=== PATIENT | male | born 1955 | race Caucasian/White ===

== ENCOUNTER → 2020-08-01 10:44 | Outpatient (BNVA) | payer MEDICARE, MEDICAID, SELFPAY | PROVIDERS: PCP Internal Medicine; Referring Provider Internal Medicine; Visit Provider Physician Assistant | DX: M65.351 Trigger finger, right little finger (principal) | CPT/HCPCS: 20550; 99212; J1020 ==

== ENCOUNTER 2020-08-11 11:23 | Outpatient (REF) | payer MEDICARE, MEDICAID, SELFPAY ==
--- NOTE | 2020-08-11 11:24 | XR_ITS ---
EXAMINATION: KNEE X-RAY CLINICAL INFORMATION: Left knee pain COMPARISON: None TECHNIQUE: AP standing view of both knees and lateral and sunrise view of the left knee FINDINGS: Left: Bone alignment is normal. No fracture or dislocation is seen. The joint spaces are normal. There is no joint effusion. There is evidence of atherosclerotic disease. Standing AP view of the right knee is unremarkable. XR/XR knee standing BI IMPRESSION: Left knee: Atherosclerotic disease otherwise unremarkable exam. Unremarkable standing AP view of the right knee.
--- NOTE | 2020-08-11 11:24 | XR_ITS ---
EXAMINATION: KNEE X-RAY CLINICAL INFORMATION: Left knee pain COMPARISON: None TECHNIQUE: AP standing view of both knees and lateral and sunrise view of the left knee FINDINGS: Left: Bone alignment is normal. No fracture or dislocation is seen. The joint spaces are normal. There is no joint effusion. There is evidence of atherosclerotic disease. Standing AP view of the right knee is unremarkable. XR/XR knee LT 2V IMPRESSION: Left knee: Atherosclerotic disease otherwise unremarkable exam. Unremarkable standing AP view of the right knee.
== END 2020-08-11 11:24 | disposition home or self-care (01) ==
LOC: HO.HOSX 11:23
PROVIDERS: Visit Provider Physician Assistant
DX: M25.562 Pain in left knee (principal); M22.2X2 Patellofemoral disorders, left knee
CPT/HCPCS: 73560; 73565; 99212

== ENCOUNTER → 2020-10-29 10:15 | Outpatient (BNVA) | payer MEDICARE, MEDICAID, SELFPAY | PROVIDERS: PCP Internal Medicine; Visit Provider Physician Assistant | DX: M65.321 Trigger finger, right index finger (principal) | CPT/HCPCS: 20550; 99212; J1020 ==

== ENCOUNTER 2020-12-11 12:40 | Outpatient (REF) | payer MEDICARE, MEDICAID, SELFPAY ==
--- NOTE | ~2020-12-11 | XR_ITS ---
EXAMINATION: XR KNEE, RIGHT XR LOWER LEG, RIGHT CLINICAL INFORMATION: Pain right knee and lower leg. COMPARISON: None TECHNIQUE: Right knee is imaged in 4 views. The right lower leg is imaged in 2 views. There are a total of 6 views. FINDINGS: KNEE: There is no fracture, dislocation, or destructive process. No suprapatellar effusion. Hoffa's fat pad appears normal. There is mild narrowing lateral patellofemoral joint likely with borderline lateral patellar tilting. No lateralization patella. No visible erosive changes. The medial and lateral knee joint compartments are unremarkable. There is no erosive change or chondrocalcinosis. Scattered atherosclerotic calcifications present vasculature. LOWER LEG: There is no fracture, dislocation or destructive process. No periostitis. Visualized ankle joint unremarkable. XR/XR tibia fibula RT 2V IMPRESSION: 1. Mild narrowing lateral patellofemoral joint with borderline lateral patellar tilt. 2. No fracture, dislocation, or suprapatellar effusion. 3. Lower leg unremarkable. 4. Atherosclerotic calcifications vasculature.
--- NOTE | ~2020-12-11 | XR_ITS ---
EXAMINATION: XR KNEE, RIGHT XR LOWER LEG, RIGHT CLINICAL INFORMATION: Pain right knee and lower leg. COMPARISON: None TECHNIQUE: Right knee is imaged in 4 views. The right lower leg is imaged in 2 views. There are a total of 6 views. FINDINGS: KNEE: There is no fracture, dislocation, or destructive process. No suprapatellar effusion. Hoffa's fat pad appears normal. There is mild narrowing lateral patellofemoral joint likely with borderline lateral patellar tilting. No lateralization patella. No visible erosive changes. The medial and lateral knee joint compartments are unremarkable. There is no erosive change or chondrocalcinosis. Scattered atherosclerotic calcifications present vasculature. LOWER LEG: There is no fracture, dislocation or destructive process. No periostitis. Visualized ankle joint unremarkable. XR/XR knee RT 3V IMPRESSION: 1. Mild narrowing lateral patellofemoral joint with borderline lateral patellar tilt. 2. No fracture, dislocation, or suprapatellar effusion. 3. Lower leg unremarkable. 4. Atherosclerotic calcifications vasculature.
== END 2020-12-11 12:41 | disposition home or self-care (01) ==
LOC: HO.XRAY 12:40
PROVIDERS: PCP Internal Medicine; Visit Provider Internal Medicine
DX: M25.561 Pain in right knee (principal); M79.604 Pain in right leg
CPT/HCPCS: 73562; 73590

== ENCOUNTER → 2020-12-25 10:56 | Outpatient (BNVA) | payer MEDICARE, MEDICAID, SELFPAY | PROVIDERS: PCP Internal Medicine; Visit Provider Urology | DX: N39.0 Urinary tract infection, site not specified (principal); C67.9 Malignant neoplasm of bladder, unspecified | CPT/HCPCS: 52332; 99212 ==

== ENCOUNTER → 2020-12-26 10:16 | Outpatient (BNVA) | payer MEDICARE, MEDICAID, SELFPAY | PROVIDERS: PCP Internal Medicine; Visit Provider Physician Assistant | DX: G56.02 Carpal tunnel syndrome, left upper limb (principal); M17.11 Unilateral primary osteoarthritis, right knee | CPT/HCPCS: 99212 ==

== ENCOUNTER 2021-01-23 10:57 | Outpatient (REF) | payer MEDICARE, MEDICAID, SELFPAY ==
[2021-01-23 16:50] LABS: Urine Cytology See Pathology rpt
== END 2021-01-23 10:58 | disposition home or self-care (01) ==
LOC: HO.LNP 10:57
PROVIDERS: PCP Internal Medicine; Visit Provider Urology
DX: C67.9 Malignant neoplasm of bladder, unspecified (principal); N40.1 Benign prostatic hyperplasia with lower urinary tract symptoms; R35.0 Frequency of micturition
CPT/HCPCS: 52000; 81002; 88112; 99212

== ENCOUNTER 2021-02-11 09:48 | Outpatient (REF) | payer MEDICARE, MEDICAID, SELFPAY ==
--- NOTE | 2021-02-11 09:51 | EMG_ITS ---
This is a 65-year-old man, who has trigger fingers in both hands, for which he gets cortisone injections. For the last 3 months, he has been having numbness in the left hand. He has a history of diabetes for the last 5 years. Poorly controlled. He is on Ozempic, basaglar, metformin, and NovoLog. Neurological examination reveals decreased sensation in the median nerve distribution and slight flattening of the thenar eminence. IMPRESSION: Carpal tunnel syndrome. Nerve conduction EMG study: Moderately severe carpal tunnel syndrome on the left, mild carpal tunnel syndrome on the right. EMG of the left C6-T1 innervated muscles is consistent with chronic mild innervated changes in the abductor pollicis brevis muscle consistent with chronic carpal tunnel syndrome. MD MARCIN Girard/AURE / [phone]
== END 2021-02-11 09:49 | disposition home or self-care (01) ==
LOC: HO.NEURO 09:48
PROVIDERS: Visit Provider Physician Assistant
DX: R20.0 Anesthesia of skin (principal); R20.2 Paresthesia of skin; G56.02 Carpal tunnel syndrome, left upper limb
CPT/HCPCS: 95885; 95911

== ENCOUNTER 2021-02-19 10:05 | Outpatient (REF) | payer MEDICARE, MEDICAID, SELFPAY ==
[2021-02-19 10:44] LABS: MANUAL DIFF FLAG NO
[2021-02-19 10:55] LABS: Basophils Percent Auto 0.5 % (0-2); Eosinophils Absolute Auto 0.2 X10*3/uL (0.0-0.4); Eosinophils Percent Auto 2.6 % (0-4); Hematocrit 47.1 % (42-52); Hemoglobin 15.5 g/dl (14.0-18.0); Imm Gran Abs Auto 0.03 X10*3/uL (0.00-0.03); Imm Gran Pct Auto 0.4 % (0.0-0.4); Lymphocytes Absolute Auto 2.6 X10*3/uL (1.2-4.9); Lymphocytes Percent Auto 30.3 % (20-40); Mean Corpuscular HGB Conc 32.9 g/dl (31.0-36.0); Mean Corpuscular Hemoglobin 27.5 pg (27.0-33.0); Mean Corpuscular Volume 83.5 fL (80-98); Mean Platelet Volume 8.9 fL (9.4-12.4); Monocytes Absolute Auto 0.6 X10*3/uL (0.1-1.2); Monocytes Percent Auto 7.1 % (2-11); Neutrophils Absolute Auto 5.1 X10*3/uL (2.0-8.3); Neutrophils Percent Auto 59.1 % (45-73); Platelet Count 249 X10*3/uL (160-400); Red Blood Count 5.64 X10*6/uL (4.60-5.80); Red Cell Distribution Width 14.9 % (11.0-16.0); White Blood Count 8.6 X10*3/uL (4.8-10.8)
[2021-02-19 11:06] LABS: Estimated Average Glucose 180 mg/dL; Hemoglobin A1c % 7.9 %
[2021-02-19 11:16] LABS: Alanine Aminotransferase 29 U/L (0-40); Albumin Level 4.2 g/dL (3.5-5.0); Alkaline Phosphatase 70 U/L (39-117); Anion Gap 11 (12-20); Aspartate Amino Transferase 16 U/L (5-37); Bilirubin Total 0.6 mg/dL (0.0-1.0); Blood Urea Nitrogen 14 mg/dL (9-16); Calcium 9.7 mg/dL (8.4-10.2); Carbon Dioxide 28 mmol/L (22-29); Chloride 107 mmol/L (96-108); Cholesterol 133 mg/dL; Estimated Glomerular Filt Rate > 60; Glucose Fasting 156 mg/dL (60-99); HDL Cholesterol 32 mg/dL; LDL Cholesterol Calculated 58 mg/dl; Potassium 4.2 mmol/L (3.3-5.1); Sodium 142 mmol/L (135-145); Total Protein 6.4 g/dL (6.5-8.0); Triglycerides 217 mg/dL
[2021-02-19 11:24] LABS: Glucose Urine UA NEG (NEG); Leukocyte Esterase Urine NEG (NEG); Nitrite Urine NEG (NEG); Specific Gravity - Urine 1.025 (1.005-1.025); Urine Blood TRACE (NEG); Urine Ketones NEG (NEG); Urine Protein 2+ MG/DL (NEG-TRACE)
[2021-02-19 11:30] LABS: Appearance Urine CLEAR; Color Urine YELLOW
[2021-02-19 11:39] LABS: TSH reflex Free T4 0.96 uIU/mL (0.32-4.0)
[2021-02-19 12:33] LABS: Erythrocyte Sedimentation Rate 2 MM/HR (0-15)
[2021-02-19 12:36] LABS: Squamous Epithelial Cell Urine 2+ /LPF; UACC CULT YES
[2021-02-19 12:37] LABS: Granular Casts Urine 0-2 /LPF; Hyaline Casts Urine 0-2 /LPF
[2021-02-19 12:41] LABS: Sperm Urine NOTED
[2021-02-19 12:57] LABS: Microalbum/Creatinine Ratio Ur 834.8 ug/mg cr
== END 2021-02-19 10:06 | disposition home or self-care (01) ==
LOC: HO.LAB 10:05
PROVIDERS: PCP Internal Medicine; Visit Provider Internal Medicine
DX: I10 Essential (primary) hypertension (principal); J44.9 Chronic obstructive pulmonary disease, unspecified; E78.00 Pure hypercholesterolemia, unspecified; E11.29 Type 2 diabetes mellitus with other diabetic kidney complication; R79.89 Other specified abnormal findings of blood chemistry; M16.0 Bilateral primary osteoarthritis of hip; E78.5 Hyperlipidemia, unspecified; E66.9 Obesity, unspecified; F17.200 Nicotine dependence, unspecified, uncomplicated
CPT/HCPCS: 36415; 80053; 80061; 81001; 82043; 83036; 84443; 85025; 85652; 87086

== ENCOUNTER → 2021-04-15 14:53 | Outpatient (BNVA) | payer MEDICARE, MEDICAID, SELFPAY | PROVIDERS: Visit Provider Orthopaedic Surgery | DX: G56.03 Carpal tunnel syndrome, bilateral upper limbs (principal) | CPT/HCPCS: 99202 ==

== ENCOUNTER → 2021-04-23 10:14 | Outpatient (BNVA) | payer MEDICARE, MEDICAID, SELFPAY | PROVIDERS: Visit Provider Physician Assistant | DX: M17.11 Unilateral primary osteoarthritis, right knee (principal) | CPT/HCPCS: 99212 ==

== ENCOUNTER → 2021-04-29 12:25 | Outpatient (BNVA) | payer MEDICARE, MEDICAID, SELFPAY | PROVIDERS: Visit Provider Physician Assistant | DX: M17.11 Unilateral primary osteoarthritis, right knee (principal); E11.29 Type 2 diabetes mellitus with other diabetic kidney complication | CPT/HCPCS: 20610; 99212; J1020 ==

== ENCOUNTER → 2021-06-09 11:03 | Outpatient (BNVA) | payer MEDICARE, MEDICAID, SELFPAY | PROVIDERS: PCP Internal Medicine; Visit Provider Nurse Practitioner Family | DX: M17.11 Unilateral primary osteoarthritis, right knee (principal) | CPT/HCPCS: 99202 ==

== ENCOUNTER 2021-06-26 10:44 | Outpatient (REF) | payer MEDICARE, MEDICAID, SELFPAY ==
[2021-06-26 11:13] LABS: MANUAL DIFF FLAG NO
[2021-06-26 12:03] LABS: Basophils Absolute Auto 0.1 X10*3/uL (0.0-0.2); Basophils Percent Auto 0.6 % (0-2); Eosinophils Absolute Auto 0.2 X10*3/uL (0.0-0.4); Hematocrit 47.7 % (42-52); Hemoglobin 15.8 g/dl (14.0-18.0); Imm Gran Abs Auto 0.03 X10*3/uL (0.00-0.03); Imm Gran Pct Auto 0.4 % (0.0-0.4); Lymphocytes Percent Auto 24.1 % (20-40); Mean Corpuscular HGB Conc 33.1 g/dl (31.0-36.0); Mean Corpuscular Hemoglobin 28.1 pg (27.0-33.0); Mean Corpuscular Volume 84.7 fL (80-98); Mean Platelet Volume 8.7 fL (9.4-12.4); Monocytes Absolute Auto 0.6 X10*3/uL (0.1-1.2); Monocytes Percent Auto 7.4 % (2-11); Neutrophils Absolute Auto 5.5 X10*3/uL (2.0-8.3); Neutrophils Percent Auto 65.5 % (45-73); Platelet Count 284 X10*3/uL (160-400); Red Blood Count 5.63 X10*6/uL (4.60-5.80); Red Cell Distribution Width 15.3 % (11.0-16.0); White Blood Count 8.4 X10*3/uL (4.8-10.8)
[2021-06-26 12:12] LABS: Appearance Urine HAZY; Color Urine YELLOW; Glucose Urine UA NEG (NEG); Leukocyte Esterase Urine NEG (NEG); Nitrite Urine NEG (NEG); Specific Gravity - Urine >= 1.030 (1.005-1.025); UACC Culture Trigger NO; Urine Blood 1+ (NEG); Urine Ketones NEG (NEG); Urine Protein 2+ MG/DL (NEG-TRACE)
[2021-06-26 12:20] LABS: Estimated Average Glucose 157 mg/dL; Hemoglobin A1c % 7.1 %
[2021-06-26 12:25] LABS: Mucus Urine 2+ /LPF; Squamous Epithelial Cell Urine 1+ /LPF; WBC Urine 0 /HPF (0-4)
[2021-06-26 13:34] LABS: Creatinine Urine 234.59 mg/dL
[2021-06-26 14:07] LABS: Microalbum/Creatinine Ratio Ur 948.4 ug/mg cr
== END 2021-06-26 10:45 | disposition home or self-care (01) ==
LOC: HO.LAB 10:44
PROVIDERS: PCP Internal Medicine; Visit Provider Internal Medicine
DX: I10 Essential (primary) hypertension (principal); E78.00 Pure hypercholesterolemia, unspecified; E78.5 Hyperlipidemia, unspecified; E11.29 Type 2 diabetes mellitus with other diabetic kidney complication; R80.9 Proteinuria, unspecified; N40.1 Benign prostatic hyperplasia with lower urinary tract symptoms; R35.0 Frequency of micturition
CPT/HCPCS: 36415; 81001; 82043; 83036; 85025

== ENCOUNTER 2021-06-29 11:16 | Outpatient (REF) | payer MEDICARE, MEDICAID, SELFPAY ==
[2021-06-29 12:32] LABS: Cholesterol 112 mg/dL; HDL Cholesterol 32 mg/dL; LDL Cholesterol Calculated 52 mg/dl; Triglycerides 141 mg/dL
== END 2021-06-29 11:17 | disposition home or self-care (01) ==
LOC: HO.LAB 11:16
PROVIDERS: PCP Internal Medicine; Visit Provider Internal Medicine
DX: E78.00 Pure hypercholesterolemia, unspecified (principal)
CPT/HCPCS: 36415; 80061

== ENCOUNTER → 2021-07-08 09:26 | Outpatient (BNVA) | payer MEDICARE, MEDICAID, SELFPAY | PROVIDERS: PCP Internal Medicine; Visit Provider Physician Assistant | DX: M65.30 Trigger finger, unspecified finger (principal); M17.11 Unilateral primary osteoarthritis, right knee | CPT/HCPCS: 20550; J1100; Q3014 ==

== ENCOUNTER 2021-07-21 05:53 | Outpatient (REF) | payer MEDICARE, MEDICAID, SELFPAY ==
--- NOTE | ~2021-07-21 | FL_ITS ---
EXAMINATION: XR FLUOROSCOPY WITH IMAGES CLINICAL INFORMATION: M17.11 - Unilateral primary osteoarthritis, right knee COMPARISON: Radiographs right knee 12/11/2020 TECHNIQUE: Fluoroscopy performed by pain management physician. Fluoroscopy time: 0.1 minutes DAP: 1.16 Gycm2 Images: 2 FINDINGS: There are spinal needles adjacent to the distal femoral shaft, medial and lateral sides, mid depth. There is a spinal needle adjacent to the proximal tibia on medial side mid depth. FL/FL guidance in treatment room IMPRESSION: Fluoroscopy for pain management procedures.
== END 2021-07-21 05:54 | disposition home or self-care (01) ==
LOC: HO.RADIR 05:53
PROVIDERS: Visit Provider Anesthesiology
DX: M17.11 Unilateral primary osteoarthritis, right knee (principal)
CPT/HCPCS: 64454; Q9967

== ENCOUNTER → 2021-07-28 09:50 | Outpatient (BNVA) | payer MEDICARE, MEDICAID, SELFPAY | PROVIDERS: PCP Internal Medicine; Visit Provider Nurse Practitioner Family | DX: M17.11 Unilateral primary osteoarthritis, right knee (principal) | CPT/HCPCS: 99212 ==

== ENCOUNTER 2021-07-31 09:27 | Outpatient (REF) | payer MEDICARE, MEDICAID, SELFPAY ==
--- NOTE | ~2021-07-31 | MR_ITS ---
EXAMINATION: MR KNEE WITHOUT CONTRAST, RIGHT CLINICAL INFORMATION: Right knee pain. Fracture 30 years ago. COMPARISON: Right knee radiographs dated 12/11/2020. TECHNIQUE: MRI of the knee without contrast was performed using routine sequences on a high-field scanner. FINDINGS: MENISCI: Medial Meniscus: Oblique tibial articular surface tear through the periphery of the meniscal body which extends to the tibial articular surface and peripheral margin of the posterior horn and root. Lateral Meniscus: Intact LIGAMENTS: Cruciate: Intact. Collateral: Intact. EXTENSOR MECHANISM: Intact. ARTICULAR CARTILAGE/BONE: Patellofemoral Compartment: Medial patellar facet and patellar median ridge full-thickness articular cartilage fissuring with signal heterogeneity and surface irregularity. Tiny marginal osteophytes. Medial Compartment: Within the posterior weightbearing medial femoral condyle, there is subchondral linear low T1/T2 signal with prominent marrow edema measuring 1.7 x 0.9 cm (AP x ML), consistent with a subchondral insufficiency fracture. Prominent marrow edema within the medial tibial plateau, likely representing an osseous contusion. Lateral Compartment: Lateral tibial plateau articular cartilage signal heterogeneity and surface irregularity. Tiny marginal osteophytes. Prominent marrow edema within the lateral femoral condyle, consistent with osseous contusions. JOINT FLUID AND BURSAE: Small joint effusion and small Leyva's cyst. MR/MR knee RT wo con IMPRESSION: 1. Oblique tibial articular surface tear of the medial meniscal body extending to the posterior horn and root. 2. Subchondral fracture within the posterior weightbearing medial femoral condyle with prominent associated marrow edema. Probable osseous contusions within the medial tibial plateau and lateral femoral condyle. 3. Mild patellofemoral and lateral compartment osteoarthritis. Small joint effusion and small Leyva's cyst.
== END 2021-07-31 09:28 | disposition home or self-care (01) ==
LOC: HO.MRI 09:27
PROVIDERS: Visit Provider Physician Assistant
DX: M17.11 Unilateral primary osteoarthritis, right knee (principal)
CPT/HCPCS: 73721

== ENCOUNTER → 2021-08-06 13:08 | Outpatient (BNVA) | payer MEDICARE, MEDICAID, SELFPAY | PROVIDERS: Visit Provider Physician Assistant | DX: M17.11 Unilateral primary osteoarthritis, right knee (principal); M16.0 Bilateral primary osteoarthritis of hip; I73.9 Peripheral vascular disease, unspecified; E11.29 Type 2 diabetes mellitus with other diabetic kidney complication; I10 Essential (primary) hypertension; E78.00 Pure hypercholesterolemia, unspecified; E66.9 Obesity, unspecified; F17.210 Nicotine dependence, cigarettes, uncomplicated; Z68.33 Body mass index [BMI] 33.0-33.9, adult; J30.1 Allergic rhinitis due to pollen; Z88.8 Allergy status to other drugs, medicaments and biological substances | CPT/HCPCS: 20610; 99212; J1020 ==

== ENCOUNTER → 2021-09-14 15:00 | Outpatient (BNVA) | payer MEDICARE, MEDICAID, SELFPAY | PROVIDERS: PCP Internal Medicine; Visit Provider Physician Assistant | DX: S83.241A Other tear of medial meniscus, current injury, right knee, initial encounter (principal); M17.11 Unilateral primary osteoarthritis, right knee | CPT/HCPCS: 20610; J7318 ==

== ENCOUNTER 2021-10-24 10:45 | Outpatient (REF) | payer MEDICARE, MEDICAID, SELFPAY ==
[2021-10-24 11:08] LABS: MANUAL DIFF FLAG NO
[2021-10-24 11:54] LABS: Appearance Urine CLEAR; Color Urine YELLOW; Glucose Urine UA NEG (NEG); Leukocyte Esterase Urine NEG (NEG); Nitrite Urine NEG (NEG); Specific Gravity - Urine >= 1.030 (1.005-1.025); UACC Culture Trigger NO; Urine Blood 1+ (NEG); Urine Ketones NEG (NEG); Urine Protein 2+ MG/DL (NEG-TRACE)
[2021-10-24 11:56] LABS: Basophils Absolute Auto 0.1 X10*3/uL (0.0-0.2); Basophils Percent Auto 0.9 % (0-2); Eosinophils Absolute Auto 0.2 X10*3/uL (0.0-0.4); Eosinophils Percent Auto 2.4 % (0-4); Hemoglobin 15.9 g/dl (14.0-18.0); Imm Gran Abs Auto 0.03 X10*3/uL (0.00-0.03); Imm Gran Pct Auto 0.4 % (0.0-0.4); Lymphocytes Absolute Auto 2.4 X10*3/uL (1.2-4.9); Lymphocytes Percent Auto 31.7 % (20-40); Mean Corpuscular HGB Conc 32.4 g/dl (31.0-36.0); Mean Corpuscular Hemoglobin 27.3 pg (27.0-33.0); Mean Corpuscular Volume 84.2 fL (80.0-98.0); Mean Platelet Volume 8.9 fL (9.4-12.4); Monocytes Absolute Auto 0.5 X10*3/uL (0.1-1.2); Monocytes Percent Auto 6.6 % (2-11); Neutrophils Absolute Auto 4.3 x10*3/uL (2.0-8.3); Platelet Count 265 X10*3/uL (160-400); Red Blood Count 5.82 X10*6/uL (4.60-5.80); Red Cell Distribution Width 16.1 % (11.0-16.0); White Blood Count 7.5 X10*3/uL (4.8-10.8)
[2021-10-24 11:59] LABS: Estimated Average Glucose 140 mg/dL; Hemoglobin A1c % 6.5 %
[2021-10-24 12:01] LABS: Estimated Average Glucose 140 mg/dL; Hemoglobin A1c % 6.5 %
[2021-10-24 12:17] LABS: Alanine Aminotransferase 12 U/L (0-40); Albumin Level 4.1 g/dL (3.5-5.0); Alkaline Phosphatase 57 U/L (39-117); Anion Gap 11 (12-20); Aspartate Amino Transferase 12 U/L (5-37); Bilirubin Total 0.8 mg/dL (0.0-1.0); Blood Urea Nitrogen 13 mg/dL (9-16); Calcium 9.4 mg/dL (8.4-10.2); Carbon Dioxide 25 mmol/L (22-29); Chloride 111 mmol/L (96-108); Cholesterol 126 mg/dL; Estimated Glomerular Filt Rate > 60; Glucose Fasting 120 mg/dL (60-99); HDL Cholesterol 34 mg/dL; LDL Cholesterol Calculated 73 mg/dl; Potassium 4.5 mmol/L (3.3-5.1); Sodium 142 mmol/L (135-145); Total Protein 6.4 g/dL (6.5-8.0); Triglycerides 97 mg/dL
[2021-10-24 12:18] LABS: Alanine Aminotransferase 13 U/L (0-40); Aspartate Amino Transferase 14 U/L (5-37)
[2021-10-24 12:32] LABS: Squamous Epithelial Cell Urine TRACE /LPF; WBC Urine 0-2 /HPF (0-4)
[2021-10-24 12:42] LABS: TSH reflex Free T4 1.26 uIU/mL (0.32-4.0); Vitamin D 25-OH Total 17.8 ng/mL (>30)
[2021-10-24 12:48] LABS: Creatinine Urine 203.99 mg/dL; Microalbum/Creatinine Ratio Ur 912.7 ug/mg cr
== END 2021-10-24 10:46 | disposition home or self-care (01) ==
LOC: HO.LAB 10:45
PROVIDERS: Absent Provider Internal Medicine; PCP Internal Medicine; Visit Provider Physician Assistant
DX: E11.21 Type 2 diabetes mellitus with diabetic nephropathy (principal); I10 Essential (primary) hypertension; E78.00 Pure hypercholesterolemia, unspecified; E55.9 Vitamin D deficiency, unspecified
CPT/HCPCS: 36415; 80053; 80061; 81001; 82043; 82306; 83036; 84443; 84450; 84460; 85025

== ENCOUNTER 2021-11-03 14:32 | Outpatient (REF) | payer MEDICARE, MEDICAID, SELFPAY ==
--- NOTE | ~2021-11-03 | CT_ITS ---
EXAMINATION: CT CHEST SCREENING CLINICAL INFORMATION: Personal history of nicotine dependence. COMPARISON: CT chest 05/05/2020. TECHNIQUE: Multidetector volumetric CT imaging of the chest was performed without contrast using low-dose technique. Additional 2D coronal and sagittal reformatted images and axial 3D maximum intensity projection (MIP) images are generated on the CT workstation. This CT examination was performed using dose optimization techniques as appropriate, variously including the following: *Automated exposure control *Adjustment of mA and/or kV according to patient size (this includes techniques or standardized protocols for targeted exams where dose is matched to indication/reason for exam; i.e. extremities or head) *Use of iterative reconstruction technique DLP: 75 mGy-cm FINDINGS: LUNGS: Again visualized is a 4 mm nodule along the right major fissure (axial image 301/6), a 3 mm new nodule in the right middle lobe (axial image 318/6), a 3 mm nodule along the right upper major fissure (axial image 242/6), a 4 mm subpleural nodule in the right lower lobe (image 272/6), a left lower lobe 3 mm nodule adjacent to the left major fissure (axial image 278/6), a left lower lobe 4 mm nodule anterobasal segment (image 373/6). MEDIASTINUM: The thyroid lobes are symmetric and normal. The central trachea and the bronchi are widely patent. A prominent right pretracheal lymph node measures 1.4 x 1.8 cm with central lucency, likely benign. No additional lymph nodes are seen. Heart size and the great vessels are normal caliber. There are mild coronary artery calcifications present. No pericardial effusion. PLEURA: There is no pleural effusion. No pleural mass or thickening. AXILLAE: No lymphadenopathy. UPPER ABDOMEN: Visualized liver, spleen, pancreas and bilateral adrenal glands are unremarkable. OSSEOUS STRUCTURES: No aggressive lytic or sclerotic process seen. CT/CT lung screening IMPRESSION: Stable multiple bilateral pulmonary nodules except for a new 3 mm nodule in the right middle lobe. Stable right pretracheal lymph node which appears stable and has benign characteristics. ASSESSMENT: Lung-RADS category 2: Benign. RECOMMENDATION: None
== END 2021-11-03 14:33 | disposition home or self-care (01) ==
LOC: HO.CT 14:32
PROVIDERS: Visit Provider Physician Assistant Medical
DX: Z87.891 Personal history of nicotine dependence (principal)
CPT/HCPCS: 71271

== ENCOUNTER 2022-02-26 10:59 | Outpatient (REF) | payer MEDICARE, MEDICAID, SELFPAY ==
[2022-02-26 11:09] LABS: MANUAL DIFF FLAG NO
[2022-02-26 11:34] LABS: Basophils Absolute Auto 0.1 X10*3/uL (0.0-0.2); Basophils Percent Auto 0.7 % (0-2); Eosinophils Absolute Auto 0.2 X10*3/uL (0.0-0.4); Eosinophils Percent Auto 2.5 % (0-4); Hematocrit 48.8 % (42.0-52.0); Hemoglobin 16.1 g/dl (14.0-18.0); Imm Gran Abs Auto 0.04 X10*3/uL (0.00-0.03); Imm Gran Pct Auto 0.5 % (0.0-0.4); Lymphocytes Absolute Auto 2.5 X10*3/uL (1.2-4.9); Lymphocytes Percent Auto 28.4 % (20-40); Mean Corpuscular Hemoglobin 27.4 pg (27.0-33.0); Mean Corpuscular Volume 83.1 fL (80.0-98.0); Mean Platelet Volume 8.9 fL (9.4-12.4); Monocytes Absolute Auto 0.7 X10*3/uL (0.1-1.2); Neutrophils Absolute Auto 5.2 x10*3/uL (2.0-8.3); Neutrophils Percent Auto 59.9 % (45-73); Platelet Count 257 X10*3/uL (160-400); Red Blood Count 5.87 X10*6/uL (4.60-5.80); Red Cell Distribution Width 15.4 % (11.0-16.0); White Blood Count 8.7 X10*3/uL (4.8-10.8)
[2022-02-26 11:42] LABS: Estimated Average Glucose 137 mg/dL; Hemoglobin A1c % 6.4 %
[2022-02-26 11:45] LABS: Appearance Urine CLEAR; Color Urine YELLOW; Glucose Urine UA NEG (NEG); Leukocyte Esterase Urine NEG (NEG); Nitrite Urine NEG (NEG); UACC Culture Trigger NO; Urine Blood TRACE (NEG); Urine Ketones NEG (NEG); Urine Protein 2+ MG/DL (NEG-TRACE)
[2022-02-26 12:00] LABS: Creatinine Urine 120.13 mg/dL
[2022-02-26 12:02] LABS: Squamous Epithelial Cell Urine 1+ /LPF
[2022-02-26 12:03] LABS: Bacteria Urine TRACE /LPF; WBC Urine 0-2 /HPF (0-4)
[2022-02-26 12:22] LABS: Microalbum/Creatinine Ratio Ur 416.2 ug/mg cr; Microalbumin Urine > 500.0 mg/L
[2022-02-26 12:46] LABS: Vitamin D 25-OH Total 38.5 ng/mL (>30)
[2022-02-26 12:50] LABS: Alanine Aminotransferase 12 U/L (0-40); Albumin Level 4.3 g/dL (3.5-5.0); Alkaline Phosphatase 62 U/L (39-117); Anion Gap 14 (12-20); Aspartate Amino Transferase 13 U/L (5-37); Bilirubin Total 0.8 mg/dL (0.0-1.0); Blood Urea Nitrogen 13 mg/dL (9-16); Calcium 9.5 mg/dL (8.4-10.2); Carbon Dioxide 25 mmol/L (22-29); Chloride 107 mmol/L (96-108); Cholesterol 117 mg/dL; Estimated Glomerular Filt Rate > 60; Glucose Fasting 97 mg/dL (60-99); HDL Cholesterol 33 mg/dL; LDL Cholesterol Calculated 58 mg/dl; Potassium 4.7 mmol/L (3.3-5.1); Sodium 141 mmol/L (135-145); Total Protein 6.7 g/dL (6.5-8.0); Triglycerides 130 mg/dL
== END 2022-02-26 11:00 | disposition home or self-care (01) ==
LOC: HO.LAB 10:59
PROVIDERS: PCP Internal Medicine; Visit Provider Internal Medicine
DX: I10 Essential (primary) hypertension (principal); E11.9 Type 2 diabetes mellitus without complications; E78.00 Pure hypercholesterolemia, unspecified; E55.9 Vitamin D deficiency, unspecified
CPT/HCPCS: 36415; 80053; 80061; 81001; 82043; 82306; 83036; 84443; 85025

== ENCOUNTER 2022-03-02 11:56 | Outpatient (REF) | payer MEDICARE, MEDICAID, SELFPAY ==
--- NOTE | ~2022-03-02 | XR_ITS ---
EXAMINATION: LUMBAR SPINE AND A LEFT HIP. CLINICAL INFORMATION: Low back pain COMPARISON: None TECHNIQUE: Lumbar spine 3 views. Left hip 2 views. FINDINGS: Lumbar spine: There is normal lumbar lordosis. The vertebral heights, alignment and disc heights are normal. There is no visible acute fracture, dislocation or subluxation seen. There is no lytic process. There is a right common iliac vascular stent. There are phleboliths in the left pelvis. Bowel gas pattern is suggestive of mild constipation. Left hip: There is no visible acute fracture, dislocation or subluxation seen. No bony erosive changes. The soft tissues are normal. There is a vascular stent seen in the left mid thigh. XR/XR lumbar spine 2-3V IMPRESSION: Unremarkable lumbar spine exam.
--- NOTE | ~2022-03-02 | XR_ITS ---
EXAMINATION: LUMBAR SPINE AND A LEFT HIP. CLINICAL INFORMATION: Low back pain COMPARISON: None TECHNIQUE: Lumbar spine 3 views. Left hip 2 views. FINDINGS: Lumbar spine: There is normal lumbar lordosis. The vertebral heights, alignment and disc heights are normal. There is no visible acute fracture, dislocation or subluxation seen. There is no lytic process. There is a right common iliac vascular stent. There are phleboliths in the left pelvis. Bowel gas pattern is suggestive of mild constipation. Left hip: There is no visible acute fracture, dislocation or subluxation seen. No bony erosive changes. The soft tissues are normal. There is a vascular stent seen in the left mid thigh. XR/XR hip LT min 2V IMPRESSION: Unremarkable lumbar spine exam.
== END 2022-03-02 11:57 | disposition home or self-care (01) ==
LOC: HO.XRAY 11:56
PROVIDERS: PCP Internal Medicine; Visit Provider Internal Medicine
DX: M25.552 Pain in left hip (principal); M54.10 Radiculopathy, site unspecified; M79.605 Pain in left leg; M54.50 Low back pain, unspecified
CPT/HCPCS: 72100; 73502

== ENCOUNTER 2022-03-16 11:25 | Outpatient (REF) | payer MEDICARE, MEDICAID, SELFPAY ==
[2022-03-16 16:36] LABS: Urine Cytology See Pathology rpt
== END 2022-03-16 11:26 | disposition home or self-care (01) ==
LOC: HO.LAB 11:25
PROVIDERS: Visit Provider Urology
DX: C67.9 Malignant neoplasm of bladder, unspecified (principal); N32.81 Overactive bladder; R80.9 Proteinuria, unspecified
CPT/HCPCS: 52000; 88112; 99212

== ENCOUNTER 2022-05-13 08:48 | Outpatient (REF) | payer MEDICARE, MEDICAID, SELFPAY ==
--- NOTE | 2022-05-13 08:51 | EMG_ITS ---
Left tibial and peroneal motor studies were performed. Left superficial peroneal, sural sensory, and tibial H reflexes were obtained. Paraspinal muscles were tested with a needle. 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 MD PROSPER Roland/ALEXANDREL / [phone]
== END 2022-05-13 08:49 | disposition home or self-care (01) ==
LOC: HO.NEURO 08:48
PROVIDERS: Visit Provider Internal Medicine
DX: M79.606 Pain in leg, unspecified (principal); G62.9 Polyneuropathy, unspecified
CPT/HCPCS: 95886; 95909

== ENCOUNTER 2022-05-22 13:10 | Emergency (ER) | payer OTHER, SELFPAY ==
--- NOTE | ~2022-05-22 | US_ITS ---
EXAMINATION: US VENOUS ULTRASOUND WITH DOPPLER LOWER EXTREMITY, LEFT CLINICAL INFORMATION: Pain COMPARISON: None TECHNIQUE: Ultrasound of the deep veins is performed from the hip to the calf with compression sonography and color and pulse Doppler assessment. Spectral analysis with color-flow imaging is performed. FINDINGS: There is normal venous compression and respiratory variation and augmented flow. The visualized common femoral vein, superficial femoral vein, profunda femoral vein, popliteal vein, and the trifurcation region shows no evidence of deep venous thrombosis. There is no significant popliteal fossa cyst. Contralateral right common femoral vein is patent. US/US venous duplex LE LT IMPRESSION: No DVT demonstrated in the left lower extremity.
[2022-05-22 13:36] VITALS: BP 158/81; PULSE 65; RESP 18; TEMP 37; O2SAT 97; BMI 31.5
--- NOTE | 2022-05-22 15:39 | PC.NURSE ---
PT BEING SEEN BY PCP [facility] FOR NERVE TESTING, RESULTS STILL PENDING. PT AMBULATING STEADILY, INDEPENDENTLY WITH NO ISSUE. STATES SEVERE PAIN IN RADIATING DOWN LLE, EXCRUCIATING WHEN WALKING.
--- NOTE | 2022-05-22 16:53 | PC.NURSE ---
US AT BEDSIDE
[2022-05-22 18:29] VITALS: BP 195/88; PULSE 58; RESP 16; O2SAT 98
[2022-05-22] MEDS: oxyCODONE HCl Immed Release 5 MG TABLET PO (18:31)
[2022-05-22] MEDS: Acetaminophen 325 MG TABLET 975 MG PO (18:31)
--- NOTE | 2022-05-22 21:35 | ED.GENADULT ---
HPI - General Adult General Chief complaint: Extremity Problem Stated complaint: pain on left leg Time Seen by Provider: 05/22/22 15:50 History of Present Illness HPI narrative: patient complains of worsening pain in the left leg from the thigh down to the calf, his doctor has told him it is likely neuropathy He also was told he has some peripheral vascular disease He denies any redness or rash or new injury he denies any weakness or numbness He denies any back pain or any pain radiating down the leg from the back Related Data Home Medications Medication Instructions Recorded Confirmed aspirin 81 mg tablet,delayed 81 mg PO DAILY 06/30/20 03/02/22 release cilostazol 50 mg tablet 50 mg PO BID 06/30/20 03/02/22 clonazepam 0.5 mg tablet 0.5 mg PO DAILY PRN 06/30/20 03/02/22 ipratropium 20 mcg-albuterol 100 1 puff inhalation Q6H 06/30/20 03/02/22 mcg/actuation mist for inhalation omeprazole 20 mg capsule,delayed 20 mg PO BID 06/30/20 03/02/22 release paroxetine HCl 40 mg tablet 40 mg PO DAILY 06/30/20 03/02/22 ipratropium 20 mcg-albuterol 100 1 puff inhalation Q6H 08/11/20 03/02/22 mcg/actuation mist for inhalation (Combivent Respimat) pen needle, diabetic 31 gauge x #50 ea 11/04/20 03/02/2212/02 insulin aspart U-100 100 unit/mL 20 unit subcut TID 06/09/21 03/02/22 (3 mL) subcutaneous pen (Novolog Flexpen U-100 Insulin aspart) insulin glargine 100 unit/mL (3 64 unit subcut .hs 06/09/21 03/02/22 mL) subcutaneous pen (Basaglar KwikPen U-100 Insulin) ipratropium bromide 21 mcg (0.03 intranasal BEDTIME 07/03/21 03/02/22 %) nasal spray semaglutide 1 mg/dose (2 mg/1.5 1 mg subcut QWEEK 07/28/21 03/02/22 mL) subcutaneous pen injector (Ozempic) semaglutide 1 mg/dose (4 mg/3 mL) mg subcut 03/16/22 subcutaneous pen injector (Ozempic) Previous Rx's Medication Instructions Recorded metformin 500 mg tablet,extended 1,000 mg PO BID #360 tabs 06/09/21 release 24 hr oxybutynin chloride 15 mg 15 mg PO BID 90 days #180 tabs 09/14/21 tablet,extended release 24 hr cholecalciferol (vitamin D3) 50 50 mcg PO DAILY 90 days #90 caps 11/09/21 mcg (2,000 unit) capsule albuterol sulfate 2.5 mg/3 mL 2.5 mg (3 mL) continuous 11/16/21 (0.083 %) solution for nebulization nebulization Q4-6H PRN shortness of breath or wheezing 30 days #180 mL losartan 50 mg tablet 50 mg PO DAILY #90 tabs 12/29/21 rosuvastatin 40 mg tablet 40 mg PO DAILY #90 tabs 12/29/21 gabapentin 100 mg capsule 100 mg PO BEDTIME #30 caps 04/23/22 acetaminophen 500 mg tablet 1,000 mg PO QID PRN pain #30 tabs 05/22/22 oxycodone 5 mg tablet 5 mg PO Q6H PRN pain #14 tabs 05/22/22 Allergies Allergy/AdvReac Type Severity Reaction Status Date / Time varenicline [From Chantix] AdvReac Unknown nightmares Verified 03/16/22 07:42 ENVIRONMENTAL Allergy Unknown ? Uncoded 03/16/22 07:42 RXN- ALLERGY SHOTS FOR YRS TREES AND GRASS Allergy Unknown Unknown Uncoded 03/16/22 07:42 Review of Systems Review of Systems: Positive for left leg pain Negatives no fever no chills no dizziness weakness no fainting no feeling faint no headache no neck pain no chest pain no back pain no radiating pain no loss of sensation no redness or swelling no weakness to the limb Yes all other systems are reviewed and are negative PMFSH Past Medical History Source: nursing notes reviewed Medical History Holland's palsy Surgical History History of bladder surgery History of cystoscopy History of nasal septoplasty History of tooth extraction PVD (peripheral vascular disease) Family History Family History Father ETOH abuse Mother Obese Cancer Diabetes Brother Diabetes Other Mental health problem Substance abuse Social History Social History Housing: Apartment Alcohol intake: current Alcohol intake frequency: holidays/special occasions only Patient Tobacco Use Status: Current everyday Tobacco user Tobacco use type: Cigarette Cigarettes Per Day: 13 Second Hand Smoke Exposure: Yes Advance Directives: No Advance Directives Information Provided: No service: No Current occupational status: disabled Cognitive needs: No Hearing needs: No Vision needs: Yes Physical Exam ED Vital Signs: Vital Signs - 24 hr 05/22/22 13:36 05/22/22 18:29 Temperature 98.6 F Pulse Rate 65 58 Respiratory Rate 18 16 Blood Pressure 158/81 H 195/88 H Pulse Oximetry 97 98 Oxygen Delivery Method Room Air Room Air BMI result Body Mass Index 31.5 Head normocephalic atraumatic Neck is supple nontender Chest clear to auscultation bilateral no chest wall tenderness no pleuritic pain Heart no murmur Abdomen soft nontender Extremities full range of motion x4 The left leg did have both anterior and posterior tenderness, no obvious swelling, there is full range of motion in the joints, neurovascular intact distal and skin was normal color Other extremities normal Skin no rash Neuro no focal motor sensory deficits Course Course Course Narrative: Ultrasound was negative for any DVT, exam did not show any acute ischemic or infectious cause, skin was normal and patient will follow with his doctor for further evaluation for possible neuropathy Discharge Plan Discharge Clinical Impression: Left leg pain Patient Disposition: Home, Self-Care Additional Instructions: ultrasound was negative, no sign of any blood clot No sign of any infection or dangerous or serious condition It is possible this is a result of decreasing circulation to the leg over time, or diabetic neuropathy Follow with your doctor for further evaluation Return any time if worse Prescriptions: New oxycodone 5 mg tablet 5 mg PO Q6H PRN (Reason: pain) Qty: 14 0RF Rx Instructions: Partial Fill upon patient request. acetaminophen 500 mg tablet 1,000 mg PO QID PRN (Reason: pain) Qty: 30 0RF No Action metformin 500 mg tablet extended release 24 hr 1,000 mg PO BID Qty: 360 3RF oxybutynin chloride 15 mg tablet extended release 24 hr 15 mg PO BID 90 Days Qty: 180 1RF albuterol sulfate 2.5 mg /3 mL (0.083 %) solution for nebulization 2.5 mg continuous nebulization Q4-6H PRN (Reason: shortness of breath or wheezing) 30 Days Qty: 180 5RF rosuvastatin 40 mg tablet 40 mg PO DAILY Qty: 90 1RF losartan 50 mg tablet 50 mg PO DAILY Qty: 90 1RF gabapentin 100 mg capsule 100 mg PO BEDTIME Qty: 30 0RF (DME) pen needle, diabetic 31 gauge x 3/16 needle See Rx Instructions .ROUTE QID Qty: 50 Rx Instructions: As directed ipratropium bromide 21 mcg (0.03 %) spray,non-aerosol intranasal BEDTIME paroxetine HCl 40 mg tablet 40 mg PO DAILY clonazepam 0.5 mg tablet 0.5 mg PO DAILY PRN cilostazol 50 mg tablet 50 mg PO BID omeprazole 20 mg capsule,delayed release(DR/EC) 20 mg PO BID aspirin 81 mg tablet,delayed release (DR/EC) 81 mg PO DAILY ipratropium-albuterol 20-100 mcg/actuation mist 1 puff inhalation Q6H cholecalciferol (vitamin D3) 50 mcg (2,000 unit) capsule 50 mcg PO DAILY 90 Days Qty: 90 3RF Combivent Respimat 20-100 mcg/actuation mist 1 puff inhalation Q6H insulin aspart U-100 [Novolog Flexpen U-100 Insulin] 100 unit/mL (3 mL) insulin pen 20 unit subcut TID Basaglar KwikPen U-100 Insulin 100 unit/mL (3 mL) insulin pen 64 unit subcut .hs Ozempic 1 mg/dose (2 mg/1.5 mL) pen injector 1 mg subcut QWEEK Ozempic 1 mg/dose (4 mg/3 mL) pen injector subcut Interventions: ED Discharge Assessment Last Done: 05/22/22 18:31 Discharge Date/Time: 05/22/22 18:32
== END 2022-05-22 18:32 | disposition home or self-care (01) ==
PROVIDERS: Emergency Provider Student in an Organized Health Care Education/Training Program; PCP Internal Medicine
DX: M79.605 Pain in left leg (principal); I10 Essential (primary) hypertension; E11.9 Type 2 diabetes mellitus without complications; E78.00 Pure hypercholesterolemia, unspecified; Z79.84 Long term (current) use of oral hypoglycemic drugs; Z79.02 Long term (current) use of antithrombotics/antiplatelets; Z79.82 Long term (current) use of aspirin; Z79.4 Long term (current) use of insulin
CPT/HCPCS: 93971; 99284

== ENCOUNTER 2022-06-14 10:06 | Outpatient (REF) | payer OTHER, SELFPAY ==
--- NOTE | ~2022-06-14 | XR_ITS ---
EXAMINATION: XR KNEE, LEFT CLINICAL INFORMATION: Left knee pain. COMPARISON: 08/11/2020. TECHNIQUE: Three views of the left knee. FINDINGS: Tiny patellar osteophytes. No fracture or joint effusion. Alignment is anatomic. Joint spaces are well maintained. Atherosclerotic calcifications are evident within the popliteal artery. A vascular stent is seen in the region of the adductor canal. XR/XR knee LT 3V IMPRESSION: Minimal patellofemoral compartment arthrosis. Left knee joint is otherwise normal.
== END 2022-06-14 10:07 | disposition home or self-care (01) ==
LOC: HO.XRAY 10:06
PROVIDERS: PCP Internal Medicine; Visit Provider Internal Medicine
DX: M25.562 Pain in left knee (principal)
CPT/HCPCS: 73562

== ENCOUNTER 2022-07-05 11:03 | Outpatient (REF) | payer MEDICARE, MEDICAID, SELFPAY ==
[2022-07-05 11:12] LABS: MANUAL DIFF FLAG NO
[2022-07-05 12:05] LABS: Basophils Percent Auto 0.5 % (0-2); Eosinophils Absolute Auto 0.2 X10*3/uL (0.0-0.4); Eosinophils Percent Auto 1.9 % (0-4); Hematocrit 49.6 % (42.0-52.0); Hemoglobin 16.5 g/dl (14.0-18.0); Imm Gran Abs Auto 0.03 X10*3/uL (0.00-0.03); Imm Gran Pct Auto 0.4 % (0.0-0.4); Lymphocytes Absolute Auto 2.3 X10*3/uL (1.2-4.9); Mean Corpuscular HGB Conc 33.3 g/dl (31.0-36.0); Mean Corpuscular Hemoglobin 27.9 pg (27.0-33.0); Mean Corpuscular Volume 83.9 fL (80.0-98.0); Monocytes Absolute Auto 0.5 X10*3/uL (0.1-1.2); Monocytes Percent Auto 6.8 % (2-11); Neutrophils Absolute Auto 4.8 x10*3/uL (2.0-8.3); Neutrophils Percent Auto 61.4 % (45-73); Platelet Count 274 X10*3/uL (160-400); Red Blood Count 5.91 X10*6/uL (4.60-5.80); Red Cell Distribution Width 15.8 % (11.0-16.0); White Blood Count 7.8 X10*3/uL (4.8-10.8)
[2022-07-05 12:11] LABS: Appearance Urine Clear; Color Urine Yellow; Glucose Urine UA Negative (Negative); Leukocyte Esterase Urine Negative (Negative); Nitrite Urine Negative (Negative); UMIC TRIGGER UACC YES; Urine Blood Trace (Negative); Urine Ketones Negative (Negative); Urine Protein 300 (3+) mg/dL (Neg-Trace)
[2022-07-05 12:14] LABS: Bacteria Urine None Seen (None Seen); Hyaline Casts Urine 0-2 /LPF (0-2); Squamous Epithelial Cell Urine 0-2 /HPF (0-2); WBC Urine 0-5 /HPF (0-5)
[2022-07-05 12:19] LABS: Estimated Average Glucose 151 mg/dL; Hemoglobin A1c % 6.9 %
[2022-07-05 12:34] LABS: Alanine Aminotransferase 21 U/L (0-40); Albumin Level 4.4 g/dL (3.5-5.0); Alkaline Phosphatase 60 U/L (39-117); Anion Gap 16 (12-20); Aspartate Amino Transferase 15 U/L (5-37); Bilirubin Total 0.7 mg/dL (0.0-1.0); Blood Urea Nitrogen 16 mg/dL (9-16); Calcium 9.7 mg/dL (8.4-10.2); Carbon Dioxide 25 mmol/L (22-29); Chloride 106 mmol/L (96-108); Cholesterol 144 mg/dL; Estimated Glomerular Filt Rate > 60; Glucose Fasting 129 mg/dL (60-99); HDL Cholesterol 35 mg/dL; LDL Cholesterol Calculated 79 mg/dl; Sodium 142 mmol/L (135-145); Total Protein 6.6 g/dL (6.5-8.0); Triglycerides 154 mg/dL
[2022-07-05 12:57] LABS: TSH reflex Free T4 1.37 uIU/mL (0.32-4.0); Vitamin D 25-OH Total 31.6 ng/mL (>30)
[2022-07-05 13:07] LABS: Microalbum/Creatinine Ratio Ur 794.4 ug/mg cr
== END 2022-07-05 11:04 | disposition home or self-care (01) ==
LOC: HO.LAB 11:03
PROVIDERS: PCP Internal Medicine; Visit Provider Internal Medicine
DX: E55.9 Vitamin D deficiency, unspecified (principal); E11.9 Type 2 diabetes mellitus without complications; E78.00 Pure hypercholesterolemia, unspecified; I10 Essential (primary) hypertension
CPT/HCPCS: 36415; 80053; 80061; 81001; 82043; 82306; 83036; 84443; 85025

== ENCOUNTER 2022-11-08 10:58 | Outpatient (REF) | payer MEDICARE, MEDICAID, SELFPAY ==
[2022-11-08 11:17] LABS: MANUAL DIFF FLAG NO
[2022-11-08 12:00] LABS: Basophils Absolute Auto 0.1 X10*3/uL (0.0-0.2); Basophils Percent Auto 0.8 % (0-2); Eosinophils Absolute Auto 0.2 X10*3/uL (0.0-0.4); Eosinophils Percent Auto 2.4 % (0-4); Hematocrit 49.2 % (42.0-52.0); Hemoglobin 16.3 g/dl (14.0-18.0); Imm Gran Abs Auto 0.03 X10*3/uL (0.00-0.03); Imm Gran Pct Auto 0.4 % (0.0-0.4); Lymphocytes Absolute Auto 1.8 X10*3/uL (1.2-4.9); Lymphocytes Percent Auto 24.9 % (20-40); Mean Corpuscular HGB Conc 33.1 g/dl (31.0-36.0); Mean Corpuscular Volume 84.4 fL (80.0-98.0); Mean Platelet Volume 9.2 fL (9.4-12.4); Monocytes Absolute Auto 0.5 X10*3/uL (0.1-1.2); Monocytes Percent Auto 6.6 % (2-11); Neutrophils Absolute Auto 4.6 x10*3/uL (2.0-8.3); Neutrophils Percent Auto 64.9 % (45-73); Platelet Count 270 X10*3/uL (160-400); Red Blood Count 5.83 X10*6/uL (4.60-5.80); White Blood Count 7.1 X10*3/uL (4.8-10.8)
[2022-11-08 12:09] LABS: Estimated Average Glucose 151 mg/dL; Hemoglobin A1c % 6.9 %
[2022-11-08 12:11] LABS: Appearance Urine Clear; Color Urine Yellow; Glucose Urine UA Negative (Negative); Leukocyte Esterase Urine Negative (Negative); Nitrite Urine Negative (Negative); PH 5.5 (5.0-9.0); Specific Gravity - Urine 1.025 (1.005-1.025); UMIC TRIGGER UACC YES; Urine Blood Negative (Negative); Urine Ketones Negative (Negative); Urine Protein 100 (2+) mg/dL (Neg-Trace)
[2022-11-08 12:16] LABS: Bacteria Urine None Seen (None Seen); Hyaline Casts Urine 0-2 /LPF (0-2); Squamous Epithelial Cell Urine 0-2 /HPF (0-2); WBC Urine 0-5 /HPF (0-5)
[2022-11-08 12:18] LABS: Alanine Aminotransferase 16 U/L (0-40); Albumin Level 4.3 g/dL (3.5-5.0); Alkaline Phosphatase 57 U/L (39-117); Anion Gap 16 (12-20); Aspartate Amino Transferase 14 U/L (5-37); Bilirubin Total 0.9 mg/dL (0.0-1.0); Blood Urea Nitrogen 19 mg/dL (9-16); Calcium 9.3 mg/dL (8.4-10.2); Carbon Dioxide 21 mmol/L (22-29); Chloride 109 mmol/L (96-108); Cholesterol 115 mg/dL; Estimated Glomerular Filt Rate > 60; Glucose Fasting 86 mg/dL (60-99); HDL Cholesterol 34 mg/dL; LDL Cholesterol Calculated 66 mg/dl; Potassium 4.3 mmol/L (3.3-5.1); Sodium 142 mmol/L (135-145); Total Protein 6.5 g/dL (6.5-8.0); Triglycerides 78 mg/dL
[2022-11-08 12:23] LABS: Creatinine Urine 161.54 mg/dL
[2022-11-08 12:35] LABS: TSH reflex Free T4 1.57 uIU/mL (0.32-4.0); Vitamin D 25-OH Total 35.5 ng/mL (>30)
== END 2022-11-08 10:59 | disposition home or self-care (01) ==
LOC: HO.LAB 10:58
PROVIDERS: PCP Internal Medicine; Visit Provider Internal Medicine
DX: I10 Essential (primary) hypertension (principal); E11.9 Type 2 diabetes mellitus without complications; E55.9 Vitamin D deficiency, unspecified; E78.00 Pure hypercholesterolemia, unspecified
CPT/HCPCS: 36415; 80053; 80061; 81001; 81003; 82043; 82306; 83036; 84443; 85025

== ENCOUNTER → 2022-12-01 12:40 | Outpatient (BNVA) | payer MEDICARE, MEDICAID, SELFPAY | PROVIDERS: PCP Internal Medicine; Visit Provider Orthopaedic Surgery | DX: G56.03 Carpal tunnel syndrome, bilateral upper limbs (principal); M17.11 Unilateral primary osteoarthritis, right knee | CPT/HCPCS: 99212 ==

== ENCOUNTER 2022-12-06 08:55 | Day surgery (SDC) | payer MEDICARE, MEDICAID, SELFPAY ==
--- NOTE | 2022-12-06 10:19 | W.PM.OPN ---
Operative Note Operative Note Date of Service: 12/06/22 Narrative: Preop diagnosis: 1. Left Carpal tunnel syndrome Postop diagnosis: same Procedure: 1. Left Carpal tunnel release Surgeon: Ines Amos MD Anesthesia: local block using 1% lidocaine with epinephrine Findings: Thickened transverse carpal ligament. EBL: Less than 5 mL Specimens: None Complications: None Disposition: Brought to recovery room in stable condition Plan: Follow-up for 10-14 days for wound check and suture removal Indications: The patient is 67 years old, with left carpal tunnel syndrome that has been unresponsive to nonoperative management. The risks and benefits of operative treatment including but not limited to risk of damage to blood vessels, nerves, tendons, infection, persistent pain, persistent symptoms, or possible need for additional surgery were discussed with the patient and the patient wishes to proceed with surgery. Procedure: Once consent was obtained a local block was performed using a combination of 1% lidocaine with epinephrine. The patient was then brought back to the operating suite and placed on the operative table in supine position. The left upper extremity was prepped and draped in a standard surgical fashion. Once assured that we had a good block, a 2.0 cm longitudinal incision was made centered over the carpal tunnel. The incision was made through the skin to the subcutaneous tissues using a #15 blade. Dissection was made down to the level of the transverse carpal ligament with care being taken to protect the palmar cutaneous nerve. Once the transverse carpal ligament was clearly visualized, a longitudinal incision was made in the transverse carpal ligament 1st using a #15 blade, then using tenotomy scissors under direct visualization. Care was taken to look for and protect the motor branch of the median nerve when seen in this area. Once satisfied with our carpal tunnel release the wound was copiously irrigated with normal saline and hemostasis was obtained with a brief period of local pressure. The skin edges were reapproximated with some 5.0 nylon suture material and a sterile dressing was applied. The patient appears to have tolerated the procedure well and with no complications. All digits were well vascularized at the conclusion of the case.
--- NOTE | 2022-12-06 10:21 | MHC.SHP ---
Pre-Procedural Eval Section A Date of Service: 12/06/22 The patient is an INPATIENT: No Changes since office visit: No Cold of Flu in the past 2 weeks, No New Medical Problems, No Changes in Medication and No Patient answered all questions The History & Physical has been completed within 30 days and I have reviewed it.: Yes Section B Chief Complaint: Carpal tunnel syndrome, left upper limb Allergies: Allergies Allergy/AdvReac Type Severity Reaction Status Date / Time varenicline [From Chantix] AdvReac Unknown nightmares Verified 12/01/22 12:56 ENVIRONMENTAL Allergy Unknown ? Uncoded 12/01/22 12:56 RXN- ALLERGY SHOTS FOR YRS TREES AND GRASS Allergy Unknown Unknown Uncoded 12/01/22 12:56 Plan I have reviewed the history and physical and performed a pertinent physical examination on my patient. No changes have occurred unless specified. Time Spent With Patient Time: Total time managing care of this patient today ____ minutes.
[2022-12-06 10:27] VITALS: BP 117/69; PULSE 55; RESP 16; TEMP 36.3; O2SAT 94; BMI 33.0
[2022-12-06 12:27] VITALS: BP 129/62; PULSE 84; RESP 16; O2SAT 97
== END 2022-12-06 12:33 | disposition home or self-care (01) ==
PROVIDERS: PCP Internal Medicine; Visit Provider Orthopaedic Surgery
PROC: (CPT 64721; principal; 2022-12-06 10:50)
DX: G56.02 Carpal tunnel syndrome, left upper limb (principal); R20.0 Anesthesia of skin; M17.11 Unilateral primary osteoarthritis, right knee; G51.0 Bell's palsy; J44.9 Chronic obstructive pulmonary disease, unspecified; I10 Essential (primary) hypertension; F33.9 Major depressive disorder, recurrent, unspecified; E11.29 Type 2 diabetes mellitus with other diabetic kidney complication; N28.9 Disorder of kidney and ureter, unspecified; F17.210 Nicotine dependence, cigarettes, uncomplicated
CPT/HCPCS: 64721; J0171

== ENCOUNTER → 2022-12-21 10:19 | Outpatient (BNVA) | payer MEDICARE, MEDICAID, SELFPAY | PROVIDERS: PCP Internal Medicine; Visit Provider Orthopaedic Surgery | DX: G56.03 Carpal tunnel syndrome, bilateral upper limbs (principal) | CPT/HCPCS: 99212 ==

== ENCOUNTER → 2022-12-23 14:16 | Outpatient (BNVA) | payer MEDICARE, MEDICAID, SELFPAY | PROVIDERS: PCP Internal Medicine; Visit Provider Physician Assistant | DX: M17.11 Unilateral primary osteoarthritis, right knee (principal) | CPT/HCPCS: 99212 ==

== ENCOUNTER 2023-01-10 10:15 | Day surgery (SDC) | payer MEDICARE, MEDICAID, SELFPAY ==
--- NOTE | 2023-01-07 13:49 | HO.ANESPROP2 ---
HPI - Anesthesia Eval Consult details Narrative: 67yo M for Right Carpal Tunnel Release PMFSH Active Problems Active Problems: All Active Problems (Updated 06/14/22 @ 10:01 by Brayden Sandra MD) Left knee pain (Acute) Neuropathy (Acute) Leg pain (Acute) Overactive bladder (Acute) Left leg pain (Acute) Left hip pain (Acute) Vitamin D deficiency (Acute) Prostate cancer screening (Acute) Medicare annual wellness visit, initial (Acute ~09/09/21) Tear of medial meniscus of right knee, current (Acute) Trigger finger, right (Acute) Primary osteoarthritis of right knee (Acute) Carpal tunnel syndrome of right wrist (Acute) Carpal tunnel syndrome of left wrist (Acute) Low back pain (Acute) Carpal tunnel syndrome, bilateral (Acute) Bladder cancer (Acute) Osteoarthritis of right knee (Acute) Carpal tunnel syndrome on left (Acute) Recurrent UTI (Acute) Right leg pain (Acute) Right knee pain (Acute) Trigger finger, right index finger (Acute) Patellofemoral syndrome of left knee (Acute) Trigger finger, right (Acute) Smoker (Acute) Chronic sore throat (Acute) Obesity (BMI 30-39.9) (Acute) Major depressive disorder, recurrent, unspecified (Acute) Anxiety (Acute) Benign prostatic hyperplasia with lower urinary tract symptoms (Acute) Primary osteoarthritis of both hips (Acute) Elevated LFTs (Acute) COPD (chronic obstructive pulmonary disease) (Acute) Pure hypercholesterolemia (Acute) Essential hypertension (Acute) Proteinuria (Acute) Type 2 diabetes mellitus with other diabetic kidney complication (Acute) Past Medical History Medical History Anxiety Holland's palsy Benign prostatic hyperplasia with lower urinary tract symptoms Carpal tunnel syndrome, bilateral Chronic sore throat COPD (chronic obstructive pulmonary disease) Elevated LFTs Essential hypertension Major depressive disorder, recurrent, unspecified Obesity (BMI 30-39.9) Primary osteoarthritis of both hips Proteinuria Pure hypercholesterolemia Right knee pain Right leg pain Smoker Type 2 diabetes mellitus with other diabetic kidney complication Vitamin D deficiency Family History Family History Father ETOH abuse Mother Obese Cancer Diabetes Brother Diabetes Other Mental health problem Substance abuse Surgical History Surgical History History of bladder surgery History of cystoscopy History of nasal septoplasty History of tooth extraction PVD (peripheral vascular disease) Social History Social History Housing: Apartment Alcohol intake: current Alcohol intake frequency: holidays/special occasions only Patient Tobacco Use Status: Current everyday Tobacco user Tobacco use type: Cigarette Cigarettes Per Day: 13 e-Cigarette/Vaping Use: Never Used Second Hand Smoke Exposure: Yes service: No Current occupational status: disabled Cognitive needs: No Hearing needs: No Vision needs: Yes Meds Allergies Allergy/AdvReac Type Severity Reaction Status Date / Time varenicline [From Chantix] AdvReac Unknown nightmares Verified 12/23/22 14:27 ENVIRONMENTAL Allergy Unknown ? Uncoded 12/23/22 14:27 RXN- ALLERGY SHOTS FOR YRS TREES AND GRASS Allergy Unknown Unknown Uncoded 12/23/22 14:27 Home Medications Medication Instructions Recorded Confirmed Last Taken Type aspirin 81 mg tablet,delayed 81 mg PO DAILY 06/30/20 11/19/22 Unknown History release cilostazol 50 mg tablet 50 mg PO BID 06/30/20 11/19/22 Unknown History clonazepam 0.5 mg tablet 0.5 mg PO DAILY PRN 06/30/20 11/19/22 Unknown History ipratropium 20 mcg-albuterol 100 1 puff inhalation Q6H 06/30/20 11/19/22 Unknown History mcg/actuation mist for inhalation omeprazole 20 mg capsule,delayed 20 mg PO BID 06/30/20 11/19/22 Unknown History release paroxetine HCl 40 mg tablet 40 mg PO DAILY 06/30/20 11/19/22 Unknown History ipratropium 20 mcg-albuterol 100 1 puff inhalation Q6H 08/11/20 11/19/22 Unknown History mcg/actuation mist for inhalation (Combivent Respimat) pen needle, diabetic 31 gauge x #50 ea 11/04/20 11/19/22 Unknown History 12/02 insulin aspart U-100 100 unit/mL 20 unit subcut TID 06/09/21 11/19/22 Unknown History (3 mL) subcutaneous pen (Novolog FlexPen U-100 Insulin aspart) insulin glargine 100 unit/mL (3 64 unit subcut .hs 06/09/21 11/19/22 Unknown History mL) subcutaneous pen (Basaglar KwikPen U-100 Insulin) ipratropium bromide 21 mcg (0.03 intranasal BEDTIME 07/03/21 11/19/22 Unknown History %) nasal spray semaglutide 1 mg/dose (2 mg/1.5 1 mg subcut QWEEK 07/28/21 11/19/22 Unknown History mL) subcutaneous pen injector (Ozempic) semaglutide 1 mg/dose (4 mg/3 mL) mg subcut 03/16/22 11/19/22 Unknown History subcutaneous pen injector (Ozempic) gabapentin 300 mg capsule 300 mg PO DAILY 06/14/22 11/19/22 Unknown History Exam Exam Date and Time: January 07, 2023 1349 Pertinent Lab Results Pertinent Lab Results: Laboratory Tests 11/08/22 11/08/22 11:16 11:16 WBC 7.1 Hgb 16.3 Hct 49.2 Plt Count 270 Sodium 142 Potassium 4.3 Chloride 109 H Carbon Dioxide 21 L BUN 19 H Creatinine 0.98 Assessment and Plan Assessment Anesthesia Assessment: Chart Reviewed
[2023-01-10 10:33] VITALS: BP 114/57; PULSE 63; RESP 18; TEMP 36.4; O2SAT 95; BMI 32.5
[2023-01-10 10:54] LABS: Glucose, Whole Blood 175 mg/dL (60-115)
--- NOTE | 2023-01-10 11:02 | MHC.SHP ---
Pre-Procedural Eval Section A Date of Service: 01/10/23 The patient is an INPATIENT: No Changes since office visit: No Cold of Flu in the past 2 weeks, No New Medical Problems, No Changes in Medication and No Patient answered all questions The History & Physical has been completed within 30 days and I have reviewed it.: Yes Section B Chief Complaint: Carpal tunnel syndrome, right upper limb Allergies: Allergies Allergy/AdvReac Type Severity Reaction Status Date / Time varenicline [From Chantix] AdvReac Unknown nightmares Verified 12/23/22 14:27 ENVIRONMENTAL Allergy Unknown ? Uncoded 12/23/22 14:27 RXN- ALLERGY SHOTS FOR YRS TREES AND GRASS Allergy Unknown Unknown Uncoded 12/23/22 14:27 Plan I have reviewed the history and physical and performed a pertinent physical examination on my patient. No changes have occurred unless specified. Time Spent With Patient Time: Total time managing care of this patient today ____ minutes.
--- NOTE | 2023-01-10 11:02 | W.PM.OPN ---
Operative Note Operative Note Date of Service: 01/10/23 Narrative: Preop diagnosis: 1. Right Carpal tunnel syndrome Postop diagnosis: same Procedure: 1. Right Carpal tunnel release Surgeon: Ines Amos MD Anesthesia: local block using 1% lidocaine with epinephrine Findings: Thickened transverse carpal ligament. EBL: Less than 5 mL Specimens: None Complications: None Disposition: Brought to recovery room in stable condition Plan: Follow-up for 10-14 days for wound check and suture removal Indications: The patient is 67 years old, with right carpal tunnel syndrome that has been unresponsive to nonoperative management. The risks and benefits of operative treatment including but not limited to risk of damage to blood vessels, nerves, tendons, infection, persistent pain, persistent symptoms, or possible need for additional surgery were discussed with the patient and the patient wishes to proceed with surgery. Procedure: Once consent was obtained a local block was performed using a combination of 1% lidocaine with epinephrine. The patient was then brought back to the operating suite and placed on the operative table in supine position. The right upper extremity was prepped and draped in a standard surgical fashion. Once assured that we had a good block, a 2.0 cm longitudinal incision was made centered over the carpal tunnel. The incision was made through the skin to the subcutaneous tissues using a #15 blade. Dissection was made down to the level of the transverse carpal ligament with care being taken to protect the palmar cutaneous nerve. Once the transverse carpal ligament was clearly visualized, a longitudinal incision was made in the transverse carpal ligament 1st using a #15 blade, then using tenotomy scissors under direct visualization. Care was taken to look for and protect the motor branch of the median nerve when seen in this area. Once satisfied with our carpal tunnel release the wound was copiously irrigated with normal saline and hemostasis was obtained with a brief period of local pressure. The skin edges were reapproximated with some 5.0 nylon suture material and a sterile dressing was applied. The patient appears to have tolerated the procedure well and with no complications. All digits were well vascularized at the conclusion of the case.
[2023-01-10 12:44] VITALS: BP 113/62; PULSE 60; RESP 15; O2SAT 95
== END 2023-01-10 12:58 | disposition home or self-care (01) ==
PROVIDERS: PCP Internal Medicine; Visit Provider Orthopaedic Surgery
PROC: (CPT 64721; principal; 2023-01-10 11:20)
DX: G56.01 Carpal tunnel syndrome, right upper limb (principal); F41.1 Generalized anxiety disorder; G51.0 Bell's palsy; J44.9 Chronic obstructive pulmonary disease, unspecified; I10 Essential (primary) hypertension; E78.00 Pure hypercholesterolemia, unspecified; F33.2 Major depressive disorder, recurrent severe without psychotic features; E11.29 Type 2 diabetes mellitus with other diabetic kidney complication; N28.9 Disorder of kidney and ureter, unspecified; R79.89 Other specified abnormal findings of blood chemistry; E55.9 Vitamin D deficiency, unspecified; Z79.84 Long term (current) use of oral hypoglycemic drugs; Z79.899 Other long term (current) drug therapy; Z88.8 Allergy status to other drugs, medicaments and biological substances; F17.210 Nicotine dependence, cigarettes, uncomplicated
CPT/HCPCS: 64721; 82947; J0171

== ENCOUNTER → 2023-01-24 09:55 | Outpatient (BNVA) | payer MEDICARE, MEDICAID, SELFPAY | PROVIDERS: PCP Internal Medicine; Visit Provider Physician Assistant | DX: M17.11 Unilateral primary osteoarthritis, right knee (principal) | CPT/HCPCS: 20610; J7318 ==

== ENCOUNTER → 2023-01-25 09:31 | Outpatient (BNVA) | payer MEDICARE, MEDICAID, SELFPAY | PROVIDERS: PCP Internal Medicine; Visit Provider Orthopaedic Surgery | DX: Z47.89 Encounter for other orthopedic aftercare (principal); Z86.69 Personal history of other diseases of the nervous system and sense organs | CPT/HCPCS: 99212 ==

== ENCOUNTER 2023-03-15 09:59 | Outpatient (REF) | payer MEDICARE, MEDICAID, SELFPAY | END 2023-03-15 10:00 | disposition home or self-care (01) | LOC: HO.LAB 09:59 | PROVIDERS: Visit Provider Urology | DX: C67.9 Malignant neoplasm of bladder, unspecified (principal); N32.81 Overactive bladder | CPT/HCPCS: 52000; 88121; 99212 ==

== ENCOUNTER 2023-04-04 09:47 | Outpatient (REF) | payer OTHER, SELFPAY ==
[2023-04-04 10:04] LABS: MANUAL DIFF FLAG NO
[2023-04-04 10:36] LABS: Basophils Absolute Auto 0.1 X10*3/uL (0.0-0.2); Basophils Percent Auto 0.9 % (0-2); Eosinophils Absolute Auto 0.2 X10*3/uL (0.0-0.4); Eosinophils Percent Auto 2.6 % (0-4); Hematocrit 49.4 % (42.0-52.0); Imm Gran Abs Auto 0.03 X10*3/uL (0.00-0.03); Imm Gran Pct Auto 0.4 % (0.0-0.4); Lymphocytes Absolute Auto 2.2 X10*3/uL (1.2-4.9); Lymphocytes Percent Auto 28.7 % (20-40); Mean Corpuscular HGB Conc 32.4 g/dl (31.0-36.0); Mean Corpuscular Hemoglobin 27.2 pg (27.0-33.0); Mean Platelet Volume 8.7 fL (9.4-12.4); Monocytes Absolute Auto 0.6 X10*3/uL (0.1-1.2); Monocytes Percent Auto 7.5 % (2-11); Neutrophils Absolute Auto 4.6 x10*3/uL (2.0-8.3); Neutrophils Percent Auto 59.9 % (45-73); Platelet Count 280 X10*3/uL (160-400); Red Blood Count 5.88 X10*6/uL (4.60-5.80); Red Cell Distribution Width 16.6 % (11.0-16.0); White Blood Count 7.6 X10*3/uL (4.8-10.8)
[2023-04-04 11:19] LABS: Estimated Average Glucose 137 mg/dL; Hemoglobin A1c % 6.4 %
[2023-04-04 11:54] LABS: Appearance Urine Clear; Color Urine Yellow; Glucose Urine UA Negative (Negative); Leukocyte Esterase Urine Negative (Negative); Nitrite Urine Negative (Negative); PH 5.5 (5.0-9.0); Specific Gravity - Urine 1.025 (1.005-1.025); UMIC TRIGGER UACC YES; Urine Blood Trace (Negative); Urine Ketones Negative (Negative); Urine Protein 300 (3+) mg/dL (Neg-Trace)
[2023-04-04 11:56] LABS: Bacteria Urine None Seen (None Seen); Hyaline Casts Urine 0-2 /LPF (0-2); WBC Urine 0-5 /HPF (0-5)
[2023-04-04 12:54] LABS: Creatinine Urine 137.71 mg/dL; Microalbum/Creatinine Ratio Ur 859.7 ug/mg cr
[2023-04-04 13:06] LABS: Alanine Aminotransferase 15 U/L (0-40); Albumin Level 4.1 g/dL (3.5-5.0); Alkaline Phosphatase 53 U/L (39-117); Anion Gap 14 (12-20); Aspartate Amino Transferase 16 U/L (5-37); Bilirubin Total 0.6 mg/dL (0.0-1.0); Blood Urea Nitrogen 13 mg/dL (9-16); Calcium 9.7 mg/dL (8.4-10.2); Carbon Dioxide 24 mmol/L (22-29); Chloride 112 mmol/L (96-108); Cholesterol 130 mg/dL; Estimated Glomerular Filt Rate > 60; Glucose Fasting 102 mg/dL (60-99); HDL Cholesterol 34 mg/dL; LDL Cholesterol Calculated 63 mg/dl; Potassium 4.2 mmol/L (3.3-5.1); Sodium 146 mmol/L (135-145); Total Protein 6.5 g/dL (6.5-8.0); Triglycerides 169 mg/dL
[2023-04-04 13:09] LABS: Vitamin D 25-OH Total 36.8 ng/mL (>30)
== END 2023-04-04 09:48 | disposition home or self-care (01) ==
LOC: HO.LAB 09:47
PROVIDERS: PCP Internal Medicine; Visit Provider Internal Medicine
DX: E11.9 Type 2 diabetes mellitus without complications (principal); E55.9 Vitamin D deficiency, unspecified; I10 Essential (primary) hypertension; E78.00 Pure hypercholesterolemia, unspecified
CPT/HCPCS: 36415; 80053; 80061; 81001; 82043; 82306; 83036; 84443; 85025

== ENCOUNTER 2023-04-13 09:43 | Outpatient (AMB) | payer OTHER, SELFPAY ==
[2023-04-13 09:44] VITALS: BP 138/78; PULSE 80; O2SAT 96; BMI 32.4
--- NOTE | 2023-04-13 09:44 | MHC.PC.OV ---
Vital Signs 04/13/23 09:44 Height 5 ft 10 in Weight 226 lb BMI 32.4 BP 138/78 Blood Pressure Location Lt brachial Position Sitting Pulse 80 Pulse Source Pulse Oximeter Pulse Oximetry (%) 96 Oxygen Delivery Method Room Air Intake Visit Reasons: 4m F/U DM, hyperlipidemia, HTN Allergies varenicline [From Chantix] Adverse Reaction (Unknown, Verified 04/13/23 10:10) nightmares ENVIRONMENTAL Allergy (Unknown, Uncoded 04/13/23 10:10) ? RXN- ALLERGY SHOTS FOR YRS TREES AND GRASS Allergy (Unknown, Uncoded 04/13/23 10:10) Unknown Medication List - Last Reconciled 04/13/23 by Brayden Sandra MD albuterol sulfate 2.5 mg (3 mL) continuous nebulization Q4-6H PRN 30 days aspirin 81 mg PO DAILY cholecalciferol (vitamin D3) 50 mcg PO DAILY 90 days cilostazol 50 mg PO BID clonazepam 0.5 mg PO DAILY PRN gabapentin 300 mg PO DAILY insulin aspart U-100 (Novolog FlexPen U-100 Insulin aspart) 20 units subcut TID insulin glargine (Basaglar KwikPen U-100 Insulin) 46 units subcut .hs ipratropium bromide intranasal BEDTIME ipratropium-albuterol 20-100 mcg/actuation 1 puff inhalation Q6H ipratropium-albuterol 20-100 mcg/actuation (Combivent Respimat) 1 puff inhalation Q6H losartan 50 mg PO DAILY metformin ER 1,000 mg (2 x 500 mg) PO BID omeprazole 20 mg PO BID oxybutynin chloride ER 15 mg PO DAILY 90 days paroxetine HCl 40 mg PO DAILY pen needle, diabetic As directed rosuvastatin 40 mg PO DAILY semaglutide (Ozempic) mg subcut Tobacco use date assessed: 04/13/23 Fall risk assessment: No Falls in past year Last assessed Fall Risk: 04/13/23 Dental Screening Dental Screen Date: 04/13/23 Did you have a dental visit in the last 12 months?: Yes Did you have a dental problem in the last 6 months where you did not have access to dental care?: No Was dental information given to patient?: Patient has dentist HPI 4m F/U DM, hyperlipidemia, HTN HPI Details Patient comes in today for his follow up visit States that he feels okay He denies any headaches or dizziness Denies any chest pains, no SOB No nausea/vomiting, no abdominal pain No change in bowel habits noted States that Dr. Howard cut back his Basaglar down to 46 units daily as his blood sugar has improved a lot recently Had his follow up labs done last week - to discuss his results [facility] Medical History Anxiety Holland's palsy Benign prostatic hyperplasia with lower urinary tract symptoms Carpal tunnel syndrome, bilateral Chronic sore throat COPD (chronic obstructive pulmonary disease) Elevated LFTs Essential hypertension Major depressive disorder, recurrent, unspecified Obesity (BMI 30-39.9) Primary osteoarthritis of both hips Proteinuria Pure hypercholesterolemia Right knee pain Right leg pain Smoker Type 2 diabetes mellitus with other diabetic kidney complication Vitamin D deficiency Surgical History (Updated 04/13/23 @ 10:19 by Brayden Sandra MD) History of bladder surgery History of cystoscopy History of nasal septoplasty History of tooth extraction PVD (peripheral vascular disease) Family History Father ETOH abuse Mother Obese Cancer Diabetes Brother Diabetes Other Mental health problem Substance abuse Social History Housing: Apartment Alcohol intake: current Alcohol intake frequency: holidays/special occasions only Patient Tobacco Use Status: Current everyday Tobacco user Tobacco use type: Cigarette Cigarettes Per Day: 13 e-Cigarette/Vaping Use: Never Used Second Hand Smoke Exposure: Yes service: No Current occupational status: disabled Cognitive needs: No Hearing needs: No Vision needs: Yes Questionnaire PHQ-9 Over the last 2 weeks, how often have you been bothered by any of the following problems? 1. Little interest or pleasure in doing things: not at all 2. Feeling down, depressed, or hopeless: not at all 3. Trouble falling or staying asleep, or sleeping too much: not at all 4. Feeling tired or having little energy: not at all 5. Poor appetite or overeating: not at all 6. Feeling bad about yourself - or that you are a failure or have let yourself or your family down: not at all 7. Trouble concentrating on things, such as reading the newspaper or watching television: not at all 8. Moving or speaking so slowly that other people could have noticed. Or the opposite - being so fidgety or restless that you have been moving around a lot more than usual: not at all 9. Thoughts that you would be better off or of hurting yourself in some way: not at all Total score: 0 Depression Screening Interpretation: Negative 11661 - PHQ-9 Billing: Yes Source: Developed by Drs. Low Box, Clarisa Vu, Oswald Cheney and colleagues, with an educational stephanie from [employer]. Thrive Questionnaire Date Thrive assessed: 11/19/22 AUDIT C Alcohol Use Questionnaire (AUDIT-C) 1. How often do you have a drink containing alcohol?: Never 3. How often do you have six or more drinks on one occasion?: Never Total Score: 0 Score Reviewed/Action Taken: Yes RACHNA-7 AMB Questionnaire RACHNA-7 Date RACHNA - 7 assessed: 11/19/22 Source: Developed by Drs. Low Box, Clarisa Vu, Oswald Cheney and colleagues, with an educational stephanie from [employer]. Review of Systems Const Denies chills, Denies fatigue, Denies fever(s) and Denies headache(s) ENT Denies dysphagia, Denies dizziness, Denies otalgia, Denies headache(s) and Denies sore throat Card Denies chest pain, Denies palpitations and Denies dyspnea Resp Denies cough and Denies dyspnea GI Denies abdominal pain, Denies constipation, Denies dysphagia, Denies heartburn, Denies diarrhea, Denies nausea and Denies vomiting Denies dysuria, Denies nocturia and Denies urinary frequency Musc Denies back pain, Reports arthralgias (both hands), Reports numbness (in both hands, on and off) and Reports tingling (on and off in both hands) Skin/Breast Denies rash Neuro Denies dizziness, Denies headache(s), Reports numbness (in both hands, on and off), Reports radicular pain (left lower back / sciatica) and Reports tingling (on and off in both hands) Endo Denies fatigue and Denies palpitations Physical exam (Primary Care) Vital Signs: Last Vital Signs Pulse 80 04/13/23 09:44 BP 138/78 04/13/23 09:44 Pulse Ox 96 04/13/23 09:44 Oxygen Delivery Method Room Air 04/13/23 09:44 BMI result Body Mass Index 32.4 Tobacco/Smoking Status: Tobacco use Status Tobacco use date assessed 04/13/23 04/13/23 09:46 Patient Tobacco Use Status Current everyday Tobacco 04/13/23 09:46 Tobacco use type Cigarette 04/13/23 09:46 e-Cigarette/Vaping Use Never Used 04/13/23 09:46 PHQ-9: PHQ-9 Score PHQ-9: Total score 0 04/13/23 10:20 Depression Screening Interpretation: Negative Thrive Assessment: Date of Thrive Assessment Date Thrive assessed 11/19/22 04/13/23 09:46 Const General: no acute distress and alert HENMT Ears: TM's normal bilaterally and EAC's normal Throat: Yes posterior oropharynx normal and Yes tonsils normal Neck Neck: Yes no lymphadenopathy and Yes supple Resp Auscultation: clear to auscultation bilaterally, no rales and no wheezes Cardio Rate: regular rate Rhythm: regular rhythm Heart sounds: no murmurs GI Palpation (GI): Soft to palpation and nontender Auscultation: normal bowel sounds Back/Spine/Pelvis Thoracic/Lumbar Spine: thoracic and lumbar spine normal to inspection Skin Rashes: no rashes Extrem General: Yes no clubbing, cyanosis or edema Results Reviewed Results Reviewed: Laboratory Tests 04/04/23 04/04/23 04/04/23 10:03 10:03 10:03 WBC 7.6 Hgb 16.0 Hct 49.4 Plt Count 280 Sodium 146 H Potassium 4.2 Creatinine 0.94 Estimated GFR > 60 Fasting Glucose 102 H Hemoglobin A1c % 6.4 Calcium 9.7 AST 16 ALT 15 Triglycerides 169 Cholesterol 130 LDL Cholesterol, Calc 63 HDL Cholesterol 34 25-OH Vitamin D Total 36.8 TSH 1.60 Urine pH Ur Specific [place] Urine Protein Urine Glucose (UA) Urine Blood Microalb/Creat Ratio 04/04/23 04/04/23 10:05 10:05 WBC Hgb Hct Plt Count Sodium Potassium Creatinine Estimated GFR Fasting Glucose Hemoglobin A1c % Calcium AST ALT Triglycerides Cholesterol LDL Cholesterol, Calc HDL Cholesterol 25-OH Vitamin D Total TSH Urine pH 5.5 Ur Specific [place] 1.025 Urine Protein 300 (3+) H Urine Glucose (UA) Negative Urine Blood Trace H Microalb/Creat Ratio 859.7 Assessment and Plan Assessment & Plan (1) Pure hypercholesterolemia: Code(s): E78.00 - Pure hypercholesterolemia, unspecified Plan: Results of his labs done last week reviewed and discussed with patient Reinforced low cholesterol diet Continue Rosuvastatin 40 mg daily Will recheck labs in 4 months for follow-up (2) PVD (peripheral vascular disease): Comment: 05/2012 (HL)PVD - bilateral inguinal stents - [facility] [place] - Dr. Wayne Code(s): I73.9 - Peripheral vascular disease, unspecified Plan: Continue Cilostazol 50 mg BID Follow up with cardiology/vascular surgery as scheduled (3) Type 2 diabetes mellitus with other diabetic kidney complication: Code(s): E11.29 - Type 2 diabetes mellitus with other diabetic kidney complication Plan: HgbA1c has improved to 6.4% on his labs done last week (was at 6.9% a few months ago) - goal is <7.0% Reinforced diabetic diet Continue NovoLog 30 units 3 times a day, Basaglar 46 units daily at bedtime, Metformin 500 mg 2 tablets BID, Glipizide ER 10 mg QD and Ozempic 2 mg/1.5 ml 0.5 mg once a week Follow up with endocrinology (Dr. Jany Howard) as scheduled (4) Proteinuria: Code(s): R80.9 - Proteinuria, unspecified Qualifiers: Proteinuria type: unspecified Qualified Code(s): R80.9 - Proteinuria, unspecified Plan: Stable - will continue to monitor GFR and renal function regularly (5) Essential hypertension: Code(s): I10 - Essential (primary) hypertension Plan: Reinforced low-sodium diet - goal is systolic BP of at least 120 to 130 mm or less Continue Losartan 50 mg QD (6) COPD (chronic obstructive pulmonary disease): Code(s): J44.9 - Chronic obstructive pulmonary disease, unspecified Qualifiers: COPD type: unspecified COPD Qualified Code(s): J44.9 - Chronic obstructive pulmonary disease, unspecified Plan: Stable Continue Combivent Respimat 1 puff 4 times a day, Ventolin HFA 2 puffs every 6 hours as needed and Albuterol sulfate nebulizer PRN (7) Vitamin D deficiency: Code(s): E55.9 - Vitamin D deficiency, unspecified Plan: Corrected - continue Vitamin D3 2000 units QD (8) Elevated LFTs: Code(s): R79.89 - Other specified abnormal findings of blood chemistry Plan: Improved - LFTs have remained normal on his recent labs Was most likely due to hepatosteatosis related to his weight Will continue to monitor LFTs regularly (9) Primary osteoarthritis of right knee: Code(s): M17.11 - Unilateral primary osteoarthritis, right knee Plan: Cortisone injection received a few months ago did not help much S/P right knee geniculate nerve block with pain management back on 07/21/21 Follow up with orthopedics and with pain management as scheduled (10) Primary osteoarthritis of both hips: Code(s): M16.0 - Bilateral primary osteoarthritis of hip Plan: X-rays of both hips done in March 2019 showed (+) bilateral OA changes X-rays of the left hip and lumbar spine done a few months ago came out normal States that his previous left hip/lower extremity pain seems to have subsided on their own recently and is now no longer bothering him (11) Carpal tunnel syndrome, bilateral: Comment: [place] [facility] [place] (+) bilateral CTS Code(s): G56.03 - Carpal tunnel syndrome, bilateral upper limbs Plan: EMG and NCV done in January 2021 revealed (+) moderately severe carpal tunnel syndrome on the left and mild carpal tunnel syndrome on the right. Patient encouraged on regular use of his wrist splints to help manage his symptoms States that he was able to schedule an appointment to see orthopedics for this - is scheduled to be seen on 12/01/2022 and is hoping that they will proceed with carpal tunnel surgery soon (12) Benign prostatic hyperplasia with lower urinary tract symptoms: Code(s): N40.1 - Benign prostatic hyperplasia with lower urinary tract symptoms Qualifiers: Lower urinary tract symptom detail: urinary frequency Qualified Code(s): N40.1 - Benign prostatic hyperplasia with lower urinary tract symptoms; R35.0 - Frequency of micturition Plan: Follow up with urology as scheduled Had a FISH Bladder Ca test done last month that came out negative Continue Oxybutynin ER 15 mg QD to help control his urinary frequency (13) Anxiety: Code(s): F41.9 - Anxiety disorder, unspecified Plan: Continue Clonazepam 0.5 mg twice a day as needed (14) Major depressive disorder, recurrent, unspecified: Code(s): F33.9 - Major depressive disorder, recurrent, unspecified Qualifiers: Active/Remission status: currently active Major depression episode severity: moderate Qualified Code(s): F33.1 - Major depressive disorder, recurrent, moderate Plan: Continue Paroxetine 40 mg QD Follow-up with Psychiatry as scheduled (15) Smoker: Code(s): F17.200 - Nicotine dependence, unspecified, uncomplicated Plan: Counseled again on smoking cessation (16) Obesity (BMI 30-39.9): Code(s): E66.9 - Obesity, unspecified Plan: Reinforced diet/exercise as tolerated/lose weight Plan To return in 4 months for his annual physical examination Orders: Orders Comprehensive Spring. Panel Fast 4 Months E78.00 - Pure hypercholesterolemia, unspecified Hemoglobin A1c 4 Months E11.9 - Type 2 diabetes mellitus without complications Lipid Panel 4 Months E78.00 - Pure hypercholesterolemia, unspecified TSH reflex Free T4 4 Months E78.00 - Pure hypercholesterolemia, unspecified Vitamin D 25-OH Total 4 Months E55.9 - Vitamin D deficiency, unspecified Microalbumin, Random (w Creat) 4 Months E11.9 - Type 2 diabetes mellitus without complications Complete Blood Count Auto Diff 4 Months I10 - Essential (primary) hypertension UA CC w/rflx Micro + Cult 4 Months R30.0 - Dysuria Coding Level of Care Code Est Pt Level 4 (11853) Diagnoses Pure hypercholesterolemia E78.00 PVD (peripheral vascular disease) I73.9 Type 2 diabetes mellitus with other diabetic kidney complication E11.29 Proteinuria R80.9 Proteinuria type: unspecified Essential hypertension I10 COPD (chronic obstructive pulmonary disease) J44.9 COPD type: unspecified COPD Vitamin D deficiency E55.9 Elevated LFTs R79.89 Primary osteoarthritis of right knee M17.11 Primary osteoarthritis of both hips M16.0 Carpal tunnel syndrome, bilateral G56.03 Benign prostatic hyperplasia with lower urinary tract symptoms N40.1; R35.0 Lower urinary tract symptom detail: urinary frequency Anxiety F41.9 Major depressive disorder, recurrent, unspecified F33.1 Active/Remission status: currently active Major depression episode severity: moderate Smoker F17.200 Obesity (BMI 30-39.9) E66.9
== END 2023-04-13 10:26 | disposition home or self-care (01) ==
PROVIDERS: Visit Provider Internal Medicine
DX: E78.00 Pure hypercholesterolemia, unspecified (principal); I73.9 Peripheral vascular disease, unspecified; E11.29 Type 2 diabetes mellitus with other diabetic kidney complication; R80.9 Proteinuria, unspecified; I10 Essential (primary) hypertension; J44.9 Chronic obstructive pulmonary disease, unspecified; E55.9 Vitamin D deficiency, unspecified; R79.89 Other specified abnormal findings of blood chemistry; M17.11 Unilateral primary osteoarthritis, right knee; M16.0 Bilateral primary osteoarthritis of hip; G56.03 Carpal tunnel syndrome, bilateral upper limbs; N40.1 Benign prostatic hyperplasia with lower urinary tract symptoms
CPT/HCPCS: 99214

== ENCOUNTER 2023-08-15 09:16 | Outpatient (REF) | payer OTHER, SELFPAY ==
--- NOTE | ~2023-08-15 | CT_ITS ---
EXAMINATION: CT CHEST SCREENING CLINICAL INFORMATION: Current smoker; 53 pack-year smoking history. COMPARISON: Prior CT examinations of the chest, most recently 11/03/2021. TECHNIQUE: Multidetector volumetric CT imaging of the chest is performed without contrast using low dose technique. Additional 2D coronal and sagittal reformatted images and axial 3D maximum intensity projection (MIP) images are generated on the CT workstation. This CT examination was performed using dose optimization techniques as appropriate, variously including the following: *Automated exposure control *Adjustment of mA and/or kV according to patient size (this includes techniques or standardized protocols for targeted exams where dose is matched to indication/reason for exam; i.e. extremities or head) *Use of iterative reconstruction technique DLP: 70 mGy-cm FINDINGS: LUNGS: Abutting the right major fissure (5:242) a 5 mm benign pleural-based lymph node is seen. At the posterolateral right base (5:271), a 6 mm noncalcified subpleural lymph node is seen. Within the right middle lobe anteriorly (5:268), a 3 mm noncalcified subpleural nodule is seen. Within the left upper lobe anteriorly (5:250), a 3 mm noncalcified nodule is seen. Within the lingula (5:394), a 4 mm noncalcified subpleural nodule is seen. These nodules are stable to diminished from 05/05/2020, and they are considered benign. No new nodule, mass, infiltrate or groundglass opacity is seen. There is no generalized increase in peripheral interlobular septal markings. There is mild dependent hypoaeration. The central airways appear patent. MEDIASTINUM: The thyroid is unremarkable. There is no thoracic aortic aneurysm. There are mild atherosclerotic calcifications of the great vessel origins and thoracic aorta. No mediastinal or hilar lymphadenopathy is seen. CORONARY ARTERY CALCIFICATION: Moderately severe. PLEURA: There is no pleural effusion. No pleural mass or thickening. AXILLA: No lymphadenopathy. UPPER ABDOMEN: Unremarkable OSSEOUS STRUCTURES: There is multi-level mild thoracic spondylosis. No acute or aggressive osseous finding is noted. CT/CT lung screening IMPRESSION: There are benign, stable lung nodules, as detailed. No new nodule, mass, infiltrate or groundglass opacity is seen. There is no thoracic lymphadenopathy or pleural effusion. No aggressive osseous lesion is seen. ASSESSMENT: Lung-RADS category 2: Benign RECOMMENDATION: Routine annual low-dose CT screening in 12 months.
== END 2023-08-15 09:17 | disposition home or self-care (01) ==
LOC: HO.CT 09:16
PROVIDERS: PCP Internal Medicine; Visit Provider Physician Assistant Medical
DX: Z12.2 Encounter for screening for malignant neoplasm of respiratory organs (principal); F17.210 Nicotine dependence, cigarettes, uncomplicated
CPT/HCPCS: 71271

== ENCOUNTER 2023-08-17 09:22 | Outpatient (AMB) | payer OTHER, SELFPAY ==
[2023-08-17 09:25] VITALS: BP 120/82; PULSE 67; O2SAT 96; BMI 31.5
--- NOTE | 2023-08-17 09:25 | A.OFFPC_ITS ---
Vital Signs 08/17/23 09:25 Height 5 ft 10 in Weight 219 lb 8 oz BMI 31.5 BP 120/82 Blood Pressure Location Lt brachial Position Sitting Pulse 67 Pulse Source Pulse Oximeter Pulse Oximetry (%) 96 Oxygen Delivery Method Room Air Intake Visit Reasons: Annual exam Business Coordinator Required: No Accompanied by: Self / Same As Patient Allergies varenicline [From Chantix] Adverse Reaction (Unknown, Verified 08/17/23 09:46) nightmares ENVIRONMENTAL Allergy (Unknown, Uncoded 08/17/23 09:46) ? RXN- ALLERGY SHOTS FOR YRS TREES AND GRASS Allergy (Unknown, Uncoded 08/17/23 09:46) Unknown Medication List - Last Reconciled 08/17/23 by Brayden Sandra MD albuterol sulfate 2.5 mg (3 mL) continuous nebulization Q4-6H PRN 30 days aspirin 81 mg PO DAILY cholecalciferol (vitamin D3) 50 mcg PO DAILY 90 days cilostazol 50 mg PO BID clonazepam 0.5 mg PO DAILY PRN gabapentin 300 mg PO DAILY insulin aspart U-100 (Novolog FlexPen U-100 Insulin aspart) 20 units subcut TID insulin glargine (Basaglar KwikPen U-100 Insulin) 46 units subcut .hs ipratropium bromide intranasal BEDTIME ipratropium-albuterol 20-100 mcg/actuation 1 puff inhalation Q6H ipratropium-albuterol 20-100 mcg/actuation (Combivent Respimat) 1 puff inhalation Q6H losartan 50 mg PO DAILY metformin ER 1,000 mg (2 x 500 mg) PO BID nirmatrelvir-ritonavir 300 mg (150 mg x 2)-100 mg (Paxlovid) take TWO 150 mg tablets of nirmatrelvir with ONE 100 mg tablet of ritonavir twice daily for 5 days PO ; SHOULD STOP TAKING ROSUVASTATIN while on Paxlovid omeprazole 20 mg PO BID oxybutynin chloride ER 15 mg PO DAILY 90 days paroxetine HCl 40 mg PO DAILY pen needle, diabetic As directed rosuvastatin 40 mg PO DAILY semaglutide (Ozempic) mg subcut Tobacco use date assessed: 08/17/23 Fall risk assessment: No Falls in past year Last assessed Fall Risk: 08/17/23 Dental Screening Dental Screen Date: 08/17/23 Did you have a dental visit in the last 12 months?: Yes Did you have a dental problem in the last 6 months where you did not have access to dental care?: No Was dental information given to patient?: Patient has dentist HPI Annual exam HPI Details Patient comes in today for his annual physical examination States that he currently feels okay Has been experiencing some on and off cramping pain in his legs again lately, mostly in the evening, and is planning to reach out to vascular surgery at [facility] again soon to schedule a follow up appointment with them as he has not been back to see them in a while He denies any headaches or dizziness Denies any chest pains, no SOB No nausea/vomiting, no abdominal pain No change in bowel habits noted Denies any acute urinary symptoms Had some labs done back in March 2023; has no other follow up labs done recently Had his screening colonoscopy last done with Dr. Lozano in November 2019 (normal) - is recommended to get repeat colonoscopy in 10 years [facility] Medical History (Updated 08/17/23 @ 10:00 by Brayden Sandra MD) Vitamin D deficiency Carpal tunnel syndrome, bilateral Right leg pain Right knee pain Smoker Chronic sore throat Obesity (BMI 30-39.9) Major depressive disorder, recurrent, unspecified Anxiety Holland's palsy Benign prostatic hyperplasia with lower urinary tract symptoms Primary osteoarthritis of both hips Elevated LFTs COPD (chronic obstructive pulmonary disease) Pure hypercholesterolemia Essential hypertension Proteinuria Type 2 diabetes mellitus with other diabetic kidney complication Surgical History (Updated 08/17/23 @ 10:07 by Brayden Sandra MD) Hx of colonoscopy (~12/03/19) History of nasal septoplasty History of cystoscopy History of tooth extraction PVD (peripheral vascular disease) History of bladder surgery Family History Father ETOH abuse Mother Obese Cancer Diabetes Brother Diabetes Other Mental health problem Substance abuse Social History Housing: Apartment Alcohol intake: current Alcohol intake frequency: holidays/special occasions only Patient Tobacco Use Status: Current everyday Tobacco user Tobacco use type: Cigarette Cigarettes Per Day: 13 e-Cigarette/Vaping Use: Never Used Second Hand Smoke Exposure: Yes service: No Current occupational status: disabled Cognitive needs: No Hearing needs: No Vision needs: Yes Questionnaire PHQ-9 Over the last 2 weeks, how often have you been bothered by any of the following problems? 1. Little interest or pleasure in doing things: not at all 2. Feeling down, depressed, or hopeless: not at all 3. Trouble falling or staying asleep, or sleeping too much: not at all 4. Feeling tired or having little energy: not at all 5. Poor appetite or overeating: not at all 6. Feeling bad about yourself - or that you are a failure or have let yourself or your family down: not at all 7. Trouble concentrating on things, such as reading the newspaper or watching television: not at all 8. Moving or speaking so slowly that other people could have noticed. Or the opposite - being so fidgety or restless that you have been moving around a lot more than usual: not at all 9. Thoughts that you would be better off or of hurting yourself in some way: not at all Total score: 0 Depression Screening Interpretation: Negative Depression Screening Done: Yes [id number] - PHQ-9 Billing: Yes Source: Developed by Drs. Low Box, Clarisa Vu, Oswald Cheney and colleagues, with an educational stephanie from [employer]. Thrive Questionnaire Date Thrive assessed: 08/17/23 I am a: Patient What is your living situation today?: I have a steady place to live Within the past 12 months, did the food you bought not last and you didn't have the money to get more?: Never true Within the past 12 months, did you worry whether your food would run out before you got money to buy more?: Never true Do you have trouble paying for medicines?: No Do you have trouble getting transportation to medical appointments?: No Do you have trouble paying your heating and electricity bill?: No Do you have trouble taking care of your child, family member or friend?: No Do you have trouble with day-to-day activities such as bathing, preparing meals, shopping, managing finances, etc.?: No Are you currently unemployed and looking for a job?: No Are you interested in more education?: No Please select the resources that you would like help with: None Currently or been in a relationship where the following occur: no concerns reported AUDIT C Alcohol Use Questionnaire (AUDIT-C) 1. How often do you have a drink containing alcohol?: Never 3. How often do you have six or more drinks on one occasion?: Never Total Score: 0 Score Reviewed/Action Taken: Yes RACHNA-7 AMB Questionnaire RACHNA-7 Date RACHNA - 7 assessed: 08/17/23 Feeling nervous, anxious, or on edge: 0 = Not at all Not being able to stop or control worryin = Not at all Worrying too much about different things: 0 = Not at all Trouble relaxin = Not at all Being so restless that it is hard to sit still: 0 = Not at all Becoming easily annoyed or irritable: 0 = Not at all Feeling afraid as if something awful might happen: 0 = Not at all Total RAHCNA-7 score (0-4 normal; 5-9 mild; 10-14 moderate; 15-21 severe): 0 Source: Developed by Drs. Low Box, Clarisa Vu, Oswald Cheney and colleagues, with an educational stephanie from [employer]. Review of Systems Const Denies chills, Reports difficulty sleeping (at times - due to his restlessleg symptoms), Denies fatigue, Denies fever(s), Denies headache(s), Denies malaise and Denies weakness Eyes Denies blurry vision, Denies change in vision, Denies irritation and Denies itchy eyes ENT Denies dysphagia, Denies dizziness, Denies otalgia, Denies headache(s), Denies nasal congestion, Denies neck pain, Denies odynophagia and Denies sore throat Card Denies chest pain, Denies rapid heart rate, Denies irregular heart rhythm, Denies palpitations and Denies dyspnea Resp Denies chest congestion, Denies cough, Denies dyspnea and Denies wheezing GI Denies abdominal pain, Denies bloating, Denies constipation, Denies dysphagia, Denies heartburn, Denies diarrhea, Denies nausea, Denies odynophagia and Denies vomiting Denies hematuria, Denies difficulty urinating, Denies dysuria, Denies urinary frequency and Denies urinary urgency Musc Denies back pain, Denies arthralgias, Denies joint swelling, Reports muscle cramps (on and off in both legs, especially at night), Denies muscle weakness and Denies neck pain Skin/Breast Denies change in pigmentation, Denies lesions, Denies rash and Denies unusual bruising Neuro Denies dizziness, Denies headache(s), Denies paresthesias and Denies weakness Endo Denies fatigue and Denies palpitations Aller/Immun Denies itchy eyes and Denies wheezing Physical exam (Primary Care) Vital Signs: Last Vital Signs Pulse 67 08/17/23 09:25 BP 120/82 08/17/23 09:25 Pulse Ox 96 08/17/23 09:25 Oxygen Delivery Method Room Air 08/17/23 09:25 BMI result Body Mass Index 31.5 Tobacco/Smoking Status: Tobacco use Status Tobacco use date assessed 08/17/23 08/17/23 09:32 Patient Tobacco Use Status Current everyday Tobacco 08/17/23 09:32 Tobacco use type Cigarette 08/17/23 09:32 e-Cigarette/Vaping Use Never Used 08/17/23 09:32 PHQ-9: PHQ-9 Score PHQ-9: Total score 0 08/17/23 09:46 Depression Screening Interpretation: Negative Thrive Assessment: Date of Thrive Assessment Date Thrive assessed 08/17/23 08/17/23 09:32 Currently or been in a relationship where the following occur: no concerns reported Const General: no acute distress, alert and awake Orientation/consciousness: patient oriented x3 HENMT Head: Yes normocephalic and Yes atraumatic Ears: external ears normal, TM's normal bilaterally and EAC's normal General nose exam: No nasal discharge present Face and sinus: Yes normal facial exam and Yes sinuses nontender Teeth and gingiva: dentition normal Throat: Yes posterior oropharynx normal and Yes tonsils normal (no TP congestion) Eyes Eyelids: Yes eyelids normal Conjunctivae: conjunctivae normal Pupils: Equal, round and reactive pupils present EOM: EOMs intact bilaterally Neck Neck: Yes no lymphadenopathy and Yes supple Thyroid: Thyroid normal Resp Auscultation: clear to auscultation bilaterally, no rales and no wheezes Cardio Rate: regular rate Rhythm: regular rhythm Heart sounds: no murmurs GI Palpation (GI): Soft to palpation, nontender and No hepatosplenomegaly present Auscultation: normal bowel sounds General: Yes no CVA tenderness Back/Spine/Pelvis Back: no CVA tenderness Thoracic/Lumbar Spine: thoracic and lumbar spine normal to inspection Skin Lesions: no lesions Rashes: no rashes Neuro General: patient oriented x3, moves all extremities, no focal motor deficits and CN's II-XI intact bilaterally Cranial nerves: Yes Equal, round and reactive pupils present Cognition (Neuro): normal cognition Gait exam (Neuro): Normal gait present Extrem General: Yes no clubbing, cyanosis or edema Results AMB Hemoglobin A1c AMB Hemoglobin A1c 7.1 % Last Edit by Kody Cohen on 08/17/23 10:08 Results Reviewed Results Reviewed: Laboratory Tests 04/04/23 04/04/23 04/04/23 10:03 10:03 10:05 WBC 7.6 Hgb 16.0 Hct 49.4 Plt Count 280 Sodium 146 H Potassium 4.2 Creatinine 0.94 Estimated GFR > 60 Fasting Glucose 102 H Hemoglobin A1c % 6.4 Calcium 9.7 AST 16 ALT 15 Triglycerides 169 Cholesterol 130 LDL Cholesterol, Calc 63 HDL Cholesterol 34 25-OH Vitamin D Total 36.8 TSH 1.60 Ur Specific [place] 1.025 Urine Protein Urine Glucose (UA) Urine Blood 04/04/23 10:05 WBC Hgb Hct Plt Count Sodium Potassium Creatinine Estimated GFR Fasting Glucose Hemoglobin A1c % Calcium AST ALT Triglycerides Cholesterol LDL Cholesterol, Calc HDL Cholesterol 25-OH Vitamin D Total TSH Ur Specific [place] Urine Protein 300 (3+) H Urine Glucose (UA) Negative Urine Blood Trace H Assessment and Plan Assessment & Plan (1) Annual physical exam: Code(s): Z00.00 - Encounter for general adult medical examination without abnormal findings Plan: Results of his labs done back in March 2023 reviewed and discussed with patient He is up-to-date with his colon cancer screening - last done in 2019 and due for repeat in 10 years (2029) (2) Pure hypercholesterolemia: Code(s): E78.00 - Pure hypercholesterolemia, unspecified Plan: Reinforced low cholesterol diet Continue Rosuvastatin 40 mg QD Will recheck his labs and fasting lipids in 4 months for follow-up (3) PVD (peripheral vascular disease): Comment: 05/2012 (R) and 10/2013 (L) - bilateral inguinal/iliac stenting ([facility]) - Dr. Wayne Code(s): I73.9 - Peripheral vascular disease, unspecified Plan: Continue Cilostazol 50 mg BID Follow up with cardiology/vascular surgery at [facility] as scheduled (4) Type 2 diabetes mellitus with other diabetic kidney complication: Code(s): E11.29 - Type 2 diabetes mellitus with other diabetic kidney complication Plan: In-office HgbA1c done today is at 7.1% (was at 6.4% a few months ago) - goal is <7.0% Reinforced diabetic diet Continue NovoLog 30 units 3 times a day, Basaglar 46 units daily at bedtime, Metformin 500 mg 2 tablets BID, Glipizide ER 10 mg QD and Ozempic 2 mg/1.5 ml 0.5 mg once a week Follow up with endocrinology at [facility] [place] (Dr. Jany Howard) as scheduled (5) Proteinuria: Code(s): R80.9 - Proteinuria, unspecified Qualifiers: Proteinuria type: unspecified Qualified Code(s): R80.9 - Proteinuria, unspecified Plan: Stable - will continue to monitor GFR and renal function regularly (6) Essential hypertension: Code(s): I10 - Essential (primary) hypertension Plan: Reinforced low-sodium diet - goal is systolic BP of at least 120 to 130 mm or less Continue Losartan 50 mg QD (7) COPD (chronic obstructive pulmonary disease): Code(s): J44.9 - Chronic obstructive pulmonary disease, unspecified Qualifiers: COPD type: unspecified COPD Qualified Code(s): J44.9 - Chronic obstructive pulmonary disease, unspecified Plan: Stable Continue Combivent Respimat 1 puff 4 times a day, Ventolin HFA 2 puffs every 6 hours as needed and Albuterol sulfate nebulizer PRN (8) Vitamin D deficiency: Code(s): E55.9 - Vitamin D deficiency, unspecified Plan: Continue Vitamin D3 2000 units QD (9) Elevated LFTs: Code(s): R79.89 - Other specified abnormal findings of blood chemistry Plan: Improved - LFTs have remained normal on his recent labs Was most likely due to hepatosteatosis related to his weight Will continue to monitor his LFTs regularly (10) Primary osteoarthritis of right knee: Code(s): M17.11 - Unilateral primary osteoarthritis, right knee Plan: States that the cortisone injection he received from orthopedics a few months ago did not help much S/P right knee geniculate nerve block with pain management back on 07/21/21 Follow up with orthopedics and with pain management as scheduled (11) Primary osteoarthritis of both hips: Code(s): M16.0 - Bilateral primary osteoarthritis of hip Plan: X-rays of both hips done in March 2019 showed (+) bilateral OA changes X-rays of the left hip and lumbar spine done a few months ago came out normal States that his previous left hip/lower extremity pain have subsided and is no longer bothering him at present (12) Carpal tunnel syndrome, bilateral: Comment: EMG & NCV done at [facility] [place] on 02/11/2021 showed (+) bilateral CTS Code(s): G56.03 - Carpal tunnel syndrome, bilateral upper limbs Plan: EMG and NCV done in January 2021 revealed (+) moderately severe carpal tunnel syndrome on the left and mild carpal tunnel syndrome on the right. Patient encouraged on regular use of his wrist splints to help manage his symptoms Follow up with orthopedics as scheduled (13) Benign prostatic hyperplasia with lower urinary tract symptoms: Code(s): N40.1 - Benign prostatic hyperplasia with lower urinary tract symptoms Qualifiers: Lower urinary tract symptom detail: urinary frequency Qualified Code(s): N40.1 - Benign prostatic hyperplasia with lower urinary tract symptoms; R35.0 - Frequency of micturition Plan: Follow up with urology as scheduled Had a FISH Bladder Ca test done a few months ago in February 2023 that came out negative Continue Oxybutynin ER 15 mg QD to help control his urinary frequency/symptoms (14) Anxiety: Code(s): F41.9 - Anxiety disorder, unspecified Plan: Continue Clonazepam 0.5 mg twice a day as needed (15) Major depressive disorder, recurrent, unspecified: Code(s): F33.9 - Major depressive disorder, recurrent, unspecified Qualifiers: Active/Remission status: currently active Major depression episode severity: moderate Qualified Code(s): F33.1 - Major depressive disorder, recurrent, moderate Plan: Continue Paroxetine 40 mg QD Follow-up with Psychiatry as scheduled (16) Smoker: Code(s): F17.200 - Nicotine dependence, unspecified, uncomplicated Plan: Counseled again on smoking cessation (17) Obesity (BMI 30-39.9): Code(s): E66.9 - Obesity, unspecified Plan: Reinforced diet/exercise as tolerated/lose weight Plan Follow up in 4 months Orders: Orders AMB Hemoglobin A1c Today Z13.9 - Encounter for screening, unspecified Lipid Panel 4 Months E78.00 - Pure hypercholesterolemia, unspecified TSH reflex Free T4 4 Months E78.00 - Pure hypercholesterolemia, unspecified Microalbumin, Random (w Creat) 4 Months E11.9 - Type 2 diabetes mellitus without complications Complete Blood Count Auto Diff 4 Months I10 - Essential (primary) hypertension Comprehensive [place]. Panel Fast 4 Months E78.00 - Pure hypercholesterolemia, unspecified UA CC w/rflx Micro + Cult 4 Months R30.0 - Dysuria Hemoglobin A1c 4 Months E11.9 - Type 2 diabetes mellitus without complications Vitamin D 25-OH Total 4 Months E55.9 - Vitamin D deficiency, unspecified Coding Level of Care Code Est Pt Prev Care >65y([id number]) Diagnoses Annual physical exam Z00.00 Pure hypercholesterolemia E78.00 PVD (peripheral vascular disease) I73.9 Type 2 diabetes mellitus with other diabetic kidney complication E11.29 Proteinuria, unspecified type R80.9 Proteinuria type: unspecified Essential hypertension I10 Chronic obstructive pulmonary disease, unspecified COPD type J44.9 COPD type: unspecified COPD Vitamin D deficiency E55.9 Elevated LFTs R79.89 Primary osteoarthritis of right knee M17.11 Primary osteoarthritis of both hips M16.0 Carpal tunnel syndrome, bilateral G56.03 Benign prostatic hyperplasia with urinary frequency N40.1; R35.0 Lower urinary tract symptom detail: urinary frequency Anxiety F41.9 Moderate episode of recurrent major depressive disorder F33.1 Active/Remission status: currently active Major depression episode severity: moderate Smoker F17.200 Obesity (BMI 30-39.9) E66.9
== END 2023-08-17 10:13 | disposition home or self-care (01) ==
PROVIDERS: PCP Internal Medicine; Visit Provider Internal Medicine
DX: E11.29 Type 2 diabetes mellitus with other diabetic kidney complication (principal)
CPT/HCPCS: 83036; 99397

== ENCOUNTER 2024-01-20 11:14 | Outpatient (REF) | payer MEDICARE, SELFPAY ==
[2024-01-20 11:27] LABS: MANUAL DIFF FLAG NO
[2024-01-20 11:50] LABS: Basophils Percent Auto 0.5 % (0-2); Eosinophils Absolute Auto 0.2 X10*3/uL (0.0-0.4); Eosinophils Percent Auto 2.2 % (0-4); Hematocrit 47.6 % (42.0-52.0); Hemoglobin 15.8 g/dl (14.0-18.0); Imm Gran Abs Auto 0.02 X10*3/uL (0.00-0.03); Imm Gran Pct Auto 0.3 % (0.0-0.4); Lymphocytes Absolute Auto 2.3 X10*3/uL (1.2-4.9); Lymphocytes Percent Auto 30.5 % (20-40); Mean Corpuscular HGB Conc 33.2 g/dl (31.0-36.0); Mean Corpuscular Hemoglobin 26.9 pg (27.0-33.0); Mean Platelet Volume 8.6 fL (9.4-12.4); Monocytes Absolute Auto 0.5 X10*3/uL (0.1-1.2); Neutrophils Absolute Auto 4.4 x10*3/uL (2.0-8.3); Neutrophils Percent Auto 59.5 % (45-73); Platelet Count 266 X10*3/uL (160-400); Red Blood Count 5.88 X10*6/uL (4.60-5.80); Red Cell Distribution Width 16.1 % (11.0-16.0); White Blood Count 7.4 X10*3/uL (4.8-10.8)
[2024-01-20 11:57] LABS: Estimated Average Glucose 137 mg/dL; Hemoglobin A1c % 6.4 % (<6.0)
[2024-01-20 13:07] LABS: Alanine Aminotransferase 17 U/L (0-40); Albumin Level 4.2 g/dL (3.5-5.0); Alkaline Phosphatase 53 U/L (39-117); Anion Gap 14 (12-20); Aspartate Amino Transferase 14 U/L (5-37); Bilirubin Total 0.7 mg/dL (0.0-1.0); Blood Urea Nitrogen 18 mg/dL (9-16); Calcium 9.3 mg/dL (8.4-10.2); Carbon Dioxide 22 mmol/L (22-29); Chloride 109 mmol/L (96-108); Cholesterol 128 mg/dL (<200); Estimated Glomerular Filt Rate > 60; Glucose Fasting 127 mg/dL (60-99); HDL Cholesterol 34 mg/dL (>40); LDL Cholesterol Calculated 71 mg/dL (<100); Sodium 141 mmol/L (135-145); TSH reflex Free T4 1.54 uIU/mL (0.32-4.0); Total Protein 6.9 g/dL (6.5-8.0); Triglycerides 115 mg/dL (<150); Vitamin D 25-OH Total 38.1 ng/mL (>30)
[2024-01-20 13:42] LABS: Appearance Urine Clear; Color Urine Yellow; Glucose Urine UA Negative (Negative); Leukocyte Esterase Urine Negative (Negative); Nitrite Urine Negative (Negative); Specific Gravity - Urine 1.025 (1.005-1.025); UMIC TRIGGER UACC YES; Urine Blood Trace (Negative); Urine Ketones Negative (Negative); Urine Protein 300 (3+) mg/dL (Neg-Trace)
[2024-01-20 14:30] LABS: Bacteria Urine None Seen (None Seen); Hyaline Casts Urine 0-2 /LPF (0-2); WBC Urine 0-5 /HPF (0-5)
[2024-01-20 14:31] LABS: Creatinine Urine 180.92 mg/dL
[2024-01-20 14:45] LABS: Microalbum/Creatinine Ratio Ur 762.2 ug/mg cr (<30)
== END 2024-01-20 11:15 | disposition home or self-care (01) ==
LOC: HO.LAB 11:14
PROVIDERS: PCP Internal Medicine; Visit Provider Internal Medicine
DX: E11.9 Type 2 diabetes mellitus without complications (principal); I10 Essential (primary) hypertension; E78.00 Pure hypercholesterolemia, unspecified; E55.9 Vitamin D deficiency, unspecified
CPT/HCPCS: 36415; 80053; 80061; 81001; 82043; 82306; 82570; 83036; 84443; 85025

== ENCOUNTER 2024-02-06 14:25 | Outpatient (AMB) | payer MEDICARE, SELFPAY ==
--- NOTE | 2024-02-06 14:32 | MHC.PC.OV ---
Vital Signs 02/06/24 14:34 Height 5 ft 10 in Weight 227 lb 2 oz BMI 32.6 BP 132/76 Blood Pressure Location Lt brachial Position Sitting Pulse 72 Pulse Source Pulse Oximeter Pulse Oximetry (%) 97 Oxygen Delivery Method Room Air Intake Visit Reasons: HTN follow up- see comments Intake Note: Patient is here to follow up on HTN, DM. 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 RXN- ALLERGY SHOTS FOR YRS TREES AND GRASS Allergy (Unknown, Uncoded 02/06/24 14:52) Unknown Medication List - Last Reconciled 02/06/24 by Brayden Sandra MD albuterol sulfate 2.5 mg (3 mL) continuous nebulization Q4-6H PRN 30 days aspirin 81 mg PO DAILY cholecalciferol (vitamin D3) 50 mcg PO DAILY 90 days cilostazol 50 mg PO BID clonazepam 0.5 mg PO DAILY PRN insulin aspart U-100 (Novolog FlexPen U-100 Insulin aspart) 20 units subcut TID insulin glargine (Basaglar KwikPen U-100 Insulin) 46 units subcut .hs ipratropium bromide intranasal BEDTIME ipratropium-albuterol 20-100 mcg/actuation (Combivent Respimat) 1 puff inhalation Q6H losartan 50 mg PO DAILY metformin ER 1,000 mg (2 x 500 mg) PO BID omeprazole 20 mg PO BID oxybutynin chloride ER 15 mg PO DAILY 90 days paroxetine HCl 40 mg PO DAILY pen needle, diabetic As directed rosuvastatin 40 mg PO DAILY semaglutide (Ozempic) 1 mg subcut QWEEK Tobacco use date assessed: 02/06/24 Fall risk assessment: No Falls in past year Last assessed Fall Risk: 02/06/24 Dental Screening Dental Screen Date: 02/06/24 Did you have a dental visit in the last 12 months?: No Did you have a dental problem in the last 6 months where you did not have access to dental care?: No Was dental information given to patient?: Patient has dentist HPI HTN follow up- see comments HPI Details Patient comes in today for his follow up visit States that he feels okay but has been experiencing recurrent left lower back pain for the past couple of weeks now Thinks that he may have pulled or strained his lower back recently but he denies doing anything lately that could have directly caused his injury Recalls that he had a lot of problems with sciatica in the past and it took him a while to recover from that and is hoping to avoid having to go through that again Would like to know what he can do for his left lower back pain and discomfort in the meantime He denies any headaches or dizziness Denies any chest pains, no SOB No nausea/vomiting, no abdominal pain No change in bowel habits noted Had his follow up labs done a couple of weeks ago - to discuss his results [facility] Medical History Vitamin D deficiency Carpal tunnel syndrome, bilateral Right leg pain Right knee pain Smoker Chronic sore throat Obesity (BMI 30-39.9) Major depressive disorder, recurrent, unspecified Anxiety Holland's palsy Benign prostatic hyperplasia with lower urinary tract symptoms Primary osteoarthritis of both hips Elevated LFTs COPD (chronic obstructive pulmonary disease) Pure hypercholesterolemia Essential hypertension Proteinuria Type 2 diabetes mellitus with other diabetic kidney complication Surgical History Hx of colonoscopy (~12/03/19) History of nasal septoplasty History of cystoscopy History of tooth extraction PVD (peripheral vascular disease) History of bladder surgery Family History Father ETOH abuse Mother Obese Cancer Diabetes Brother Diabetes Other Mental health problem Substance abuse Social History Housing: Apartment Alcohol intake: current Alcohol intake frequency: holidays/special occasions only Patient Tobacco Use Status: Current everyday Tobacco user Tobacco use type: Cigarette Cigarette Packs Per Day: 1 Cigarettes Per Day: 20 e-Cigarette/Vaping Use: Never Used Second Hand Smoke Exposure: Yes service: No Current occupational status: disabled Cognitive needs: No Hearing needs: No Vision needs: Yes (Glasses) Questionnaire PHQ-9 Over the last 2 weeks, how often have you been bothered by any of the following problems? 1. Little interest or pleasure in doing things: not at all 2. Feeling down, depressed, or hopeless: not at all 3. Trouble falling or staying asleep, or sleeping too much: not at all 4. Feeling tired or having little energy: not at all 5. Poor appetite or overeating: not at all 6. Feeling bad about yourself - or that you are a failure or have let yourself or your family down: not at all 7. Trouble concentrating on things, such as reading the newspaper or watching television: not at all 8. Moving or speaking so slowly that other people could have noticed. Or the opposite - being so fidgety or restless that you have been moving around a lot more than usual: not at all 9. Thoughts that you would be better off or of hurting yourself in some way: not at all Total score: 0 Depression Screening Interpretation: Negative Depression Screening Done: Yes [id number] - PHQ-9 Billing: Yes Source: Developed by Drs. Low Box, Clarisa Vu, Oswald Cheney and colleagues, with an educational stephanie from [employer]. Thrive Questionnaire Date Thrive assessed: 02/06/24 I am a: Patient What is your living situation today?: I have a steady place to live Within the past 12 months, did the food you bought not last and you didn't have the money to get more?: Never true Within the past 12 months, did you worry whether your food would run out before you got money to buy more?: Never true Do you have trouble paying for medicines?: No Do you have trouble getting transportation to medical appointments?: No Do you have trouble paying your heating and electricity bill?: No Do you have trouble taking care of your child, family member or friend?: No Do you have trouble with day-to-day activities such as bathing, preparing meals, shopping, managing finances, etc.?: No Are you currently unemployed and looking for a job?: No Are you interested in more education?: No Currently or been in a relationship where the following occur: no concerns reported THRIVE Score: 0 AUDIT C Alcohol Use Questionnaire (AUDIT-C) 1. How often do you have a drink containing alcohol?: Never 3. How often do you have six or more drinks on one occasion?: Never Total Score: 0 Score Reviewed/Action Taken: Yes RACHNA-7 AMB Questionnaire RACHNA-7 Date RACHNA - 7 assessed: 02/06/24 Feeling nervous, anxious, or on edge: 0 = Not at all Not being able to stop or control worryin = Not at all Worrying too much about different things: 0 = Not at all Trouble relaxin = Not at all Being so restless that it is hard to sit still: 0 = Not at all Becoming easily annoyed or irritable: 0 = Not at all Feeling afraid as if something awful might happen: 0 = Not at all Total RACHNA-7 score (0-4 normal; 5-9 mild; 10-14 moderate; 15-21 severe): 0 Source: Developed by Drs. Low Box, Clarisa Vu, Oswald Cheney and colleagues, with an educational stephanie from [employer]. Review of Systems Const Denies chills, Denies fatigue, Denies fever(s) and Denies headache(s) ENT Denies dysphagia, Denies dizziness, Denies otalgia, Denies headache(s), Denies odynophagia and Denies sore throat Card Denies chest pain, Denies palpitations and Denies dyspnea Resp Denies cough and Denies dyspnea GI Denies abdominal pain, Denies constipation, Denies dysphagia, Denies heartburn, Denies diarrhea, Denies nausea, Denies odynophagia and Denies vomiting Denies dysuria, Denies nocturia and Denies urinary frequency Musc Reports back pain (recurrent over the left lower back for the past couple of weeks), Reports arthralgias (in both hands, on and off), Reports numbness (in both hands, on and off) and Reports tingling (on and off in both hands) Skin/Breast Denies rash Neuro Denies dizziness, Denies headache(s), Reports numbness (in both hands, on and off), Reports radicular pain (left lower back / sciatica) and Reports tingling (on and off in both hands) Endo Denies fatigue and Denies palpitations Physical exam (Primary Care) Vital Signs: Last Vital Signs Pulse 72 02/06/24 14:34 BP 132/76 02/06/24 14:34 Pulse Ox 97 02/06/24 14:34 Oxygen Delivery Method Room Air 02/06/24 14:34 BMI result Body Mass Index 32.6 Tobacco/Smoking Status: Tobacco use Status Tobacco use date assessed 02/06/24 02/06/24 14:40 Patient Tobacco Use Status Current everyday Tobacco 02/06/24 14:39 Tobacco use type Cigarette 02/06/24 14:39 e-Cigarette/Vaping Use Never Used 02/06/24 14:39 PHQ-9: PHQ-9 Score PHQ-9: Total score 0 02/06/24 14:40 Depression Screening Interpretation: Negative Thrive Assessment: Date of Thrive Assessment Date Thrive assessed 02/06/24 02/06/24 14:40 Currently or been in a relationship where the following occur: no concerns reported Const General: no acute distress and alert HENMT Ears: TM's normal bilaterally and EAC's normal Throat: Yes posterior oropharynx normal and Yes tonsils normal Neck Neck: Yes no lymphadenopathy and Yes supple Thyroid: Thyroid normal Resp Auscultation: clear to auscultation bilaterally, no rales and no wheezes Cardio Rate: regular rate Rhythm: regular rhythm Heart sounds: no murmurs GI Palpation (GI): Soft to palpation and nontender Auscultation: normal bowel sounds Back/Spine/Pelvis Thoracic/Lumbar Spine: paraspinal muscle tenderness on the left in the mid lumbar and in the lower lumbar and No lumbar spinal tenderness Pelvis: buttock tenderness on the left Skin Rashes: no rashes Extrem General: Yes no clubbing, cyanosis or edema Results Reviewed Results Reviewed: Laboratory Tests 01/20/24 01/20/24 11:19 11:24 WBC 7.4 Hgb 15.8 Hct 47.6 Plt Count 266 Sodium 141 Potassium 4.0 Creatinine 0.96 Estimated GFR > 60 Fasting Glucose 127 H Hemoglobin A1c % 6.4 H Calcium 9.3 AST 14 ALT 17 Triglycerides 115 Cholesterol 128 LDL Cholesterol, Calc 71 HDL Cholesterol 34 L 25-OH Vitamin D Total 38.1 TSH 1.54 Ur Specific [place] 1.025 Urine Protein 300 (3+) H Urine Glucose (UA) Negative Urine Blood Trace H Urine Nitrite Negative Ur Leukocyte Esterase Negative Microalb/Creat Ratio 762.2 H Assessment and Plan Assessment & Plan (1) Pure hypercholesterolemia: Code(s): E78.00 - Pure hypercholesterolemia, unspecified Plan: Results of his labs done a couple of weeks ago reviewed and discussed with patient Reinforced low cholesterol diet Continue Rosuvastatin 40 mg QD Will recheck his labs and fasting lipids in 4 months for follow-up (2) PVD (peripheral vascular disease): Comment: 05/2012 (R) and 10/2013 (L) - bilateral inguinal/iliac stenting ([facility]) - Dr. Wayne Code(s): I73.9 - Peripheral vascular disease, unspecified Plan: Continue Cilostazol 50 mg BID Follow up with cardiology/vascular surgery at [facility] as scheduled (3) Type 2 diabetes mellitus with other diabetic kidney complication: Code(s): E11.29 - Type 2 diabetes mellitus with other diabetic kidney complication Plan: His HgbA1c was at 6.4% on his labs done a couple of weeks ago (in-office HgbA1c was previously at 7.1% a few months ago) - goal is <7.0% Reinforced diabetic diet Continue NovoLog 30 units 3 times a day, Basaglar 46 units daily at bedtime, Metformin 500 mg 2 tablets BID, Glipizide ER 10 mg QD and Ozempic 2 mg/1.5 ml 0.5 mg once a week He used to see endocrinology at [facility] (Dr. Jany Howard) but recently found out that Dr. Howard is no longer included in his insurance panel and he is requesting referral to [facility] Endocrinology instead - referral done (4) Proteinuria: Code(s): R80.9 - Proteinuria, unspecified Qualifiers: Proteinuria type: unspecified Qualified Code(s): R80.9 - Proteinuria, unspecified Plan: Stable - will continue to monitor GFR and renal function regularly (5) Essential hypertension: Code(s): I10 - Essential (primary) hypertension Plan: Reinforced low-sodium diet - goal is systolic BP of at least 120 to 130 mm or less Continue Losartan 50 mg QD (6) COPD (chronic obstructive pulmonary disease): Code(s): J44.9 - Chronic obstructive pulmonary disease, unspecified Qualifiers: COPD type: unspecified COPD Qualified Code(s): J44.9 - Chronic obstructive pulmonary disease, unspecified Plan: Stable Continue Combivent Respimat 1 puff 4 times a day, Ventolin HFA 2 puffs every 6 hours as needed and Albuterol sulfate nebulizer PRN (7) Vitamin D deficiency: Code(s): E55.9 - Vitamin D deficiency, unspecified Plan: Continue Vitamin D3 2000 units QD (8) Elevated LFTs: Code(s): R79.89 - Other specified abnormal findings of blood chemistry Plan: Improved - his LFTs have remained normal on his recent labs Was most likely due to hepatosteatosis related to his weight Will continue to monitor his LFTs regularly (9) Primary osteoarthritis of right knee: Code(s): M17.11 - Unilateral primary osteoarthritis, right knee Plan: States that the cortisone injection he received from orthopedics a few months ago did not help much S/P right knee geniculate nerve block with pain management back on 07/21/21 Follow up with orthopedics and with pain management as scheduled (10) Primary osteoarthritis of both hips: Code(s): M16.0 - Bilateral primary osteoarthritis of hip Plan: X-rays of both hips done in March 2019 showed (+) bilateral OA changes X-rays of the left hip and lumbar spine done in February 2022 came out normal He has been experiencing increased pain over his left lumbar region that radiates into his left buttocks area at times Will send him for repeat lumbar spine x-rays for further evaluation and advised that if his x-rays come out normal, can consider referring him to PT Is advised that he can try the OTC topical pain patches PRN for now; can also take Tylenol PRN but advised to avoid all NSAIDs due to his kidneys (11) Carpal tunnel syndrome, bilateral: Comment: EMG & NCV done at [facility] on 02/11/2021 showed (+) bilateral CTS Code(s): G56.03 - Carpal tunnel syndrome, bilateral upper limbs Plan: EMG and NCV done in January 2021 revealed (+) moderately severe carpal tunnel syndrome on the left and mild carpal tunnel syndrome on the right. Patient encouraged on regular use of his wrist splints to help manage his symptoms Follow up with orthopedics as scheduled (12) Benign prostatic hyperplasia with lower urinary tract symptoms: Code(s): N40.1 - Benign prostatic hyperplasia with lower urinary tract symptoms Qualifiers: Lower urinary tract symptom detail: urinary frequency Qualified Code(s): N40.1 - Benign prostatic hyperplasia with lower urinary tract symptoms; R35.0 - Frequency of micturition Plan: Follow up with urology as scheduled Had a FISH Bladder Ca test done in February 2023 that came out negative Continue Oxybutynin ER 15 mg QD to help control his urinary frequency/symptoms (13) Anxiety: Code(s): F41.9 - Anxiety disorder, unspecified Plan: Continue Clonazepam 0.5 mg twice a day as needed (14) Major depressive disorder, recurrent, unspecified: Code(s): F33.9 - Major depressive disorder, recurrent, unspecified Qualifiers: Active/Remission status: currently active Major depression episode severity: moderate Qualified Code(s): F33.1 - Major depressive disorder, recurrent, moderate Plan: Continue Paroxetine 40 mg QD Follow-up with Psychiatry as scheduled (15) Smoker: Code(s): F17.200 - Nicotine dependence, unspecified, uncomplicated Plan: Counseled again on smoking cessation (16) Obesity (BMI 30-39.9): Code(s): E66.9 - Obesity, unspecified Plan: Reinforced diet/exercise as tolerated/lose weight Plan To return in 6 months for his next annual physical examination Orders: Orders Hemoglobin A1c 6 Months E11.9 - Type 2 diabetes mellitus without complications Complete Blood Count Auto Diff 6 Months D64.9 - Anemia, unspecified TSH reflex Free T4 6 Months E78.00 - Pure hypercholesterolemia, unspecified Vitamin D 25-OH Total 6 Months E55.9 - Vitamin D deficiency, unspecified XR lumbar spine 2-3V Today M54.50 - Low back pain, unspecified Comprehensive Roann. Panel Fast 6 Months E78.00 - Pure hypercholesterolemia, unspecified Lipid Panel 6 Months E78.00 - Pure hypercholesterolemia, unspecified UA CC w/rflx Micro + Cult 6 Months R30.0 - Dysuria Microalbumin, Random (w Creat) 6 Months E11.9 - Type 2 diabetes mellitus without complications Referrals Endocrinology Referral E11.29 - Type 2 diabetes mellitus with other diabetic kidney complication Coding Level of Care Code Est Pt Level 4 (86595) Diagnoses Pure hypercholesterolemia E78.00 PVD (peripheral vascular disease) I73.9 Type 2 diabetes mellitus with other diabetic kidney complication E11.29 Proteinuria, unspecified type R80.9 Proteinuria type: unspecified Essential hypertension I10 Chronic obstructive pulmonary disease, unspecified COPD type J44.9 COPD type: unspecified COPD Vitamin D deficiency E55.9 Elevated LFTs R79.89 Primary osteoarthritis of right knee M17.11 Primary osteoarthritis of both hips M16.0 Carpal tunnel syndrome, bilateral G56.03 Benign prostatic hyperplasia with urinary frequency N40.1; R35.0 Lower urinary tract symptom detail: urinary frequency Anxiety F41.9 Moderate episode of recurrent major depressive disorder F33.1 Active/Remission status: currently active Major depression episode severity: moderate Smoker F17.200 Obesity (BMI 30-39.9) E66.9
[2024-02-06 14:34] VITALS: BP 132/76; PULSE 72; O2SAT 97; BMI 32.6
== END 2024-02-06 15:08 | disposition home or self-care (01) ==
PROVIDERS: PCP Internal Medicine; Visit Provider Internal Medicine
DX: E11.29 Type 2 diabetes mellitus with other diabetic kidney complication (principal); I73.9 Peripheral vascular disease, unspecified; J44.9 Chronic obstructive pulmonary disease, unspecified; F33.1 Major depressive disorder, recurrent, moderate; E78.00 Pure hypercholesterolemia, unspecified; R80.9 Proteinuria, unspecified; I10 Essential (primary) hypertension; E55.9 Vitamin D deficiency, unspecified; R79.89 Other specified abnormal findings of blood chemistry; M17.11 Unilateral primary osteoarthritis, right knee; M16.0 Bilateral primary osteoarthritis of hip; N40.1 Benign prostatic hyperplasia with lower urinary tract symptoms
CPT/HCPCS: 99214

== ENCOUNTER 2024-02-07 14:31 | Outpatient (REF) | payer MEDICARE, SELFPAY ==
--- NOTE | ~2024-02-07 | XR_ITS ---
EXAMINATION: XR LUMBOSACRAL SPINE CLINICAL INFORMATION: Low back pain unspecified, patient felt a twinge of pain. COMPARISON: 03/05/2022. TECHNIQUE: 4 views of the lumbosacral spine. FINDINGS: Mild dextroscoliosis of the lumbar spine. Redemonstration of a right common iliac vascular stent. Extensive atherosclerotic aortoiliac calcifications. Moderate multilevel lumbar spondylosis. Moderate loss of disc space height at L5-S1. Facet arthritis in the lower lumbar spine. XR/XR lumbar spine 2-3V IMPRESSION: Moderate multilevel lumbar spondylosis.
== END 2024-02-07 14:32 | disposition home or self-care (01) ==
LOC: HO.XRAY 14:31
PROVIDERS: PCP Internal Medicine; Visit Provider Internal Medicine
DX: M54.50 Low back pain, unspecified (principal)
CPT/HCPCS: 72100

== ENCOUNTER 2024-02-10 08:48 | Outpatient (AMB) | payer MEDICARE, SELFPAY ==
--- NOTE | 2024-02-10 08:49 | A.OFFVIS_ITS ---
Vital Signs 02/10/24 08:53 Height 5 ft 10 in Weight 225 lb 8.526 oz BMI 32.4 BP 106/64 Blood Pressure Location Rt brachial Position Sitting Pulse 67 Pulse Source Pulse Oximeter Intake Visit Reasons: [id number] Intake Note: New patient present today for T2DM. Patient receives DME supplies through: [employer] Last Diabetic Eye exam: within 6 months Last Podiatry Visit: Does not see a Ic Design Engineer Random Glucose: 149 mg/dl HgA1C: 6.4% 01/20/2024 Head Butler Required: No Accompanied by: Self / Same As Patient Allergies varenicline [From Chantix] Adverse Reaction (Unknown, Verified 02/10/24 08:57) nightmares ENVIRONMENTAL Allergy (Unknown, Uncoded 02/10/24 08:57) ? RXN- ALLERGY SHOTS FOR YRS TREES AND GRASS Allergy (Unknown, Uncoded 02/10/24 08:57) Unknown Medication List - Last Reconciled 02/10/24 by Caitlyn Berg PA-C albuterol sulfate 2.5 mg (3 mL) continuous nebulization Q4-6H PRN 30 days aspirin 81 mg PO DAILY cholecalciferol (vitamin D3) 50 mcg PO DAILY 90 days cilostazol 50 mg PO BID clonazepam 0.5 mg PO DAILY PRN insulin aspart U-100 (Novolog FlexPen U-100 Insulin aspart) inject 20 units with breakfast, 15 units with lunch, 20 units with dinner sq daily as directed insulin glargine (Lantus Solostar U-100 Insulin) 40 units subcut QPM ipratropium bromide intranasal BEDTIME ipratropium-albuterol 20-100 mcg/actuation (Combivent Respimat) 1 puff inhalation Q6H losartan 50 mg PO DAILY metformin ER 1,000 mg (2 x 500 mg) PO BID omeprazole 20 mg PO BID oxybutynin chloride ER 15 mg PO DAILY 90 days paroxetine HCl 40 mg PO DAILY pen needle, diabetic As directed rosuvastatin 40 mg PO DAILY semaglutide (Ozempic) 1 mg subcut QWEEK HPI HPI [id number]: Details: Patient is a 68-year-old male with a significant past medical history of type 2 diabetes, microalbuminuria, history of bladder cancer, obesity, elevated LFTs, hyperlipidemia, hypertension, PVD, smoker presenting today for a consultation regarding diabetes. He used to follow with Dr. Howard. Endo: He was diagnosed with type 2 diabetes. His last A1c in the office is 6.4% a couple weeks ago. He is currently on NovoLog 20 units 3 times a day, Lantus 46 units at bedtime, metformin 1000 mg twice a day, Ozempic 1 mg recently found out that Dr. Howard is no longer included in his insurance CGM- 5.7%, reading 70%, 2% hyperglycemia, 84% in target, 14% hypoglycemia, 11% hypoglycemia, 3% very low -Hypoglycemic events: He states that he feels these lows about once a week. He correct that with glucose tabs. Most of the lows seem to be occurring between 12 and 06:00. He does experience lows between lunch and supper time. He does not always eat much for lunch time, especially since being on the Ozempic. He states that he used to snack and now he no longer does this. He has not c hanged his dosage of the NovoLog and does not want count carbs -Hyperglycemic events: -does not feel -Eye exam: within the year -Foot exam: Today 02/09 - follows with vascular surgery at [facility] [place] (has stents in both legs- continues to smoke) -he does have microalbuminuria and is on an Arb. CV: bp [id number] and he is on losartan 50 mg. His cholesterol is controlled with Crestor 40 mg. Last LDL at goal. [facility] Medical History (Updated 02/10/24 @ 09:33 by Caitlyn Berg PA-C) Peripheral sensory neuropathy due to type 2 diabetes mellitus Vitamin D deficiency Carpal tunnel syndrome, bilateral Right leg pain Right knee pain Smoker Chronic sore throat Obesity (BMI 30-39.9) Major depressive disorder, recurrent, unspecified Anxiety Holland's palsy Benign prostatic hyperplasia with lower urinary tract symptoms Primary osteoarthritis of both hips Elevated LFTs COPD (chronic obstructive pulmonary disease) Pure hypercholesterolemia Essential hypertension Proteinuria Type 2 diabetes mellitus with other diabetic kidney complication Surgical History Hx of colonoscopy (~12/03/19) History of nasal septoplasty History of cystoscopy History of tooth extraction PVD (peripheral vascular disease) History of bladder surgery Family History Father ETOH abuse Mother Obese Cancer Diabetes Brother Diabetes Other Mental health problem Substance abuse Social History Housing: Apartment Alcohol intake: current Alcohol intake frequency: holidays/special occasions only Patient Tobacco Use Status: Current everyday Tobacco user Tobacco use type: Cigarette Cigarette Packs Per Day: 1 Cigarettes Per Day: 20 e-Cigarette/Vaping Use: Never Used Second Hand Smoke Exposure: Yes service: No Current occupational status: disabled Cognitive needs: No Hearing needs: No Vision needs: Yes (Glasses) Physical Exam Vital Signs: BMI result Body Mass Index 32.4 Const Orientation/consciousness: patient oriented x3 HEENT Ears: hearing grossly normal bilaterally Neck Thyroid: Thyroid normal Lymphatic: no lymphadenopathy noted Resp Auscultation: clear to auscultation bilaterally Cardio Rate: regular rate Rhythm: regular rhythm Heart sounds: S1 normal heart sound present and S2 normal heart sound present Skin General skin exam: no rashes or lesions noted Neuro General: patient oriented x3, gait normal and no focal motor deficits Extrem Other: DP pulses 1+ bilaterally, vibratory sense diminished bilaterally. Sensory sensation intact. Strength intact. Skin intact. Results Reviewed Results Reviewed: Laboratory Tests 01/20/24 01/20/24 11:19 11:24 Sodium 141 Potassium 4.0 Chloride 109 H Carbon Dioxide 22 Anion Gap 14 BUN 18 H Creatinine 0.96 Estimated GFR > 60 Fasting Glucose 127 H Estimat Average Glucose 137 Hemoglobin A1c % 6.4 H Calcium 9.3 Total Bilirubin 0.7 AST 14 ALT 17 Alkaline Phosphatase 53 Triglycerides 115 Cholesterol 128 LDL Cholesterol, Calc 71 HDL Cholesterol 34 L 25-OH Vitamin D Total 38.1 TSH 1.54 Urine Creatinine 180.92 Urine Microalbumin 1379.0 Microalb/Creat Ratio 762.2 H Assessment & Plan Assessment & Plan (1) Type 2 diabetes mellitus with other diabetic kidney complication: Code(s): E11.29 - Type 2 diabetes mellitus with other diabetic kidney complication Category: Medical Plan: stable. on arb. avoids nsaids. Will reduce Lantus to 40 units at night and his lunchtime NovoLog to 15 units. He will follow-up in the office to be reassessed in 3 months or sooner prn. labs prior. (2) Peripheral sensory neuropathy due to type 2 diabetes mellitus: Code(s): E11.42 - Type 2 diabetes mellitus with diabetic polyneuropathy Category: Medical Plan: stable. (3) Proteinuria: Code(s): R80.9 - Proteinuria, unspecified Category: Medical Qualifiers: Proteinuria type: unspecified Qualified Code(s): R80.9 - Proteinuria, unspecified Plan: as above (4) Essential hypertension: Code(s): I10 - Essential (primary) hypertension Category: Medical Plan: wnl. continue current plan (5) Pure hypercholesterolemia: Code(s): E78.00 - Pure hypercholesterolemia, unspecified Category: Medical Plan: at goal. continue current plan. Orders: Orders Hemoglobin A1c Today E11.29 - Type 2 diabetes mellitus with other diabetic kidney complication, E11.42 - Type 2 diabetes mellitus with diabetic polyneuropathy, E78.00 - Pure hypercholesterolemia, unspecified, I10 - Essential (primary) hypertension, R80.9 - Proteinuria, unspecified Comprehensive [place]. Panel Fast Today E11.29 - Type 2 diabetes mellitus with other diabetic kidney complication, E11.42 - Type 2 diabetes mellitus with diabetic polyneuropathy, E78.00 - Pure hypercholesterolemia, unspecified, I10 - Essential (primary) hypertension, R80.9 - Proteinuria, unspecified Coding Level of Care Code New Pt Level 4 (50822) Complex EM visit Add On G2211 Diagnoses Type 2 diabetes mellitus with other diabetic kidney complication E11.29 Peripheral sensory neuropathy due to type 2 diabetes mellitus E11.42 Proteinuria, unspecified type R80.9 Proteinuria type: unspecified Essential hypertension I10 Pure hypercholesterolemia E78.00
[2024-02-10 08:53] VITALS: BP 106/64; PULSE 67; BMI 32.4
[2024-02-10 09:06] LABS: Glucose, Whole Blood 149 mg/dL (60-115)
== END 2024-02-10 09:42 | disposition home or self-care (01) ==
PROVIDERS: PCP Internal Medicine; Visit Provider Physician Assistant
DX: E11.29 Type 2 diabetes mellitus with other diabetic kidney complication (principal); E11.42 Type 2 diabetes mellitus with diabetic polyneuropathy; R80.9 Proteinuria, unspecified; I10 Essential (primary) hypertension; E78.00 Pure hypercholesterolemia, unspecified
CPT/HCPCS: 99204; G2211

== ENCOUNTER → 2024-02-10 08:48 | Outpatient (BNVA) | payer MEDICARE, SELFPAY | PROVIDERS: PCP Internal Medicine; Visit Provider Physician Assistant | DX: E11.29 Type 2 diabetes mellitus with other diabetic kidney complication (principal); E11.42 Type 2 diabetes mellitus with diabetic polyneuropathy; E78.00 Pure hypercholesterolemia, unspecified; I10 Essential (primary) hypertension; R80.9 Proteinuria, unspecified | CPT/HCPCS: 82947; 99202 ==

== ENCOUNTER 2024-05-02 08:59 | Outpatient (REF) | payer MEDICARE, SELFPAY | END 2024-05-02 09:00 | disposition home or self-care (01) | LOC: HO.LAB 08:59 | PROVIDERS: PCP Internal Medicine; Visit Provider Urology | DX: C67.9 Malignant neoplasm of bladder, unspecified (principal); E11.29 Type 2 diabetes mellitus with other diabetic kidney complication; R80.9 Proteinuria, unspecified | CPT/HCPCS: 52000; 81003; 88121; 99212 ==

== ENCOUNTER 2024-05-02 08:59 | Outpatient (AMB) | payer MEDICARE, SELFPAY ==
--- NOTE | 2024-05-02 09:17 | A.OFFVIS_ITS ---
Intake Visit Reasons: Cystoscopy(Bladder Ca) Intake Note: Patient is Present for Cystoscopy Urology Med: None Antibiotic Allergy: None Blood Thinner: Aspirin Patient is on Ozempic URO- G Disposable Cystoscope lot:[id number] exp:11/03/2026 Professor Of History Required: No Accompanied by: Self / Same As Patient Allergies varenicline [From Chantix] Adverse Reaction (Unknown, Verified 06/28/24 15:03) nightmares ENVIRONMENTAL Allergy (Unknown, Uncoded 06/28/24 15:03) ? RXN- ALLERGY SHOTS FOR YRS TREES AND GRASS Allergy (Unknown, Uncoded 06/28/24 15:03) Unknown Medication List - Last Reconciled 05/02/24 by Nima Jerez MD albuterol sulfate 2.5 mg (3 mL) continuous nebulization Q4-6H PRN 30 days aspirin 81 mg PO DAILY cholecalciferol (vitamin D3) 50 mcg PO DAILY 90 days cilostazol 50 mg PO BID clonazepam 0.5 mg PO DAILY PRN insulin aspart U-100 (Novolog FlexPen U-100 Insulin aspart) inject 20 units with breakfast, 15 units with lunch, 20 units with dinner sq daily as directed insulin glargine (Lantus Solostar U-100 Insulin) 40 units subcut QPM ipratropium bromide intranasal BEDTIME ipratropium-albuterol 20-100 mcg/actuation (Combivent Respimat) 1 puff inhalation Q6H losartan 50 mg PO DAILY metformin ER 1,000 mg (2 x 500 mg) PO BID omeprazole 20 mg PO BID oxybutynin chloride ER 15 mg PO DAILY 90 days paroxetine HCl 40 mg PO DAILY pen needle, diabetic As directed rosuvastatin 40 mg PO DAILY semaglutide (Ozempic) 1 mg (0.75 mL) subcut QWEEK HPI Comments Details: Ra is a pleasant male. He is a patient of Dr. Sandra. He seems the following urologic conditions - bladder cancer - urgency frequency - lower urinary tract symptoms - prior TURP Here for yearly cystoscopy 3+ protein on UA - refer renal HbA1c 6.4 Continued good response to on demand oxybutynin Was using when working last year At this point will hold off unless required Cystoscopy clear this year Bladder cancer low-grade bladder cancer Prior diagnosis low-grade bladder cancer Cystoscopy planned every year Associated symptoms - urinary urgency in setting of diabetes. 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 COPD (chronic obstructive pulmonary disease) Nicotine dependence, cigarettes, uncomplicated Chronic sore throat Vitamin D deficiency Major depressive disorder, recurrent, unspecified Anxiety Obesity (BMI 30-39.9) Benign prostatic hyperplasia with lower urinary tract symptoms Primary 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, bilateral Holland's palsy Surgical History (Updated 06/05/24 @ 13:08 by Asia Obrien PA-C) History of bladder surgery History of angioplasty History of colonoscopy History of esophagogastroduodenoscopy (EGD) History of nasal septoplasty History of tooth extraction Family History Father ETOH abuse Mother Obese Cancer Diabetes Brother Diabetes Other Mental health problem Substance abuse Social History Housing: Apartment Alcohol intake: current Alcohol intake frequency: holidays/special occasions only Patient Tobacco Use Status: Current everyday Tobacco user Tobacco use type: Cigarette Cigarette Packs Per Day: 1 Cigarettes Per Day: 20 e-Cigarette/Vaping Use: Never Used Second Hand Smoke Exposure: Yes service: No Current occupational status: disabled Cognitive needs: No Hearing needs: No Vision needs: Yes (Glasses) Review of Systems Const Denies chills and Denies fever(s) Card Reports no additional complaints and Denies syncope Resp Denies cough GI Denies abdominal pain and Denies heartburn Reports as per HPI and Denies change in libido Neuro Denies syncope Psych Denies change in libido Endo Denies change in libido Physical Exam Const General: cooperative, healthy appearing, comfortable and no acute distress Orientation/consciousness: patient oriented x3 HEENT Face and sinus: Yes normal facial exam Mouth: moist mucous membranes Neck Neck: Yes normal visual inspection, Yes full ROM and Yes trachea midline Chest Chest palpation & inspection: normal inspection of the chest Resp Effort & Inspection: normal respiratory effort, able to speak in complete sentences and no respiratory distress GI Inspection: Yes normal to inspection Back/Spine/Pelvis Cervical Spine: normal cervical lordosis Thoracic/Lumbar Spine: thoracic and lumbar spine normal to inspection Skin General skin exam: no rashes or lesions noted Neuro General: patient oriented x3, gait normal, tone normal and moves all extremities Extrem General: Yes normal to inspection and Yes capillary refill normal Office Procedures Cystoscopy Consent Discussed risk and benefit or proposed procedure with the patient. Information consent for procedure given to the patient. Discussed technical aspects, risks, benefits and alternatives in full. Addressed all of the patient's questions and concerns regarding the procedure. The patient demonstrated knowledge and understanding. They wish to proceed with this procedure. Preparation The patient was prepped in the usual manner. A older worker specialist was present and in the room. Genitalia was prepped with betadine solution in a sterile manner. Lidoca ine Jelly 2% was placed into the urethra and 16Fr flexible Olympus cystoscope was inserted into the meatus after adequate lubrication. Procedure Cystoscopy performed using a disposable Urovue digital 16 [place]alan cystoscope. Meatus circumcised Urethra anterior and posterior urethra normal Prostatic Urethra unremarkable Bladder examination with retroflexion of cystoscope Bladder Orifices normal shape and position Bladder Capacity median Trabeculations - Cellule Formation - Diverticulum Formation - Mucosal Erythema - Bladder Tumor - [id number] DISPOSABLE SCOPE URO-G FLEXIBLE SCOPE Procedure code (CPT) selection complete Office Meds lidocaine HCl 2 % mucosal jelly in applicator Performing Provider: Nima Jerez MD Performing Location: [facility] [place] [facility] Administered by: Kieran Mckeon LPN on 05/02/24 09:35 Dose Route Admin Location Dispensed Lot Number Expiration Date [facility] [employer] 10 mL intra-urethral 10 mL nitrofurantoin monohydrate/macrocrystals 100 mg capsule Performing Provider: Nima Jerez MD Performing Location: [facility] [place] [facility] Administered by: Kieran Mckeon LPN on 05/02/24 09:35 Dose Route Admin Location Dispensed Lot Number Expiration Date [facility] [employer] Superintendent 100 mg PO 1 cap naproxen 500 mg tablet Performing Provider: Nima Jerez MD Performing Location: [facility] [place] [facility] Administered by: Kieran Mckeon LPN on 05/02/24 09:35 Dose Route Admin Location Dispensed Lot Number Expiration Date [facility] [employer] 500 mg PO 1 tab Results AMB Urinalysis, Automated UA Leukoctes 0 Jace/uL Last Edit by DEBORAH Yancey on 05/02/24 09:31 UA Nitrite Negative Last Edit by Zhanna Garner A on 05/02/24 09:31 UA Urobilinogen 0.2 mg/dL Last Edit by Zhanna Garner A on 05/02/24 09:3 1 UA Protein 300 mg/dL Last Edit by Zhanna Garner A on 05/02/24 09:31 UA pH 6.0 Last Edit by Zhanna Garner A on 05/02/24 09:31 UA Blood 10 Marcus/uL Last Edit by Zhanna Garner [facility] on 05/02/24 09:31 UA Specific [place] 1.020 Last Edit by Zhanna Garner A on 05/02/24 09: 31 UA Ketone Negative Last Edit by Zhanna Garner [facility] on 05/02/24 09:31 UA Bilirubin 0 mg/dL Last Edit by Zhanna Garner A on 05/02/24 09:31 UA Glucose 0 mg/dL Last Edit by Zhanna Garner [facility] on 05/02/24 09:31 Results Reviewed Results Reviewed: Laboratory Last Values Urine pH (Auto) 6.0 05/02/24 09:19 Specific [place] (Auto) 1.020 05/02/24 09:19 Urine Protein (Auto) 300 mg/dL 05/02/24 09:19 Glucose (UA)(Auto) 0 mg/dL 05/02/24 09:19 Urine Ketones (Auto) Negative 05/02/24 09:19 Urine Blood (Auto) 10 Marcus/uL 05/02/24 09:19 Urine Nitrite (Auto) Negative 05/02/24 09:19 Urine Bilirubin (Auto) 0 mg/dL 05/02/24 09:19 Urine Urobilinogen (Auto) 0.2 mg/dL 05/02/24 09:19 Leukocyte Esterase (Auto) 0 Jace/uL 05/02/24 09:19 Assessment & Plan Assessment & Plan (1) Proteinuria due to type 2 diabetes mellitus: Code(s): E11.29 - Type 2 diabetes mellitus with other diabetic kidney complication; R80.9 - Proteinuria, unspecified Category: Medical Plan Twelve month follow-up cystoscopy Referral Nephrology Orders: Orders FISH Bladder Cancer 05/02/24 C67.9 - Malignant neoplasm of bladder, unspecified AMB Urinalysis Automated 05/02/24 Z13.9 - Encounter for screening, unspecified AMB Cystoscopy 05/02/24 C67.9 - Malignant neoplasm of bladder, unspecified Referrals Nephrology Referral E11.29 - Type 2 diabetes mellitus with other diabetic kidney complication, R80.9 - Proteinuria, unspecified Patient Instructions: Imaging studies, laboratory and physical exam results were discussed and reviewed in detail. No major barriers to patient understanding were identified. An opportunity to ask questions regarding the treatment plan was provided. All questions were answered. The patient expressed understanding and agreement with the above treatment plan. The patient is aware they should contact our office by phone for worsening of their current condition or the appearance of new urologic symptoms. Compliance is encouraged with any medications and followup testing that is ordered. It is a privilege to participate in the urologic care of your patient. If you have any questions or concerns regarding treatment for the above conditions, or other urologic issues, please do not hesitate to contact me. The office telephone contact is [phone]. This note is constructed using voice recognition software. While every effort has been made to ensure accuracy atomizer assembler errors may have been included. Yours sincerely, Dr Nima Jerez MD, [facility] - Urology Providers of Expert, Compassionate Care for the Genitourinary System Coding Level of Care Code Est Pt Level 4 (54950) Diagnoses Proteinuria due to type 2 diabetes mellitus E11.29; R80.9 CPT Codes Cystoscopy - CPT: 19259-[id number] ([id number])
== END 2024-05-02 10:20 | disposition home or self-care (01) ==
PROVIDERS: PCP Internal Medicine; Visit Provider Urology
DX: C67.9 Malignant neoplasm of bladder, unspecified (principal); Z13.9 Encounter for screening, unspecified
CPT/HCPCS: 52000; 99214

== ENCOUNTER 2024-05-04 15:23 | Outpatient (REF) | payer MEDICARE, SELFPAY | END 2024-05-04 15:24 | disposition home or self-care (01) | LOC: HO.LAB 15:23 | PROVIDERS: PCP Internal Medicine; Visit Provider Physician Assistant | DX: Z13.89 Encounter for screening for other disorder (principal) ==

== ENCOUNTER 2024-05-05 09:50 | Outpatient (REF) | payer MEDICARE, SELFPAY ==
[2024-05-05 11:18] LABS: Estimated Average Glucose 131 mg/dL; Hemoglobin A1c % 6.2 % (<6.0)
[2024-05-05 11:46] LABS: Alanine Aminotransferase 20 U/L (0-40); Albumin Level 4.2 g/dL (3.5-5.0); Alkaline Phosphatase 55 U/L (39-117); Anion Gap 12 (12-20); Aspartate Amino Transferase 17 U/L (5-37); Bilirubin Total 0.6 mg/dL (0.0-1.0); Blood Urea Nitrogen 15 mg/dL (9-16); Calcium 9.5 mg/dL (8.4-10.2); Carbon Dioxide 25 mmol/L (22-29); Chloride 111 mmol/L (96-108); Estimated Glomerular Filt Rate > 60; Glucose Fasting 109 mg/dL (60-99); Sodium 144 mmol/L (135-145); Total Protein 6.6 g/dL (6.5-8.0)
== END 2024-05-05 09:51 | disposition home or self-care (01) ==
LOC: HO.LAB 09:50
PROVIDERS: PCP Internal Medicine; Visit Provider Physician Assistant
DX: E11.42 Type 2 diabetes mellitus with diabetic polyneuropathy (principal); E78.00 Pure hypercholesterolemia, unspecified; I10 Essential (primary) hypertension; R80.9 Proteinuria, unspecified; E11.29 Type 2 diabetes mellitus with other diabetic kidney complication
CPT/HCPCS: 36415; 80053; 83036

== ENCOUNTER 2024-05-11 08:54 | Outpatient (AMB) | payer MEDICARE, SELFPAY ==
--- NOTE | 2024-05-11 08:59 | MHC.OFFVIS ---
Vital Signs 05/11/24 09:00 Height 5 ft 10 in Weight 228 lb 13.437 oz BMI 32.8 BP 130/66 Blood Pressure Location Lt brachial Position Sitting Pulse 54 Pulse Source Pulse Oximeter Intake Visit Reasons: DM Intake Note: Patient presents today for D2MT follow up visit. Last Diabetic Eye exam: 04/2024 Last Podiatry Visit: Doesn't have one. Random Glucose: 174 mg/dl HgA1c: 6.2% 05/05/24 X Ray Technologist Required: No Accompanied by: Self / Same As Patient Allergies varenicline [From Chantix] Adverse Reaction (Unknown, Verified 05/11/24 09:06) nightmares ENVIRONMENTAL Allergy (Unknown, Uncoded 05/11/24 09:06) ? RXN- ALLERGY SHOTS FOR YRS TREES AND GRASS Allergy (Unknown, Uncoded 05/11/24 09:06) Unknown Medication List - Last Reconciled 05/11/24 by Caitlyn Berg PA-C albuterol sulfate 2.5 mg (3 mL) continuous nebulization Q4-6H PRN 30 days aspirin 81 mg PO DAILY cholecalciferol (vitamin D3) 50 mcg PO DAILY 90 days cilostazol 50 mg PO BID clonazepam 0.5 mg PO DAILY PRN insulin aspart U-100 (Novolog FlexPen U-100 Insulin aspart) inject 15 units with breakfast, 15 units with lunch, 20 units with dinner sq daily as directed insulin glargine (Lantus Solostar U-100 Insulin) 40 units subcut QPM ipratropium bromide intranasal BEDTIME ipratropium-albuterol 20-100 mcg/actuation (Combivent Respimat) 1 puff inhalation Q6H losartan 50 mg PO DAILY metformin ER 1,000 mg (2 x 500 mg) PO BID omeprazole 20 mg PO BID oxybutynin chloride ER 15 mg PO DAILY 90 days paroxetine HCl 40 mg PO DAILY pen needle, diabetic As directed rosuvastatin 40 mg PO DAILY semaglutide (Ozempic) 1 mg (0.75 mL) subcut QWEEK HPI HPI DM: Details: Patient is a 68-year-old male with a significant past medical history of hypertension, hyperlipidemia, type 2 diabetes, insulin dependent, anxiety in bladder cancer presenting today to establish care with endocrinology. Endo: Follows with Dr. Howard up until recently due to insurance changes. He has had dm for about 6 years. His last A1c was 6.2. He is currently on metformin 1000 mg twice a day, Lantus 40 units nightly, NovoLog 20 units TID, and Ozempic 1 mg weekly. cgm-usage 80%, average glucose 124, GMI 6.3%, variability 27.4. 0 very hyperglycemic, 5% hyperglycemic, 90% in range, 4% hypoglycemic, 1% very hypoglycemic -most of the hypoglycemia occurs between 12 and 15:00-He has been more active and doing projects during the day. -correct low blood sugars with glucose tabs and watches glucose q 15 mins -He just had an eye exam and no retinopathy. -He has a fam hx of t2dm with siblings and parents. -He is seeing nephrology for microalbuminuria in June He reports seeing a bank credit card collection clerk upon dx of diabetes. CV: Blood pressure today in the office is 130/66. He is on losartan 50 mg. Compliant with Crestor 40 mg Urology: following with Dr. 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 [facility] Medical History Peripheral sensory neuropathy due to type 2 diabetes mellitus Vitamin D deficiency Carpal tunnel syndrome, bilateral Right leg pain Right knee pain Smoker Chronic sore throat Obesity (BMI 30-39.9) Major depressive disorder, recurrent, unspecified Anxiety Holland's palsy Benign prostatic hyperplasia with lower urinary tract symptoms Primary osteoarthritis of both hips Elevated LFTs COPD (chronic obstructive pulmonary disease) Pure hypercholesterolemia Essential hypertension Proteinuria Type 2 diabetes mellitus with other diabetic kidney complication Surgical History Hx of colonoscopy (~12/03/19) History of nasal septoplasty History of cystoscopy History of tooth extraction PVD (peripheral vascular disease) History of bladder surgery Family History Father ETOH abuse Mother Obese Cancer Diabetes Brother Diabetes Other Mental health problem Substance abuse Social History Housing: Apartment Alcohol intake: current Alcohol intake frequency: holidays/special occasions only Patient Tobacco Use Status: Current everyday Tobacco user Tobacco use type: Cigarette Cigarette Packs Per Day: 1 Cigarettes Per Day: 20 e-Cigarette/Vaping Use: Never Used Second Hand Smoke Exposure: Yes service: No Current occupational status: disabled Cognitive needs: No Hearing needs: No Vision needs: Yes (Glasses) Physical Exam Vital Signs: Last Vital Signs Pulse 54 05/11/24 09:00 BP 130/66 05/11/24 09:00 BMI result Body Mass Index 32.8 Const Orientation/consciousness: patient oriented x3 Neck Neck: Yes no lymphadenopathy Thyroid: Thyroid normal Carotids: no bruits Resp Auscultation: clear to auscultation bilaterally Cardio Rate: regular rate Rhythm: regular rhythm Heart sounds: S1 normal heart sound present and S2 normal heart sound present Peripheral pulses: dorsalis pedis present Neuro General: patient oriented x3, gait normal and no focal motor deficits Extrem Other: Monofilament sensation intact bilaterally. Vibratory sensation diminished but present bilaterally. Skin intact. General: Yes normal to inspection Results Reviewed Results Reviewed: Laboratory Last Values Glucose (Clinic) 174 mg/dL (60-115) H 05/11/24 09:10 Laboratory Tests 01/20/24 01/20/24 05/05/24 11:19 11:24 09:58 Sodium 144 Potassium 4.0 Chloride 111 H Carbon Dioxide 25 Anion Gap 12 BUN 15 Creatinine 0.92 Estimated GFR > 60 Estimat Average Glucose 131 Hemoglobin A1c % 6.2 H AST 17 ALT 20 Triglycerides 115 Cholesterol 128 LDL Cholesterol, Calc 71 HDL Cholesterol 34 L Urine Creatinine 180.92 Urine Microalbumin 1379.0 Microalb/Creat Ratio 762.2 H Assessment & Plan Assessment & Plan (1) Peripheral sensory neuropathy due to type 2 diabetes mellitus: Code(s): E11.42 - Type 2 diabetes mellitus with diabetic polyneuropathy Category: Medical Plan: Given the recent hypoglycemia I will reduce his NovoLog. He has had increased activity during the day. Will reduce that to 15 units with breakfast and lunch. Supper is still his largest meal will continue with 20 units. No hypoglycemia overnight. He does use glucose tabs to correct this and does not need a refill today. He will continue with the metformin and Ozempic. Will check labs prior to next appointment. Reviewed signs and symptoms of hypoglycemia that would require emergent medical treatment. We did spend more than an hour in soaw-fy-awke time today discussing the pathophysiology of diabetes, complications associated with diabetes and medications. (2) Proteinuria due to type 2 diabetes mellitus: Code(s): E11.29 - Type 2 diabetes mellitus with other diabetic kidney complication; R80.9 - Proteinuria, unspecified Category: Medical Plan: will be seeing nephrology in June. Orders: Orders Hemoglobin A1c 3 Months E11.29 - Type 2 diabetes mellitus with other diabetic kidney complication, E11.42 - Type 2 diabetes mellitus with diabetic polyneuropathy, R80.9 - Proteinuria, unspecified Basic Metabolic Panel 3 Months E11.29 - Type 2 diabetes mellitus with other diabetic kidney complication, E11.42 - Type 2 diabetes mellitus with diabetic polyneuropathy, R80.9 - Proteinuria, unspecified Coding Level of Care Code New Pt Level 4 (05828) Complex EM visit Add On G2211 Diagnoses Peripheral sensory neuropathy due to type 2 diabetes mellitus E11.42 Proteinuria due to type 2 diabetes mellitus E11.29; R80.9 Time Spent (min) 65
[2024-05-11 09:00] VITALS: BP 130/66; PULSE 54; BMI 32.8
[2024-05-11 09:13] LABS: Glucose, Whole Blood 174 mg/dL (60-115)
== END 2024-05-11 09:37 | disposition home or self-care (01) ==
PROVIDERS: PCP Internal Medicine; Visit Provider Physician Assistant
DX: E11.42 Type 2 diabetes mellitus with diabetic polyneuropathy (principal); E11.29 Type 2 diabetes mellitus with other diabetic kidney complication; R80.9 Proteinuria, unspecified
CPT/HCPCS: 99215; G2211; G2212

== ENCOUNTER → 2024-05-11 08:54 | Outpatient (BNVA) | payer MEDICARE, SELFPAY | PROVIDERS: PCP Internal Medicine; Visit Provider Physician Assistant | DX: E11.42 Type 2 diabetes mellitus with diabetic polyneuropathy (principal); E11.29 Type 2 diabetes mellitus with other diabetic kidney complication; R80.9 Proteinuria, unspecified | CPT/HCPCS: 82947; 99212 ==

== ENCOUNTER 2024-06-28 14:39 | Outpatient (AMB) | payer MEDICARE, SELFPAY ==
--- NOTE | 2024-06-28 15:01 | AM.OFFWIN_ITS ---
Intake Vital Signs 06/28/24 15:02 Height 5 ft 10 in Weight 240 lb BMI 34.4 BP 140/90 H Blood Pressure Location Rt brachial Position Sitting Pulse 71 Pulse Source Pulse Oximeter Pulse Oximetry (%) 98 Oxygen Delivery Method Room Air Intake Visit Reasons: EP-lower back muscle pain Intake Note: Patient here for left lower back pain that started Tuesday Patient Tobacco Use Status: Current everyday Tobacco user Allergies varenicline [From Chantix] Adverse Reaction (Unknown, Verified 06/28/24 15:03) nightmares ENVIRONMENTAL Allergy (Unknown, Uncoded 06/28/24 15:03) ? RXN- ALLERGY SHOTS FOR YRS TREES AND GRASS Allergy (Unknown, Uncoded 06/28/24 15:03) Unknown Do you need a note to return to daycare/school/sports/work: No HPI HPI Comments History of Present Illness Details Patient is a 69-year-old male complaining of left-sided low back pain for 2 days. He states this is the 3rd flare-up he has had since March. 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 He has had sciatica few times but this does not feel like the sciatic pain that he has had before. This pain is mostly just in the left low back and does not radiate anywhere. He states it the pain is worse when he goes to sit or when he moves to stand up. He has used both ice and heat as well as Tylenol and ibuprofen with no improvement in his pain. 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 COPD (chronic obstructive pulmonary disease) Nicotine dependence, cigarettes, uncomplicated Chronic sore throat Vitamin D deficiency Major depressive disorder, recurrent, unspecified Anxiety Obesity (BMI 30-39.9) Benign prostatic hyperplasia with lower urinary tract symptoms Primary 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, bilateral Holland's palsy Surgical History (Updated 06/05/24 @ 13:08 by Asia Obrien PA-C) History of bladder surgery History of angioplasty History of colonoscopy History of esophagogastroduodenoscopy (EGD) History of nasal septoplasty History of tooth extraction Family History Father ETOH abuse Mother Obese Cancer Diabetes Brother Diabetes Other Mental health problem Substance abuse Social History Housing: Apartment Alcohol intake: current Alcohol intake frequency: holidays/special occasions only Patient Tobacco Use Status: Current everyday Tobacco user Tobacco use type: Cigarette Cigarette Packs Per Day: 1 Cigarettes Per Day: 20 e-Cigarette/Vaping Use: Never Used Second Hand Smoke Exposure: Yes service: No Current occupational status: disabled Cognitive needs: No Hearing needs: No Vision needs: Yes (Glasses) Review of Systems Const All systems reviewed & are unremarkable except as noted in HPI and below Physical Exam Vital Signs: Last Vital Signs Pulse 71 06/28/24 15:02 BP 140/90 H 06/28/24 15:02 Pulse Ox 98 06/28/24 15:02 Oxygen Delivery Method Room Air 06/28/24 15:02 BMI result Body Mass Index 34.4 Const General: cooperative, healthy appearing and comfortable Orientation/consciousness: patient oriented x3 HEENT Head: Yes normal to inspection and Yes normocephalic General nose exam: Normal external nose present Face and sinus: Yes normal facial exam Eyes General: appearance normal, both eyes and all related structures Resp Effort & Inspection: normal respiratory effort and able to speak in complete sentences Back/Spine/Pelvis Cervical Spine: cervical ROM normal, No cervical spasm and No Cervical spine tenderness Thoracic/Lumbar Spine: thoracic and lumbar spine normal to inspection, paraspinal muscle tenderness on the left, thoraco-lumbar ROM limited, No thoracic spinal tenderness and No lumbar spinal tenderness Neuro General: patient oriented x3 Extrem Other: Straight leg raise test negative on right; Straight leg raise test negative on left; Reflexes normal ankle and knee bilaterally; motor strength normal bilaterally Assessment & Plan Assessment & Plan (1) Left-sided low back pain without sciatica: Code(s): M54.50 - Low back pain, unspecified Qualifiers: Chronicity: acute Qualified Code(s): M54.50 - Low back pain, unspecified Plan: Sent a low dose prednisone burst to patient's pharmacy, recommended he use Aleve, rest and ice. Plan see above Medications: New prednisone 20 mg PO QAM 5 tabs 0RF Coding Level of Care Code Est Pt Level 3 (32768) Diagnoses Acute left-sided low back pain without sciatica M54.50 Chronicity: acute
[2024-06-28 15:02] VITALS: BP 140/90; PULSE 71; O2SAT 98; BMI 34.4
== END 2024-06-28 15:36 | disposition home or self-care (01) ==
PROVIDERS: PCP Internal Medicine; Visit Provider Physician Assistant
DX: M54.50 Low back pain, unspecified (principal)

== ENCOUNTER → 2024-06-28 14:39 | Outpatient (BNVA) | payer MEDICARE, SELFPAY | PROVIDERS: PCP Internal Medicine; Visit Provider Physician Assistant | DX: M54.50 Low back pain, unspecified (principal) | CPT/HCPCS: 99212 ==

== ENCOUNTER 2024-07-20 10:42 | Outpatient (AMB) | payer OTHER, SELFPAY ==
--- NOTE | 2024-07-20 10:51 | HO.NEPHOV ---
Vital Signs 07/20/24 10:52 Height 5 ft 10 in Weight 235 lb BMI 33.7 BP 152/62 H Blood Pressure Location Lt brachial Position Sitting Pulse 66 Pulse Source Pulse Oximeter Pulse Oximetry (%) 93 Oxygen Delivery Method Room Air Intake Visit Reasons: Protenuria Human Resources Psychologist Required: No Accompanied by: Self / Same As Patient Allergies varenicline [From Chantix] Adverse Reaction (Unknown, Verified 07/20/24 10:54) nightmares ENVIRONMENTAL Allergy (Unknown, Uncoded 06/28/24 15:03) ? RXN- ALLERGY SHOTS FOR YRS TREES AND GRASS Allergy (Unknown, Uncoded 06/28/24 15:03) Unknown HPI Comments Details: I had the privilege of seeing Mr Coleman in consultation for proteinuria. He is 68-year-old male with type 2 diabetes, proteinuria, history of bladder cancer, obesity, hypertension, PAD and smoking.His last A1c was 6.4% a couple weeks ago. He is currently on insulin as well as other medications including Ozempic but not SGLT2 i. He is on ARB which he is tolerating well. His renal functions are normal. His bladder cancer is in remission. He does not have any epistaxis, photosensitivity, skin rashes, sinusitis, edema or hematuria. His BP has been at goal. 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 COPD (chronic obstructive pulmonary disease) Nicotine dependence, cigarettes, uncomplicated Chronic sore throat Vitamin D deficiency Major depressive disorder, recurrent, unspecified Anxiety Obesity (BMI 30-39.9) Benign prostatic hyperplasia with lower urinary tract symptoms Primary 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, bilateral Holland's palsy Surgical History History of bladder surgery History of angioplasty History of colonoscopy History of esophagogastroduodenoscopy (EGD) History of nasal septoplasty History of tooth extraction Family History Father ETOH abuse Mother Obese Cancer Diabetes Brother Diabetes Other Mental health problem Substance abuse Social History Housing: Apartment Alcohol intake: current Alcohol intake frequency: holidays/special occasions only Patient Tobacco Use Status: Current everyday Tobacco user Tobacco use type: Cigarette Cigarette Packs Per Day: 1 Cigarettes Per Day: 20 e-Cigarette/Vaping Use: Never Used Second Hand Smoke Exposure: Yes service: No Current occupational status: disabled Cognitive needs: No Hearing needs: No Vision needs: Yes (Glasses) Review of Systems Const All systems reviewed & are unremarkable except as noted in HPI and below Physical Exam Vital Signs: Last Vital Signs Pulse 66 07/20/24 10:52 BP 152/62 H 07/20/24 10:52 Pulse Ox 93 07/20/24 10:52 Oxygen Delivery Method Room Air 07/20/24 10:52 BMI result Body Mass Index 33.7 Const General: comfortable and no acute distress Orientation/consciousness: patient oriented x3 HEENT Head: Yes normocephalic Mouth: Normal oral and palatal mucosa present Eyes EOM: EOMs intact bilaterally Neck Neck: Yes supple Resp Auscultation: clear to auscultation bilaterally Cardio Jugular venous distension: no JVD Rate: regular rate GI Palpation (GI): Soft to palpation Auscultation: normal bowel sounds General: Yes no CVA tenderness Back/Spine/Pelvis Back: no CVA tenderness Skin General skin exam: no rashes or lesions noted Neuro General: patient oriented x3 and moves all extremities Extrem General: Yes no pedal edema Results Reviewed Nephrology Results: Sodium 144 mmol/L (135-145) 05/05/24 Potassium 4.0 mmol/L (3.3-5.1) 05/05/24 Chloride 111 mmol/L (96-108) H 05/05/24 Carbon Dioxide 25 mmol/L (22-29) 05/05/24 BUN 15 mg/dL (9-16) 05/05/24 Creatinine 0.92 mg/dL (0.5-1.4) 05/05/24 Calcium 9.5 mg/dL (8.4-10.2) 05/05/24 Assessment & Plan Assessment & Plan (1) Type 2 diabetes mellitus with other diabetic kidney complication: Code(s): E11.29 - Type 2 diabetes mellitus with other diabetic kidney complication Category: Medical (2) Essential hypertension: Code(s): I10 - Essential (primary) hypertension Category: Medical Plan Mr Coleman has diabetic nephropathy. He has no other clinical or lab data yet to suspect Amyloidosis. He has diabetes for a long time with hypertension and PAD. He has H/O malignancy making membranous nephropathy in the differential. He is on ARB which I plan to maximize with time if his serum K and hemodynamics permit. I have ordered imaging studies as well as blood work/ urine studies. I plan to start him on SGLT2 i with time. He may need a renal biopsy if his proteinuria worsens inspite of maximizing ARB & initiating on SGLT2i. He should avoid NSAID's and keep good hydration. Further management is pending evolving data. Answered all questions. F/U given Orders: Orders US renal BI 07/20/24 R80.9 - Proteinuria, unspecified US renal doppler 07/20/24 R80.9 - Proteinuria, unspecified Creatinine 2 Months - Type 2 diabetes mellitus with other diabetic kidney complication, I10 - Essential (primary) hypertension Electrolytes 2 Months - Type 2 diabetes mellitus with other diabetic kidney complication, I10 - Essential (primary) hypertension Anti DNA DS Antibody 2 Months . - Type 2 diabetes mellitus with other diabetic kidney complication, I10 - Essential (primary) hypertension Proteinase 3 PR3 Antibodies 2 Months . - Type 2 diabetes mellitus with other diabetic kidney complication, I10 - Essential (primary) hypertension Immunofixation Pnl, Serum 2 Months . - Type 2 diabetes mellitus with other diabetic kidney complication, I10 - Essential (primary) hypertension Phospholipase A2 Receptor Pnl 2 Months - Type 2 diabetes mellitus with other diabetic kidney complication, I10 - Essential (primary) hypertension Albumin Level 2 Months . - Type 2 diabetes mellitus with other diabetic kidney complication, I10 - Essential (primary) hypertension Blood Urea Nitrogen 2 Months E11. - Type 2 diabetes mellitus with other diabetic kidney complication, I10 - Essential (primary) hypertension Calcium 2 Months . - Type 2 diabetes mellitus with other diabetic kidney complication, I10 - Essential (primary) hypertension Myeloperoxidase Antibody 2 Months . - Type 2 diabetes mellitus with other diabetic kidney complication, I10 - Essential (primary) hypertension Protein Creatinine Ratio, Ur 2 Months - Type 2 diabetes mellitus with other diabetic kidney complication, I10 - Essential (primary) hypertension Coding Level of Care Code New Pt Level 4 (72215) Diagnoses Type 2 diabetes mellitus with other diabetic kidney complication E11.29 Essential hypertension I10
[2024-07-20 10:52] VITALS: BP 152/62; PULSE 66; O2SAT 93; BMI 33.7
== END 2024-07-20 11:18 | disposition home or self-care (01) ==
LOC: HO.HKA 10:43
PROVIDERS: PCP Internal Medicine; Referring Provider Urology; Visit Provider Internal Medicine Nephrology
DX: E11.21 Type 2 diabetes mellitus with diabetic nephropathy (principal); I10 Essential (primary) hypertension
CPT/HCPCS: 99204

== ENCOUNTER → 2024-07-20 10:42 | Outpatient (BNVA) | payer MEDICARE, SELFPAY | PROVIDERS: PCP Internal Medicine; Referring Provider Urology; Visit Provider Internal Medicine Nephrology | DX: E11.29 Type 2 diabetes mellitus with other diabetic kidney complication (principal); E11.51 Type 2 diabetes mellitus with diabetic peripheral angiopathy without gangrene; R80.9 Proteinuria, unspecified; I10 Essential (primary) hypertension | CPT/HCPCS: 99202 ==

== ENCOUNTER 2024-08-10 08:46 | Outpatient (REF) | payer OTHER, SELFPAY ==
--- NOTE | ~2024-08-10 | US_ITS ---
EXAMINATION: US KIDNEY BILATERAL, US RENAL ARTERY WITH COLOR DOPPLER CLINICAL INFORMATION: R80.9 - Proteinuria, unspecified COMPARISON: None. TECHNIQUE: Grayscale, color and spectral Doppler interrogation of the kidneys and renal arteries. FINDINGS: The right kidney measures 11.5 cm x 5.7 cm x 6.2 cm. 1.4 cm and a 1.0 cm anechoic rounded foci consistent with benign simple cysts are noted within the right kidney and more no additional imaging follow-up on the basis of this examination. No flow is noted in these regions on color Doppler interrogation. 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 This finding is benign in appearance. No right-sided hydronephrosis or perinephric inflammatory changes noted. The left kidney measures 12.1 cm x 5.9 cm x 4.5 cm. A 2.6 cm x 1.7 cm x 2.3 cm mid pole anechoic cyst with eccentric dystrophic peripheral calcification is noted. A 1.3 cm x 0.9 cm x 0.7 cm lower pole anechoic benign-appearing simple cyst is noted. An adjacent approximate 5 mm anechoic rounded focus is present in the inferior pole with closely approximated mural hyperechogenicity which may represent punctate eccentric calcification. These findings are consistent with benign cysts and were no additional imaging follow-up on the basis of this examination. Left kidney demonstrates a 5 mm focal cortical inward defect which may represent fortuitous visualization of the interpeduncular cleft or a small focus of chronic scarring. This finding is of uncertain clinical significance. Right renal artery peak systolic velocities cm/sec: Proximal 297, middle 131, distal 177. RAR 3.7 Right renal artery segmental resistive indices: Upper 0.72, middle 0.79, lower pole 0.77 Right renal vein: Patent. Left renal artery peak systolic velocity cm/sec: Proximal 158, middle to 63, distal 184. RAR 3.3 Left renal artery segmental resistive indices: Upper 0.77, middle 0.76, lower 0.79 Right renal vein: Patent. US/US renal doppler IMPRESSION: *Findings suspicious for high-grade (greater than 60%) focal stenosis of the proximal right renal artery on the basis of renal vascular flow measurements detailed above. *Findings suspicious for intermediate grade (less than 60%) focal stenosis of the middle segment of the left renal artery on the basis of renal vascular flow measurements detailed above. *No hydronephrosis. No nephrolithiasis. No perinephric fluid collections. Incidental benign appearing bilateral renal cysts which were no additional imaging follow-up. *Benign-appearing 5 mm cortical defect noted within the left kidney which may represent incidental visualization of a normal internodular cleft or a small focus of chronic or old scarring. As finding is of doubtful clinical significance. Electronically signed by: Elliot Frederick MD 08/11/2024 02:36 AM NICK LOVELACE
[2024-08-10 11:47] LABS: Estimated Average Glucose 177 mg/dL; Hemoglobin A1C 250.9073 umol/L; Hemoglobin A1c % 7.8 % (<6.0); Total Hemoglobin (HGBA1C) 4062.4757 umol/L
[2024-08-10 12:06] LABS: Anion Gap 13 (12-20); Blood Urea Nitrogen 15 mg/dL (9-16); Calcium 9.3 mg/dL (8.4-10.2); Carbon Dioxide 24 mmol/L (22-29); Chloride 107 mmol/L (96-108); Estimated Glomerular Filt Rate > 60; Glucose Random 107 mg/dL (60-115); Potassium 4.7 mmol/L (3.3-5.1); Sodium 139 mmol/L (135-145)
== END 2024-08-10 08:47 | disposition home or self-care (01) ==
LOC: HO.US 08:46
PROVIDERS: Physician Assistant; PCP Internal Medicine; Visit Provider Internal Medicine Nephrology
DX: R80.9 Proteinuria, unspecified (principal); E11.42 Type 2 diabetes mellitus with diabetic polyneuropathy; E11.29 Type 2 diabetes mellitus with other diabetic kidney complication; I70.1 Atherosclerosis of renal artery
CPT/HCPCS: 36415; 76775; 80048; 83036; 93975

== ENCOUNTER 2024-08-20 10:14 | Outpatient (REF) | payer OTHER, SELFPAY | END 2024-08-20 10:15 | disposition home or self-care (01) | LOC: HO.CT 10:14 | PROVIDERS: PCP Internal Medicine; Visit Provider Physician Assistant Medical | DX: Z12.2 Encounter for screening for malignant neoplasm of respiratory organs (principal); F17.210 Nicotine dependence, cigarettes, uncomplicated; E11.29 Type 2 diabetes mellitus with other diabetic kidney complication | CPT/HCPCS: 71271; 82947; 99212 ==

== ENCOUNTER → 2024-08-20 10:16 | Outpatient (BNV) | payer OTHER, SELFPAY | PROVIDERS: PCP Internal Medicine; Visit Provider Radiology Diagnostic Radiology | DX: R91.1 Solitary pulmonary nodule (principal); J43.2 Centrilobular emphysema; N28.1 Cyst of kidney, acquired | CPT/HCPCS: 71271 ==

== ENCOUNTER 2024-08-20 12:56 | Outpatient (AMB) | payer MEDICARE, SELFPAY ==
[2024-08-20 12:59] VITALS: BP 164/86; PULSE 66
--- NOTE | 2024-08-20 12:59 | A.OFFVIS_ITS ---
Vital Signs 08/20/24 12:59 Height 50 ft Weight 243 lb 6.245 oz BMI 0.5 BP 164/86 H Blood Pressure Location Lt brachial Position Sitting Pulse 66 Pulse Source Pulse Oximeter Intake Visit Reasons: DM/CONFIRMED Intake Note: Patient presents today for D2IA follow up visit. Last Diabetic Eye exam: 05/03/24 Last Podiatry Visit: Doesn't have one Random Glucose: 158 mg/dl HgA1c: 7.8% 08/10/24 Unload Associate Required: No Accompanied by: Self / Same As Patient Allergies varenicline [From Chantix] Adverse Reaction (Unknown, Verified 08/20/24 13:03) nightmares ENVIRONMENTAL Allergy (Unknown, Uncoded 08/20/24 13:03) ? RXN- ALLERGY SHOTS FOR YRS TREES AND GRASS Allergy (Unknown, Uncoded 08/20/24 13:03) Unknown Medication List - Last Reconciled 08/20/24 by Caitlyn Berg PA-C albuterol sulfate 2.5 mg (3 mL) continuous nebulization Q4-6H PRN 30 days aspirin 81 mg PO DAILY cholecalciferol (vitamin D3) 50 mcg PO DAILY 90 days cilostazol 50 mg PO BID clonazepam 0.5 mg PO DAILY PRN insulin aspart U-100 (Novolog FlexPen U-100 Insulin aspart) inject 15 units with breakfast, 15 units with lunch, 20 units with dinner sq daily as directed insulin glargine (Lantus Solostar U-100 Insulin) 40 units subcut QPM ipratropium bromide intranasal BEDTIME ipratropium-albuterol 20-100 mcg/actuation (Combivent Respimat) 1 puff inhalation Q6H losartan 50 mg PO DAILY metformin ER 1,000 mg (2 x 500 mg) PO BID omeprazole 20 mg PO BID oxybutynin chloride ER 15 mg PO DAILY 90 days paroxetine HCl 40 mg PO DAILY pen needle, diabetic As directed rosuvastatin 40 mg PO DAILY semaglutide (Ozempic) 1 mg (0.75 mL) subcut QWEEK HPI HPI DM/CONFIRMED: Details: Patient is a 68-year-old male with a significant past medical history of hypertension, hyperlipidemia, type 2 diabetes, insulin dependent, anxiety in bl adder cancer presenting today for a follow up. Endo: He has had dm for about 6 years. His last A1c was 7.8. He is currently on metformin 1000 mg twice a day, Lantus 40 units nightly, NovoLog 15 units TID, and Ozempic 1 mg weekly. He states his glucose readings have been a bit more elevated for the last couple months. He states that he threw his back out a couple months ago and was more sedentary/eating worse. cgm-usage 80%. 52% hyperglycemic, 30% in range, 18% hypoglycemic -most of the hypoglycemia occurs around 6 AM and 6 PM. He does sometimes notice that his blood sugars are a little bit of the lower end when he uses 20 units or 15 units of the NovoLog in the morning or at supper. He states that sometimes he forgets to give himself the NovoLog. -correct low blood sugars with glucose tabs and watches glucose q 15 mins -He just had an eye exam and no retinopathy. -He has a fam hx of t2dm with siblings and parents. Nephro: follows with nephrololgy. CV: Blood pressure today in the office is 164/86. It has been elevated the last few times he hsa been seen. He is on losartan 50 mg. Compliant with Crestor 40 mg Urology: following with Dr. 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 COPD (chronic obstructive pulmonary disease) Nicotine dependence, cigarettes, uncomplicated Chronic sore throat Vitamin D deficiency Major depressive disorder, recurrent, unspecified Anxiety Obesity (BMI 30-39.9) Benign prostatic hyperplasia with lower urinary tract symptoms Primary 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, bilateral Holland's palsy Surgical History History of bladder surgery History of angioplasty History of colonoscopy History of esophagogastroduodenoscopy (EGD) History of nasal septoplasty History of tooth extraction Family History Father ETOH abuse Mother Obese Cancer Diabetes Brother Diabetes Other Mental health problem Substance abuse Social History Housing: Apartment Alcohol intake: current Alcohol intake frequency: holidays/special occasions only Patient Tobacco Use Status: Current everyday Tobacco user Tobacco use type: Cigarette Cigarette Packs Per Day: 1 Cigarettes Per Day: 20 e-Cigarette/Vaping Use: Never Used Second Hand Smoke Exposure: Yes service: No Current occupational status: disabled Cognitive needs: No Hearing needs: No Vision needs: Yes (Glasses) Physical Exam Vital Signs: Last Vital Signs Pulse 66 08/20/24 12:59 BP 164/86 H 08/20/24 12:59 BMI result Body Mass Index 0.5 Const Orientation/consciousness: patient oriented x3 Neck Neck: Yes no lymphadenopathy Thyroid: Thyroid normal Carotids: no bruits Resp Auscultation: clear to auscultation bilaterally Cardio Rate: regular rate Rhythm: regular rhythm Heart sounds: S1 normal heart sound present and S2 normal heart sound present Peripheral pulses: dorsalis pedis present Neuro General: patient oriented x3, gait normal and no focal motor deficits Extrem Other: Monofilament sensation intact bilaterally. Vibratory sensation diminished but present bilaterally. Skin intact. General: Yes normal to inspection Results Reviewed Results Reviewed: Laboratory Tests 01/20/24 01/20/24 08/10/24 11:19 11:24 10:34 Sodium 139 Potassium 4.7 Chloride 107 Carbon Dioxide 24 Anion Gap 13 BUN 15 Creatinine 0.87 Estimated GFR > 60 Hemoglobin A1c % 7.8 H Triglycerides 115 Cholesterol 128 LDL Cholesterol, Calc 71 HDL Cholesterol 34 L Urine Creatinine 180.92 Urine Microalbumin 1379.0 Microalb/Creat Ratio 762.2 H Assessment & Plan Assessment & Plan (1) Type 2 diabetes mellitus with other diabetic kidney complication: Code(s): E11.29 - Type 2 diabetes mellitus with other diabetic kidney complication Category: Medical Plan: reduced novolog 10 units TID with meals continue lantus 40 units increase ozempic to 2 mg weekly discussed importance of taking insulin f/u in 2 weeks or sooner prn (2) Essential hypertension: Code(s): I10 - Essential (primary) hypertension Category: Medical Plan: increasing losartan to 100 mg will recheck in 2 weeks. repeat bmp prior to appointment (3) Pure hypercholesterolemia: Code(s): E78.00 - Pure hypercholesterolemia, unspecified Category: Medical Plan: continue crestor Orders: Orders Basic Metabolic Panel Today E11.29 - Type 2 diabetes mellitus with other diabetic kidney complication, E78.00 - Pure hypercholesterolemia, unspecified, I10 - Essential (primary) hypertension Medications: New semaglutide (Ozempic) 2 mg (0.75 mL) subcut QWEEK 3 mL 2RF losartan 100 mg PO DAILY 90 tabs 1RF Changed From insulin aspart U-100 (Novolog FlexPen U-100 Insulin aspart) inject 15 units with breakfast, 15 units with lunch, 20 units with dinner sq daily as directed To insulin aspart U-100 (Novolog FlexPen U-100 Insulin aspart) inject 10 units sq with breakfast, lunch and supper Discontinued losartan Discontinued Reason: Doctor's Order 50 mg PO DAILY 90 tabs 1RF semaglutide (Ozempic) Discontinued Reason: Doctor's Order 1 mg (0.75 mL) subcut QWEEK 3 mL 6RF Patient Instructions: reduced novolog 10 units TID with meals continue lantus 40 units increase ozempic to 2 mg weekly discussed importance of taking insulin increase losartan to 100 mg daily recheck lab in 10 days or so (prior to appointment) f/u in 2-3 weeks or sooner if needed Coding Level of Care Code Est Pt Level 4 (25420) Complex EM visit Add On G2211 Diagnoses Type 2 diabetes mellitus with other diabetic kidney complication E11.29 Essential hypertension I10 Pure hypercholesterolemia E78.00
[2024-08-20 13:09] LABS: Glucose, Whole Blood 158 mg/dL (60-115)
== END 2024-08-20 13:29 | disposition home or self-care (01) ==
PROVIDERS: PCP Internal Medicine; Visit Provider Physician Assistant
DX: E11.29 Type 2 diabetes mellitus with other diabetic kidney complication (principal); I10 Essential (primary) hypertension; E78.00 Pure hypercholesterolemia, unspecified

== ENCOUNTER 2024-08-24 14:04 | Outpatient (AMB) | payer OTHER, SELFPAY ==
--- NOTE | 2024-08-24 14:07 | HO.NEPHOV_ITS ---
Vital Signs 08/24/24 14:08 Height 5 ft 10 in Weight 239 lb 2 oz BMI 34.3 BP 124/70 Blood Pressure Location Lt brachial Position Sitting Pulse 70 Pulse Source Pulse Oximeter Pulse Oximetry (%) 92 Oxygen Delivery Method Room Air Intake Visit Reasons: Essential Hypertension-Conf Typewriter Ribbon Winder Required: No Accompanied by: Self / Same As Patient Allergies varenicline [From Chantix] Adverse Reaction (Unknown, Verified 08/24/24 14:08) nightmares ENVIRONMENTAL Allergy (Unknown, Uncoded 08/20/24 13:03) ? RXN- ALLERGY SHOTS FOR YRS TREES AND GRASS Allergy (Unknown, Uncoded 08/20/24 13:03) Unknown HPI Comments Details: Mr Coleman was seen for follow up for proteinuria. He has type 2 diabetes, proteinuria, history of bladder cancer, obesity, hypertension, PAD and smoking.His last A1c has gone up . He is currently on insulin as well as other medications including Ozempic but not SGLT2 i. He is on ARB which he is tolerating well. His renal functions are normal. His bladder cancer is in remission. He does not have any epistaxis, photosensitivity, skin rashes, sinusitis, edema or hematuria. His BP has been at goal. 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 COPD (chronic obstructive pulmonary disease) Nicotine dependence, cigarettes, uncomplicated Chronic sore throat Vitamin D deficiency Major depressive disorder, recurrent, unspecified Anxiety Obesity (BMI 30-39.9) Benign prostatic hyperplasia with lower urinary tract symptoms Primary 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, bilateral Holland's palsy Surgical History History of bladder surgery History of angioplasty History of colonoscopy History of esophagogastroduodenoscopy (EGD) History of nasal septoplasty History of tooth extraction Family History Father ETOH abuse Mother Obese Cancer Diabetes Brother Diabetes Other Mental health problem Substance abuse Social History (Reviewed 08/24/24 @ 14:07 by HUGO Hsieh Housing: Apartment Alcohol intake: current Alcohol intake frequency: holidays/special occasions only Patient Tobacco Use Status: Current everyday Tobacco user Tobacco use type: Cigarette Cigarette Packs Per Day: 1 Cigarettes Per Day: 20 e-Cigarette/Vaping Use: Never Used Second Hand Smoke Exposure: Yes service: No Current occupational status: disabled Cognitive needs: No Hearing needs: No Vision needs: Yes (Glasses) Review of Systems Const All systems reviewed & are unremarkable except as noted in HPI and below Physical Exam Vital Signs: Last Vital Signs Pulse 70 08/24/24 14:08 BP 124/70 08/24/24 14:08 Pulse Ox 92 08/24/24 14:08 Oxygen Delivery Method Room Air 08/24/24 14:08 BMI result Body Mass Index 34.3 Const General: comfortable and no acute distress Orientation/consciousness: patient oriented x3 HEENT Head: Yes normocephalic Mouth: Normal oral and palatal mucosa present Eyes EOM: EOMs intact bilaterally Neck Neck: Yes supple Resp Auscultation: clear to auscultation bilaterally Cardio Jugular venous distension: no JVD Rate: regular rate GI Palpation (GI): Soft to palpation Auscultation: normal bowel sounds General: Yes no CVA tenderness Back/Spine/Pelvis Back: no CVA tenderness Skin General skin exam: no rashes or lesions noted Neuro General: patient oriented x3 and moves all extremities Extrem General: Yes no pedal edema Results Reviewed Nephrology Results: Sodium 139 mmol/L (135-145) 08/10/24 Potassium 4.7 mmol/L (3.3-5.1) 08/10/24 Chloride 107 mmol/L (96-108) 08/10/24 Carbon Dioxide 24 mmol/L (22-29) 08/10/24 BUN 15 mg/dL (9-16) 08/10/24 Creatinine 0.87 mg/dL (0.5-1.4) 08/10/24 Calcium 9.3 mg/dL (8.4-10.2) 08/10/24 Renal US 08/10/24 Assessment & Plan Assessment & Plan (1) Proteinuria: Code(s): R80.9 - Proteinuria, unspecified Category: Medical Qualifiers: Proteinuria type: unspecified Qualified Code(s): R80.9 - Proteinuria, unspecified (2) Renal artery stenosis: Code(s): I70.1 - Atherosclerosis of renal artery Category: Medical (3) Renovascular hypertension: Code(s): I15.0 - Renovascular hypertension Category: Medical (4) Renal cyst: Code(s): N28.1 - Cyst of kidney, acquired Category: Medical Plan Mr Coleman has diabetic nephropathy. He has DI as well. There is no other clinical or lab data yet to suspect Amyloidosis. He has diabetes for a long time with hypertension and PAD. He has H/O malignancy making membranous nephropathy in the differential, but unlikely. His serum creatinine is stable. Imaging studies showed high grade focal stenosis of the proximal right renal artery. Left renal artery showed intermediate grade focal stenosis of the middle segment. He has benign appearing renal cysts.I plan to start him on SGLT2 i with time. He may need a renal biopsy if his proteinuria worsens inspite of maximizing ARB & initiating on SGLT2i. He should avoid NSAID's and keep good hydration. Further management is pending evolving data. Answered all questions. F/U given Orders: Orders Protein Creatinine Ratio, Ur 6 Months I15.0 - Renovascular hypertension, I70.1 - Atherosclerosis of renal artery, R80.9 - Proteinuria, unspecified Creatinine 6 Months I15.0 - Renovascular hypertension, I70.1 - Atherosclerosis of renal artery, R80.9 - Proteinuria, unspecified Electrolytes 6 Months I15.0 - Renovascular hypertension, I70.1 - Atherosclerosis of renal artery, R80.9 - Proteinuria, unspecified Protein, 24 Hr Urine Group 6 Months I15.0 - Renovascular hypertension, I70.1 - Atherosclerosis of renal artery, R80.9 - Proteinuria, unspecified Blood Urea Nitrogen 6 Months I15.0 - Renovascular hypertension, I70.1 - Atherosclerosis of renal artery, R80.9 - Proteinuria, unspecified Coding Level of Care Code Est Pt Level 4 (73885) Diagnoses Proteinuria, unspecified type R80.9 Proteinuria type: unspecified Renal artery stenosis I70.1 Renovascular hypertension I15.0 Renal cyst N28.1
[2024-08-24 14:08] VITALS: BP 124/70; PULSE 70; O2SAT 92; BMI 34.3
== END 2024-08-24 14:29 | disposition home or self-care (01) ==
PROVIDERS: PCP Internal Medicine; Visit Provider Internal Medicine Nephrology
DX: R80.9 Proteinuria, unspecified (principal); I70.1 Atherosclerosis of renal artery; I15.0 Renovascular hypertension; N28.1 Cyst of kidney, acquired
CPT/HCPCS: 99214

== ENCOUNTER → 2024-08-24 14:04 | Outpatient (BNVA) | payer OTHER, SELFPAY | PROVIDERS: PCP Internal Medicine; Visit Provider Internal Medicine Nephrology | DX: I70.1 Atherosclerosis of renal artery (principal); I15.0 Renovascular hypertension; N28.1 Cyst of kidney, acquired; R80.9 Proteinuria, unspecified | CPT/HCPCS: 99212 ==

== ENCOUNTER 2024-08-28 10:23 | Outpatient (REF) | payer OTHER, SELFPAY ==
[2024-08-28 11:44] LABS: Anion Gap 13 (12-20); Blood Urea Nitrogen 12 mg/dL (9-16); Calcium 8.5 mg/dL (8.4-10.2); Carbon Dioxide 25 mmol/L (22-29); Chloride 106 mmol/L (96-108); Estimated Glomerular Filt Rate > 60; Glucose Random 147 mg/dL (60-115); Potassium 4.1 mmol/L (3.3-5.1); Sodium 140 mmol/L (135-145)
== END 2024-08-28 10:24 | disposition home or self-care (01) ==
LOC: HO.LAB 10:23
PROVIDERS: PCP Internal Medicine; Visit Provider Physician Assistant
DX: E11.29 Type 2 diabetes mellitus with other diabetic kidney complication (principal); E78.00 Pure hypercholesterolemia, unspecified; I10 Essential (primary) hypertension
CPT/HCPCS: 36415; 80048

== ENCOUNTER 2024-09-03 14:35 | Outpatient (AMB) | payer OTHER, SELFPAY ==
--- NOTE | 2024-09-03 14:41 | A.OFFVIS_ITS ---
Vital Signs 09/03/24 14:44 Height 5 ft 10 in Weight 242 lb 8.136 oz BMI 34.8 BP 134/80 Blood Pressure Location Rt brachial Position Sitting Pulse 65 Pulse Source Pulse Oximeter Intake Visit Reasons: Hypoglycemia check/Confirmed Intake Note: Patient presents today for [facility] follow up visit. Last Diabetic Eye exam: 05/03/24 Last Podiatry Visit: Doesn't have one Most Recent HgA1c: 7.8% 08/10/2024 Random Glucose: 209 mg/L, Today Tax Evaluator Required: No Accompanied by: Self / Same As Patient Allergies varenicline [From Chantix] Adverse Reaction (Unknown, Verified 08/24/24 14:08) nightmares ENVIRONMENTAL Allergy (Unknown, Uncoded 08/20/24 13:03) ? RXN- ALLERGY SHOTS FOR YRS TREES AND GRASS Allergy (Unknown, Uncoded 08/20/24 13:03) Unknown Medication List - Last Reconciled 09/03/24 by Caitlyn Berg PA-C albuterol sulfate 2.5 mg (3 mL) continuous nebulization Q4-6H PRN 30 days aspirin 81 mg PO DAILY cholecalciferol (vitamin D3) 50 mcg PO DAILY 90 days cilostazol 50 mg PO BID clonazepam 0.5 mg PO DAILY PRN insulin aspart U-100 (Novolog FlexPen U-100 Insulin aspart) inject 10 units sq with breakfast, lunch and supper insulin glargine (Lantus Solostar U-100 Insulin) 40 units (0.4 mL) subcut QPM ipratropium bromide intranasal BEDTIME ipratropium-albuterol 20-100 mcg/actuation (Combivent Respimat) 1 puff inhalation Q6H losartan 100 mg PO DAILY metformin ER 1,000 mg (2 x 500 mg) PO BID omeprazole 20 mg PO BID oxybutynin chloride ER 15 mg PO DAILY 90 days paroxetine HCl 40 mg PO DAILY pen needle, diabetic As directed rosuvastatin 40 mg PO DAILY semaglutide (Ozempic) 2 mg (0.75 mL) subcut QWEEK HPI HPI Hypoglycemia check/Confirmed: Details: Patient is a 68-year-old male with a significant past medical history of hypertension, hyperlipidemia, type 2 diabetes, insulin dependent, anxiety in bladder cancer presenting today for a follow up. Endo: H His last A1c was 7.8. At our last visit I reduced the NovoLog due to hypoglycemic events. He is currently on metformin 1000 mg twice a day, Lantus 40 units nightly, NovoLog 10 units TID, and Ozempic 2 mg weekly. hypoglycemia resolved cgm-usage 85%, average glucose 178, G mi 7.6 %. Forty-four % hyperglycemic, 54 % in range, 0 % hypoglycemic -at last visit he was 18% of the time experiencing hypoglycemia. -correct low blood sugars with glucose tabs and watches glucose q 15 mins He just had an eye exam and no retinopathy. He has a fam hx of t2dm with siblings and parents. Nephro: follows with nephrololgy and wants pt to hold off on jardiance until re- evaluated in February. CV: Blood pressure today in the office is 124/70. At last visit blood pressure was elevated and I increased losartan. He is on losartan 100 mg. Compliant with Crestor 40 mg Urology: following with Dr. 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 COPD (chronic obstructive pulmonary disease) Nicotine dependence, cigarettes, uncomplicated Chronic sore throat Vitamin D deficiency Major depressive disorder, recurrent, unspecified Anxiety Obesity (BMI 30-39.9) Benign prostatic hyperplasia with lower urinary tract symptoms Primary 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, bilateral Holland's palsy Surgical History History of bladder surgery History of angioplasty History of colonoscopy History of esophagogastroduodenoscopy (EGD) History of nasal septoplasty History of tooth extraction Family History Father ETOH abuse Mother Obese Cancer Diabetes Brother Diabetes Other Mental health problem Substance abuse Social History Housing: Apartment Alcohol intake: current Alcohol intake frequency: holidays/special occasions only Patient Tobacco Use Status: Current everyday Tobacco user Tobacco use type: Cigarette Cigarette Packs Per Day: 1 Cigarettes Per Day: 20 e-Cigarette/Vaping Use: Never Used Second Hand Smoke Exposure: Yes service: No Current occupational status: disabled Cognitive needs: No Hearing needs: No Vision needs: Yes (Glasses) Physical Exam Vital Signs: Last Vital Signs Pulse 65 09/03/24 14:44 BP 134/80 09/03/24 14:44 BMI result Body Mass Index 34.8 Const Orientation/consciousness: patient oriented x3 HEENT Ears: hearing grossly normal bilaterally Neck Thyroid: Thyroid normal Lymphatic: no lymphadenopathy noted Resp Auscultation: clear to auscultation bilaterally Cardio Rate: regular rate Rhythm: regular rhythm Heart sounds: S1 normal heart sound present and S2 normal heart sound present Skin General skin exam: no rashes or lesions noted Neuro General: patient oriented x3, gait normal and no focal motor deficits Assessment & Plan Assessment & Plan (1) Type 2 diabetes mellitus with other diabetic kidney complication: Code(s): E11.29 - Type 2 diabetes mellitus with other diabetic kidney complication Category: Medical Plan: increase lantus 44 units nightly continue novolog 10 units tid continue metformin 1000 mg bid continue ozempic 2 mg weekly f.u 3 months or sooner if any changes (2) Essential hypertension: Code(s): I10 - Essential (primary) hypertension Category: Medical Plan: better since increasing losartan to 100 mg continue current plan (3) Pure hypercholesterolemia: Code(s): E78.00 - Pure hypercholesterolemia, unspecified Category: Medical Plan: continue crestor Medications: Changed From insulin glargine (Lantus Solostar U-100 Insulin) 40 units (0.4 mL) subcut QPM 15 mL 5RF To insulin glargine (Lantus Solostar U-100 Insulin) 44 units (0.44 mL) subcut QPM 15 mL 5RF Coding Level of Care Code Est Pt Level 4 (22031) Complex EM visit Add On G2211 Diagnoses Type 2 diabetes mellitus with other diabetic kidney complication E11.29 Essential hypertension I10 Pure hypercholesterolemia E78.00
[2024-09-03 14:44] VITALS: BP 134/80; PULSE 65; BMI 34.8
[2024-09-03 14:53] LABS: Glucose, Whole Blood 209 mg/dL (60-115)
== END 2024-09-03 15:01 | disposition home or self-care (01) ==
PROVIDERS: PCP Internal Medicine; Visit Provider Physician Assistant
DX: E11.29 Type 2 diabetes mellitus with other diabetic kidney complication (principal); I10 Essential (primary) hypertension; E78.00 Pure hypercholesterolemia, unspecified

== ENCOUNTER → 2024-09-03 14:35 | Outpatient (BNVA) | payer OTHER, SELFPAY | PROVIDERS: PCP Internal Medicine; Visit Provider Physician Assistant | DX: E11.29 Type 2 diabetes mellitus with other diabetic kidney complication (principal); I10 Essential (primary) hypertension; E78.5 Hyperlipidemia, unspecified; E11.9 Type 2 diabetes mellitus without complications; F41.9 Anxiety disorder, unspecified; C67.9 Malignant neoplasm of bladder, unspecified; E78.00 Pure hypercholesterolemia, unspecified; Z79.4 Long term (current) use of insulin; Z79.899 Other long term (current) drug therapy | CPT/HCPCS: 82947; 99212 ==

== ENCOUNTER 2024-09-04 11:00 | Outpatient (REF) | payer OTHER, SELFPAY ==
[2024-09-04 12:03] LABS: Basophils Absolute Auto 0.1 X10*3/uL (0.0-0.2); Basophils Percent Auto 1.3 % (0-2); Eosinophils Absolute Auto 0.2 X10*3/uL (0.0-0.4); Eosinophils Percent Auto 3.3 % (0-4); Hematocrit 46.9 % (42.0-52.0); Hemoglobin 15.7 g/dl (14.0-18.0); Imm Gran Abs Auto 0.07 X10*3/uL (0.00-0.03); Imm Gran Pct Auto 1.1 % (0.0-0.4); Lymphocytes Absolute Auto 2.1 X10*3/uL (1.2-4.9); Lymphocytes Percent Auto 33.4 % (20-40); MANUAL DIFF FLAG SCAN; Mean Corpuscular HGB Conc 33.5 g/dl (31.0-36.0); Mean Corpuscular Hemoglobin 27.5 pg (27.0-33.0); Mean Corpuscular Volume 82.1 fL (80.0-98.0); Mean Platelet Volume 8.8 fL (9.4-12.4); Monocytes Absolute Auto 0.5 X10*3/uL (0.1-1.2); Monocytes Percent Auto 7.7 % (2-11); Neutrophils Absolute Auto 3.4 x10*3/uL (2.0-8.3); Neutrophils Percent Auto 53.2 % (45-73); Platelet Count 236 X10*3/uL (160-400); Red Blood Count 5.71 X10*6/uL (4.60-5.80); Red Cell Distribution Width 15.1 % (11.0-16.0); SCAN SMEAR FLAG 1; White Blood Count 6.4 X10*3/uL (4.8-10.8)
[2024-09-04 12:13] LABS: Estimated Average Glucose 180 mg/dL; Hemoglobin A1C 245.8986 umol/L; Hemoglobin A1c % 7.9 % (<6.0); Total Hemoglobin (HGBA1C) 3908.3977 umol/L
[2024-09-04 12:32] LABS: SLIDE REVIEW VERIFIED
[2024-09-04 12:35] LABS: Alanine Aminotransferase 31 U/L (0-40); Albumin Level 4.1 g/dL (3.5-5.0); Alkaline Phosphatase 52 U/L (39-117); Anion Gap 12 (12-20); Aspartate Amino Transferase 27 U/L (5-37); Bilirubin Total 0.7 mg/dL (0.0-1.0); Blood Urea Nitrogen 12 mg/dL (9-16); Calcium 8.9 mg/dL (8.4-10.2); Carbon Dioxide 26 mmol/L (22-29); Chloride 107 mmol/L (96-108); Cholesterol 111 mg/dL (<200); Estimated Glomerular Filt Rate > 60; Glucose Fasting 139 mg/dL (60-99); HDL Cholesterol 32 mg/dL (>40); LDL Cholesterol Calculated 51 mg/dL (<100); Potassium 4.6 mmol/L (3.3-5.1); Sodium 140 mmol/L (135-145); Total Protein 6.8 g/dL (6.5-8.0); Triglycerides 144 mg/dL (<150)
[2024-09-04 12:56] LABS: TSH reflex Free T4 2.21 uIU/mL (0.32-4.0); Vitamin D 25-OH Total 35.6 ng/mL (>30)
== END 2024-09-04 11:01 | disposition home or self-care (01) ==
LOC: HO.LAB 11:00
PROVIDERS: PCP Internal Medicine; Visit Provider Internal Medicine
DX: D64.9 Anemia, unspecified (principal); E11.9 Type 2 diabetes mellitus without complications; E78.00 Pure hypercholesterolemia, unspecified; E55.9 Vitamin D deficiency, unspecified
CPT/HCPCS: 36415; 80053; 80061; 82306; 83036; 84443; 85025

== ENCOUNTER 2024-09-11 11:14 | Outpatient (AMB) | payer MEDICARE, SELFPAY ==
[2024-09-11 11:15] VITALS: BP 122/70; PULSE 66; O2SAT 94; BMI 34.6
--- NOTE | 2024-09-11 11:15 | MHC.PC.OV ---
Vital Signs 09/11/24 11:15 Height 5 ft 10 in Weight 241 lb 2 oz BMI 34.6 BP 122/70 Blood Pressure Location Lt brachial Position Sitting Pulse 66 Pulse Source Pulse Oximeter Pulse Oximetry (%) 94 Oxygen Delivery Method Room Air Intake Visit Reasons: Physical exam [employer] Operator Required: No Accompanied by: Self / Same As Patient Allergies varenicline [From Chantix] Adverse Reaction (Unknown, Verified 09/11/24 11:25) nightmares ENVIRONMENTAL Allergy (Unknown, Uncoded 09/11/24 11:25) ? RXN- ALLERGY SHOTS FOR YRS TREES AND GRASS Allergy (Unknown, Uncoded 09/11/24 11:25) Unknown Medication List - Last Reconciled 09/11/24 by Brayden Sandra MD albuterol sulfate 2.5 mg (3 mL) continuous nebulization Q4-6H PRN 30 days aspirin 81 mg PO DAILY cholecalciferol (vitamin D3) 50 mcg PO DAILY 90 days cilostazol 50 mg PO BID clonazepam 0.5 mg PO DAILY PRN insulin aspart U-100 (Novolog FlexPen U-100 Insulin aspart) inject 10 units sq with breakfast, lunch and supper insulin glargine (Lantus Solostar U-100 Insulin) 44 units (0.44 mL) subcut QPM ipratropium bromide intranasal BEDTIME ipratropium-albuterol 20-100 mcg/actuation (Combivent Respimat) 1 puff inhalation Q6H losartan 100 mg PO DAILY metformin ER 1,000 mg (2 x 500 mg) PO BID omeprazole 20 mg PO BID oxybutynin chloride ER 15 mg PO DAILY 90 days paroxetine HCl 40 mg PO DAILY pen needle, diabetic As directed rosuvastatin 40 mg PO DAILY semaglutide (Ozempic) 2 mg (0.75 mL) subcut QWEEK Tobacco use date assessed: 09/11/24 Fall risk assessment: No Falls in past year Last assessed Fall Risk: 09/11/24 Dental Screening Dental Screen Date: 09/11/24 Did you have a dental visit in the last 12 months?: No Did you have a dental problem in the last 6 months where you did not have access to dental care?: No Was dental information given to patient?: No HPI Physical exam HPI Details Patient comes in today for his annual physical examination States that he feels okay He denies any headaches or dizziness Denies any chest pains, no shortness of breath No nausea/vomiting, no abdominal pain No change in bowel habits noted He denies any acute urinary symptoms He had his follow-up labs done last week - to discuss his results He had a normal screening colonoscopy done back in 2019 in his not due for repeat until 10 years later in 2029 [facility] Medical History History of bladder cancer PVD (peripheral vascular disease) Essential hypertension Pure hypercholesterolemia 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 COPD (chronic obstructive pulmonary disease) Nicotine dependence, cigarettes, uncomplicated Chronic sore throat Vitamin D deficiency Major depressive disorder, recurrent, unspecified Anxiety Obesity (BMI 30-39.9) Benign prostatic hyperplasia with lower urinary tract symptoms Primary 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, bilateral Holland's palsy Surgical History History of bladder surgery History of angioplasty History of colonoscopy History of esophagogastroduodenoscopy (EGD) History of nasal septoplasty History of tooth extraction Family History Father ETOH abuse Mother Obese Cancer Diabetes Brother Diabetes Other Mental health problem Substance abuse Social History Housing: Apartment Alcohol intake: current Alcohol intake frequency: holidays/special occasions only Patient Tobacco Use Status: Current everyday Tobacco user Tobacco use type: Cigarette Cigarette Packs Per Day: 1 Cigarettes Per Day: 20 e-Cigarette/Vaping Use: Never Used Second Hand Smoke Exposure: Yes service: No Current occupational status: disabled Cognitive needs: No Hearing needs: No Vision needs: Yes (Glasses) Questionnaire PHQ-9 Over the last 2 weeks, how often have you been bothered by any of the following problems? 1. Little interest or pleasure in doing things: more than half the days 2. Feeling down, depressed, or hopeless: several days 3. Trouble falling or staying asleep, or sleeping too much: not at all 4. Feeling tired or having little energy: nearly every day 5. Poor appetite or overeating: not at all 6. Feeling bad about yourself - or that you are a failure or have let yourself or your family down: not at all 7. Trouble concentrating on things, such as reading the newspaper or watching television: not at all 8. Moving or speaking so slowly that other people could have noticed. Or the opposite - being so fidgety or restless that you have been moving around a lot more than usual: not at all 9. Thoughts that you would be better off or of hurting yourself in some way: not at all Total score: 6 Depression Screening Interpretation: Positive Depression Screening Follow-up: Existing condition and In treatment Depression Screening Done: Yes 20841 - PHQ-9 Billing: Yes Source: Developed by Drs. Low Box, Clarisa Vu, Oswald Cheney and colleagues, with an educational stephanie from [employer]. Thrive Questionnaire Date Thrive assessed: 09/11/24 I am a: Patient What is your living situation today?: I have a steady place to live Within the past 12 months, did the food you bought not last and you didn't have the money to get more?: Often true Within the past 12 months, did you worry whether your food would run out before you got money to buy more?: Sometimes True Do you have trouble paying for medicines?: No Do you have trouble getting transportation to medical appointments?: No Do you have trouble paying your heating and electricity bill?: No Do you have trouble taking care of your child, family member or friend?: No Do you have trouble with day-to-day activities such as bathing, preparing meals, shopping, managing finances, etc.?: No Are you currently unemployed and looking for a job?: I choose not to answer this question Are you interested in more education?: No Please select the resources that you would like help with: None Currently or been in a relationship where the following occur: No concerns reported THRIVE Score: 2 AUDIT C Alcohol Use Questionnaire (AUDIT-C) 1. How often do you have a drink containing alcohol?: Monthly or less 2. How many drinks containing alcohol do you have on a typical day when you are drinking?: 1 or 2 3. How often do you have six or more drinks on one occasion?: Never Total Score: 1 Score Reviewed/Action Taken: Yes RACHNA-7 AMB Questionnaire RACHNA-7 Date RACHNA - 7 assessed: 09/11/24 Feeling nervous, anxious, or on edge: 0 = Not at all Not being able to stop or control worryin = Not at all Worrying too much about different things: 1 = Several days Trouble relaxin = Not at all Being so restless that it is hard to sit still: 0 = Not at all Becoming easily annoyed or irritable: 0 = Not at all Feeling afraid as if something awful might happen: 0 = Not at all Total RACHNA-7 score (0-4 normal; 5-9 mild; 10-14 moderate; 15-21 severe): 1 Source: Developed by Drs. Low Box, Clarisa Vu, Oswald Cheney and colleagues, with an educational stephanie from [employer]. Review of Systems Const Denies chills, Denies fatigue, Denies fever(s), Denies headache(s), Denies malaise and Denies weakness Eyes Denies blurry vision, Denies change in vision, Denies irritation and Denies itchy eyes ENT Denies dysphagia, Denies dizziness, Denies otalgia, Denies headache(s), Denies nasal congestion, Denies neck pain, Denies odynophagia and Denies sore throat Card Denies chest pain, Denies rapid heart rate, Denies irregular heart rhythm, Denies palpitations and Denies dyspnea Resp Denies chest congestion, Denies cough, Denies dyspnea and Denies wheezing GI Denies abdominal pain, Denies bloating, Denies constipation, Denies dysphagia, Denies heartburn, Denies diarrhea, Denies nausea, Denies odynophagia and Denies vomiting Denies hematuria, Denies difficulty urinating, Denies dysuria, Denies urinary frequency and Denies urinary urgency Musc Reports back pain (recurrent over the left lower back for the past couple of weeks), Reports arthralgias (in both hands, on and off), Denies neck pain, Reports numbness (in both hands, on and off) and Reports tingling (on and off in both hands) Skin/Breast Denies change in pigmentation, Denies lesions, Denies rash and Denies unusual bruising Neuro Denies dizziness, Denies headache(s), Reports numbness (in both hands, on and off), Reports tingling (on and off in both hands) and Denies weakness Endo Denies fatigue and Denies palpitations Aller/Immun Denies itchy eyes and Denies wheezing Physical exam (Primary Care) Vital Signs: Last Vital Signs Pulse 66 09/11/24 11:15 BP 122/70 09/11/24 11:15 Pulse Ox 94 09/11/24 11:15 Oxygen Delivery Method Room Air 09/11/24 11:15 BMI result Body Mass Index 34.6 Tobacco/Smoking Status: Tobacco use Status Tobacco use date assessed 09/11/24 09/11/24 11:21 Patient Tobacco Use Status Current everyday Tobacco 09/11/24 11:21 Tobacco use type Cigarette 09/11/24 11:21 e-Cigarette/Vaping Use Never Used 09/11/24 11:21 PHQ-9: PHQ-9 Score PHQ-9: Total score 6 09/11/24 11:39 Depression Screening Interpretation: Positive Depression Screening Follow-up: Existing condition and In treatment Thrive Assessment: Date of Thrive Assessment Date Thrive assessed 09/11/24 09/11/24 11:21 Currently or been in a relationship where the following occur: No concerns reported Const General: no acute distress, alert and awake Orientation/consciousness: patient oriented x3 HENMT Head: Yes normocephalic and Yes atraumatic Ears: external ears normal, TM's normal bilaterally and EAC's normal General nose exam: No nasal discharge present Face and sinus: Yes normal facial exam and Yes sinuses nontender Teeth and gingiva: dentition normal Throat: Yes posterior oropharynx normal and Yes tonsils normal (no TP congestion) Eyes Eyelids: Yes eyelids normal Conjunctivae: conjunctivae normal Pupils: Equal, round and reactive pupils present EOM: EOMs intact bilaterally Neck Neck: Yes no lymphadenopathy and Yes supple Thyroid: Thyroid normal Resp Auscultation: clear to auscultation bilaterally, no rales and no wheezes Cardio Rate: regular rate Rhythm: regular rhythm Heart sounds: no murmurs GI Palpation (GI): Soft to palpation, nontender and No hepatosplenomegaly present Auscultation: normal bowel sounds General: Yes no CVA tenderness Back/Spine/Pelvis Back: no CVA tenderness Thoracic/Lumbar Spine: paraspinal muscle tenderness on the left in the mid lumbar and in the lower lumbar and No lumbar spinal tenderness Pelvis: buttock tenderness on the left Skin Lesions: no lesions Rashes: no rashes Neuro General: patient oriented x3, moves all extremities, no focal motor deficits and CN's II-XI intact bilaterally Cranial nerves: Yes Equal, round and reactive pupils present Cognition (Neuro): normal cognition Gait exam (Neuro): Normal gait present Extrem General: Yes no clubbing, cyanosis or edema Results Reviewed Results Reviewed: Laboratory Tests 09/04/24 11:12 WBC 6.4 Hgb 15.7 Hct 46.9 Plt Count 236 Sodium 140 Potassium 4.6 Creatinine 0.89 Estimated GFR > 60 Fasting Glucose 139 H Hemoglobin A1c % 7.9 H Calcium 8.9 AST 27 ALT 31 Triglycerides 144 Cholesterol 111 LDL Cholesterol, Calc 51 HDL Cholesterol 32 L 25-OH Vitamin D Total 35.6 TSH 2.21 Coding Level of Care Code Est Pt Prev Care >65y(50472) Diagnoses Annual physical exam Z00. Pure hypercholesterolemia E78.00 PVD (peripheral vascular disease) I73.9 Type 2 diabetes mellitus with other diabetic kidney complication E11.29 Proteinuria due to type 2 diabetes mellitus E11.29; R80.9 Essential hypertension I10 Chronic obstructive pulmonary disease, unspecified COPD type J44.9 COPD type: unspecified COPD Vitamin D deficiency E55.9 Elevated LFTs R79.89 Primary osteoarthritis of both hips M16.0 Primary osteoarthritis of right knee M17.11 Carpal tunnel syndrome, bilateral G56.03 Benign prostatic hyperplasia with urinary frequency N40.1; R35.0 Lower urinary tract symptom detail: urinary frequency Anxiety F41.9 Moderate episode of recurrent major depressive disorder F33.1 Active/Remission status: currently active Major depression episode severity: moderate Smoker F17.200 Obesity (BMI 30-39.9) E66.9 Additional Codes PHQ-9 - 53632 - PHQ-9 Billing: Yes ([id number]) Assessment & Plan Assessment & Plan (1) Annual physical exam: Code(s): Z00.00 - Encounter for general adult medical examination without abnormal findings Category: Medical Plan: Results of his labs done last week reviewed and discussed with patient Patient had a normal screening colonoscopy done back in 2019 in his not due for repeat until 10 years later in 2030 (2) Pure hypercholesterolemia: Code(s): E78.00 - Pure hypercholesterolemia, unspecified Category: Medical Plan: Reinforced low cholesterol diet Continue Rosuvastatin 40 mg QD Will recheck his labs and fasting lipids in 6 months for follow-up (3) PVD (peripheral vascular disease): Code(s): I73.9 - Peripheral vascular disease, unspecified Category: Medical Plan: Continue Cilostazol 50 mg BID Follow up with cardiology/vascular surgery at [facility] as scheduled (4) Type 2 diabetes mellitus with other diabetic kidney complication: Code(s): E11.29 - Type 2 diabetes mellitus with other diabetic kidney complication Category: Medical Plan: His HgbA1c was at 7.9% on his labs done last week (was previously at 6.4% a few months ago) - goal is <7.0% Reinforced diabetic diet Continue NovoLog 10 units 3 times a day, Lantus 44 units daily at bedtime, Metformin 500 mg 2 tablets BID and Ozempic 2 mg/1.5 ml 0.5 mg once a week He used to see endocrinology at [facility] (Dr. Jany Howard) but recently found out that Dr. 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 mellitus: Code(s): E11.29 - Type 2 diabetes mellitus with other diabetic kidney complication; R80.9 - Proteinuria, unspecified Category: Medical Plan: Stable - will continue to monitor GFR and renal function regularly (6) Essential hypertension: Code(s): I10 - Essential (primary) hypertension Category: Medical Plan: Reinforced low-sodium diet - goal is systolic BP of at least 120 to 130 mm or less Continue Losartan 50 mg QD (7) COPD (chronic obstructive pulmonary disease): Code(s): J44.9 - Chronic obstructive pulmonary disease, unspecified Category: Medical Qualifiers: COPD type: unspecified COPD Qualified Code(s): J44.9 - Chronic obstructive pulmonary disease, unspecified Plan: Stable Continue Combivent Respimat 1 puff 4 times a day, Ventolin HFA 2 puffs every 6 hours as needed and Albuterol sulfate nebulizer PRN (8) Vitamin D deficiency: Code(s): E55.9 - Vitamin D deficiency, unspecified Category: Medical Plan: Continue Vitamin D3 2000 units QD (9) Elevated LFTs: Code(s): R79.89 - Other specified abnormal findings of blood chemistry Category: Medical Plan: Improved - his LFTs have remained normal on his recent labs Was most likely due to hepatosteatosis related to his weight Will continue to monitor his LFTs regularly (10) Primary osteoarthritis of both hips: Code(s): M16.0 - Bilateral primary osteoarthritis of hip Category: Medical Plan: X-rays of both hips done in March 2019 showed (+) bilateral OA changes X-rays of the left hip and lumbar spine done in February 2022 came out normal He has been experiencing increased pain over his left lumbar region that radiates into his left buttocks area at times Repeat lumbar spine x-rays done back in January 2024 revealed (+) moderate multilevel lumbar spondylosis Continue OTC topical pain patches PRN; can also take Tylenol PRN but advised to avoid all NSAIDs due to his kidneys Can consider physical therapy if he feels that his hip pains are getting worse (11) Primary osteoarthritis of right knee: Code(s): M17.11 - Unilateral primary osteoarthritis, right knee Category: Medical Plan: States that the cortisone injection he received from orthopedics a few months ago did not help much S/P right knee geniculate nerve block with pain management back on 07/21/21 Follow up with orthopedics and with pain management as scheduled (12) Carpal tunnel syndrome, bilateral: Comment: EMG & NCV done at [facility] on 02/11/2021 showed (+) bilateral CTS Code(s): G56.03 - Carpal tunnel syndrome, bilateral upper limbs Category: Medical Plan: EMG and NCV done in January 2021 revealed (+) moderately severe carpal tunnel syndrome on the left and mild carpal tunnel syndrome on the right. Patient encouraged on regular use of his wrist splints to help manage his symptoms Follow up with orthopedics as scheduled (13) Benign prostatic hyperplasia with lower urinary tract symptoms: Code(s): N40.1 - Benign prostatic hyperplasia with lower urinary tract symptoms Category: Medical Qualifiers: Lower urinary tract symptom detail: urinary frequency Qualified Code(s): N40.1 - Benign prostatic hyperplasia with lower urinary tract symptoms; R35.0 - Frequency of micturition Plan: Had a FISH Bladder Ca test done in February 2023 that came out negative Continue Oxybutynin ER 15 mg QD to help control his urinary frequency/symptoms Follow up with urology as scheduled (14) Anxiety: Code(s): F41.9 - Anxiety disorder, unspecified Category: Medical Plan: Continue Clonazepam 0.5 mg twice a day as needed (15) Major depressive disorder, recurrent, unspecified: Code(s): F33.9 - Major depressive disorder, recurrent, unspecified Category: Medical Qualifiers: Active/Remission status: currently active Major depression episode severity: moderate Qualified Code(s): F33.1 - Major depressive disorder, recurrent, moderate Plan: Continue Paroxetine 40 mg QD Follow-up with Psychiatry as scheduled (16) Smoker: Code(s): F17.200 - Nicotine dependence, unspecified, uncomplicated Category: Social Hx Plan: Patient is counseled again on smoking cessation (17) Obesity (BMI 30-39.9): Code(s): E66.9 - Obesity, unspecified Category: Medical Plan: Reinforced diet/exercise as tolerated/lose weight Plan Follow up in 6 months Orders: Orders Microalbumin, Random (w Creat) 03/09/25 E11.9 - Type 2 diabetes mellitus without complications Vitamin D 25-OH Total 03/09/25 E55.9 - Vitamin D deficiency, unspecified Complete Blood Count Auto Diff 03/09/25 D64.9 - Anemia, unspecified Comprehensive [place]. Panel Fast 03/09/25 E78.00 - Pure hypercholesterolemia, unspecified Lipid Panel 03/09/25 E78.00 - Pure hypercholesterolemia, unspecified TSH reflex Free T4 03/09/25 E78.00 - Pure hypercholesterolemia, unspecified UA CC w/rflx Micro + Cult 03/09/25 R30.0 - Dysuria Hemoglobin A1c 03/09/25 E11.9 - Type 2 diabetes mellitus without complications
== END 2024-09-11 11:45 | disposition home or self-care (01) ==
PROVIDERS: PCP Internal Medicine; Visit Provider Internal Medicine
DX: Z00.00 Encounter for general adult medical examination without abnormal findings (principal); I73.9 Peripheral vascular disease, unspecified; J44.9 Chronic obstructive pulmonary disease, unspecified; E11.29 Type 2 diabetes mellitus with other diabetic kidney complication; F33.1 Major depressive disorder, recurrent, moderate; E78.00 Pure hypercholesterolemia, unspecified; R80.9 Proteinuria, unspecified; I10 Essential (primary) hypertension; E55.9 Vitamin D deficiency, unspecified; M16.0 Bilateral primary osteoarthritis of hip; M17.11 Unilateral primary osteoarthritis, right knee

== ENCOUNTER → 2024-09-11 11:14 | Outpatient (BNVA) | payer MEDICARE, SELFPAY | PROVIDERS: PCP Internal Medicine; Visit Provider Internal Medicine | DX: Z00.00 Encounter for general adult medical examination without abnormal findings (principal); F17.210 Nicotine dependence, cigarettes, uncomplicated; E78.00 Pure hypercholesterolemia, unspecified; E11.51 Type 2 diabetes mellitus with diabetic peripheral angiopathy without gangrene; E11.29 Type 2 diabetes mellitus with other diabetic kidney complication; R80.9 Proteinuria, unspecified; I10 Essential (primary) hypertension; J44.9 Chronic obstructive pulmonary disease, unspecified; E55.9 Vitamin D deficiency, unspecified; R79.89 Other specified abnormal findings of blood chemistry; M16.0 Bilateral primary osteoarthritis of hip; G56.03 Carpal tunnel syndrome, bilateral upper limbs; N40.1 Benign prostatic hyperplasia with lower urinary tract symptoms; R35.0 Frequency of micturition; F41.9 Anxiety disorder, unspecified; F33.1 Major depressive disorder, recurrent, moderate; E66.9 Obesity, unspecified; Z68.34 Body mass index [BMI] 34.0-34.9, adult | CPT/HCPCS: 96127; 99397 ==

== ENCOUNTER 2024-12-03 09:58 | Outpatient (AMB) | payer OTHER, SELFPAY ==
[2024-12-03 10:00] VITALS: BP 118/76; PULSE 63; O2SAT 97; BMI 32.9
--- NOTE | 2024-12-03 10:00 | A.OFFVIS_ITS ---
Vital Signs 12/03/24 10:00 Height 5 ft 10 in Weight 229 lb 4.492 oz BMI 32.9 BP 118/76 Blood Pressure Location Rt brachial Position Sitting Pulse 63 Pulse Source Pulse Oximeter Pulse Oximetry (%) 97 Oxygen Delivery Method Room Air Intake Visit Reasons: dm Intake Note: Patient presents today for a follow-up on Type 2 Diabetes Mellitus: Last Diabetic Eye exam: 05/03/24 Last Podiatry Visit: Patient does not see a Auto Wash Buffer Most Recent HgA1c: 7.9%, 12/03/2024 Random Glucose: 192 mg/dL, Today Terrazzo Roller Required: No Accompanied by: Self / Same As Patient Allergies varenicline [From Chantix] Adverse Reaction (Unknown, Verified 12/03/24 10:03) nightmares ENVIRONMENTAL Allergy (Unknown, Uncoded 12/03/24 10:03) ? RXN- ALLERGY SHOTS FOR YRS TREES AND GRASS Allergy (Unknown, Uncoded 12/03/24 10:03) Unknown Medication List - Last Reconciled 12/03/24 by Caitlyn Berg PA-C albuterol sulfate 2.5 mg (3 mL) continuous nebulization Q4-6H PRN 30 days aspirin 81 mg PO DAILY cholecalciferol (vitamin D3) 50 mcg PO DAILY 90 days cilostazol 50 mg PO BID clonazepam 0.5 mg PO DAILY PRN insulin aspart U-100 (Novolog FlexPen U-100 Insulin aspart) inject 10 units sq with breakfast, lunch and supper insulin glargine (Lantus Solostar U-100 Insulin) 44 units (0.44 mL) subcut QPM ipratropium bromide intranasal BEDTIME ipratropium-albuterol 20-100 mcg/actuation (Combivent Respimat) 1 puff inhalation Q6H losartan 100 mg PO DAILY metformin ER 1,000 mg (2 x 500 mg) PO BID omeprazole 20 mg PO BID oxybutynin chloride ER 15 mg PO DAILY 90 days paroxetine HCl 40 mg PO DAILY pen needle, diabetic Used to inject insulin 4 times daily unless otherwise directed by your physician. rosuvastatin 40 mg PO DAILY semaglutide (Ozempic) 2 mg (0.75 mL) subcut QWEEK HPI HPI dm: Details: Patient is a 69-year-old male with a significant past medical history of hypertension, hyperlipidemia, type 2 diabetes, insulin dependent, anxiety in bladder cancer presenting today for a follow up. Endo: His A1c today is 7.9.He is currently on metformin 1000 mg twice a day, Lantus 44 units nightly, NovoLog 10 units TID, and Ozempic 2 mg weekly. hypoglycemia resolved cgm-usage 81%, average glucose 170, G mi 7.0 %. 25 % hyperglycemic, 75% in range, 0 % hypoglycemic -correct low blood sugars with glucose tabs and watches glucose q 15 mins He just had an eye exam and no retinopathy. He has a fam hx of t2dm with siblings and parents. Nephro: follows with nephrololgy and the plan is to possibly start an SGLT2 at his next follow up with the possibility of a renal biopsy. CV: Blood pressure today in the office is 118/76. He is on losartan 100 mg. Compliant with Crestor 40 mg Urology: following with Dr. 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 COPD (chronic obstructive pulmonary disease) Nicotine dependence, cigarettes, uncomplicated Chronic sore throat Vitamin D deficiency Major depressive disorder, recurrent, unspecified Anxiety Obesity (BMI 30-39.9) Benign prostatic hyperplasia with lower urinary tract symptoms Primary 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, bilateral Holland's palsy Surgical History History of bladder surgery History of angioplasty History of colonoscopy History of esophagogastroduodenoscopy (EGD) History of nasal septoplasty History of tooth extraction Family History Father ETOH abuse Mother Obese Cancer Diabetes Brother Diabetes Other Mental health problem Substance abuse Social History Housing: Apartment Alcohol intake: current Alcohol intake frequency: holidays/special occasions only Patient Tobacco Use Status: Current everyday Tobacco user Tobacco use type: Cigarette Cigarette Packs Per Day: 1 Cigarettes Per Day: 20 e-Cigarette/Vaping Use: Never Used Second Hand Smoke Exposure: Yes service: No Current occupational status: disabled Cognitive needs: No Hearing needs: No Vision needs: Yes (Glasses) Physical Exam Vital Signs: Last Vital Signs Pulse 63 12/03/24 10:00 BP 118/76 12/03/24 10:00 Pulse Ox 97 12/03/24 10:00 Oxygen Delivery Method Room Air 12/03/24 10:00 BMI result Body Mass Index 32.9 Const Orientation/consciousness: patient oriented x3 Neck Neck: Yes no lymphadenopathy Thyroid: Thyroid normal Carotids: no bruits Resp Auscultation: clear to auscultation bilaterally Cardio Rate: regular rate Rhythm: regular rhythm Heart sounds: S1 normal heart sound present and S2 normal heart sound present Peripheral pulses: dorsalis pedis present Neuro General: patient oriented x3, gait normal and no focal motor deficits Extrem Other: Monofilament sensation slightly present on the right and absent on the left. Vibratory sensation not present bilaterally. Skin intact. There are 2 calluses on the plantar aspect of the right foot. General: Yes normal to inspection Results AMB Hemoglobin A1c AMB Hemoglobin A1c 7.9 % Last Edit by DEBORAH Arevalo on 12/03/24 10:18 Assessment & Plan Assessment & Plan (1) Type 2 diabetes mellitus with other diabetic kidney complication: Code(s): E11.29 - Type 2 diabetes mellitus with other diabetic kidney complication Category: Medical Plan: Following with Nephrology. Stable. Increase Lantus to 48 units, increase lunchtime NovoLog dosage to 12 units and continue with 10 units otherwise Continue metformin and Ozempic Three-month follow up. Sooner if needed. (2) Peripheral sensory neuropathy due to type 2 diabetes mellitus: Code(s): E11.42 - Type 2 diabetes mellitus with diabetic polyneuropathy Category: Medical Plan: I will refer to Podiatry as he does have decreased sensation and peripheral vascular disease in his high risk for foot complications. (3) Pure hypercholesterolemia: Code(s): E78.00 - Pure hypercholesterolemia, unspecified Category: Medical Plan: Continue current regimen (4) Essential hypertension: Code(s): I10 - Essential (primary) hypertension Category: Medical Plan: WNL (5) Callus of foot: Code(s): L84 - Corns and callosities Category: Medical Plan: As above, referral to [facility]. Phone number provided. Advised to check feet regularly. Orders: Orders AMB Hemoglobin A1c Today E11.29 - Type 2 diabetes mellitus with other diabetic kidney complication Referrals Podiatry Referral E11.42 - Type 2 diabetes mellitus with diabetic polyneuropathy, I73.9 - Peripheral vascular disease, unspecified, L84 - Corns and callosities Medications: Changed From insulin glargine (Lantus Solostar U-100 Insulin) 44 units (0.44 mL) subcut QPM 15 mL 5RF To insulin glargine (Lantus Solostar U-100 Insulin) 48 units (0.48 mL) subcut QPM 15 mL 5RF From insulin aspart U-100 (Novolog FlexPen U-100 Insulin aspart) inject 10 units sq with breakfast, lunch and supper 15 mL 3RF To insulin aspart U-100 (Novolog FlexPen U-100 Insulin aspart) inject 10 units sq with breakfast, 12 units with lunch and 10 units with supper 15 mL 3RF Coding Level of Care Code Est Pt Level 4 (80584) Complex EM visit Add On G2211 Diagnoses Type 2 diabetes mellitus with other diabetic kidney complication E11.29 Peripheral sensory neuropathy due to type 2 diabetes mellitus E11.42 Pure hypercholesterolemia E78.00 Essential hypertension I10 Callus of foot L84
[2024-12-03 10:13] LABS: Glucose, Whole Blood 192 mg/dL (60-115)
--- OUTSIDE RECORDS SUMMARY | 2024-12-03 11:05 | XMS_ITS | Encounter Summary ---
Author Organization [employer] Address [address] [place] [address] [address] [place] [address] Care Team Providers Care Cardiopulmonary Specialist Name Role Phone Unavailable Primary Care Provider Unavailabl e Reason for Visit * Reason Onset Date Comments case back from lab?? 05/12/2023 Encounter Details Date Type Department Care Team ([facility] st Contact Info) Description 05/12/2023 Telephone [facility] [address] [place] [address] Russel Romero DDS [address] [place] [address] case back from lab?? Social History Tobacco Use Types Packs/Day Years Used Date Smoking Tobacco: Every Day Cigarettes 1 50 Smokeless Tobacco: Never Alcohol Use Standard Drinks/Week Comments Yes 1 (1 standard drink = 0.6 oz pur e alcohol) Sex and Gender Information Value Date Recorded Sex Assigned at Male 07/19/2022 10:22 AM EDT Legal Sex Male 10:22 AM EDT Gender Identity Male 07/19/2022 10:22 AM EDT Sexual Orientation Straight 07/19/2022 10 :22 AM EDT documented as of this encounter Miscellaneous Notes * Telephone Encounter - Sandi Castillo - 05/12/2023 3:32 PM EDT Patient calling in to confirm if case is back from lab yet DR documented in this encounter Plan of Treatment Not on file documented as of this encounter Visit Diagnoses Not on filedocumented in this encounter
--- OUTSIDE RECORDS SUMMARY | 2024-12-03 11:05 | XMS_ITS | Clinical Summary ---
Author Organization [employer] Address [address] [place] [address] [address] [place] [address] Care Team Providers Care Sampler First Name Role Phone Unavailable Primary Care Provider Unavailabl e Allergies No known active allergies Medications albuterol (2.5 MG/3ML) 0.083% nebulizer solution Inhale 1 vial. Activ e aspirin 81 MG chewable tablet daily. Active cholecalcifero l (Vitamin D-3) 50 MCG (2000 UT) capsule Take by mouth daily. 2 Active cilostazol (Pletal) 50 MG tablet Take 50 mg by mouth 2 times daily. 2 Active clonazePAM (KlonoPIN) 0.5 MG tablet Take 1 tablet by mouth at bedtime. 5 Active NovoLOG FLEXPEN 100 UNIT/ML pen INJECT 20-23 UNITS SUBCUTANEOUSLY 2-3 TIMES DAILY 3 Active Basaglar KwikPen 100 UNIT/ML pen INJECT 58 UNITS OR DIRECTED SUBCUTANEOUSLY ONCE A DAY PLUS 2 UNITS TO PRIME PEN WITH EACH DOSE 3 Active B-D UF III MINI PEN NEEDLES 31G X 5 MM misc INJECT 4 TIMES DAILY 3 Active ipratropium-al buterol (Combivent Respimat) 20-100 MCG/ACT inhaler 4 times a day. Activ e losartan (Cozaar) 50 MG tablet Take 50 mg by mouth in the morning. 3 Active metFORMIN (Glucophage) 1000 MG tablet 2 times daily. Active omeprazole (PriLOSEC) [address] capsule TAKE 1 CAPSULE BY MOUTH TWICE A DAY 90 Active oxybutynin XL (Ditropan-XL) 15 MG 24 hr tablet daily. Active PARoxetine (Paxil) 40 MG tablet 3 Active rosuvastatin (Crestor) 40 MG tablet Take 40 mg by mouth in the morning. 3 Active Ozempic, 1 MG/DOSE, 4 MG/3ML solution pen-injector INJECT 1 MG SUBCUTANEOUSLY ONCE WEEKLY 3 Active Active Problems No known active problems Social History Tobacco Use Types Packs/Day Years Used Date Smoking Tobacco: Every Day Cigarettes 1 50 Smokeless Tobacco: Never Tobacco Cessation:Ready to Q uit: Not Asked; Counseling Given: Not Answered Alcohol Use Standard Drinks/Week Comments Yes 1 (1 standard drink = 0.6 oz pur e alcohol) Sex and Gender Information Value Date Recorded Sex Assigned at Male 07/19/2022 10:22 AM EDT Legal Sex Male 10:22 AM EDT Gender Identity Male 07/19/2022 10:22 AM EDT Sexual Orientation Straight 07/19/2022 10 :22 AM EDT Last Filed Vital Signs Vital Sign Reading Time Taken Comments Blood Pressure 128/84 01/07/2023 10:14 AM EDT Pulse 78 01/07/2023 10:14 AM EDT Temperature - - Respiratory Rate - - Oxygen Saturation - - Inhaled Oxygen Concentration - - Weight - - Height - - Body Mass Index - - Plan of Treatment Health Maintenance Due Date Last Done Comments CT Colonography 1955 Colonoscopy 1955 Colorectal Cancer Screening 1955 Dental Prophylaxis 1955 Dental X-Ray: Bitewings 1955 Dental X-Ray: Full Mouth 1955 Depression Screening 1955 FIT DNA/Cologuard 1955 FIT 1955 FOBT 1955 Lipid Panel 1955 SDOH Screening 1955 Sigmoidoscopy 1955 Alcohol/Substance Use Screening 1967 Hepatitis C Screening 1973 RSV Patients and Patients Aged 60 years or older (1 - Risk 60-74 years 1-dose series) 2015 Pneumococcal Vaccine: 50+ Years (2 of 2 - PCV) 03/18/2017 03/18/2016 Zoster Vaccines (3 of 3) 09/19/2020 07/25/2020, 12/18 Dental Oral Exam 07/10/2023 01/07/2023 Tobacco Screening 05/05/2024 05/05/2023 COVID-19 Vaccine ( - season) 2024 07/05/2022, 07/17/2021, 01/11/2021, Additional history exists Influenza Vaccine (#1) 2024 2, 06/22/2021, 07/25/2020 DTaP/Tdap/Td Vaccines (2 - Td or Tdap) 07/03/2028 07/03/2018 HIB Vaccines Aged Out No longer eligi ble based on patient's age to complete this topic HPV Vaccines Aged Out No longer eligi ble based on patient's age to complete this topic Hepatitis A Vaccines Aged Out No long er eligible based on patient's age to complete this topic Hepatitis B Vaccines Aged Out No long er eligible based on patient's age to complete this topic IPV Vaccines Aged Out No longer eligi ble based on patient's age to complete this topic Meningococcal Vaccine Aged Out No randall werner eligible based on patient's age to complete this topic RSV under 20 months Aged Out No longe r eligible based on patient's age to complete this topic Rotavirus Vaccines Aged Out No longer eligible based on patient's age to complete this topic Procedures Procedure Name Priority Date/Time Associated Diagnosis Comments PERIODIC ORAL EVALUATION - ESTABLISHED PATIENT Routine 01/07/2023 11:00 AM EDT from Last 3 Months or Most Recently Relevant to Health Maintenance Insurance [facility]AL - [facility]
--- OUTSIDE RECORDS SUMMARY | 2024-12-03 11:05 | XMS_ITS | Patient Health Record ---
Author Organization [facility] Address [address] [place] [address] Care Team Providers Care Price Checker Name Role Phone Brayden Sandra MD Primary Care Provider Low Velazquez Unavailable [phone] Reason For Referral No Information Medications Medication SIG (Take, Route, Frequency, Duration) Notes Start Date End Date Status glipiZIDE 10 MG 1 tablet Orally twic e a day Active Combivent Respimat 20-100 MCG/ACT 1 puff as needed Inhalation every 6 hrs Active metFORMIN HCl 1000 MG 1 tablet with meal s Orally Twice a day Active Nebulizer - as directed Active Aspirin 81 MG 1 tablet Orally Once a day Active Cilostazol 50 MG 1 tablet 30 minutes before or 2 hours after breakfast and dinner Orally once a day Active NovoLOG 100 UNIT/ML 20 units Subcutaneous tid Active PARoxetine HCl 40 MG 1 tablet in the mor gladis Orally Once a day Active Ozempic (0.25 or 0.5 MG/DOSE) 2 MG/1.5ML INJECT 0.25MG ONCE A WEEK FOR 1 MONTH, THEN INCREASE TO 0.5MG WEEKLY Subcutaneous weekly Active clonazePAM 0.5 MG 1 tablet at bedtime Orally Once a day Active Losartan Potassium 50 MG 1 tablet Orally Once a day for 30 day(s) Active Omeprazole 20 MG TAKE 1 CAPSULE BY MO UT TWICE A DAY for 90 Active oxyBUTYnin Chloride ER 15 MG 1 tablet Orally Once a day for 30 day(s) Active Basaglar KwikPen 100 UNIT/ML 60 units sub Q at hs Active Rosuvastatin Calcium 40 MG TAKE 1 TABLET BY MOUTH EVERY DAY Oral for 90 Active Immunizations Vaccine Route Administration Date Status Comme nts Influenza Unknown 05/20/2020 Administered Influenza Unknown 10/09/2019 Refused Social History Tobacco Use: Social History Observation Description Date Details (start date - stop date) Current Smoker NA - NA Tobacco Use/Smoking Question Answer Notes Patient is a current smoker How many cigarettes a day do you smoke? 08-08 Section Notes: 2016--quit smoking ; no sig alcohol Smoker; no sig alcohol Smoker; no sig alcohol Stopped smoking in February; no sig alcohol--- currently on Chantix Stopped smoking in February; no sig alcohol---Started smoking again-09/20 ppd Stopped smoking in February; no sig alcohol---Started smoking again-1 ppd as of the 10/2020 OV Problems Problem Type SNOMED Code ICD Code Onset Dates Problem Status W/U Status Risk Notes Problem 974480066 Encounter for screening for malignant neoplasm of colon (Z12.11) Active confirmed Problem 861015305 Gastroesophageal reflux disease, esophagitis presence not specified (K21.9) Active confirmed Problem 46799640 Oropharyngeal dysphagia (R13.12) Active confirmed Problem 669738148 Long-term use of aspirin therapy (Z79.82) Active confirmed Problem 78205361 Erosive esophagi tis (K22.10) Active confirmed Problem 41674283 Pharyngoesophage al dysphagia (R13.14) Active confirmed Problem 19945355 Dry mouth (R68.2) Active confirmed Plan Of Treatment Future Test Test Name Order Date UPPER GI ENDOSCOPY 08/17/2016 COLONOSCOPY 10/09/2019 Insurance Providers Payer Name Payer Address Payer Phone Subscriber Number Group Number Insured Name Patient Relationship to Insured Coverage Start Date Coverage End Date MEDICARE OF [place] [address] [place] [address] [id number] BASILIA HONG Self - patient is the insured MEDICAID OF [facility] [address] [place] [address] [id number] BASILIA HONG Self - patient is the insured Medical (General) History Medical History History ICD Code Screening Colonoscopy, 2008- - hyperplastic polyp, diverticulosis, internal hemorrhoids Depression Hypertension IDDM Hyperlipidemia BPH Denies TX,CVA,,renal disease PVD--bilateral LE stents in 2013 EGD in 09/2016--erosive esophagitis, smal l HH--bx neg for Perez's COPD Environmental allergies/allergy shots ev kimberley 4 weeks Holland's palsy 2019 Negative screening colonoscopy in 11/2019 Barium swallow ordered by Dr Taiwo Voss from ENT in 07/2020 revealed only some component of possible esophageal dysmotility, but no evidence of any esophageal obstruction nor aspiration Surgical History Surgery Date(Month/Year) surgery- Dr. Peters-? bladder goyal rgery 2017 Deviated septum--ENT
== END 2024-12-03 10:30 | disposition home or self-care (01) ==
LOC: HO.ENCR 09:59
PROVIDERS: PCP Internal Medicine; Visit Provider Physician Assistant
DX: E11.29 Type 2 diabetes mellitus with other diabetic kidney complication (principal); E11.42 Type 2 diabetes mellitus with diabetic polyneuropathy; E78.00 Pure hypercholesterolemia, unspecified; I10 Essential (primary) hypertension; L84 Corns and callosities

== ENCOUNTER → 2024-12-03 09:58 | Outpatient (BNVA) | payer OTHER, SELFPAY | PROVIDERS: PCP Internal Medicine; Visit Provider Physician Assistant | DX: E11.29 Type 2 diabetes mellitus with other diabetic kidney complication (principal); E11.42 Type 2 diabetes mellitus with diabetic polyneuropathy; E78.00 Pure hypercholesterolemia, unspecified; I10 Essential (primary) hypertension; L84 Corns and callosities | CPT/HCPCS: 82947; 83036; 99212 ==

== ENCOUNTER 2025-01-23 11:29 | Outpatient (AMB) | payer OTHER, SELFPAY ==
--- NOTE | 2025-01-23 11:32 | MHC.OFFVIS ---
Vital Signs 01/23/25 11:36 Height 5 ft 10 in Weight 229 lb BMI 32.9 Intake Visit Reasons: OV- RT knee pain, last gel inj 01/24/23 Intake Note: Ra is a 67 year old male who presents today for a follow up of right knee OA. Patient was last seen in office on 01/24/23 and was given a right knee Durolane injection. Patient reports gel injection provided him with relief until recently, stating his pain returned about 1-2 months ago. He has constant discomfort that increases with getting up from a sitting position. Allergies varenicline [From Chantix] Adverse Reaction (Unknown, Verified 12/03/24 10:03) nightmares ENVIRONMENTAL Allergy (Unknown, Uncoded 12/03/24 10:03) ? RXN- ALLERGY SHOTS FOR YRS TREES AND GRASS Allergy (Unknown, Uncoded 12/03/24 10:03) Unknown Medication List - Last Reconciled 01/23/25 by Caity Neely PA-C albuterol sulfate 2.5 mg (3 mL) continuous nebulization Q4-6H PRN 30 days aspirin 81 mg PO DAILY cholecalciferol (vitamin D3) 50 mcg PO DAILY 90 days cilostazol 50 mg PO BID clonazepam 0.5 mg PO DAILY PRN insulin aspart U-100 (Novolog FlexPen U-100 Insulin aspart) inject 10 units sq with breakfast, 12 units with lunch and 10 units with supper insulin glargine (Lantus Solostar U-100 Insulin) 48 units (0.48 mL) subcut QPM ipratropium bromide intranasal BEDTIME ipratropium-albuterol 20-100 mcg/actuation (Combivent Respimat) 1 puff inhalation Q6H losartan 100 mg PO DAILY metformin ER 1,000 mg (2 x 500 mg) PO BID omeprazole 20 mg PO BID oxybutynin chloride ER 15 mg PO DAILY 90 days paroxetine HCl 40 mg PO DAILY pen needle, diabetic Used to inject insulin 4 times daily unless otherwise directed by your physician. rosuvastatin 40 mg PO DAILY semaglutide (Ozempic) 2 mg (0.75 mL) subcut QWEEK HPI HPI OV- RT knee pain, last gel inj 01/24/23: Details: 69-year-old gentleman presents to the office today for a follow-up right knee pain. He was last seen by me in January of 2023 where he received a gel injection and had lasting relief up until recently. He complains of discomfort with stairs and walking long distances. 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 COPD (chronic obstructive pulmonary disease) Nicotine dependence, cigarettes, uncomplicated Chronic sore throat Vitamin D deficiency Major depressive disorder, recurrent, unspecified Anxiety Obesity (BMI 30-39.9) Benign prostatic hyperplasia with lower urinary tract symptoms Primary 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, bilateral Holland's palsy Surgical History History of bladder surgery History of angioplasty History of colonoscopy History of esophagogastroduodenoscopy (EGD) History of nasal septoplasty History of tooth extraction Family History Father ETOH abuse Mother Obese Cancer Diabetes Brother Diabetes Other Mental health problem Substance abuse Social History Housing: Apartment Alcohol intake: current Alcohol intake frequency: holidays/special occasions only Patient Tobacco Use Status: Current everyday Tobacco user Tobacco use type: Cigarette Cigarette Packs Per Day: 1 Cigarettes Per Day: 20 e-Cigarette/Vaping Use: Never Used Second Hand Smoke Exposure: Yes service: No Current occupational status: disabled Cognitive needs: No Hearing needs: No Vision needs: Yes (Glasses) Review of Systems Const All systems reviewed & are unremarkable except as noted in HPI and below Physical Exam Vital Signs: BMI result Body Mass Index 32.9 Const General: cooperative and no acute distress Orientation/consciousness: patient oriented x3 Resp Effort & Inspection: normal respiratory effort and able to speak in complete sentences Cardio Peripheral pulses: Peripheral pulses 2+ throughout Neuro General: patient oriented x3 Extrem Other: Right knee skin intact, no erythema or joint effusion. Tenderness along the medial joint line. ROM full with crepitus. Negative steinmans. No ligamentous laxity. NVI. Office Procedures AMB Joint Injection/Aspiration Joint Injection/Aspiration Primary Site: right knee Prep: site was prepped using aseptic technique, ethochloride spray was applied and injection warnings given Injected: 40 mg of, 80 mg of, with 8 mL of, 1% plain lidocaine and in the joint Approach Used: anterolateral Procedure: The patient tolerated the procedure well and there was some relief with the local anesthesia Coding 22026 - Glenohumeral/Tronchanteric Bursa/Intraarticular Procedure code (CPT) selection complete Assessment & Plan Assessment & Plan (1) Osteoarthritis of right knee: Code(s): M17.11 - Unilateral primary osteoarthritis, right knee Category: Medical Plan: We will obtain authorization for gel injections of the right knee as he has had significant relief in the past. The right knee was also injected today with steroid which she tolerated well. I will see him back once the gel is approved. We also discussed their diabetes and the effect the steroid can have on thier blood glucose levels; therefore, they will continue to monitor these very closely over the next 72 hours Coding Level of Care Code Est Pt Level 3 (12862) Complex EM visit Add On G2211 Diagnoses Osteoarthritis of right knee M17.11 CPT Codes Coding - Joint 7: 31858 - Glenohumeral/Tronchanteric Bursa/Intraarticular ([id number])
[2025-01-23 11:36] VITALS: BMI 32.9
--- OUTSIDE RECORDS SUMMARY | 2025-01-23 12:54 | XMS_ITS | Encounter Summary ---
Author Organization [facility] Address [address] [place] [address] Care Team Providers Care Railroad Carman Name Role Phone Milton Magana Primary Care Provider Unavailabl e Encounter Details Date Type Department Care Team Description 07/29/2017 Transfer Records Medical Records [address] [place] [address] Abstract, Provider Social History Tobacco Use Types Packs/Day Years Used Date Smoking Tobacco: Former Cigarettes 1 45 Comments:quit 02/2017 Alcohol Use Standard Drinks/Week Comments Yes 0 (1 standard drink = 0.6 oz pur e alcohol) seldon drink Sex Assigned at Date Recorded Not on file documented as of this encounter Plan of Treatment Not on file documented as of this encounter Visit Diagnoses Not on filedocumented in this encounter Care Teams Railroad Carman Relationship Specialty Start Date End Date Milton Magana PCP - General Family Practice 07/15/17 documented as of this encounter
--- OUTSIDE RECORDS SUMMARY | 2025-01-23 12:54 | XMS_ITS | Encounter Summary ---
Author Organization [facility] Address [address] [place] [address] Care Team Providers Care Propeller Inspector Name Role Phone Milton Magana Primary Care Provider Unavailabl e Reason for Visit * Reason Onset Date Comments Letter 08/15/2017 Encounter Details Date Type Department Care Team Description 08/15/2017 Telephone Pulmonology - [place] [address] [place] [address] Nikko Ngo MD [address] [place] [address] Letter Social History Tobacco Use Types Packs/Day Years Used Date Smoking Tobacco: Former Cigarettes 1 45 Comments:quit 02/2017 Alcohol Use Standard Drinks/Week Comments Yes 0 (1 standard drink = 0.6 oz pur e alcohol) seldon drink Sex Assigned at Date Recorded Not on file documented as of this encounter Miscellaneous Notes * Telephone Encounter - Nadia Osman M.A. - 08/15/2017 4:[address] Ngo please advise * Telephone Encounter - Kathy Bowie - 08/15/2017 3:57 PM EST Letter requested for: For allergy testing Reason for letter: clearance to do testing Specific notations needed in body of letter: Stating pt can do testing breathing open enough to pefrom testing Date needed for completion: YENNI When completed: Fax to other office/MD at fax # [phone] documented in this encounter Plan of Treatment Not on file documented as of this encounter Visit Diagnoses Not on filedocumented in this encounter Care Teams Propeller Inspector Relationship Specialty Start Date End Date Milton Magana PCP - General Family Practice 07/15/17 documented as of this encounter
--- OUTSIDE RECORDS SUMMARY | 2025-01-23 12:55 | XMS_ITS | Patient Health Record ---
Author Organization [facility] Address [address] [place] [address] Care Team Providers Care Mine Utility Operator Name Role Phone Brayden Sandra MD Primary Care Provider Low Velazquez Unavailable [phone] Reason For Referral No Information Medications Medication [...] Problem Status W/U Status Risk Notes Problem 755032894 Encounter for screening for malignant neoplasm of colon (Z12.11) Active confirmed Problem 376152453 Gastroesophageal reflux disease, esophagitis presence not specified (K21.9) Active confirmed Problem 96427342 Oropharyngeal dysphagia (R13.12) Active confirmed Problem 912645130 Long-term use of aspirin therapy (Z79.82) Active confirmed Problem 85571344 Erosive esophagi tis (K22.10) Active confirmed Problem 49105536 Pharyngoesophage al dysphagia (R13.14) Active confirmed Problem 09478714 Dry mouth (R68.2) Active confirmed Plan Of Treatment Future Test Test Name Order Date UPPER GI ENDOSCOPY 08/17/2016 COLONOSCOPY 10/09/2019 Insurance Providers Payer Name Payer Address Payer Phone Subscriber Number Group Number Insured Name Patient Relationship to Insured Coverage Start Date Coverage End Date MEDICARE OF [place] [address] [place] [id number] BASILIA HONG Self - patient is the insured MEDICAID OF [facility] [address] [place] [address] [phone] [id number] BASILIA HONG Self - patient is the insured Medical (General) History Medical History History ICD Code Screening Colonoscopy, 2008- - hyperplastic polyp, diverticulosis, internal hemorrhoids Depression Hypertension IDDM Hyperlipidemia BPH Denies [place],CVA,,renal disease PVD--bilateral LE stents in 2013 EGD [...] Date(Month/Year) surgery- Dr. Peters-? bladder goyal rgery 2016 Deviated septum--ENT
== END 2025-01-23 11:59 | disposition home or self-care (01) ==
LOC: HO.HOS 11:30
PROVIDERS: PCP Internal Medicine; Visit Provider Physician Assistant
DX: M17.11 Unilateral primary osteoarthritis, right knee (principal)
CPT/HCPCS: 20610; 99213

== ENCOUNTER → 2025-01-23 11:29 | Outpatient (BNVA) | payer OTHER, SELFPAY | PROVIDERS: PCP Internal Medicine; Visit Provider Physician Assistant | DX: M17.11 Unilateral primary osteoarthritis, right knee (principal) | CPT/HCPCS: 20610; 99212; J1010; J2003 ==

== ENCOUNTER 2025-02-12 09:55 | Outpatient (REF) | payer OTHER, SELFPAY ==
--- OUTSIDE RECORDS SUMMARY | 2025-02-12 10:33 | XMS_ITS | Patient Health Record ---
Author Organization [facility] Address [address] [place] [address] Care Team Providers Care Spray Mixer Name Role Phone Brayden Sandra MD Primary Care Provider Low Velazquez Unavailable [phone] Reason For Referral No Information Medications Medication [...] Problem Status W/U Status Risk Notes Problem [id number] Encounter for screening for malignant neoplasm of colon (Z12.11) Active confirmed Problem 780953839 Gastroesophageal reflux disease, esophagitis presence not specified (K21.9) Active confirmed Problem 53862559 Oropharyngeal dysphagia (R13.12) Active confirmed Problem 962558707 Long-term use of aspirin therapy (Z79.82) Active confirmed Problem 08004656 Erosive esophagi tis (K22.10) Active confirmed Problem 79062168 Pharyngoesophage al dysphagia (R13.14) Active confirmed Problem 79403216 Dry mouth (R68.2) Active confirmed Plan Of Treatment Future Test Test Name Order Date UPPER GI ENDOSCOPY 08/17/2016 COLONOSCOPY 10/09/2019 Insurance Providers Payer Name Payer Address Payer Phone Subscriber Number Group Number Insured Name Patient Relationship to Insured Coverage Start Date Coverage End Date MEDICARE OF [place] [address] [place] [id number] BASILIA HONG Self - patient is the insured MEDICAID OF [facility] [address] [place] [address] [id number] BASILIA HONG Self - patient is the insured Medical (General) History Medical History History ICD Code Screening Colonoscopy, 2008- - hyperplastic polyp, diverticulosis, internal hemorrhoids Depression Hypertension IDDM Hyperlipidemia BPH Denies ID,CVA,,renal disease PVD--bilateral LE stents in 2013 EGD [...]
[2025-02-12 10:56] LABS: Estimated Average Glucose 169 mg/dL; Hemoglobin A1c % 7.5 % (<6.0)
[2025-02-12 11:07] LABS: Appearance Urine Cloudy; Color Urine Yellow; Glucose Urine UA Negative (Negative); Leukocyte Esterase Urine Negative (Negative); Nitrite Urine Negative (Negative); UMIC TRIGGER UACC YES; Urine Blood Negative (Negative); Urine Ketones Negative (Negative); Urine Protein 300 (3+) mg/dL (Neg-Trace)
[2025-02-12 11:18] LABS: Bacteria Urine None Seen (None Seen); Hyaline Casts Urine 0-2 /LPF (0-2); RBC Urine 0-2 /HPF (0-2); WBC Urine 0-5 /HPF (0-5)
[2025-02-12 11:20] LABS: Albumin Level 4.3 g/dL (3.5-5.0); Anion Gap 12 (12-20); Blood Urea Nitrogen 15 mg/dL (9-16); Calcium 9.1 mg/dL (8.4-10.2); Carbon Dioxide 24 mmol/L (22-29); Chloride 109 mmol/L (96-108); Cholesterol 125 mg/dL (<200); Estimated Glomerular Filt Rate > 60; HDL Cholesterol 35 mg/dL (>40); LDL Cholesterol Calculated 67 mg/dL (<100); Potassium 4.2 mmol/L (3.3-5.1); Sodium 141 mmol/L (135-145); Triglycerides 118 mg/dL (<150)
[2025-02-12 11:37] LABS: TSH reflex Free T4 1.92 uIU/mL (0.32-4.0)
[2025-02-12 11:44] LABS: Creatinine Urine 132.99 mg/dL; Protein/Creatinine Ratio, Ur 1.25 (<0.2); Total Protein Urine Random 166 mg/dL (<12)
[2025-02-12 11:47] LABS: Creatinine Urine 133.52 mg/dL
[2025-02-12 12:02] LABS: Microalbum/Creatinine Ratio Ur 897.2 ug/mg cr (<30)
[2025-02-13 21:32] LABS: Anti DNA DS Antibody <1 IU/mL; Myeloperoxidase Antibody <1.0 AI; Proteinase 3 PR3 Antibodies <1.0 AI
[2025-02-14 07:33] LABS: IgA 188 mg/dL (70-320); IgG 560 mg/dL (600-1540); IgM 33 mg/dL (50-300)
[2025-02-20 17:13] LABS: Phospholipase A2 IgG ELISA <4 RU/mL; Phospholipase A2 IgG IFA NEGATIVE (NEGATIVE)
== END 2025-02-12 09:56 | disposition home or self-care (01) ==
LOC: HO.LAB 09:55
PROVIDERS: Absent Provider Internal Medicine Nephrology; PCP Internal Medicine; Visit Provider Internal Medicine
DX: E11.29 Type 2 diabetes mellitus with other diabetic kidney complication (principal); E78.00 Pure hypercholesterolemia, unspecified; I10 Essential (primary) hypertension
CPT/HCPCS: 36415; 80051; 80061; 81001; 81003; 82040; 82043; 82310; 82565; 82570; 82784; 83036; 83520; 84156; 84443; 84520; 86021; 86225; 86255; 86334; 86335

== ENCOUNTER 2025-02-18 11:23 | Outpatient (AMB) | payer OTHER, SELFPAY ==
--- NOTE | 2025-02-18 11:28 | A.OFFVIS_ITS ---
Vital Signs 02/18/25 11:29 Height 5 ft 10 in Weight 229 lb BMI 32.9 Intake Visit Reasons: INJ- RT knee Durolane injection Intake Note: Ra is a 69 year old male who presents today for a right knee Durolane injection. Allergies varenicline [From Chantix] Adverse Reaction (Unknown, Verified 02/18/25 11:29) nightmares ENVIRONMENTAL Allergy (Unknown, Uncoded 02/18/25 11:29) ? RXN- ALLERGY SHOTS FOR YRS TREES AND GRASS Allergy (Unknown, Uncoded 02/18/25 11:29) Unknown Medication List - Last Reconciled 02/18/25 by Caity Neely PA-C albuterol sulfate 2.5 mg (3 mL) continuous nebulization Q4-6H PRN 30 days aspirin 81 mg PO DAILY cholecalciferol (vitamin D3) 50 mcg PO DAILY 90 days cilostazol 50 mg PO BID clonazepam 0.5 mg PO DAILY PRN insulin aspart U-100 (Novolog FlexPen U-100 Insulin aspart) inject 10 units sq with breakfast, 12 units with lunch and 10 units with supper insulin glargine (Lantus Solostar U-100 Insulin) 48 units (0.48 mL) subcut QPM ipratropium bromide intranasal BEDTIME ipratropium-albuterol 20-100 mcg/actuation (Combivent Respimat) 1 puff inhalation Q6H losartan 100 mg PO DAILY metformin ER 1,000 mg (2 x 500 mg) PO BID omeprazole 20 mg PO BID oxybutynin chloride ER 15 mg PO DAILY 90 days paroxetine HCl 40 mg PO DAILY pen needle, diabetic Used to inject insulin 4 times daily unless otherwise directed by your physician. rosuvastatin 40 mg PO DAILY semaglutide (Ozempic) 2 mg (0.75 mL) subcut QWEEK HPI HPI INJ- RT knee Durolane injection: Details: 69 year old male who presents today for a right knee Durolane injection. He had minimal relief with his steroid injection . 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, bilateral Holland's palsy Surgical History History of bladder surgery History of angioplasty History of colonoscopy History of esophagogastroduodenoscopy (EGD) History of nasal septoplasty History of tooth extraction Family History Father ETOH abuse Mother Obese Cancer Diabetes Brother Diabetes Other Mental health problem Substance abuse Social History Housing: Apartment Alcohol intake: current Alcohol intake frequency: holidays/special occasions only Patient Tobacco Use Status: Current everyday Tobacco user Tobacco use type: Cigarette Cigarette Packs Per Day: 1 Cigarettes Per Day: 20 e-Cigarette/Vaping Use: Never Used Second Hand Smoke Exposure: Yes service: No Current occupational status: disabled Cognitive needs: No Hearing needs: No Vision needs: Yes (Glasses) Review of Systems Const All systems reviewed & are unremarkable except as noted in HPI and below Physical Exam Vital Signs: BMI result Body Mass Index 32.9 Const General: cooperative and no acute distress Orientation/consciousness: patient oriented x3 Resp Effort & Inspection: normal respiratory effort and able to speak in complete sentences Cardio Peripheral pulses: Peripheral pulses 2+ throughout Neuro General: patient oriented x3 Extrem Other: Right knee skin intact, no erythema or joint effusion. Tenderness along the medial joint line. ROM full with crepitus. Negative steinmans. No ligamentous laxity. NVI. Office Procedures AMB Joint Injection/Aspiration Joint Injection/Aspiration Details: durolane Primary Site: right knee Prep: site was prepped using aseptic technique, ethochloride spray was applied and injection warnings given Injected: in the joint Approach Used: anterolateral Procedure: The patient tolerated the procedure well Coding 21474 - Glenohumeral/Tronchanteric Bursa/Intraarticular Procedure code (CPT) selection complete Assessment & Plan Assessment & Plan (1) Osteoarthritis of right knee: Code(s): M17.11 - Unilateral primary osteoarthritis, right knee Category: Medical Plan: Plan was to proceed with gel injection today. Right Knee Gel Injection performed today which the patient tolerated well. He will rest ice and use anti-inflammatories as needed for the next several days. He will contact our office if symptoms arise, otherwise, f/u prn. Coding Level of Care Code Procedure Only Diagnoses Osteoarthritis of right knee M17.11 CPT Codes Coding - Joint 7: 10718 - Glenohumeral/Tronchanteric Bursa/Intraarticular ([id number])
[2025-02-18 11:29] VITALS: BMI 32.9
== END 2025-02-18 12:04 | disposition home or self-care (01) ==
LOC: HO.HOS 11:24
PROVIDERS: PCP Internal Medicine; Visit Provider Physician Assistant
DX: M17.11 Unilateral primary osteoarthritis, right knee (principal)
CPT/HCPCS: 20610

== ENCOUNTER → 2025-02-18 11:23 | Outpatient (BNVA) | payer OTHER, SELFPAY | PROVIDERS: PCP Internal Medicine; Visit Provider Physician Assistant | DX: M17.11 Unilateral primary osteoarthritis, right knee (principal) | CPT/HCPCS: 20610; J7323 ==

== ENCOUNTER 2025-02-25 13:56 | Outpatient (AMB) | payer OTHER, SELFPAY ==
--- NOTE | 2025-02-25 13:58 | MHC.PC.OV ---
Vital Signs 02/25/25 13:59 02/25/25 14:27 Height 5 ft 10 in Weight 233 lb BMI 33.4 BP 169/90 H 138/74 Blood Pressure Location Lt brachial Lt brachial Position Sitting Sitting Respiration 20 Pulse 56 Pulse Source Pulse Oximeter Temp 97.1 F Temp Source Temporal Artery Scan Pulse Oximetry (%) 96 Oxygen Delivery Method Room Air Intake Visit Reasons: 6 month f/u Metal Cutter Required: No Product Support Technician: Present Accompanied by: Self / Same As Patient Allergies varenicline [From Chantix] Adverse Reaction (Unknown, Verified 02/25/25 14:23) nightmares ENVIRONMENTAL Allergy (Unknown, Uncoded 02/25/25 14:23) ? RXN- ALLERGY SHOTS FOR YRS TREES AND GRASS Allergy (Unknown, Uncoded 02/25/25 14:23) Unknown Medication List - Last Reconciled 02/25/25 by ROMEL Espitia albuterol sulfate 2.5 mg (3 mL) continuous nebulization Q4-6H PRN 30 days aspirin 81 mg PO DAILY cholecalciferol (vitamin D3) 50 mcg PO DAILY 90 days cilostazol 50 mg PO BID clonazepam 0.5 mg PO DAILY PRN insulin aspart U-100 (Novolog FlexPen U-100 Insulin aspart) inject 10 units sq with breakfast, 12 units with lunch and 10 units with supper insulin glargine (Lantus Solostar U-100 Insulin) 48 units (0.48 mL) subcut QPM ipratropium bromide intranasal BEDTIME ipratropium-albuterol 20-100 mcg/actuation (Combivent Respimat) 1 puff inhalation Q6H losartan 100 mg PO DAILY metformin ER 1,000 mg (2 x 500 mg) PO BID omeprazole 20 mg PO BID oxybutynin chloride ER 15 mg PO DAILY 90 days paroxetine HCl 40 mg PO DAILY pen needle, diabetic Used to inject insulin 4 times daily unless otherwise directed by your physician. rosuvastatin 40 mg PO DAILY semaglutide (Ozempic) 2 mg (0.75 mL) subcut QWEEK Tobacco use date assessed: 09/11/24 Dental Screening Dental Screen Date: 09/11/24 HPI 6 month f/u HPI Details The patient is a 69-year-old male presenting with a follow-up visit for chronic conditions management, especially focusing on allergies and chronic diseases like type 2 diabetes mellitus and chronic obstructive pulmonary disease (COPD). His diabetes management has shown improvement with an A1c reduction from 7.9% to 7.5%. For hyperlipidemia, his cholesterol levels are stable, although low HDL levels were noted, for which fish oil supplements were advised. Regarding his musculoskeletal issues, the patient has osteoarthritis of the right knee, improved by recent gel and cortisone injections. These interventions have alleviated stiffness and locking symptoms. Also present is a trigger finger issue in the right ring finger, beginning to resurface after having carpal tunnel surgery, previously controlling symptoms effectively. The patient's COPD is compounded by active smoking habits, consuming 15 cigarettes daily, despite attempts to quit. Allergic rhinitis contributes to significant nasal congestion, making swallowing difficult. He uses a saline spray for symptomatic relief, although his obstruction persists, particularly during peak allergy seasons. Elevated blood pressure in office-reports that he had 2 cups of coffee this morning and the 2nd cup was close to this appointment. Rechecked blood pressure improved closer to the patient baseline Reports gel shots to arthritic right knee last week with positive effects. Two weeks prior he received a cortisone shot in the same knee while waiting for pre authorization for the gel shot. He denies back pain . Left ring finger, he has been getting trigger finger, mostly the even reports having carpal tunnel procedure done before. 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 COPD (chronic obstructive pulmonary disease) Nicotine dependence, cigarettes, uncomplicated Chronic sore throat Vitamin D deficiency Major depressive disorder, recurrent, unspecified Anxiety Obesity (BMI 30-39.9) Benign prostatic hyperplasia with lower urinary tract symptoms Primary 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, bilateral Holland's palsy Surgical History History of bladder surgery History of angioplasty History of colonoscopy History of esophagogastroduodenoscopy (EGD) History of nasal septoplasty History of tooth extraction Family History Father ETOH abuse Mother Obese Cancer Diabetes Brother Diabetes Other Mental health problem Substance abuse Social History Housing: Apartment Alcohol intake: current Alcohol intake frequency: holidays/special occasions only Patient Tobacco Use Status: Current everyday Tobacco user Tobacco use type: Cigarette Cigarette Packs Per Day: 1 Cigarettes Per Day: 20 e-Cigarette/Vaping Use: Never Used Second Hand Smoke Exposure: Yes service: No Current occupational status: disabled Cognitive needs: No Hearing needs: No Vision needs: Yes (Glasses) Questionnaire PHQ-9 Over the last 2 weeks, how often have you been bothered by any of the following problems? 1. Little interest or pleasure in doing things: not at all 2. Feeling down, depressed, or hopeless: not at all 3. Trouble falling or staying asleep, or sleeping too much: not at all 4. Feeling tired or having little energy: several days 5. Poor appetite or overeating: not at all 6. Feeling bad about yourself - or that you are a failure or have let yourself or your family down: not at all 7. Trouble concentrating on things, such as reading the newspaper or watching television: not at all 8. Moving or speaking so slowly that other people could have noticed. Or the opposite - being so fidgety or restless that you have been moving around a lot more than usual: not at all 9. Thoughts that you would be better off or of hurting yourself in some way: not at all Total score: 1 Depression Screening Interpretation: Positive Depression Screening Done: Yes 06971 - PHQ-9 Billing: Yes Source: Developed by Drs. Low Box, Clarisa Vu, Oswald Cheney and colleagues, with an educational stephanie from [employer]. Thrive Questionnaire Date Thrive assessed: 02/25/25 I am a: Patient What is your living situation today?: I have a steady place to live Within the past 12 months, did the food you bought not last and you didn't have the money to get more?: Never true Within the past 12 months, did you worry whether your food would run out before you got money to buy more?: Never true Do you have trouble paying for medicines?: No Do you have trouble getting transportation to medical appointments?: No Do you have trouble paying your heating and electricity bill?: No Do you have trouble taking care of your child, family member or friend?: No Do you have trouble with day-to-day activities such as bathing, preparing meals, shopping, managing finances, etc.?: No Are you currently unemployed and looking for a job?: I choose not to answer this question Are you interested in more education?: No THRIVE Score: 0 AUDIT C Alcohol Use Questionnaire (AUDIT-C) 1. How often do you have a drink containing alcohol?: 2-4 times a month 2. How many drinks containing alcohol do you have on a typical day when you are drinking?: 1 or 2 3. How often do you have six or more drinks on one occasion?: Never Total Score: 2 Score Reviewed/Action Taken: Yes RACHNA-7 AMB Questionnaire RACHNA-7 Date RACHNA - 7 assessed: 02/25/25 Feeling nervous, anxious, or on edge: 0 = Not at all Not being able to stop or control worryin = Several days Worrying too much about different things: 0 = Not at all Trouble relaxin = Not at all Being so restless that it is hard to sit still: 0 = Not at all Becoming easily annoyed or irritable: 1 = Several days Feeling afraid as if something awful might happen: 0 = Not at all Total RACHNA-7 score (0-4 normal; 5-9 mild; 10-14 moderate; 15-21 severe): 2 Source: Developed by Drs. Low Box, Clarisa Vu, Oswald Cheney and colleagues, with an educational stephanie from [employer]. RACHNA-7 Assessment Billing RACHNA-7 Assessment Tool: RACHNA-7 Assessment 32810 Review of Systems Const Denies headache(s) Eyes Denies loss of vision ENT Denies vertigo, Denies dizziness, Denies headache(s), Reports nasal congestion, Reports sinus pressure and Denies sore throat Card Denies chest pain, Denies leg edema, Denies lightheadedness and Reports dyspnea on exertion (chronic ) Resp Denies cough, Denies hemoptysis, Reports dyspnea on exertion (chronic ) and Denies wheezing GI Denies abdominal pain, Denies melena, Denies constipation, Denies diarrhea and Denies vomiting Denies dysuria, Denies urinary frequency and Denies urinary urgency Musc Denies arthralgias, Denies joint swelling, Denies numbness, Denies tingling and Reports other (left ring finger-trigger finger) Neuro Denies Abnormal speech present, Denies vertigo, Denies dizziness, Denies headache(s), Denies loss of vision, Denies numbness and Denies tingling Arvind/Lymph Denies easy bleeding and Denies easy bruising Aller/Immun Denies wheezing Physical exam (Primary Care) Vital Signs: Last Vital Signs Temp 97.1 F 02/25/25 13:59 Pulse 56 02/25/25 13:59 Resp 20 02/25/25 13:59 BP 138/74 02/25/25 14:27 Pulse Ox 96 02/25/25 13:59 Oxygen Delivery Method Room Air 02/25/25 13:59 BMI result Body Mass Index 33.4 Tobacco/Smoking Status: Tobacco use Status Tobacco use date assessed 09/11/24 02/25/25 14:03 Patient Tobacco Use Status Current everyday Tobacco 02/25/25 14:03 Tobacco use type Cigarette 02/25/25 14:03 e-Cigarette/Vaping Use Never Used 02/25/25 14:03 PHQ-9: PHQ-9 Score PHQ-9: Total score 1 02/25/25 14:27 Depression Screening Interpretation: Positive Thrive Assessment: Date of Thrive Assessment Date Thrive assessed 02/25/25 02/25/25 14:03 Const General: healthy appearing, no acute distress, alert and awake Nutritional Appearance: well nourished Orientation/consciousness: oriented to person, oriented to place and oriented to time HENMT Ears: TM's normal bilaterally General nose exam: Abnormal mucous membranes and turbinates present boggy bilateral and erythematous bilateral and Nasal discharge present purulent on the left Eyes Conjunctivae: conjunctivae normal Sclerae: sclerae normal Pupils: Equal, round and reactive pupils present Neck Neck: Yes no lymphadenopathy and Yes no JVD Thyroid: Thyroid normal Carotids: no bruits Resp Effort & Inspection: normal respiratory effort and not tachypneic Auscultation: no crackles, no rales, no rhonchi and no wheezes Cardio Rate: regular rate Rhythm: regular rhythm Heart sounds: no murmurs and normal S1 and S2 GI Palpation (GI): Soft to palpation, nontender, no hepatomegaly and no splenomegaly Auscultation: normal bowel sounds General: Yes no CVA tenderness Back/Spine/Pelvis Back: no CVA tenderness Thoracic/Lumbar Spine: No lumbar spinal tenderness Skin General skin exam: no rashes or lesions noted and dry skin Neuro General: oriented to person, oriented to place and oriented to time Cranial nerves: Yes Equal, round and reactive pupils present Speech: No Abnormal speech present Gait exam (Neuro): Normal gait present Motor exam (neuro): no tremor noted Extrem Right upper extremity: full ROM Left upper extremity: full ROM Right lower extremity: full ROM and knee Details: normal ROM; no tenderness; no edema Left lower extremity: full ROM and knee Details: normal ROM; no tenderness; no edema Psych Mental Status: mental status grossly normal Speech and movement: Normal speech and movement present Affect: normal affect Attitude: cooperative Thought process: Normal thought process present Results Reviewed Results Reviewed: Laboratory Tests 02/12/25 02/12/25 10:18 10:27 Sodium 141 Potassium 4.2 Chloride 109 H Carbon Dioxide 24 Anion Gap 12 BUN 15 Creatinine 0.98 Estimated GFR > 60 Estimat Average Glucose 169 Hemoglobin A1c % 7.5 H Calcium 9.1 Albumin 4.3 Triglycerides 118 Cholesterol 125 LDL Cholesterol, Calc 67 HDL Cholesterol 35 L TSH 1.92 Urine Color Yellow Urine Appearance Cloudy Urine pH 8.0 Ur Specific [place] 1.020 Urine Protein 300 (3+) H Urine Glucose (UA) Negative Urine Ketones Negative Urine Blood Negative Urine Nitrite Negative Ur Leukocyte Esterase Negative Urine RBC 0-2 Urine WBC 0-5 Ur Squamous Epith Cells 3-5 Hyaline Casts 0-2 U Random Total Protein 166 H Urine Creatinine 132.99 Urine Microalbumin 1198.0 Microalb/Creat Ratio 897.2 H Protein/Creatinin Ratio 1.25 H Coding Level of Care Code Est Pt Level 4 (28821) Diagnoses PVD (peripheral vascular disease) I73.9 Essential hypertension I10 Pure hypercholesterolemia E78.00 Type 2 diabetes mellitus with other diabetic kidney complication E11.29 Chronic obstructive pulmonary disease, unspecified COPD type J44.9 COPD type: unspecified COPD Nicotine dependence, cigarettes, uncomplicated F17.210 Benign prostatic hyperplasia with urinary frequency N40.1; R35.0 Lower urinary tract symptom detail: urinary frequency Vitamin D deficiency E55.9 Obesity (BMI 30-39.9) E66.9 Moderate episode of recurrent major depressive disorder F33.1 Active/Remission status: currently active Major depression episode severity: moderate Anxiety F41.9 Primary osteoarthritis of right knee M17.11 Osteoarthritis type: primary Trigger ring finger of left hand M65.342 Trigger finger location: ring finger Rhinosinusitis J32.9 Additional Codes PHQ-9 - 39485 - PHQ-9 Billing: Yes ([id number]) RACHNA-7 Assessment Billing - RACHNA-7 Assessment Tool: RACHNA-7 Assessment 69857 ([id number]) Time Spent (min) 39 Assessment & Plan Assessment & Plan (1) PVD (peripheral vascular disease): Code(s): I73.9 - Peripheral vascular disease, unspecified Category: Medical Plan: Continue aspirin 81 mg daily Continue rosuvastatin 40 mg Continue cilostazol 50 mg BID Encouraged smoking cessation (2) Essential hypertension: Code(s): I10 - Essential (primary) hypertension Category: Medical Plan: Encouraged DASH diet and activity as tolerated-goal systolic is less than 130 mmhg Refrain from alcohol use and if you smoke, smoking cessation is strongly advised Continue losartan 100 mg daily (3) Pure hypercholesterolemia: Code(s): E78.00 - Pure hypercholesterolemia, unspecified Category: Medical Plan: LDL within goal, HDL 35 -goal above 40 Discussed lifestyle modifications including dietary changes and physical activity Continue Rosuvastatin 40 mg daily and started taking omega-3 supplements We will recheck lipid panel in 4 months (4) Type 2 diabetes mellitus with other diabetic kidney complication: Code(s): E11.29 - Type 2 diabetes mellitus with other diabetic kidney complication Category: Medical Plan: A1c 7.5% down from 7.9% in November Reinforced low sugar/carbohydrate diet Continue metformin ER 1000 mg b.i.d., NovoLog FlexPen per sliding scale and Lantus Solostar 40 q.p.m., and Ozempic 2 mg q.week (5) COPD (chronic obstructive pulmonary disease): Code(s): J44.9 - Chronic obstructive pulmonary disease, unspecified Category: Medical Qualifiers: COPD type: unspecified COPD Qualified Code(s): J44.9 - Chronic obstructive pulmonary disease, unspecified Plan: Chronic mild dyspnea with exertion-no exacerbation Encouraged smoking cessation Continue albuterol sulfate 2.5 mg via neb q.4- 6 H p.r.n., ipratropium bromide intranasally at bedtime, ipratropium-albuterol 20-100 mcg/actuation 1 puff inhalation q.6 hours (6) Nicotine dependence, cigarettes, uncomplicated: Comment: (>30pyh) Code(s): F17.210 - Nicotine dependence, cigarettes, uncomplicated Category: Medical Plan: Encouraged smoking cessation (7) Benign prostatic hyperplasia with lower urinary tract symptoms: Code(s): N40.1 - Benign prostatic hyperplasia with lower urinary tract symptoms Category: Medical Qualifiers: Lower urinary tract symptom detail: urinary frequency Qualified Code(s): N40.1 - Benign prostatic hyperplasia with lower urinary tract symptoms; R35.0 - Frequency of micturition Plan: Had a FISH Bladder Ca test done in February 2023 that came out negative Continue oxybutynin chloride ER 15 mg daily-reports improvement Follow up with Urology as scheduled (8) Vitamin D deficiency: Code(s): E55.9 - Vitamin D deficiency, unspecified Category: Medical Plan: Continue cholecalciferol 50 mcg daily (9) Obesity (BMI 30-39.9): Code(s): E66.9 - Obesity, unspecified Category: Medical Plan: Encouraged to exercise for at least 30 minutes a day/5 days a week Healthy eating discussed. Encouraged to eat fruits/vegetables, protein-fish/baked chicken, and to avoid salty/fried foods, sweets, caffeine and carbohydrates. Encouraged to increase water intake 6-8 glasses a day (10) Major depressive disorder, recurrent, unspecified: Code(s): F33.9 - Major depressive disorder, recurrent, unspecified Category: Medical Qualifiers: Active/Remission status: currently active Major depression episode severity: moderate Qualified Code(s): F33.1 - Major depressive disorder, recurrent, moderate Plan: Encouraged CBT Continue paroxetine HCI 40 mg daily Denies SI/HI (11) Anxiety: Code(s): F41.9 - Anxiety disorder, unspecified Category: Medical Plan: Encouraged CBT Continue paroxetine a HCI 40 mg daily, clonazepam 0.5 mg daily p.r.n. Denies SI/HI (12) Osteoarthritis of right knee: Code(s): M17.11 - Unilateral primary osteoarthritis, right knee Category: Medical Qualifiers: Osteoarthritis type: primary Qualified Code(s): M17.11 - Unilateral primary osteoarthritis, right knee Plan: Reports gel shots to arthritic right knee last week with positive effects. Two weeks prior he received a cortisone shot in the same knee while waiting for pre authorization for the gel shot. He denies back pain Follow up with Orthopedics as scheduled (13) Trigger finger of left hand: Code(s): M65.30 - Trigger finger, unspecified finger Category: Medical Qualifiers: Trigger finger location: ring finger Qualified Code(s): M65.342 - Trigger finger, left ring finger Plan: Left ring finger, he has been getting trigger finger, mostly the even reports having carpal tunnel procedure done before. States that he mention the trigger finger of his left ring finger to orthopedic's, and they told him to continue monitoring it, and if this becomes bothersome, they will refer him to the hand specialist Follow up with Orthopedics as scheduled (14) Rhinosinusitis: Code(s): J32.9 - Chronic sinusitis, unspecified Category: Medical Plan: Turbinates boggy and erythematous, and associated wit difficulty breathing through his nose We will order the patient a Z-Jack and Flonase b.i.d. p.r.n. Encouraged Smoking cessation Maintain adequate fluid hydration Orders: Orders Comprehensive Palmer. Panel Fast 4 Months E11.29 - Type 2 diabetes mellitus with other diabetic kidney complication, E55.9 - Vitamin D deficiency, unspecified, E66.9 - Obesity, unspecified, E78.00 - Pure hypercholesterolemia, unspecified, F33.1 - Major depressive disorder, recurrent, moderate, F41.9 - Anxiety disorder, unspecified, I10 - Essential (primary) hypertension, I70.1 - Atherosclerosis of renal artery, I73.9 - Peripheral vascular disease, unspecified, J44.9 - Chronic obstructive pulmonary disease, unspecified, M54.50 - Low back pain, unspecified, N40.1 - Benign prostatic hyperplasia with lower urinary tract symptoms, R35.0 - Frequency of micturition, R79.89 - Other specified abnormal findings of blood chemistry Vitamin D 25-OH Total 4 Months E11.29 - Type 2 diabetes mellitus with other diabetic kidney complication, E55.9 - Vitamin D deficiency, unspecified, E66.9 - Obesity, unspecified, E78.00 - Pure hypercholesterolemia, unspecified, F33.1 - Major depressive disorder, recurrent, moderate, F41.9 - Anxiety disorder, unspecified, I10 - Essential (primary) hypertension, I70.1 - Atherosclerosis of renal artery, I73.9 - Peripheral vascular disease, unspecified, J44.9 - Chronic obstructive pulmonary disease, unspecified, M54.50 - Low back pain, unspecified, N40.1 - Benign prostatic hyperplasia with lower urinary tract symptoms, R35.0 - Frequency of micturition, R79.89 - Other specified abnormal findings of blood chemistry Hemoglobin A1c 4 Months E11.29 - Type 2 diabetes mellitus with other diabetic kidney complication, E55.9 - Vitamin D deficiency, unspecified, E66.9 - Obesity, unspecified, E78.00 - Pure hypercholesterolemia, unspecified, F33.1 - Major depressive disorder, recurrent, moderate, F41.9 - Anxiety disorder, unspecified, I10 - Essential (primary) hypertension, I70.1 - Atherosclerosis of renal artery, I73.9 - Peripheral vascular disease, unspecified, J44.9 - Chronic obstructive pulmonary disease, unspecified, M54.50 - Low back pain, unspecified, N40.1 - Benign prostatic hyperplasia with lower urinary tract symptoms, R35.0 - Frequency of micturition, R79.89 - Other specified abnormal findings of blood chemistry Microalbumin, Random (w Creat) 4 Months E11.29 - Type 2 diabetes mellitus with other diabetic kidney complication, E55.9 - Vitamin D deficiency, unspecified, E66.9 - Obesity, unspecified, E78.00 - Pure hypercholesterolemia, unspecified, F33.1 - Major depressive disorder, recurrent, moderate, F41.9 - Anxiety disorder, unspecified, I10 - Essential (primary) hypertension, I70.1 - Atherosclerosis of renal artery, I73.9 - Peripheral vascular disease, unspecified, J44.9 - Chronic obstructive pulmonary disease, unspecified, M54.50 - Low back pain, unspecified, N40.1 - Benign prostatic hyperplasia with lower urinary tract symptoms, R35.0 - Frequency of micturition, R79.89 - Other specified abnormal findings of blood chemistry Complete Blood Count Auto Diff 4 Months E11.29 - Type 2 diabetes mellitus with other diabetic kidney complication, E55.9 - Vitamin D deficiency, unspecified, E66.9 - Obesity, unspecified, E78.00 - Pure hypercholesterolemia, unspecified, F33.1 - Major depressive disorder, recurrent, moderate, F41.9 - Anxiety disorder, unspecified, I10 - Essential (primary) hypertension, I70.1 - Atherosclerosis of renal artery, I73.9 - Peripheral vascular disease, unspecified, J44.9 - Chronic obstructive pulmonary disease, unspecified, M54.50 - Low back pain, unspecified, N40.1 - Benign prostatic hyperplasia with lower urinary tract symptoms, R35.0 - Frequency of micturition, R79.89 - Other specified abnormal findings of blood chemistry TSH reflex Free T4 4 Months E11.29 - Type 2 diabetes mellitus with other diabetic kidney complication, E55.9 - Vitamin D deficiency, unspecified, E66.9 - Obesity, unspecified, E78.00 - Pure hypercholesterolemia, unspecified, F33.1 - Major depressive disorder, recurrent, moderate, F41.9 - Anxiety disorder, unspecified, I10 - Essential (primary) hypertension, I70.1 - Atherosclerosis of renal artery, I73.9 - Peripheral vascular disease, unspecified, J44.9 - Chronic obstructive pulmonary disease, unspecified, M54.50 - Low back pain, unspecified, N40.1 - Benign prostatic hyperplasia with lower urinary tract symptoms, R35.0 - Frequency of micturition, R79.89 - Other specified abnormal findings of blood chemistry UA CC w/rflx Micro + Cult 4 Months E11.29 - Type 2 diabetes mellitus with other diabetic kidney complication, E55.9 - Vitamin D deficiency, unspecified, E66.9 - Obesity, unspecified, E78.00 - Pure hypercholesterolemia, unspecified, F33.1 - Major depressive disorder, recurrent, moderate, F41.9 - Anxiety disorder, unspecified, I10 - Essential (primary) hypertension, I70.1 - Atherosclerosis of renal artery, I73.9 - Peripheral vascular disease, unspecified, J44.9 - Chronic obstructive pulmonary disease, unspecified, M54.50 - Low back pain, unspecified, N40.1 - Benign prostatic hyperplasia with lower urinary tract symptoms, R35.0 - Frequency of micturition, R79.89 - Other specified abnormal findings of blood chemistry Medications: New loratadine 10 mg PO DAILY PRN 30 tabs 3RF allergy symptoms fluticasone propionate 50 mcg/actuation administer into each nostril 2 sprays intranasal BID PRN 16 grams 1RF nasal congestion azithromycin For 250 mg dose pack: take 500 mg today (day 1), then 250 mg for 4 days (days 2-5) PO 6 tabs 0RF
[2025-02-25 13:59] VITALS: BP 169/90; PULSE 56; RESP 20; TEMP 36.2; O2SAT 96; BMI 33.4
[2025-02-25 14:27] VITALS: BP 138/74
--- OUTSIDE RECORDS SUMMARY | 2025-02-25 15:51 | XMS_ITS | Encounter Summary ---
Author Organization [facility] Address [address] [place] [address] Care Team Providers Care Cabinet Abrasive Sandblaster Name Role Phone Milton Magana Primary Care Provider Unavailabl e Encounter Details Date Type Department Care Team Description 07/22/2017 Release of Information Medical Records [address] [place] [id number] Abstract, Provider Social History Tobacco Use Types Packs/Day Years Used Date Smoking Tobacco: Never Assessed Sex Assigned at Date Recorded Not on file documented as of this encounter Plan of Treatment Not on file documented as of this encounter Visit Diagnoses Not on filedocumented in this encounter Care Teams Cabinet Abrasive Sandblaster Relationship Specialty Start Date End Date Milton Magana PCP - General Family Practice 07/15/17 documented as of this encounter
== END 2025-02-25 14:55 | disposition home or self-care (01) ==
LOC: HO.HMCH 13:57
PROVIDERS: PCP Internal Medicine
DX: I10 Essential (primary) hypertension (principal); E11.29 Type 2 diabetes mellitus with other diabetic kidney complication; J44.9 Chronic obstructive pulmonary disease, unspecified; F33.1 Major depressive disorder, recurrent, moderate; I73.9 Peripheral vascular disease, unspecified; E78.00 Pure hypercholesterolemia, unspecified; F17.210 Nicotine dependence, cigarettes, uncomplicated; N40.1 Benign prostatic hyperplasia with lower urinary tract symptoms; R35.0 Frequency of micturition; E55.9 Vitamin D deficiency, unspecified; E66.9 Obesity, unspecified; F41.9 Anxiety disorder, unspecified

== ENCOUNTER → 2025-02-25 13:56 | Outpatient (BNVA) | payer OTHER, SELFPAY | PROVIDERS: PCP Internal Medicine | DX: I10 Essential (primary) hypertension (principal); I73.9 Peripheral vascular disease, unspecified; E78.00 Pure hypercholesterolemia, unspecified; E11.29 Type 2 diabetes mellitus with other diabetic kidney complication; J44.9 Chronic obstructive pulmonary disease, unspecified; N40.1 Benign prostatic hyperplasia with lower urinary tract symptoms; R35.0 Frequency of micturition; E55.9 Vitamin D deficiency, unspecified; E66.9 Obesity, unspecified; Z68.33 Body mass index [BMI] 33.0-33.9, adult; F33.1 Major depressive disorder, recurrent, moderate; F41.9 Anxiety disorder, unspecified; M17.11 Unilateral primary osteoarthritis, right knee; M65.342 Trigger finger, left ring finger; J32.9 Chronic sinusitis, unspecified; F17.210 Nicotine dependence, cigarettes, uncomplicated; Z79.4 Long term (current) use of insulin; Z79.82 Long term (current) use of aspirin; Z79.84 Long term (current) use of oral hypoglycemic drugs; Z79.899 Other long term (current) drug therapy | CPT/HCPCS: 96127; 99212 ==

== ENCOUNTER 2025-03-08 12:24 | Outpatient (REF) | payer OTHER, SELFPAY ==
--- OUTSIDE RECORDS SUMMARY | 2025-03-06 11:00 | XMS_ITS | Encounter Summary ---
Author Organization [facility] Address [address] [place] [id number] Care Team Providers Care Snow Removal Supervisor Name Role Phone Brayden Sandra MD Primary Care Provider + [phone] Reason for Visit * Reason Comments DM Foot Care * Consultation (Routine) - Authorized Specialty Diagnoses / Procedures Referred By Sanjay hernandez Referred To Contact Podiatry / Orthopaedic Surgery Diagnoses Diabetic polyneuropathy associated with other specified diabetes mellitus (CMS/HCC V24, CMS/HCC V28) Corns and callosities Peripheral vascular disease, unspecified (CMS/HCC V24) Caitlyn Berg PA [address] [place] [id number] Phone: tel: Tr Aldana DPM [address] [address] Phone: tel: fax: Referral ID Status Reason Start Date Expiration Date Visits Requested Visits Authorized [id number] Authorized Specialty Services Required 12/25/2024 12/25/2025 1 1 Encounter Details Date Type Department Care Team (Late st Contact Info) Description 03/06/2025 11:00 AM EDT Consult Orthopedic Surgery - [place] [phone] [phone] Tr Aldana DPM [address] [address] Diabetic polyneuropathy associated with other specified diabetes mellitus (CMS/HCC V24, CMS/HCC V28) (Primary Dx); Arthritis of both feet; Peripheral vascular disease, unspecified (CMS/HCC V24); Corns and callosities; Dermatophytosis, nail Social History Tobacco Use Types Packs/Day Years Used Date Smoking Tobacco: Former Cigarettes Smokeless Tobacco: Never Alcohol Use Standard Drinks/Week Comments Yes 0 (1 standard drink = 0.6 oz pur e alcohol) Sex and Gender Information Value Date Recorded Sex Assigned at Not on file Legal Sex Male 11:12 PM EST Gender Identity Not on file Sexual Orientation Not on file documented as of this encounter Last Filed Vital Signs Vital Sign Reading Time Taken Comments Blood Pressure - - Pulse - - Temperature - - Respiratory Rate - - Oxygen Saturation - - Inhaled Oxygen Concentration - - Weight 105 kg (232 lb) 03/06/2025 10:59 AM EDT Height 177.8 cm (5' 10 ) 03/06/2025 10:59 AM EDT Body Mass Index 33.29 03/06/2025 10:59 AM EDT documented in this encounter Progress Notes * Tr Aldana, DALY - 03/06/2025 11:00 AM EDT Referring MD: Caitlyn Berg PA Last PCP visit: 02/10/2025 IDENTIFIER: [place] is a 69 y.o. year old male who presents for consultation. CC: Bilateral foot pain HPI: Patient presents to office today for initial diabetic foot evaluation as recommended by their primary care physician. Patient states that they have been diabetic for the past few years and has some tingling numbness of the feet bilaterally Denies any history of ulceration, or infection. Patient notes that his nails are thickened and misshapened bilateral toes Patient is wearing good supportive shoes at this time. Patient reports mild calluses that are becoming bothersome. Patient with minimal other pedal complaints at this time. Patient's FBS this AM was 177 Recent A1C is %. 7.5 ROS: GENERAL: Pt denies nausea, fever, vomiting, chills, or shortness of breath. Pt in NAD. CARDIOLOGY: pt denies chest pain, palpitations LUNGS: pt denies shortness of breath MUSCULOSKELETAL: See HPI, otherwise no joint pain or swelling, back pain, or muscle pain. SKIN: see HPI, otherwise no lesions, rash or itching NEURO: No persistent headache, weakness or numbness The remainder of the review of systems is noncontributory PAST MEDICAL HISTORY: There is no problem list on file for this patient. SOCIAL HISTORY: Social History Tobacco Use Smoking status: Former Current packs/day: 1.00 Types: Cigarettes Smokeless tobacco: Never Substance Use Topics Alcohol use: Yes ACTIVE MEDICATIONS: No outpatient medications have been marked as taking for the 03/06/25 encounter (Consult) with Tr Aldana DPM. ALLERGIES: Patient has no known allergies. PHYSICAL EXAM: Height 1.778 m (70 ), weight 105 kg (232 lb). PODIATRIC EXAMINATION: GENERAL: Patient appears well nourished, with NAD. VASCULAR: Dorsalis pedis pulses are 1/4 bilaterally and Posterior tibial pulses are 0/4 bilaterally. Capillary filling time within normal limits the digits. No pallor on elevation or rubor on dependency. Positive hair growth. Few varicosities. Denies rest pain or claudication pain. NEUROLOGICAL: Sharp/dull sensation intact, protective sensation intact on [place]. Peripheral neuropathy throughout the feet bilaterally. ORTHOPEDIC: Good muscle strength 5/5 of all flexors and extensors. Dorsi flexion of ankle ,10 degrees, plantar flexion WNL. No muscle atrophy. Arthritic changes of the midfoot bilaterally. Some curvatures of the digits which are semireducible DERMATOLOGICAL:.Calluses to the submetatarsal 1 position bilaterally. Normal skin temperature, normal skin turgor. Nails are thickened misshapened discolored x 10 with subungual debris BIOMECHANICS: STJ ROM wnl, MTJ ROM wnl, 1st MPJ ROM wnl. IMPRESSION: 1. Diabetic polyneuropathy associated with other specified diabetes mellitus (CMS/HCC V24, CMS/HCC V28) 2. Arthritis of both feet 3. Peripheral vascular disease, unspecified (CMS/HCC V24) 4. Corns and callosities 5. Dermatophytosis, nail PLAN: Pt was seen and examined, history reviewed. Patient educated on the importance of good pedal hygiene and tight blood glucose control. Patient encouraged to maintain a healthy lifestyle with a well-balanced diet. Patient should never go barefoot and wear supportive shoe gear. Patient should aim for A1c less than 7% every month. Continue with regular appointments with PMD or mcat instructor for tight medical management Patient with symptoms of arthritic changes in the pedal joints. Patient showed good understanding of etiology of arthritis. Patient is aware that conservative options include padding, over the counter products, orthotics, and shoes. Patient aware that they are other treatments available such as oral anti- inflammatories, injections, and steroid dose packs. Patient understands that these measures are conservative measures to help handle the osteoarthritic flares. Patient with known history of peripheral vascular disease including problems with swelling and withvaricosities. Patient aware of concerning factors in the lower extremity and when to contact office. We will continue to monitor soft tissue envelope. If no progression in symptoms, patient may benefit from vascular surgery evaluation. Patient with diffuse Xerosis to bilateral feet. Patient will benefit from additional moisture to feet to prevent fissures and crack which could lead to pain or even infection. Patient has moisturizers in their possession. Patient encouraged to apply lotion to lightly moistened skin to allow for better absorption. Nail debridement performed to nails 1-5 bilateral as nails were described to be causing pain and difficulty for walking while in shoegear at their previous length. They were debrided in thickness andlength, with no incident. Clinical evidence of mycosis is documented which required active treatment. Patient expressed immediate relief. Patient is to RTC in 9 weeks Tr Aldana DPM documented in this encounter Plan of Treatment Upcoming Encounters Date Type Department Care Team (Late st Contact Info) Description 06/06/2025 10:15 AM EDT Office Visit Orthopedic Surgery - [place] [address] [phone] Tr Aldana DPM [address] [address] documented as of this encounter Visit Diagnoses Diagnosis Diabetic polyneuropathy associated with other specified diabetes mellitus (CMS/HCC V24, CMS/HCC V28)- Primary Arthritis of both feet Peripheral vascular disease, unspecified (CMS/HCC V24) Peripheral vascular disease, unspecified Corns and callosities Dermatophytosis, nail Dermatophytosis of nail documented in this encounter Orders Outpatient Referral Count Last Ordered Date [facility] Ordered Date AMB REFERRAL TO ORTHOPEDIC SURGERY 1 2024 documented in this encounter Care Teams Snow Removal Supervisor Relationship Specialty Start Date End Date Brayden Sandra MD [address] [place] [phone] PCP - General Internal Medicine 12/28/24 documented as of this encounter
[2025-03-08 12:43] LABS: Total Volume 24 Hour Urine 1425 mL
[2025-03-08 13:54] LABS: Creatinine, 24Hr Urine 1.7 G/Day (1.0-2.0); Creatinine, mg/dL 117.34; Protein 24 Hr Urine 1240 mg/Day (<150); Protein mg/dL 87 mg/dL
== END 2025-03-08 12:25 | disposition home or self-care (01) ==
LOC: HO.LNP 12:24
PROVIDERS: Visit Provider Internal Medicine Nephrology
DX: I70.1 Atherosclerosis of renal artery (principal); I15.0 Renovascular hypertension; R80.9 Proteinuria, unspecified
CPT/HCPCS: 84156

== ENCOUNTER 2025-03-15 12:04 | Outpatient (AMB) | payer OTHER, SELFPAY ==
--- NOTE | 2025-03-15 12:09 | HO.NEPHOV_ITS ---
Vital Signs 03/15/25 12:10 Height 5 ft 10 in Weight 234 lb BMI 33.6 BP 128/60 Blood Pressure Location Lt brachial Position Sitting Pulse 66 Pulse Source Pulse Oximeter Pulse Oximetry (%) 95 Oxygen Delivery Method Room Air Intake Visit Reasons: Essential Hypertension-Conf Intake Note: Patient here for a follow-up. Imaging Center Manager Required: No Accompanied by: Self / Same As Patient Allergies varenicline (From [employer]) Adverse Reaction (Unknown, Verified 03/15/25 12:12) nightmares ENVIRONMENTAL Allergy (Unknown, Uncoded 02/25/25 14:23) ? RXN- ALLERGY SHOTS FOR YRS TREES AND GRASS Allergy (Unknown, Uncoded 02/25/25 14:23) Unknown Do you need a note to return to daycare/school/sports/work: No HPI Comments Details: Mr Coleman was seen for follow up for proteinuria. He has type 2 diabetes, proteinuria, history of bladder cancer, obesity, hypertension, PAD and smoking.His last A1c has gone up . He is currently on insulin as well as other medications including Ozempic but not SGLT2 i. He is on ARB which he is tolerating well. His renal functions are normal. His bladder cancer is in remission. He does not have any epistaxis, photosensitivity, skin rashes, sinusitis, edema or hematuria. His BP has been at goal. 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 COPD (chronic obstructive pulmonary disease) Nicotine dependence, cigarettes, uncomplicated Chronic sore throat Vitamin D deficiency Major depressive disorder, recurrent, unspecified Anxiety Obesity (BMI 30-39.9) Benign prostatic hyperplasia with lower urinary tract symptoms Primary 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, bilateral Holland's palsy Surgical History History of bladder surgery History of angioplasty History of colonoscopy History of esophagogastroduodenoscopy (EGD) History of nasal septoplasty History of tooth extraction Family History Father ETOH abuse Mother Obese Cancer Diabetes Brother Diabetes Other Mental health problem Substance abuse Social History Housing: Apartment Alcohol intake: current Alcohol intake frequency: holidays/special occasions only Patient Tobacco Use Status: Current everyday Tobacco user Tobacco use type: Cigarette Cigarette Packs Per Day: 1 Cigarettes Per Day: 20 e-Cigarette/Vaping Use: Never Used Second Hand Smoke Exposure: Yes service: No Current occupational status: disabled Cognitive needs: No Hearing needs: No Vision needs: Yes (Glasses) Review of Systems Const All systems reviewed & are unremarkable except as noted in HPI and below Physical Exam Vital Signs: Last Vital Signs Pulse 66 03/15/25 12:10 BP 128/60 03/15/25 12:10 Pulse Ox 95 03/15/25 12:10 Oxygen Delivery Method Room Air 03/15/25 12:10 BMI result Body Mass Index 33.6 Const General: comfortable and no acute distress Orientation/consciousness: patient oriented x3 HEENT Head: Yes normocephalic Mouth: Normal oral and palatal mucosa present Eyes EOM: EOMs intact bilaterally Neck Neck: Yes supple Resp Auscultation: clear to auscultation bilaterally Cardio Jugular venous distension: no JVD Rate: regular rate GI Palpation (GI): Soft to palpation Auscultation: normal bowel sounds General: Yes no CVA tenderness Back/Spine/Pelvis Back: no CVA tenderness Skin General skin exam: no rashes or lesions noted Neuro General: patient oriented x3 and moves all extremities Extrem General: Yes no pedal edema Results Reviewed Nephrology Results: Sodium, (135-145) 141 mmol/L 02/12/25 Potassium, (3.3-5.1) 4.2 mmol/L 02/12/25 Chloride, (96-108) 109 mmol/L H 02/12/25 Carbon Dioxide, (22-29) 24 mmol/L 02/12/25 BUN, (9-16) 15 mg/dL 02/12/25 Creatinine, (0.5-1.4) 0.98 mg/dL 02/12/25 Calcium, (8.4-10.2) 9.1 mg/dL 02/12/25 Urine Protein, (Neg-Trace) 300 (3+) mg/dL H 02/12/25 Urine Creatinine 133.52 mg/dL 02/12/25 Protein/Creatinin Ratio, (<0.2) 1.25 H 02/12/25 Renal US 08/10/24 Assessment & Plan Assessment & Plan (1) Essential hypertension: Code(s): I10 - Essential (primary) hypertension Category: Medical (2) Renal artery stenosis: Code(s): I70.1 - Atherosclerosis of renal artery Category: Medical (3) Proteinuria due to type 2 diabetes mellitus: Code(s): E11.29 - Type 2 diabetes mellitus with other diabetic kidney complication; R80.9 - Proteinuria, unspecified Category: Medical Plan Mr Coleman has diabetic nephropathy. He has DI as well. There is no other clinical or lab data yet to suspect Amyloidosis. He has diabetes for a long time with hypertension and PAD. He has H/O malignancy making membranous nephropathy in the differential, but unlikely. His serum creatinine is stable. I maging studies showed high grade focal stenosis of the proximal right renal artery. Left renal artery showed intermediate grade focal stenosis of the middle segment. He has benign appearing renal cysts.I plan to start him on SGLT2 i next time. He may need a renal biopsy if his proteinuria worsens inspite of maximizing ARB & initiating on SGLT2i. He should avoid NSAID's and keep good hydration. Further management is pending evolving data. Answered all questions. F/U given Orders: Orders Creatinine 6 Months I10 - Essential (primary) hypertension, I70.1 - Atherosclerosis of renal artery Blood Urea Nitrogen 6 Months I10 - Essential (primary) hypertension, I70.1 - Atherosclerosis of renal artery Electrolytes 6 Months I10 - Essential (primary) hypertension, I70.1 - Atherosclerosis of renal artery Protein Creatinine Ratio, Ur 6 Months I10 - Essential (primary) hypertension, I70.1 - Atherosclerosis of renal artery Coding Level of Care Code Est Pt Level 4 (93437) Diagnoses Essential hypertension I10 Renal artery stenosis I70.1 Proteinuria due to type 2 diabetes mellitus E11.29; R80.9
[2025-03-15 12:10] VITALS: BP 128/60; PULSE 66; O2SAT 95; BMI 33.6
== END 2025-03-15 12:25 | disposition home or self-care (01) ==
LOC: HO.HKA 12:04
PROVIDERS: PCP Internal Medicine; Visit Provider Internal Medicine Nephrology
DX: I10 Essential (primary) hypertension (principal); I70.1 Atherosclerosis of renal artery; E11.29 Type 2 diabetes mellitus with other diabetic kidney complication; R80.9 Proteinuria, unspecified
CPT/HCPCS: 99214

== ENCOUNTER → 2025-03-15 12:04 | Outpatient (BNVA) | payer OTHER, SELFPAY | PROVIDERS: PCP Internal Medicine; Visit Provider Internal Medicine Nephrology | DX: I10 Essential (primary) hypertension (principal); I70.1 Atherosclerosis of renal artery; E11.29 Type 2 diabetes mellitus with other diabetic kidney complication; R80.9 Proteinuria, unspecified | CPT/HCPCS: 99212 ==

== ENCOUNTER 2025-04-05 10:41 | Outpatient (AMB) | payer OTHER, SELFPAY ==
--- NOTE | 2025-04-05 10:42 | A.OFFVIS_ITS ---
Vital Signs 04/05/25 10:43 Height 5 ft 10 in Weight 238 lb 1.588 oz BMI 34.2 BP 132/66 Blood Pressure Location Rt brachial Position Sitting Pulse 66 Pulse Source Pulse Oximeter Pulse Oximetry (%) 95 Oxygen Delivery Method Room Air Intake Visit Reasons: DM Intake Note: Patient present today for Type 2 Diabetes Mellitus Last Diabetic eye exam: 04/2024 Last Podiatry Visit: 03/06/2025 Random Glucose: 271 mg/dl HgA1C: 7.5% 02/12/25 Digital Content Specialist Required: No Accompanied by: Self / Same As Patient Allergies varenicline (From [employer]) Adverse Reaction (Unknown, Verified 04/05/25 10:48) nightmares ENVIRONMENTAL Allergy (Unknown, Uncoded 04/05/25 10:48) ? RXN- ALLERGY SHOTS FOR YRS TREES AND GRASS Allergy (Unknown, Uncoded 04/05/25 10:48) Unknown Medication List - Last Reconciled 04/05/25 by Caitlyn Berg PA-C albuterol sulfate 2.5 mg (3 mL) continuous nebulization Q4-6H PRN 30 days aspirin 81 mg PO DAILY blood-glucose sensor (FreeStyle Jalyn 2 Plus Sensor device) As directed cholecalciferol (vitamin D3) 50 mcg PO DAILY 90 days cilostazol 50 mg PO BID clonazepam 0.5 mg PO DAILY PRN fluticasone propionate 50 mcg/actuation 2 sprays intranasal BID insulin aspart U-100 (Novolog FlexPen U-100 Insulin aspart) inject 10 units sq with breakfast, 10 units with lunch and 10 units with supper insulin glargine (Lantus Solostar U-100 Insulin) 44 units (0.44 mL) subcut QPM ipratropium bromide intranasal BEDTIME ipratropium-albuterol 20-100 mcg/actuation (Combivent Respimat) 1 puff inhalation Q6H loratadine 10 mg PO DAILY PRN losartan 100 mg PO DAILY metformin ER 1,000 mg (2 x 500 mg) PO BID omeprazole 20 mg PO BID oxybutynin chloride ER 15 mg PO DAILY 90 days paroxetine HCl 40 mg PO DAILY pen needle, diabetic Used to inject insulin 4 times daily unless otherwise directed by your physician. rosuvastatin 40 mg PO DAILY semaglutide (Ozempic) 2 mg (0.75 mL) subcut QWEEK HPI HPI DM: Details: Patient is a 69-year-old male with a significant past medical history of hypertension, hyperlipidemia, type 2 diabetes, insulin dependent, anxiety in bladder cancer presenting today for a follow up. Endo: His A1c last A1c was 7.5. He is currently on metformin 1000 mg twice a day, Lantus 48 units nightly, NovoLog 10 units TID, and Ozempic 2 mg weekly. hypoglycemia resolved cgm-usage 87%, average glucose 117, G mi 6.1%. 3% hyperglycemic, 93% in range,4 % hypoglycemic -correct low blood sugars with glucose tabs and watches glucose q 15 mins Most of the low blood sugars are occurring in the evening He just had an eye exam and no retinopathy. He has a fam hx of t2dm with siblings and parents. Nephro: follows with nephrololgy and the plan is to possibly start an SGLT2 at his next follow up with the possibility of a renal biopsy. CV: Blood pressure today in the office is 132/66. He is on losartan 100 mg. Compliant with Crestor 40 mg Urology: following with Dr. 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 COPD (chronic obstructive pulmonary disease) Nicotine dependence, cigarettes, uncomplicated Chronic sore throat Vitamin D deficiency Major depressive disorder, recurrent, unspecified Anxiety Obesity (BMI 30-39.9) Benign prostatic hyperplasia with lower urinary tract symptoms Primary 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, bilateral Holland's palsy Surgical History History of bladder surgery History of angioplasty History of colonoscopy History of esophagogastroduodenoscopy (EGD) History of nasal septoplasty History of tooth extraction Family History Father ETOH abuse Mother Obese Cancer Diabetes Brother Diabetes Other Mental health problem Substance abuse Social History Housing: Apartment Alcohol intake: current Alcohol intake frequency: holidays/special occasions only Patient Tobacco Use Status: Current everyday Tobacco user Tobacco use type: Cigarette Cigarette Packs Per Day: 1 Cigarettes Per Day: 20 e-Cigarette/Vaping Use: Never Used Second Hand Smoke Exposure: Yes service: No Current occupational status: disabled Cognitive needs: No Hearing needs: No Vision needs: Yes (Glasses) Physical Exam Const Orientation/consciousness: patient oriented x3 HEENT Ears: hearing grossly normal bilaterally Neck Thyroid: Thyroid normal Lymphatic: no lymphadenopathy noted Resp Auscultation: clear to auscultation bilaterally Cardio Rate: regular rate Rhythm: regular rhythm Heart sounds: S1 normal heart sound present and S2 normal heart sound present Skin General skin exam: no rashes or lesions noted Neuro General: patient oriented x3, gait normal and no focal motor deficits Results Reviewed Results Reviewed: Laboratory Tests 02/12/25 10:27 Sodium 141 Potassium 4.2 Chloride 109 H Carbon Dioxide 24 Anion Gap 12 BUN 15 Creatinine 0.98 Estimated GFR > 60 Estimat Average Glucose 169 Hemoglobin A1c % 7.5 H Calcium 9.1 Albumin 4.3 Triglycerides 118 Cholesterol 125 LDL Cholesterol, Calc 67 HDL Cholesterol 35 L Assessment & Plan Assessment & Plan (1) Type 2 diabetes mellitus with other diabetic kidney complication: Code(s): E11.29 - Type 2 diabetes mellitus with other diabetic kidney complication Category: Medical Plan: reduce lantus to 44 units reduce novolog to 10 units TID w/ meals continue ozempic 2 mg weekly and metformin 1000 mg (2) Essential hypertension: Code(s): I10 - Essential (primary) hypertension Category: Medical Plan: wnl continue current plan (3) Pure hypercholesterolemia: Code(s): E78.00 - Pure hypercholesterolemia, unspecified Category: Medical Plan: continue crestor Medications: New blood-glucose sensor (FreeStyle Jalyn 3 Plus Sensor device) Use daily As directed to monitor glucose 2 ea 5RF E08.29 - Diabetes mellitus due to underlying condition with other diabetic kidney complication, R80.9 - Proteinuria, unspecified, Z79.4 - terminal worker (current) use of insulin blood-glucose,wildlife forensic geneticist,cont (FreeStyle Jalyn 3 [place]) Use daily As directed to monitor blood glucose 1 ea 0RF E11.65 - Type 2 diabetes mellitus with hyperglycemia, Z79.4 - retirement (current) use of insulin blood sugar diagnostic (FreeStyle Lite Strips) Use daily As directed to check blood glucose 100 ea 3RF E11.29 - Type 2 diabetes mellitus with other diabetic kidney complication lancets (FreeStyle Lancets) use daily as directed to check blood glucose 100 ea 3RF E11.65 - Type 2 diabetes mellitus with hyperglycemia Changed From insulin glargine (Lantus Solostar U-100 Insulin) 48 units (0.48 mL) subcut QPM 15 mL 5RF To insulin glargine (Lantus Solostar U-100 Insulin) 44 units (0.44 mL) subcut Q PM 15 mL 5RF From insulin aspart U-100 (Novolog FlexPen U-100 Insulin aspart) inject 10 units sq with breakfast, 12 units with lunch and 10 units with supper 15 mL 3RF To insulin aspart U-100 (Novolog FlexPen U-100 Insulin aspart) inject 10 units sq with breakfast, 10 units with lunch and 10 units with supper 15 mL 3RF Coding Level of Care Code Est Pt Level 4 (00817) Diagnoses Type 2 diabetes mellitus with other diabetic kidney complication E11.29 Essential hypertension I10 Pure hypercholesterolemia E78.00
[2025-04-05 10:43] VITALS: BP 132/66; PULSE 66; O2SAT 95; BMI 34.2
[2025-04-05 10:57] LABS: Glucose, Whole Blood 271 mg/dL (60-115)
--- OUTSIDE RECORDS SUMMARY | 2025-04-05 11:11 | XMS_ITS | Clinical Summary ---
Author Organization [facility] Address [address] [place] [address] Phone Care Team Providers Care Diamond Driller Helper Name Role Phone Brayden Sandra MD Primary Care Provider Un available Allergies No known active allergies Medications aspirin 81 MG EC tablet Take 81 mg by mouth daily. Active VITAMIN D3 50 mcg (2,000 unit) capsule Take by mouth daily. 2 Active clonazePAM (KLONOPIN) 0.5 MG tablet 1 tablet nightly at bedtime. Active cilostazol (PLETAL) 50 MG tablet 1 tablet 30 minutes before or 2 hours after breakfast and dinner 2 Active ipratropium-albut Sacha (COMBIVENT RESPIMAT) 20-100 mcg/actuation Mist 1 puff as needed Active losartan (COZAAR) 50 MG tablet 1 tablet. Active metFORMIN (GLUCOPHAGE) 500 MG tablet Take 2 tablets by mouth 2 (two) times a day. Active omeprazole (PRILOSEC) 20 MG capsule TAKE 1 CAPSULE BY MOUTH TWICE A DAY 90 Active PARoxetine (PAXIL) 40 MG tablet Take 40 mg by mouth daily. Active rosuvastatin (CRESTOR) 40 MG tablet Take 1 tablet by mouth daily. Active albuterol 2.5 mg /3 mL (0.083 %) nebulizer solution Inhale 1 vial into the lungs. Active BD ULTRA-FINE MINI PEN NEEDLE 31 gauge x 12/02 NdleIndications:T ype 2 diabetes mellitus with peripheral neuropathy Use to inject insulin qid 400 each 3 3 Active LANTUS SOLOSTAR U-100 INSULIN 100 unit/mL (3 mL) InPn injection penIndications:Ty pe 2 diabetes mellitus with peripheral vascular disease Inject 46 Units under the skin nightly at bedtime. 45 mL 2 08/07/202 3 Active NOVOLOG FLEXPEN U-100 INSULIN 100 unit/mL (3 mL) flexpenIndication s:Type 2 diabetes mellitus with peripheral vascular disease 20-23 units, subcutaneously , tid AC, plus 2 units to prime pen with each dose 75 mL 3 3 Active OZEMPIC 1 mg/dose (4 mg/3 mL) subcutaneous injection penIndications:Ty pe 2 diabetes mellitus with peripheral vascular disease Inject 1 mg under the skin every 7 days. 3 mL 5 3 Active Active Problems Problem Noted Date Diagnosed Date Claudication in peripheral vascular disease 09/201703/17/2023 Overview (03/17/2023): LE stents x2 Type 2 diabetes mellitus with peripheral vascula r disease Overview (03/18/2023): Using the freestyle abdi sensor, getting from [facility]. Ophtho - [facility]. Foot exam 02/2023 Assessment & Plan (03/18/2023 5:31 PM EDT): Control good, excessive mild lows, no severe hypoglycemia. Will lower basaglar from 54 to 46 units. Continue to work on eating healthy & keeping active. To call or send in BG with problems with glycemic control. Has labs done via PCP. Up to date with ophtho. Foot & nail care good, follows with vascular. ? umalb/creat up to date? BP under reasonable control. Assessment & Plan (12/13/2022 2:46 PM EDT): Control is reasonable based upon the patient's freestyle abdi sensor download. He is frequently having episodes of hypoglycemia. He does not always feel the low and only notices them on his sensor read. Unsure if all are true lows versus compression lows. He does have some symptoms of dizziness when trulely low. He will correct then is fine. Will lower his basaglar from 58 units to 54 units. Continue to work on eating healthy and being active. To call of message through the patient gateway with any issues managing glucose control. Up to date with ophtho. Labs were done with PCP Hyperlipidemia Hypertension Chronic obstructive pulmonary disease Dysphagia Erosive esophagitis Gastroesophageal reflux disease Pulmonary nodules Type 2 diabetes mellitus with peripheral neuropa thy Assessment & Plan (09/13/2023 9:00 AM EST): Control is good based upon the patient's freestyle abdi sensor download. No frequent or severe hypoglycemia. Will maintain his regimen. Continue to work on eating healthy and being active. To call or message with any issues managing his glucose levels. Up to date with ophtho. Labs were done with PCP, will request results veneer drier feeder current use of insulin veneer drier feeder current use of oral hypoglycemic drug Long-term current use of inj ectable noninsulin antidiabetic medication Social History Tobacco Use Types Packs/Day Years Used Date Smoking Tobacco: Every Day Cigarettes 1 52.5 Started: 1972 Passive Smoke Exposure: Past Smokeless Tobacco: Never Tobacco Cessation:Ready to Q uit: Not Asked; Counseling Given: Not Answered Alcohol Use Standard Drinks/Week Comments Yes 0 (1 standard drink = 0.6 oz pur e alcohol) social Education Answer Date Recorded Are you interested in more education? Not on arnaldo e 01/14/2023 Are you concerned about learning? Not on file 01/14/2023 No 01/14/2023 No 01/14/2023 Digital Access Answer Date Recorded No 02/14/2023 No 02/14/2023 Reliable internet access at home? Not on file 02/14/2023 Device with a working camera? Not on file Sex and Gender Information Value Date Recorded Sex Assigned at Male 03/14/2023 6:46 PM EDT Legal Sex Male 9:55 PM EDT Gender Identity Male 03/14/2023 6:46 PM EDT Sexual Orientation Something else 03/14/2023 6: 46 PM EDT Last Filed Vital Signs Vital Sign Reading Time Taken Comments Blood Pressure 124/76 09/07/2023 1:22 PM EST Pulse 75 09/07/2023 1:22 PM EST Temperature 36.3 C (97.3 F) 03/17/2023 1:44 PM EDT Respiratory Rate - - Oxygen Saturation 95% 09/07/2023 1:22 PM EST Inhaled Oxygen Concentration - - Weight 103.5 kg (228 lb 3.2 oz) 09/07/2023 1:22 PM EST Height 177.4 cm (5' 9.84 ) 09/07/2023 1:22 PM ES T Body Mass Index 32.89 09/07/2023 1:22 PM EST Plan of Treatment Health Maintenance Due Date Last Done Comments CREATININE LEVEL 1955 HEMOGLOBIN A1C 1955 POTASSIUM LEVEL 1955 DEPRESSION SCREENING 1967 SMOKING Hx and SMOKELESS TOBACCO SCREENING 1968 HEPATITIS C SCREENING 1973 COLOGUARD 2000 COLONOSCOPY 2000 COLORECTAL CANCER SCREENING 2000 FIT TEST 2000 FOBT 2000 SIGMOIDOSCOPY 2000 VIRTUAL COLONOSCOPY 2000 RSV VACCINE (1 - Risk 60-74 years 1-dose series) 2015 PNEUMOCOCCAL VACCINES (50+ years) (2 of 2 - PCV) 03/18/2017 03/18/2016 ABDOMINAL AORTIC ANEURYSM (AAA) SCREENING 2020 ZOSTER VACCINES (3 of 3) 09/19/2020 07/25/2020, 12/18 DIABETIC EYE EXAM 12/13/2022 BLOOD PRESSURE 03/08/2024 09/07/2023 COVID-19 VACCINE ( season) 2024 07/05/2022, 07/17/2021, 01/11/2021, Additional history exists Adult Td,Tdap Booster 07/03/2028 07/03/2018 HEPATITIS A VACCINES Aged Out No long er eligible based on patient's age to complete this topic HIB VACCINES Aged Out No longer eligi ble based on patient's age to complete this topic MENINGOCOCCAL VACCINES (ACWY) Aged Out No longer eligible based on patient's age to complete this topic MENINGOCOCCAL VACCINES (B) Aged Out N o longer eligible based on patient's age to complete this topic Medical Devices Not on file [place] [address] [facility] MEDICARE REPLACEMENT [place] [id number] [facility] MEDICARE [facility]PLACEMENT [place] [facility] MEDICARE [facility]PLAC[facility]IC[facility] [place] [facility] MEDICARE [facility]PLAC[facility] [place] [place] [address] Care Teams Diamond Driller Helper Relationship Specialty Start Date End Date Brayden Sandra MD PCP - General Internal Medicine 12/13/22 Additional Source Comments The information contained in this document represents components of the legal health record. It is not the complete legal health record.[facility]
--- OUTSIDE RECORDS SUMMARY | 2025-04-05 11:11 | XMS_ITS | Clinical Summary ---
Author Organization [facility] Address [address] [place] [address] Phone Care Team Providers Care Bisque Kiln Placer Name Role Phone Brayden Sandra MD Primary Care Provider Allergies No known active allergies Encounters Date Type Department Care Team Description 03/06/2025 11:00 AM EDT Consult Orthopedic Surgery - [place] [address] [place] [id number] Tr Aldana, DPRamandeep Diabetic polyneuropathy associated with other specified diabetes mellitus ([facility] V24, [facility] V28) (Primary Dx); Arthritis of both feet; Peripheral vascular disease, unspecified ([facility] V24); Corns and callosities; Dermatophytosis, nail from Last 3 Months Surgical History Surgery Date Site/Laterality Comments OTHER SURGICAL HISTORY PROCEDURE: ---- OTHER ----; COMMENT: lower extremity stents x 2 Medical History Medical History Date Comments Chronic obstructive pulmonar y disease ([facility] V24, [facility] V28) 05/30/2017 DX:Chronic obstructive pulm onary disease (HCC) Hyperlipidemia 01/17/2018 DX:Hyperlipidemi a Post-nasal drip 01/17/2018 DX:Post-nasal dr ip GERD (gastroesophageal reflux disease) 01/17/2018 DX:GERD (gastroesophageal reflux disease) Claudication in peripheral v ascular disease ([facility] V24) 01/17/2018 DX:Claudication in periphera l vascular disease (HCC) Pulmonary nodules 01/17/2018 DX:Pulmonary n odules DM (diabetes mellitus), type 2 with peripheral vascular complications ([facility] V24, [facility] V28) 01/17/2018 DX:DM (diabetes mellitus), type 2 with peripheral vascular complications (HCC) Social History Tobacco Use Types Packs/Day Years Used Date Smoking Tobacco: Former Cigarettes Smokeless Tobacco: Never Alcohol Use Standard Drinks/Week Comments Yes 0 (1 standard drink = 0.6 oz pur e alcohol) Sex and Gender Information Value Date Recorded Sex Assigned at Not on file Legal Sex Male 11:12 PM EST Gender Identity Not on file Sexual Orientation Not on file Obstetrics History Last Filed Vital Signs Vital Sign Reading Time Taken Comments Blood Pressure - - Pulse - - Temperature - - Respiratory Rate - - Oxygen Saturation - - Inhaled Oxygen Concentration - - Weight 105 kg (232 lb) 03/06/2025 10:59 AM EDT Height 177.8 cm (5' 10 ) 03/06/2025 10:59 AM EDT Body Mass Index 33.29 03/06/2025 10:59 AM EDT Plan of Treatment Upcoming Encounters Date Type Department Care Team ([facility] st Contact Info) Description 06/06/2025 10:15 AM EDT Office Visit Orthopedic Surgery - [place] [id number] [phone] rT Aldana, DALY [address] [address] Health Maintenance Due Date Last Done Comments Diabetes: Annual GFR (Glomerular Filtration Rate) 1955 Diabetes: Annual Foot Exam 1965 Diabetes: Annual Retina Eye Exam 1965 Zoster Vaccines (3 of 3) 09/19/2020 07/25/2020, 12/18 COVID-19 Vaccine ( season) 2024 05/21/2024, 08/10/2023, 07/05/2022, Additional history exists Abdominal Aortic Aneurysm (AAA) Screen 12/28/2024 Cholesterol Screening (Lipid Panel) 12/28/2024 Colorectal Cancer Screening: Colonoscopy 12/28/2024 Depression Screening 12/28/2024 Diabetes: Annual Urine Albumin-Creatinine Ratio (uACR) 12/28/2024 Diabetes: Blood Sugar Control Test (HGBA1C) 12/28/2024 Falls Risk Assessment 12/28/2024 Hepatitis C Screening 12/28/2024 Medicare Annual Wellness Visit 12/28/2024 Social Influencers of Health Screening 12/28/2024 Hypertension/CHF/CAD Annual BMP Blood Test 03/06/2025 Influenza Vaccine (#1) 2025 , 05/21/2023, 07/05/2022, Additional history exists DTaP,Tdap,and Td Vaccines (2 - Td or Tdap) 07/03/2028 07/03/2018 RSV Immunization Adult Patients Completed 08/10/2023 Pneumococcal Vaccine: 50+ Years Completed 08/28/2024, 03/18/2016 HIB Vaccines Aged Out No longer eligi [...] on patient's age to complete this topic MMR Vaccines Aged Out No longer eligi ble based on patient's age to complete this topic Meningococcal ACWY Vaccine Aged Out N o longer eligible based on patient's age to complete this topic Meningococcal B Vaccine Aged Out No l onger eligible based on patient's age to complete this topic RSV Immunization Patients Under 20 months Aged Out No longer eligible based on patient's age to complete this topic Varicella Vaccines Aged Out No longer eligible based on patient's age to complete this topic Insurance [facility] MEDICARE Member Subscriber Plan / Payer (Ef fective 2024-Present) Name:RA HONG Relation to Subscriber:Self Name:Ra Hong Payer ID:[id number] Group ID:[id number] Type:Not on file Address: [place] [address] [place] [address] Care Teams Bisque Kiln Placer Relationship Specialty Start Date End Date Brayden Sandra MD [address] [place] [address] PCP - General Internal Medicine 12/28/24
--- OUTSIDE RECORDS SUMMARY | 2025-04-05 11:11 | XMS_ITS | Patient Health Record ---
Author Organization [facility] Address [address] [place] [address] Care Team Providers Care Asw Specialist Name Role Phone Brayden Sandra MD Primary Care Provider Low Velazquez Unavailable [phone] Reason For Referral No Information Medications Medication [...] Problem Status W/U Status Risk Notes Problem [id number] Encounter for screening for malignant neoplasm of colon (Z12.11) Active confirmed Problem 839690606 Gastroesophageal reflux disease, esophagitis presence not specified (K21.9) Active confirmed Problem 58229335 Oropharyngeal dysphagia (R13.12) Active confirmed Problem 630841386 Long-term use of aspirin therapy (Z79.82) Active confirmed Problem 45241870 Erosive esophagi tis (K22.10) Active confirmed Problem 04504483 Pharyngoesophage al dysphagia (R13.14) Active confirmed Problem 12778707 Dry mouth (R68.2) Active confirmed Plan Of Treatment Future Test Test Name Order Date UPPER GI ENDOSCOPY 08/17/2016 COLONOSCOPY 10/09/2019 Insurance Providers Payer Name Payer Address Payer Phone Subscriber Number Group Number Insured Name Patient Relationship to Insured Coverage Start Date Coverage End Date MEDICARE OF [place] [address] [place] [id number] BASILIA HONG Self - patient is the insured [employer] [facility] [address] [place] [address] [phone] [id number] BASILIA HONG Self - patient is the insured Medical (General) History Medical History History ICD Code Screening Colonoscopy, 2008- - hyperplastic polyp, diverticulosis, internal hemorrhoids Depression Hypertension IDDM Hyperlipidemia BPH Denies NC,CVA,,renal disease PVD--bilateral LE stents in 2013 EGD [...]
--- OUTSIDE RECORDS SUMMARY | 2025-04-05 11:11 | XMS_ITS | Encounter Summary ---
Author Organization [facility] Address [address] [place] [address] Care Team Providers Care Mechanical Project Manager Name Role Phone Unavailable Primary Care Provider Unavailabl e Reason for Visit * Reason Onset Date Comments case back from lab?? 05/12/2023 Encounter Details Date Type Department Care Team ([facility] st Contact Info) Description 05/12/[address] [facility] [address] [place] [address] Russel Romero DDS [address] [place] [address] case back from lab?? Social History Tobacco [...]
== END 2025-04-05 11:14 | disposition home or self-care (01) ==
LOC: HO.ENCR 10:41
PROVIDERS: PCP Internal Medicine; Visit Provider Physician Assistant
DX: E11.29 Type 2 diabetes mellitus with other diabetic kidney complication (principal); I10 Essential (primary) hypertension; E78.00 Pure hypercholesterolemia, unspecified

== ENCOUNTER → 2025-04-05 10:41 | Outpatient (BNVA) | payer OTHER, SELFPAY | PROVIDERS: PCP Internal Medicine; Visit Provider Physician Assistant | DX: E11.29 Type 2 diabetes mellitus with other diabetic kidney complication (principal); I10 Essential (primary) hypertension; E78.00 Pure hypercholesterolemia, unspecified; Z79.4 Long term (current) use of insulin; Z79.84 Long term (current) use of oral hypoglycemic drugs; Z79.85 Long-term (current) use of injectable non-insulin antidiabetic drugs; Z79.899 Other long term (current) drug therapy | CPT/HCPCS: 82947; 99212 ==

== ENCOUNTER 2025-05-02 08:58 | Outpatient (AMB) | payer MEDICARE, SELFPAY ==
--- NOTE | 2025-05-02 09:02 | MHC.OFFVIS ---
Intake Visit Reasons: cysto Intake Note: Patient is present for Cystoscopy Urology Med: Oxybutynin Blood Thinner: Aspirin Director Of Student Financial Services Required: No Accompanied by: Self / Same As Patient Allergies varenicline (From Chantix) Adverse Reaction (Unknown, Verified 05/02/25 09:03) nightmares ENVIRONMENTAL Allergy (Unknown, Uncoded 05/02/25 09:03) ? RXN- ALLERGY SHOTS FOR YRS TREES AND GRASS Allergy (Unknown, Uncoded 05/02/25 09:03) Unknown HPI Comments Details: Ra is a pleasant male. He is a patient of Dr. Sandra. He seems the following urologic conditions - bladder cancer - urgency frequency - lower urinary tract symptoms - prior TURP Here for yearly cystoscopy Persistent protein on UA. Is seeing Nephrology. HbA1c 6.4 - on multiple medications for diabetes control Has been on oxybutynin daily Still with some degree of urinary urgency Will add Gemtesa Cystoscopy normal TURP defect Bladder cancer low-grade bladder cancer Prior diagnosis low-grade bladder cancer Cystoscopy planned every year Associated symptoms - urinary urgency in setting of diabetes. 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 COPD (chronic obstructive pulmonary disease) Nicotine dependence, cigarettes, uncomplicated Chronic sore throat Vitamin D deficiency Major depressive disorder, recurrent, unspecified Anxiety Obesity (BMI 30-39.9) Benign prostatic hyperplasia with lower urinary tract symptoms Primary 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, bilateral Holland's palsy Surgical History History of bladder surgery History of angioplasty History of colonoscopy History of esophagogastroduodenoscopy (EGD) History of nasal septoplasty History of tooth extraction Family History Father ETOH abuse Mother Obese Cancer Diabetes Brother Diabetes Other Mental health problem Substance abuse Social History (Reviewed 04/05/25 @ 10:51 by PADMINI Box Housing: Apartment Alcohol intake: current Alcohol intake frequency: holidays/special occasions only Patient Tobacco Use Status: Current everyday Tobacco user Tobacco use type: Cigarette Cigarette Packs Per Day: 1 Cigarettes Per Day: 20 e-Cigarette/Vaping Use: Never Used Second Hand Smoke Exposure: Yes service: No Current occupational status: disabled Cognitive needs: No Hearing needs: No Vision needs: Yes (Glasses) Review of Systems Const Denies chills and Denies fever(s) Card Reports no additional complaints and Denies syncope Resp Denies cough GI Denies abdominal pain and Denies heartburn Reports as per HPI and Denies change in libido Neuro Denies syncope Psych Denies change in libido Endo Denies change in libido Physical Exam Const General: cooperative, healthy appearing, comfortable and no acute distress Orientation/consciousness: patient oriented x3 HEENT Face and sinus: Yes normal facial exam Mouth: moist mucous membranes Neck Neck: Yes normal visual inspection, Yes full ROM and Yes trachea midline Chest Chest palpation & inspection: normal inspection of the chest Resp Effort & Inspection: normal respiratory effort, able to speak in complete sentences and no respiratory distress GI Inspection: Yes normal to inspection Back/Spine/Pelvis Cervical Spine: normal cervical lordosis Thoracic/Lumbar Spine: thoracic and lumbar spine normal to inspection Skin General skin exam: no rashes or lesions noted Neuro General: patient oriented x3, gait normal, tone normal and moves all extremities Extrem General: Yes normal to inspection and Yes capillary refill normal Office Procedures Cystoscopy Consent Discussed risk and benefit or proposed procedure with the patient. Information consent for procedure given to the patient. Discussed technical aspects, risks, benefits and alternatives in full. Addressed all of the patient's questions and concerns regarding the procedure. The patient demonstrated knowledge and understanding. They wish to proceed with this procedure. Preparation The patient was prepped in the usual manner. A director broadcast was present and in the room. Genitalia was prepped with betadine solution in a sterile manner. Lidocaine Jelly 2% was placed into the urethra and 16Fr flexible Olympus cystoscope was inserted into the meatus after adequate lubrication. Procedure Cystoscopy performed using a disposable Atlas Wearablesvue digital 16 Greek cystoscope. Meatus circumcised Urethra anterior and posterior urethra normal Prostatic Urethra unremarkable - TURP defect Bladder examination with retroflexion of cystoscope Bladder Orifices normal shape and position Bladder Capacity Normal Trabeculations grade 1 Cellule Formation None Diverticulum Formation None Mucosal Erythema None Bladder Tumor None [id number] DISPOSABLE SCOPE URO-G FLEXIBLE SCOPE Procedure code (CPT) selection complete Office Meds lidocaine HCl 2 % mucosal jelly in applicator Performing Provider: Nima Jerez MD Performing Location[facility] Administered by: Celia Arias RN on 05/02/25 09:24 Dose Route Admin Location Dispensed Lot Number Expiration Date ND Arbitrator 10 mL intra-urethral 10 mL nitrofurantoin monohydrate/macrocrystals 100 mg capsule Performing Provider: Nima Jerez MD Performing Location: [facility] Administered by: Celia Arias RN on 05/02/25 09:24 Dose Route Admin Location Dispensed Lot Number Expiration Date NDC Arbitrator 100 mg PO 1 cap Results AMB Urinalysis, Automated UA Leukoctes 0 Jace/uL Last Edit by ALEXUS Lynch on 05/02/25 09:15 UA Nitrite Negative Last Edit by ALEXUS Lynch on 05/02/25 09:15 UA Urobilinogen 0.2 mg/dL Last Edit by ALEXUS Lynch on 05/02/25 09:15 UA Protein 100 mg/dL Last Edit by ALEXUS Lynch on 05/02/25 09:15 UA pH 6.0 Last Edit by ALEXUS Lynch on 05/02/25 09:15 UA Blood 25 Marcus/uL Last Edit by ALEXUS Lynch on 05/02/25 09:15 UA Specific May 1.025 Last Edit by ALEXUS Lynch on 05/02/25 09:15 UA Ketone Negative Last Edit by ALEXUS Lynch on 05/02/25 09:15 UA Bilirubin 0 mg/dL Last Edit by ALEXUS Lynch on 05/02/25 09:15 UA Glucose 0 mg/dL Last Edit by ALEXUS Lynch on 05/02/25 09:15 Results Reviewed Results Reviewed: Laboratory Last Values Urine pH (Auto) 6.0 05/02/25 09:13 Specific May (Auto) 1.025 05/02/25 09:13 Urine Protein (Auto) 100 mg/dL 05/02/25 09:13 Glucose (UA)(Auto) 0 mg/dL 05/02/25 09:13 Urine Ketones (Auto) Negative 05/02/25 09:13 Urine Blood (Auto) 25 Marcus/uL 05/02/25 09:13 Urine Nitrite (Auto) Negative 05/02/25 09:13 Urine Bilirubin (Auto) 0 mg/dL 05/02/25 09:13 Urine Urobilinogen (Auto) 0.2 mg/dL 05/02/25 09:13 Leukocyte Esterase (Auto) 0 Jace/uL 05/02/25 09:13 Assessment & Plan Assessment & Plan (1) Benign prostatic hyperplasia with lower urinary tract symptoms: Code(s): N40.1 - Benign prostatic hyperplasia with lower urinary tract symptoms Category: Medical Qualifiers: Lower urinary tract symptom detail: urinary frequency Qualified Code(s): N40.1 - Benign prostatic hyperplasia with lower urinary tract symptoms; R35.0 - Frequency of micturition (2) Bladder cancer: Comment: Low-grade Code(s): C67.9 - Malignant neoplasm of bladder, unspecified Category: Medical (3) Overactive bladder: Code(s): N32.81 - Overactive bladder Category: Medical Plan Initiate Gemtesa Three-month follow-up tele Orders: Orders AMB Urinalysis Automated Today Z13.9 - Encounter for screening, unspecified AMB Cystoscopy Today N39.0 - Urinary tract infection, site not specified Medications: New vibegron 75 mg PO DAILY 30 tabs 2RF 30 days N32.81 - Overactive bladder Patient Instructions: This note is constructed using voice recognition software. While every effort has been made to ensure accuracy event planner errors may have been included. Imaging studies, laboratory and physical exam results were discussed and reviewed in detail. No major barriers to patient understanding were identified. An opportunity to ask questions regarding the treatment plan was provided. All questions were answered. The patient expressed understanding and agreement with the above treatment plan. The patient is aware they should contact our office by phone for worsening of their current condition or the appearance of new urologic symptoms. Compliance is encouraged with any medications and followup testing that is ordered. It is a privilege to participate in the urologic care of your patient. If you have any questions or concerns regarding treatment for the above conditions, or other urologic issues, please do not hesitate to contact me. The office telephone contact is [phone]. Sincerely, Dr Nima Jerez MD, [facility] - Urology Compassionate Specialist Care for the Genitourinary System Coding Level of Care Code Est Pt Level 4 (46359) Diagnoses Benign prostatic hyperplasia with urinary frequency N40.1; R35.0 Lower urinary tract symptom detail: urinary frequency Bladder cancer C67.9 Overactive bladder N32.81 CPT Codes Cystoscopy - CPT: 36693-[id number] ([id number])
--- OUTSIDE RECORDS SUMMARY | 2025-05-02 09:24 | XMS_ITS | Encounter Summary ---
Author Organization [employer] Address [address] [place] [address] Care Team Providers Care Prosthetic Makeup Designer Name Role Phone Unavailable Primary Care Provider Unavailabl e Reason for Visit * Reason Onset Date Comments case back from lab?? 05/12/2023 Encounter Details Date Type Department Care Team ([facility] st Contact Info) Description 05/12/2023 Telephone [facility]ULT D[facility]AL [address] [place] [address] Russel Romero DDS [address] [place] [address] case back from lab?? Social History Tobacco [...]
--- OUTSIDE RECORDS SUMMARY | 2025-05-02 09:24 | XMS_ITS | Clinical Summary ---
Author Organization [facility] Address [address] [place] [address] Phone Care Team Providers Care Molder Pipe Covering Name Role Phone Brayden Sandra MD Primary Care Provider Allergies No known active allergies Encounters Date Type Department Care Team Description 03/06/2025 11:00 AM EDT Consult Orthopedic Surgery - [place] [address] [place] [id number] Tr Aldana, DALY Diabetic polyneuropathy associated with other specified diabetes mellitus ([facility] V24, [facility] V28) (Primary Dx); Arthritis of both feet; Peripheral vascular disease, unspecified ([facility] V24); Corns and callosities; Dermatophytosis, nail from Last 3 Months Surgical History Surgery Date Site/Laterality Comments OTHER SURGICAL HISTORY PROCEDURE: ---- OTHER ----; COMMENT: lower extremity stents x 2 Medical History Medical History Date Comments Chronic obstructive pulmonar y disease ([facility] V24, [facility] V28) 05/30/2017 DX:Chronic obstructive pulm onary disease ([facility]) Hyperlipidemia 01/17/2018 DX:Hyperlipidemi a Post-nasal drip 01/17/2018 DX:Post-nasal dr ip GERD (gastroesophageal reflux disease) 01/17/2018 DX:GERD (gastroesophageal reflux disease) Claudication in peripheral v ascular disease ([facility] V24) 01/17/2018 DX:Claudication in periphera l vascular disease ([facility]) Pulmonary nodules 01/17/2018 DX:Pulmonary n odules DM (diabetes mellitus), type 2 with peripheral vascular complications ([facility] V24, [facility] V28) 01/17/2018 DX:DM (diabetes mellitus), type 2 [...] AM EDT Office Visit Orthopedic Surgery - [place] [address] [id number] Tr Aldana, DALY [address] [address] Health Maintenance Due Date Last Done Comments Diabetes: Annual GFR (Glomerular Filtration Rate) 1955 Diabetes: Annual Foot Exam 1965 Diabetes: Annual Retina Eye Exam 1965 Zoster Vaccines (3 of 3) 09/19/2020 07/25/2020, 12/18 Depression Screening 09/19/2024 COVID-19 Vaccine ( season) 2024 05/21/2024, 08/10/2023, 07/05/2022, Additional history exists Abdominal Aortic Aneurysm (AAA) Screen 12/28/2024 Cholesterol Screening (Lipid Panel) 12/28/2024 Colorectal Cancer Screening: Colonoscopy 12/28/2024 Diabetes: Annual Urine Albumin-Creatinine Ratio (uACR) [...] patient's age to complete this topic Insurance [facility] MEDICARE Member Subscriber Plan / Payer (Ef fective 2024-Present) Name:RA HONG Relation to Subscriber:Self Name:Ra Hong Payer ID:[id number] Group ID:[id number] Type:Not on file Address: [place] [address] [address] [phone] Care Teams Molder Pipe Covering Relationship Specialty Start Date End Date Brayden Sandra MD PCP - General Internal Medicine 12/28/24
--- OUTSIDE RECORDS SUMMARY | 2025-05-02 09:24 | XMS_ITS | Patient Health Record ---
Author Organization [facility] Address [address] [place] [address] Care Team Providers Care Animal Shelter Manager Name Role Phone Brayden Sandra MD Primary Care Provider Low Velazquez Unavailable [phone] Reason For Referral No Information Medications Medication [...] Problem Status W/U Status Risk Notes Problem [id number] Encounter for screening for malignant neoplasm of colon (Z12.11) Active confirmed Problem 881016458 Gastroesophageal reflux disease, esophagitis presence not specified (K21.9) Active confirmed Problem 35216334 Oropharyngeal dysphagia (R13.12) Active confirmed Problem 009924185 Long-term use of aspirin therapy (Z79.82) Active confirmed Problem 54922536 Erosive esophagi tis (K22.10) Active confirmed Problem 08062299 Pharyngoesophage al dysphagia (R13.14) Active confirmed Problem 27525766 Dry mouth (R68.2) Active confirmed Plan Of Treatment Future Test Test Name Order Date UPPER GI ENDOSCOPY 08/17/2016 COLONOSCOPY 10/09/2019 Insurance Providers Payer Name Payer Address Payer Phone Subscriber Number Group Number Insured Name Patient Relationship to Insured Coverage Start Date Coverage End Date MEDICARE OF [place] [address] [place] [id number] BASILIA HONG Self - patient is the insured MEDICAID OF [facility] [address] [place] [address] [id number] BASILIA HONG Self - patient is the insured Medical (General) History Medical History History ICD Code Screening Colonoscopy, 2008- - hyperplastic polyp, diverticulosis, internal hemorrhoids Depression Hypertension IDDM Hyperlipidemia BPH Denies ND,CVA,,renal disease PVD--bilateral LE stents in 2013 EGD [...]
== END 2025-05-02 09:42 | disposition home or self-care (01) ==
LOC: HO.HUSH 09:05
PROVIDERS: PCP Internal Medicine; Visit Provider Urology
DX: N40.1 Benign prostatic hyperplasia with lower urinary tract symptoms (principal); R35.0 Frequency of micturition; C67.9 Malignant neoplasm of bladder, unspecified; N32.81 Overactive bladder; N39.0 Urinary tract infection, site not specified
CPT/HCPCS: 52000; 99214

== ENCOUNTER → 2025-05-02 08:58 | Outpatient (BNVA) | payer MEDICARE, SELFPAY | PROVIDERS: PCP Internal Medicine; Visit Provider Urology | DX: N40.1 Benign prostatic hyperplasia with lower urinary tract symptoms (principal); N39.0 Urinary tract infection, site not specified; N32.81 Overactive bladder; R35.0 Frequency of micturition; C67.9 Malignant neoplasm of bladder, unspecified | CPT/HCPCS: 52000; 81003; 99212 ==

== ENCOUNTER 2025-06-24 11:46 | Outpatient (REF) | payer OTHER, SELFPAY ==
[2025-06-24 12:06] LABS: MANUAL DIFF FLAG NO
[2025-06-24 12:32] LABS: Hematocrit 46.6 % (42.0-52.0); Hemoglobin 15.4 g/dl (14.0-18.0); Imm Gran Abs Auto 0.01 X10*3/uL (0.00-0.03); Imm Gran Pct Auto 0.2 % (0.0-0.4); Lymphocytes Absolute Auto 1.7 X10*3/uL (1.2-4.9); Mean Corpuscular HGB Conc 33.0 g/dl (31.0-36.0); Mean Corpuscular Hemoglobin 27.3 pg (27.0-33.0); Mean Corpuscular Volume 82.5 fL (80.0-98.0); NRBC Abs Auto 0.000 X10*3/uL (0.0-0.012); NRBC Pct Auto 0.0 /100WBC (0.0-0.2); Platelet Count 261 X10*3/uL (160-400); Red Blood Count 5.65 X10*6/uL (4.60-5.80); White Blood Count 5.8 X10*3/uL (4.8-10.8)
[2025-06-24 12:36] LABS: Appearance Urine Clear; Glucose Urine UA Negative (Negative); PH 6.0 (5.0-9.0); Specific Gravity - Urine 1.025 (1.005-1.025); UMIC TRIGGER UACC YES
[2025-06-24 12:39] LABS: Hemoglobin A1C 211.2370 umol/L
[2025-06-24 13:11] LABS: Alanine Aminotransferase 19 U/L (0-40); Albumin Level 4.6 g/dL (3.5-5.0); Alkaline Phosphatase 50 U/L (39-117); Anion Gap 11 (12-20); Aspartate Amino Transferase 18 U/L (5-37); Blood Urea Nitrogen 17 mg/dL (9-16); Calcium 9.0 mg/dL (8.4-10.2); Carbon Dioxide 26 mmol/L (22-29); Chloride 111 mmol/L (96-108); Estimated Glomerular Filt Rate > 60; Potassium 4.5 mmol/L (3.3-5.1); Sodium 143 mmol/L (135-145); Total Protein 6.8 g/dL (6.5-8.0)
[2025-06-24 13:12] LABS: Microalbum/Creatinine Ratio Ur 688.5 ug/mg cr (<30)
--- OUTSIDE RECORDS SUMMARY | 2025-06-24 14:20 | XMS_ITS | Encounter Summary ---
Author Organization [employer] Address [address] [facility] [address] [place] [address] Care Team Providers Care Employee Relations Administrator Name Role Phone Unavailable Primary Care Provider Unavailabl e Reason for Visit * Reason Onset Date Comments case back from lab?? 05/12/2023 Encounter Details Date Type Department Care Team ([facility] st Contact Info) Description 05/12/2023 Telephone [facility] ADULT DENTAL [address] [place] [address] Russel Romero DDS [address] [place] [address] case back from lab?? Social History Tobacco [...]
--- OUTSIDE RECORDS SUMMARY | 2025-06-24 14:20 | XMS_ITS | Clinical Summary ---
Author Organization [facility] Address [address] [place] [address] Phone Care Team Providers Care Escape Wheel Tooth Cutter Name Role Phone Brayden Sandra MD Primary Care Provider [phone] Allergies No known active allergies Surgical History Surgery Date Site/Laterality Comments OTHER SURGICAL HISTORY PROCEDURE: ---- OTHER ----; COMMENT: lower extremity stents x 2 Medical History Medical History Date Comments Chronic obstructive pulmonar y disease ([facility] V24, [facility] V28) 05/30/2017 DX:Chronic obstructive pulm onary disease ([facility]) Hyperlipidemia 01/17/2018 DX:Hyperlipidemi a Post-nasal drip 01/17/2018 DX:Post-nasal dr ip GERD (gastroesophageal reflux disease) 01/17/2018 DX:GERD (gastroesophageal reflux disease) Claudication in peripheral v ascular disease ([facility] V24) 01/17/2018 DX:Claudication in periphera l vascular disease ([facility]) Pulmonary nodules 01/17/2018 DX:Pulmonary n odules DM (diabetes mellitus), type 2 with peripheral vascular complications ([facility] V24, [facility] V28) 01/17/2018 DX:DM (diabetes mellitus), type 2 with peripheral vascular complications ([facility]) Social History Tobacco Use Types Packs/Day Years [...] Upcoming Encounters Date Type Department Care Team ([facility] st Contact Info) Description 09/05/2025 11:00 AM EST Office Visit Orthopedic Surgery - [place] [address] [facility] [address] [place] [phone] Tr Aldana, DALY [address] [facility] [address] [place] [address] Health Maintenance Due Date Last Done Comments Colorectal Cancer Screening: Colonoscopy 1955 Diabetes: Annual GFR (Glomerular Filtration Rate) 1955 Diabetes: Annual Foot Exam 1965 Diabetes: Annual Retina Eye Exam 1965 Zoster Vaccines (3 of 3) 09/19/2020 07/25/2020, 12/18 Depression Screening 09/19/2024 Abdominal Aortic Aneurysm (AAA) Screen 12/28/2024 Cholesterol Screening (Lipid Panel) 12/28/2024 Diabetes: Annual Urine Albumin-Creatinine Ratio (uACR) 12/28/2024 Diabetes: Blood Sugar Control Test (HGBA1C) 12/28/2024 Falls Risk Assessment 12/28/2024 Hepatitis C Screening 12/28/2024 Medicare Annual Wellness Visit 12/28/2024 Social Influencers of Health Screening 12/28/2024 Hypertension/CHF/CAD Annual BMP Blood Test 03/06/2025 COVID-19 Vaccine ( season) 2025 05/21/2024, 08/10/2023, 07/05/2022, Additional history exists Influenza Vaccine (#1) 2025 , 05/21/2023, 07/05/2022, [...] patient's age to complete this topic Insurance [employer] MEDICARE Member Subscriber Plan / Payer (Ef fective 2024-Present) Name:RA HONG Relation to Subscriber:Self Name:VirginiaJohnnyel Payer ID:[id number] Group ID:[id number] Type:Not on file Address: [place] [address] [address] [phone] Care Teams Escape Wheel Tooth Cutter Relationship Specialty Start Date End Date Brayden Sandra MD [address] [place] [address] PCP - General Internal Medicine 12/28/24
--- OUTSIDE RECORDS SUMMARY | 2025-06-24 14:20 | XMS_ITS | Clinical Summary ---
Author Organization [employer] Address [address] [facility] [address] [place] [address] Care Team Providers Care Patrol Community Service Officer Name Role Phone Unavailable Primary Care Provider Unavailabl e Allergies No known active allergies Medications albuterol (2.5 MG/3ML) 0.083% nebulizer solution Inhale 1 vial. Activ e aspirin 81 MG chewable tablet daily. Active cholecalcifero l (Vitamin D-3) 50 MCG (1999 UT) capsule Take by mouth daily. 2 [...] Tobacco Screening 05/05/2024 05/05/2023 COVID-19 Vaccine ( season) 2025 07/05/2022, 07/17/2021, 01/11/2021, Additional history exists Influenza Vaccine (#1) 2025 , 06/22/2021, 07/25/2020 DTaP/Tdap/Td Vaccines (2 - Td [...] Most Recently Relevant to Health Maintenance Insurance NIGEL Prasad [id number] DENTAL - [facility]
--- OUTSIDE RECORDS SUMMARY | 2025-06-24 14:20 | XMS_ITS | Patient Health Record ---
Author Organization [facility] Address [address] [place] [address] Care Team Providers Care It Security Analyst Name Role Phone Brayden Sandra MD Primary Care Provider Low Velazquez Unavailable [phone] Reason For Referral No Information Medications Medication [...] Problem Status W/U Status Risk Notes Problem [id number] Encounter for screening for malignant neoplasm of colon (Z12.11) Active confirmed Problem 815969575 Gastroesophageal reflux disease, esophagitis presence not specified (K21.9) Active confirmed Problem 28265507 Oropharyngeal dysphagia (R13.12) Active confirmed Problem 606420321 Long-term use of aspirin therapy (Z79.82) Active confirmed Problem 27121332 Erosive esophagi tis (K22.10) Active confirmed Problem 51847745 Pharyngoesophage al dysphagia (R13.14) Active confirmed Problem 87013809 Dry mouth (R68.2) Active confirmed Plan Of Treatment Future Test Test Name Order Date UPPER GI ENDOSCOPY 08/17/2016 COLONOSCOPY 10/09/2019 Insurance Providers Payer Name Payer Address Payer Phone Subscriber Number Group Number Insured Name Patient Relationship to Insured Coverage Start Date Coverage End Date MEDICARE OF [place] [address] [place] [address] [id number] BASILIA HONG Self - patient is the insured MEDICAID OF [facility] [address] [place] [address] [id number] BASILIA HONG Self - patient is the insured Medical (General) History Medical History History ICD Code Screening Colonoscopy, 2008- - hyperplastic polyp, diverticulosis, internal hemorrhoids Depression Hypertension IDDM Hyperlipidemia BPH Denies [place],CVA,,renal disease PVD--bilateral LE stents in 2013 EGD [...]
== END 2025-06-24 11:47 | disposition home or self-care (01) ==
LOC: HO.LAB 11:46
PROVIDERS: PCP Internal Medicine
DX: I10 Essential (primary) hypertension (principal); I70.1 Atherosclerosis of renal artery; I73.9 Peripheral vascular disease, unspecified; E11.29 Type 2 diabetes mellitus with other diabetic kidney complication; E78.00 Pure hypercholesterolemia, unspecified; E55.9 Vitamin D deficiency, unspecified; E66.9 Obesity, unspecified; J44.9 Chronic obstructive pulmonary disease, unspecified; N40.1 Benign prostatic hyperplasia with lower urinary tract symptoms; D64.9 Anemia, unspecified; M54.50 Low back pain, unspecified; F33.1 Major depressive disorder, recurrent, moderate; F41.9 Anxiety disorder, unspecified; R79.89 Other specified abnormal findings of blood chemistry; R35.0 Frequency of micturition
CPT/HCPCS: 36415; 80053; 81001; 82043; 82306; 82570; 83036; 84443; 85025

== ENCOUNTER 2025-06-28 10:42 | Outpatient (AMB) | payer OTHER, SELFPAY ==
[2025-06-28 10:43] VITALS: BP 132/78; PULSE 63; O2SAT 95; BMI 33.6
--- NOTE | 2025-06-28 10:43 | MHC.PC.OV ---
Vital Signs 06/28/25 10:43 Height 5 ft 10 in Weight 234 lb 8 oz BMI 33.6 BP 132/78 Blood Pressure Location Lt brachial Position Sitting Pulse 63 Pulse Source Pulse Oximeter Pulse Oximetry (%) 95 Oxygen Delivery Method Room Air Intake Visit Reasons: htn/hld/PVD/DM with Dr. Sandra Service Administrator Required: No Accompanied by: Self / Same As Patient Allergies varenicline (From Chantix) Adverse Reaction (Unknown, Verified 06/28/25 11:21) nightmares ENVIRONMENTAL Allergy (Unknown, Uncoded 06/28/25 11:21) ? RXN- ALLERGY SHOTS FOR YRS TREES AND GRASS Allergy (Unknown, Uncoded 06/28/25 11:21) Unknown Medication List - Last Reconciled 06/28/25 by Brayden Sandra MD albuterol sulfate 2.5 mg (3 mL) continuous nebulization Q4-6H PRN 30 days aspirin 81 mg PO DAILY blood sugar diagnostic (Cvgram.meStyle Lite Strips) Use daily As directed to check blood glucose blood-glucose sensor ([employer] Jalyn 3 Plus Sensor device) Use daily As directed to monitor glucose blood-glucose,stator connector,cont (FreeStyle Jalyn 3 [place]) Use daily As directed to monitor blood glucose cholecalciferol (vitamin D3) 50 mcg PO DAILY 90 days cilostazol 50 mg PO BID clonazepam 0.5 mg PO DAILY PRN fluticasone propionate 50 mcg/actuation 2 sprays intranasal BID insulin aspart U-100 (Novolog FlexPen U-100 Insulin aspart) inject 10 units sq with breakfast, 10 units with lunch and 10 units with supper insulin glargine (Lantus Solostar U-100 Insulin) 44 units (0.44 mL) subcut QPM ipratropium bromide intranasal BEDTIME ipratropium-albuterol 20-100 mcg/actuation (Combivent Respimat) 1 puff inhalation Q6H lancets (Cvgram.meStyle Lancets) use daily as directed to check blood glucose loratadine 10 mg PO DAILY PRN losartan 100 mg PO DAILY metformin ER 1,000 mg (2 x 500 mg) PO BID omeprazole 20 mg PO BID oxybutynin chloride ER 15 mg PO DAILY 90 days paroxetine HCl 40 mg PO DAILY pen needle, diabetic Used to inject insulin 4 times daily unless otherwise directed by your physician. rosuvastatin 40 mg PO DAILY semaglutide (Ozempic) 2 mg (0.75 mL) subcut QWEEK vibegron 75 mg PO DAILY 30 days Tobacco use date assessed: 06/28/25 Fall risk assessment: No Falls in past year Last assessed Fall Risk: 06/28/25 Dental Screening Dental Screen Date: 06/28/25 Did you have a dental visit in the last 12 months?: No Did you have a dental problem in the last 6 months where you did not have access to dental care?: No Was dental information given to patient?: No HPI htn/hld/PVD/DM with Dr. 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 COPD (chronic obstructive pulmonary disease) Nicotine dependence, cigarettes, uncomplicated Chronic sore throat Vitamin D deficiency Major depressive disorder, recurrent, unspecified Anxiety Obesity (BMI 30-39.9) Benign prostatic hyperplasia with lower urinary tract symptoms Primary 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, bilateral Holland's palsy Surgical History History of bladder surgery History of angioplasty History of colonoscopy History of esophagogastroduodenoscopy (EGD) History of nasal septoplasty History of tooth extraction Family History Father ETOH abuse Mother Obese Cancer Diabetes Brother Diabetes Other Mental health problem Substance abuse Social History Housing: Apartment Alcohol intake: current Alcohol intake frequency: holidays/special occasions only Patient Tobacco Use Status: Current everyday Tobacco user Tobacco use type: Cigarette Cigarette Packs Per Day: 1 Cigarettes Per Day: 20 e-Cigarette/Vaping Use: Never Used Second Hand Smoke Exposure: Yes service: No Current occupational status: disabled Cognitive needs: No Hearing needs: No Vision needs: Yes (Glasses) Questionnaire Thrive Questionnaire Date Thrive assessed: 02/25/25 I am a: Patient What is your living situation today?: I have a steady place to live Within the past 12 months, did the food you bought not last and you didn't have the money to get more?: Never true Within the past 12 months, did you worry whether your food would run out before you got money to buy more?: Never true Do you have trouble paying for medicines?: No Do you have trouble getting transportation to medical appointments?: No Do you have trouble paying your heating and electricity bill?: No Do you have trouble taking care of your child, family member or friend?: No Do you have trouble with day-to-day activities such as bathing, preparing meals, shopping, managing finances, etc.?: No Are you currently unemployed and looking for a job?: I choose not to answer this question Are you interested in more education?: No THRIVE Score: 0 AUDIT C Alcohol Use Questionnaire (AUDIT-C) 1. How often do you have a drink containing alcohol?: 2-4 times a month 2. How many drinks containing alcohol do you have on a typical day when you are drinking?: 1 or 2 3. How often do you have six or more drinks on one occasion?: Never Total Score: 2 Score Reviewed/Action Taken: Yes RACHNA-7 AMB Questionnaire RACHNA-7 Date RACHNA - 7 assessed: 02/25/25 Source: Developed by Drs. Low Box, Clarisa Vu, Oswald Cheney and colleagues, with an educational stephanie from [employer]. Review of Systems Const Denies chills, Denies fatigue, Denies fever(s) and Denies headache(s) ENT Denies dysphagia, Denies dizziness, Denies otalgia, Denies headache(s), Denies neck pain, Denies odynophagia and Denies sore throat Card Denies chest pain, Denies irregular heart rhythm, Denies palpitations and Denies dyspnea Resp Denies chest congestion, Denies cough and Denies dyspnea GI Denies abdominal pain, Denies constipation, Denies dysphagia, Denies heartburn, Denies diarrhea, Denies nausea, Denies odynophagia and Denies vomiting Denies difficulty urinating, Denies dysuria and Denies urinary frequency Musc Denies back pain, Reports arthralgias (in both hands, on and off), Denies neck pain and Reports stiffness (in the left hand, on and off - mostly due to trigger finger) Skin/Breast Denies rash Neuro Denies dizziness and Denies headache(s) Endo Denies fatigue and Denies palpitations Physical exam (Primary Care) Vital Signs: Last Vital Signs Pulse 63 06/28/25 10:43 BP 132/78 06/28/25 10:43 Pulse Ox 95 06/28/25 10:43 Oxygen Delivery Method Room Air 06/28/25 10:43 BMI result Body Mass Index 33.6 Tobacco/Smoking Status: Tobacco use Status Tobacco use date assessed 06/28/25 06/28/25 10:50 Patient Tobacco Use Status Current everyday Tobacco 06/28/25 10:50 Tobacco use type Cigarette 06/28/25 10:50 e-Cigarette/Vaping Use Never Used 06/28/25 10:50 Thrive Assessment: Date of Thrive Assessment Date Thrive assessed 02/25/25 06/28/25 10:50 Const General: no acute distress and alert HENMT Ears: TM's normal bilaterally and EAC's normal Throat: Yes posterior oropharynx normal and Yes tonsils normal (no TP congestion) Neck Neck: Yes supple and No lymphadenopathy Thyroid: Thyroid normal Resp Auscultation: clear to auscultation bilaterally, no rales and no wheezes Cardio Rate: regular rate Rhythm: regular rhythm Heart sounds: no murmurs GI Palpation (GI): Soft to palpation and nontender Auscultation: normal bowel sounds General: Yes no CVA tenderness Back/Spine/Pelvis Back: no CVA tenderness Thoracic/Lumbar Spine: No lumbar spinal tenderness Skin Rashes: no rashes Extrem General: Yes no clubbing, cyanosis or edema Results Reviewed Results Reviewed: Laboratory Tests 02/12/25 06/24/25 06/24/25 10:27 11:57 12:04 WBC 5.8 Hgb 15.4 Hct 46.6 Plt Count 261 Sodium 143 Potassium 4.5 Creatinine 1.01 Estimated GFR > 60 Fasting Glucose 145 H Hemoglobin A1c % 7.1 H Calcium 9.0 AST 18 ALT 19 Triglycerides 118 Cholesterol 125 LDL Cholesterol, Calc 67 HDL Cholesterol 35 L 25-OH Vitamin D Total 43.6 TSH 1.51 Ur Specific [place] 1.025 Urine Protein 300 (3+) H Urine Glucose (UA) Negative Urine Blood Trace H Urine Nitrite Negative Ur Leukocyte Esterase Negative Microalb/Creat Ratio 688.5 H Coding Level of Care Code Est Pt Level 4 (37997) Diagnoses Pure hypercholesterolemia E78.00 PVD (peripheral vascular disease) I73.9 Type 2 diabetes mellitus with other diabetic kidney complication E11.29 Proteinuria due to type 2 diabetes mellitus E11.29; R80.9 Essential hypertension I10 Chronic obstructive pulmonary disease, unspecified COPD type J44.9 COPD type: unspecified COPD Vitamin D deficiency E55.9 Elevated LFTs R79.89 Primary osteoarthritis of both hips M16.0 Primary osteoarthritis of right knee M17.11 Carpal tunnel syndrome, bilateral G56.03 Benign prostatic hyperplasia with urinary frequency N40.1; R35.0 Lower urinary tract symptom detail: urinary frequency Anxiety F41.9 Moderate episode of recurrent major depressive disorder F33.1 Active/Remission status: currently active Major depression episode severity: moderate Smoker F17.200 Obesity (BMI 30-39.9) E66.9 Assessment & Plan Assessment & Plan (1) Pure hypercholesterolemia: Code(s): E78.00 - Pure hypercholesterolemia, unspecified Category: Medical Plan: Results of his labs done a few days ago reviewed and discussed with patient but these did not include his fasting lipids Have advised patient that his cholesterol levels were at goal when they were last checked back in January 2025 Reinforced low cholesterol diet Continue Rosuvastatin 40 mg QD Will recheck his labs and fasting lipids in 6 months for follow-up (2) PVD (peripheral vascular disease): Code(s): I73.9 - Peripheral vascular disease, unspecified Category: Medical Plan: Continue Cilostazol 50 mg BID Follow up with cardiology/vascular surgery at [facility] as scheduled (3) Type 2 diabetes mellitus with other diabetic kidney complication: Code(s): E11.29 - Type 2 diabetes mellitus with other diabetic kidney complication Category: Medical Plan: His HgbA1c was at 7.1% on his labs done a few days ago (was previously at 7.5% a few months ago) - goal is <7.0% Reinforced diabetic diet Continue NovoLog 10 units 3 times a day, Lantus 44 units daily at bedtime, Metformin 500 mg 2 tablets BID and Ozempic 2 mg once a week Follow up with [facility] as scheduled (4) Proteinuria due to type 2 diabetes mellitus: Code(s): E11.29 - Type 2 diabetes mellitus with other diabetic kidney complication; R80.9 - Proteinuria, unspecified Category: Medical Plan: Stable - will continue to monitor GFR and renal function regularly (5) Essential hypertension: Code(s): I10 - Essential (primary) hypertension Category: Medical Plan: Reinforced low-sodium diet - goal is systolic BP of at least 120 to 130 mm or less Continue Losartan 100 mg QD (6) COPD (chronic obstructive pulmonary disease): Code(s): J44.9 - Chronic obstructive pulmonary disease, unspecified Category: Medical Qualifiers: COPD type: unspecified COPD Qualified Code(s): J44.9 - Chronic obstructive pulmonary disease, unspecified Plan: Controlled Continue Combivent Respimat 1 puff 4 times a day, Ventolin HFA 2 puffs every 6 hours as needed and Albuterol sulfate nebulizer PRN (7) Vitamin D deficiency: Code(s): E55.9 - Vitamin D deficiency, unspecified Category: Medical Plan: Continue Vitamin D3 2000 units QD (8) Elevated LFTs: Code(s): R79.89 - Other specified abnormal findings of blood chemistry Category: Medical Plan: Improved - his LFTs have remained normal on his recent labs Discussed again that this was most likely due to hepatosteatosis related to his weight We will continue to monitor his LFTs regularly (9) Primary osteoarthritis of both hips: Code(s): M16.0 - Bilateral primary osteoarthritis of hip Category: Medical Plan: X-rays of both hips done in March 2019 showed (+) bilateral OA changes X-rays of the left hip and lumbar spine done in February 2022 came out normal He has been experiencing increased pain over his left lumbar region that radiates into his left buttocks area at times Repeat lumbar spine x-rays done back in January 2024 revealed (+) moderate multilevel lumbar spondylosis Continue OTC topical pain patches PRN; can also take Tylenol PRN but advised to avoid all NSAIDs due to his kidneys Can consider physical therapy if he feels that his hip pains are getting worse (10) Primary osteoarthritis of right knee: Code(s): M17.11 - Unilateral primary osteoarthritis, right knee Category: Medical Plan: Patient states that he has received cortisone injections from orthopedics in the past but they did not help much S/P right knee geniculate nerve block with pain management back on 07/21/21 Follow up with orthopedics and with pain management as scheduled (11) Carpal tunnel syndrome, bilateral: Comment: EMG & NCV done at [facility] on 02/11/2021 showed (+) bilateral CTS Code(s): G56.03 - Carpal tunnel syndrome, bilateral upper limbs Category: Medical Plan: EMG and NCV done in January 2021 revealed (+) moderately severe carpal tunnel syndrome on the left and mild carpal tunnel syndrome on the right. Patient encouraged on regular use of his wrist splints to help manage his symptoms Follow up with orthopedics as scheduled (12) Benign prostatic hyperplasia with lower urinary tract symptoms: Code(s): N40.1 - Benign prostatic hyperplasia with lower urinary tract symptoms Category: Medical Qualifiers: Lower urinary tract symptom detail: urinary frequency Qualified Code(s): N40.1 - Benign prostatic hyperplasia with lower urinary tract symptoms; R35.0 - Frequency of micturition Plan: FISH Bladder Ca test done in February 2023 that came out negative Continue Gemtessa 75 mg QD to help control his urinary frequency/symptoms Follow up with urology as scheduled (13) Anxiety: Code(s): F41.9 - Anxiety disorder, unspecified Category: Medical Plan: Continue Clonazepam 0.5 mg twice a day as needed (14) Major depressive disorder, recurrent, unspecified: Code(s): F33.9 - Major depressive disorder, recurrent, unspecified Category: Medical Qualifiers: Active/Remission status: currently active Major depression episode severity: moderate Qualified Code(s): F33.1 - Major depressive disorder, recurrent, moderate Plan: Continue Paroxetine 40 mg QD Follow-up with Psychiatry as scheduled (15) Smoker: Code(s): F17.200 - Nicotine dependence, unspecified, uncomplicated Category: Social Hx Plan: Patient is counseled again on smoking cessation (16) Obesity (BMI 30-39.9): Code(s): E66.9 - Obesity, unspecified Category: Medical Plan: Reinforced diet/exercise as tolerated/lose weight Plan Follow up in 6 months Orders: Orders Complete Blood Count Auto Diff 6 Months D64.9 - Anemia, unspecified Comprehensive [place]. Panel Fast 6 Months E78.00 - Pure hypercholesterolemia, unspecified Lipid Panel 6 Months E78.00 - Pure hypercholesterolemia, unspecified Microalbumin, Random (w Creat) 6 Months E11.9 - Type 2 diabetes mellitus without complications TSH reflex Free T4 6 Months E78.00 - Pure hypercholesterolemia, unspecified Vitamin D 25-OH Total 6 Months E55.9 - Vitamin D deficiency, unspecified Hemoglobin A1c 6 Months E11.9 - Type 2 diabetes mellitus without complications UA CC w/rflx Micro + Cult 6 Months R30.0 - Dysuria Vitamin B12 and Folate 6 Months E53.8 - Deficiency of other specified B group vitamins
== END 2025-06-28 11:41 | disposition home or self-care (01) ==
LOC: HO.HMCH 10:43
PROVIDERS: PCP Internal Medicine; Visit Provider Internal Medicine
DX: E78.00 Pure hypercholesterolemia, unspecified (principal); I73.9 Peripheral vascular disease, unspecified; E11.29 Type 2 diabetes mellitus with other diabetic kidney complication; R80.9 Proteinuria, unspecified; I10 Essential (primary) hypertension; J44.9 Chronic obstructive pulmonary disease, unspecified; E55.9 Vitamin D deficiency, unspecified; R79.89 Other specified abnormal findings of blood chemistry; M16.0 Bilateral primary osteoarthritis of hip; M17.11 Unilateral primary osteoarthritis, right knee; G56.03 Carpal tunnel syndrome, bilateral upper limbs; F33.1 Major depressive disorder, recurrent, moderate; N40.1 Benign prostatic hyperplasia with lower urinary tract symptoms; R35.0 Frequency of micturition; F41.9 Anxiety disorder, unspecified; F17.200 Nicotine dependence, unspecified, uncomplicated; E66.9 Obesity, unspecified

== ENCOUNTER → 2025-06-28 10:42 | Outpatient (BNVA) | payer OTHER, SELFPAY | PROVIDERS: PCP Internal Medicine; Visit Provider Internal Medicine | DX: E78.00 Pure hypercholesterolemia, unspecified (principal); I73.9 Peripheral vascular disease, unspecified; E11.29 Type 2 diabetes mellitus with other diabetic kidney complication; R80.9 Proteinuria, unspecified; I10 Essential (primary) hypertension; J44.9 Chronic obstructive pulmonary disease, unspecified; E55.9 Vitamin D deficiency, unspecified; R79.89 Other specified abnormal findings of blood chemistry; M16.0 Bilateral primary osteoarthritis of hip; M17.11 Unilateral primary osteoarthritis, right knee; G56.03 Carpal tunnel syndrome, bilateral upper limbs; N40.1 Benign prostatic hyperplasia with lower urinary tract symptoms; R35.0 Frequency of micturition; F41.9 Anxiety disorder, unspecified; F33.1 Major depressive disorder, recurrent, moderate; E66.9 Obesity, unspecified; Z68.33 Body mass index [BMI] 33.0-33.9, adult; F17.200 Nicotine dependence, unspecified, uncomplicated; Z79.4 Long term (current) use of insulin; Z79.84 Long term (current) use of oral hypoglycemic drugs; Z79.899 Other long term (current) drug therapy | CPT/HCPCS: 99212 ==

== ENCOUNTER 2025-07-19 10:26 | Outpatient (AMB) | payer OTHER, SELFPAY ==
--- NOTE | 2025-07-19 10:27 | MHC.OFFVIS ---
Vital Signs 07/19/25 10:28 Height 5 ft 10 in Weight 236 lb 1.841 oz BMI 33.9 BP 104/72 Blood Pressure Location Rt brachial Position Sitting Pulse 57 Pulse Source Pulse Oximeter Pulse Oximetry (%) 92 Oxygen Delivery Method Room Air Intake Visit Reasons: DMT2 Follow-Up Intake Note: Patient present today for Type 2 Diabetes Mellitus Last Diabetic eye exam: Last exam was about 8 months ago, not sure of the exact date. Last Podiatry Visit: Unsure of last visit but has upcoming appt on 09/05/25. Random Glucose: 143 mg/dl HgA1C: 7.1% 06/24/25 Frame Bender Required: No Accompanied by: Self / Same As Patient Allergies varenicline (From [employer]) Adverse Reaction (Unknown, Verified 07/19/25 10:38) nightmares ENVIRONMENTAL Allergy (Unknown, Uncoded 07/19/25 10:38) ? RXN- ALLERGY SHOTS FOR YRS TREES AND GRASS Allergy (Unknown, Uncoded 07/19/25 10:38) Unknown Medication List - Last Reconciled 07/19/25 by Caitlyn Berg PA-C albuterol sulfate 2.5 mg (3 mL) continuous nebulization Q4-6H PRN 30 days aspirin 81 mg PO DAILY blood sugar diagnostic (FreeStyle Lite Strips) Use daily As directed to check blood glucose blood-glucose sensor (FreeStyle Jalny 3 Plus Sensor device) Use daily As directed to monitor glucose blood-glucose,control board operator,cont (FreeStyle Jalyn 3 [place]) Use daily As directed to monitor blood glucose cholecalciferol (vitamin D3) 50 mcg PO DAILY 90 days cilostazol 50 mg PO BID clonazepam 0.5 mg PO DAILY PRN fluticasone propionate 50 mcg/actuation 2 sprays intranasal BID insulin aspart U-100 (Novolog FlexPen U-100 Insulin aspart) inject 10 units sq with breakfast, 10 units with lunch and 10 units with supper insulin glargine (Lantus Solostar U-100 Insulin) 44 units (0.44 mL) subcut QPM ipratropium bromide intranasal BEDTIME ipratropium-albuterol 20-100 mcg/actuation (Combivent Respimat) 1 puff inhalation Q6H lancets (FreeStyle Lancets) use daily as directed to check blood glucose loratadine 10 mg PO DAILY PRN losartan 100 mg PO DAILY metformin ER 1,000 mg (2 x 500 mg) PO BID omeprazole 20 mg PO BID oxybutynin chloride ER 15 mg PO DAILY 90 days paroxetine HCl 40 mg PO DAILY pen needle, diabetic Used to inject insulin 4 times daily unless otherwise directed by your physician. rosuvastatin 40 mg PO DAILY semaglutide (Ozempic) 2 mg (0.75 mL) subcut QWEEK vibegron 75 mg PO DAILY 30 days HPI HPI DMT2 Follow-Up: Details: Patient is a 70-year-old male with a significant past medical history of hypertension, hyperlipidemia, type 2 diabetes, insulin dependent, anxiety in bladder cancer presenting today for a follow up. Endo: His A1c last A1c was 7.1. He is currently on metformin 1000 mg twice a day, Lantus 44 units nightly, NovoLog 10 units TID, and Ozempic 2 mg weekly. cgm-usage 92%, average glucose 129, G mi 6.4%. 9% hyperglycemic, 91% in range, 1% hypoglycemic -He was having sensor issues with them staying on. Denies any low blood sugars. He just had an eye exam and no retinopathy. He has a fam hx of t2dm with siblings and parents. Nephro: follows with nephrololgy and the plan is to possibly start an SGLT2 at his next follow up with the possibility of a renal biopsy. CV: Blood pressure today in the office is 104/72. He is on losartan 100 mg. Compliant with Crestor 40 mg Urology: following with Dr. 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 COPD (chronic obstructive pulmonary disease) Nicotine dependence, cigarettes, uncomplicated Chronic sore throat Vitamin D deficiency Major depressive disorder, recurrent, unspecified Anxiety Obesity (BMI 30-39.9) Benign prostatic hyperplasia with lower urinary tract symptoms Primary 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, bilateral Holland's palsy Surgical History History of bladder surgery History of angioplasty History of colonoscopy History of esophagogastroduodenoscopy (EGD) History of nasal septoplasty History of tooth extraction Family History Father ETOH abuse Mother Obese Cancer Diabetes Brother Diabetes Other Mental health problem Substance abuse Social History Housing: Apartment Alcohol intake: current Alcohol intake frequency: holidays/special occasions only Patient Tobacco Use Status: Current everyday Tobacco user Tobacco use type: Cigarette Cigarette Packs Per Day: 1 Cigarettes Per Day: 20 e-Cigarette/Vaping Use: Never Used Second Hand Smoke Exposure: Yes service: No Current occupational status: disabled Cognitive needs: No Hearing needs: No Vision needs: Yes (Glasses) Physical Exam Const Orientation/consciousness: patient oriented x3 HEENT Ears: hearing grossly normal bilaterally Neck Thyroid: Thyroid normal Lymphatic: no lymphadenopathy noted Resp Auscultation: clear to auscultation bilaterally Cardio Rate: regular rate Rhythm: regular rhythm Heart sounds: S1 normal heart sound present and S2 normal heart sound present Skin General skin exam: no rashes or lesions noted Neuro General: patient oriented x3, gait normal and no focal motor deficits Results Reviewed Results Reviewed: Laboratory Tests 02/12/25 06/24/25 10:27 12:04 Creatinine 1.01 Estimated GFR > 60 Hemoglobin A1c % 7.1 H AST 18 ALT 19 Triglycerides 118 Cholesterol 125 LDL Cholesterol, Calc 67 HDL Cholesterol 35 L Assessment & Plan Assessment & Plan (1) Type 2 diabetes mellitus with other diabetic kidney complication: Code(s): E11.29 - Type 2 diabetes mellitus with other diabetic kidney complication Category: Medical Plan: continue lantus to 44 units continue novolog to 10 units TID w/ meals continue ozempic 2 mg weekly and metformin 1000 mg (2) Essential hypertension: Code(s): I10 - Essential (primary) hypertension Category: Medical Plan: wnl continue current plan Orders: Orders Hemoglobin A1c Today E11.29 - Type 2 diabetes mellitus with other diabetic kidney complication, R73.01 - Impaired fasting glucose Microalbumin, Random (w Creat) Today E11.29 - Type 2 diabetes mellitus with other diabetic kidney complication Basic Metabolic Panel Today E11.29 - Type 2 diabetes mellitus with other diabetic kidney complication Medications: New blood sugar diagnostic (FreeStyle Precision Jacob Strips) Use to monitor blood sugars up to 4x daily As directed 50 ea 5RF E11.29 - Type 2 diabetes mellitus with other diabetic kidney complication, E11.9 - Type 2 diabetes mellitus without complications, Z79.4 - middle or intermediate school principal (current) use of insulin Coding Level of Care Code Est Pt Level 4 (80286) Complex EM visit Add On G2211 Diagnoses Type 2 diabetes mellitus with other diabetic kidney complication E11.29 Essential hypertension I10
[2025-07-19 10:28] VITALS: BP 104/72; PULSE 57; O2SAT 92; BMI 33.9
[2025-07-19 10:45] LABS: Glucose, Whole Blood 143 mg/dL (60-115)
--- OUTSIDE RECORDS SUMMARY | 2025-07-19 11:50 | XMS_ITS | Clinical Summary ---
Author Organization [facility] Address [address] [place], [place] [address] Phone Care Team Providers Care Textile Machine Maintenance Mechanic Name Role Phone Brayden Sandra MD Primary Care Provider [phone] Allergies No known active allergies Medications aspirin [...] skin nightly at bedtime. 45 mL 2 3 Active NOVOLOG FLEXPEN U-100 INSULIN 100 [...] Using the freestyle abdi sensor, getting from reliable diabetes care. Ophtho - [facility]. Foot exam 02/2023 Assessment & Plan [...] were done with PCP, will request results correction current use of insulin correction current use of oral hypoglycemic drug Long-term current use of inj ectable noninsulin antidiabetic medication Social History Tobacco Use Types Packs/Day Years Used Date Smoking Tobacco: Every Day Cigarettes 1 52.8 Started: 1972 Passive Smoke Exposure: Past Smokeless [...] COLONOSCOPY 2000 RSV VACCINE (1 - Risk 50-74 years 1-dose series) 2005 PNEUMOCOCCAL VACCINES (50+ years) (2 of 2 - PCV) 03/18/2017 03/18/2016 ABDOMINAL AORTIC ANEURYSM (AAA) SCREENING 2020 ZOSTER VACCINES (3 of 3) 09/19/2020 07/25/2020, 12/18 DIABETIC EYE EXAM 12/13/2022 BLOOD PRESSURE 03/08/2024 09/07/2023 INFLUENZA VACCINE (#1) 2025 , 07/05/2022, 06/22/2021, Additional history exists COVID-19 VACCINE ( season) 2025 07/05/2022, 07/17/2021, 01/11/2021, Additional history exists Adult [...] topic Medical Devices Not on file Insurance [place] [facility]IC[facility] REPLAC[facility]PL[facility] MEDICARE REPLACEMENT [place] [id number] [facility]PL[facility] MEDICARE REPLACEMENT [place] [id number] [facility] MEDIC[facility] REPLACEMENT Care Teams Textile Machine Maintenance Mechanic Relationship Specialty Start Date End Date Brayden Sandra MD [address] [place] [address] [place] [address] PCP - General Internal Medicine 12/13/22 Additional Source Comments The information contained in this document represents components of the legal health record. It is not the complete legal health record.[facility]
--- OUTSIDE RECORDS SUMMARY | 2025-07-19 11:50 | XMS_ITS | Clinical Summary ---
Author Organization [facility] Address [address] [place] [address] Phone Care Team Providers Care Education General Manager Name Role Phone Brayden Sandra MD Primary Care Provider Allergies No known active allergies Surgical History Surgery Date Site/Laterality Comments OTHER SURGICAL HISTORY PROCEDURE: ---- OTHER ----; COMMENT: lower extremity stents x 2 Medical History Medical History Date Comments Chronic obstructive pulmonar y disease ([facility] V24, [facility] V28) 05/30/2017 DX:Chronic obstructive pulm onary disease (HCC) Hyperlipidemia 01/17/2018 DX:Hyperlipidemi a Post-nasal drip 01/17/2018 DX:Post-nasal dr ip GERD (gastroesophageal reflux disease) 01/17/2018 DX:GERD (gastroesophageal reflux disease) Claudication in peripheral v ascular disease ([facility] V24) 01/17/2018 DX:Claudication in periphera l vascular disease ([facility]) Pulmonary nodules 01/17/2018 DX:Pulmonary n odules DM (diabetes mellitus), type 2 with peripheral vascular complications ([facility] V24, [facility] V28) 01/17/2018 DX:DM (diabetes mellitus), type 2 with peripheral vascular complications ([facility]) Social History Tobacco Use Types Packs/Day [...] Care Team (Late st Contact Info) Description 09/05/2025 11:00 AM EST Office Visit Orthopedic Surgery - [place] [address] [place] [address] [place] [phone] Tr Aldana DPM [address] [place] [phone] Health Maintenance Due Date Last Done Comments [...] ID:[id number] Group ID:[id number] Type:Not on file Address: [place] [address] [address] [place] [address] Care Teams Education General Manager Relationship Specialty Start Date End Date Brayden Sandra MD [address] [place] [address] PCP - General Internal Medicine 12/28/24
--- OUTSIDE RECORDS SUMMARY | 2025-07-19 11:50 | XMS_ITS | Clinical Summary ---
Author Organization [employer] Address [address] [facility] 7t [place] [address] Care Team Providers Care Accounts Payable Processor Name Role Phone Unavailable Primary Care Provider [...] Use Screening 1967 Hepatitis C Screening 1973 Zoster Vaccines (3 of 3) 09/19/2020 07/25/2020, 12/18 Dental Oral Exam 07/10/2023 01/07/2023 Tobacco Screening 05/05/2024 05/05/2023 DTaP/Tdap/Td Vaccines (2 - Td or Tdap) 07/03/2028 07/03/2018 RSV Patients and Patients Aged 60 years or older Completed 08/10/2023 Pneumococcal Vaccine: 50+ Years Completed 08/28/2024, 03/18/2016 COVID-19 Vaccine Completed 06/12/2025, 10/2023, 08/10/2023, Additional history exists Influenza Vaccine Completed 06/12/2025, , 05/21/2023, Additional history exists HIB Vaccines Aged Out No longer eligi [...] Relevant to Health Maintenance Insurance [facility]AL - [facility] * Guarantor: Ra Coleman Account Type Relation to Patient Date of Phone Billing Address Personal/Family Self [address] [address] * Guarantor: Ra Coleman Account Type Relation to Patient Date of Phone Billing Address Personal/Family Self [address] [place] [address]
--- OUTSIDE RECORDS SUMMARY | 2025-07-19 11:50 | XMS_ITS | Encounter Summary ---
Author Organization [employer] Address [address] [facility] 7t [place] [address] Care Team Providers Care Assistant Professor Of Economics Name Role Phone Unavailable Primary Care Provider Unavailabl e Reason for Visit * Reason Onset Date Comments case back from lab?? 05/12/2023 Encounter Details Date Type Department Care Team ([facility] st Contact Info) Description 05/12/2023 Telephone [facility] ADULT D[facility]AL [address] [place] [address] Russel Romero DDS [address] [place] [address] case back from lab?? Social History Tobacco [...]
--- OUTSIDE RECORDS SUMMARY | 2025-07-19 11:50 | XMS_ITS | Patient Health Record ---
Author Organization [facility] Address [address] [place] [address] Care Team Providers Care Access Clerk Name Role Phone Brayden Sandra MD Primary Care Provider Low Velazquez Unavailable [phone] Reason For Referral No Information Medications Medication [...] 50 MG 1 tablet Orally Once a day; Duration: 30 day(s) Active Omeprazole 20 MG TAKE 1 CAPSULE BY [facility] TWICE A DAY; Duration: 90 Active oxyBUTYnin Chloride ER 15 MG 1 tablet Orally Once a day; Duration: 30 day(s) Active Basaglar KwikPen 100 UNIT/ML 60 units sub Q at hs Active Rosuvastatin Calcium 40 MG TAKE 1 TABLET BY MOUTH EVERY DAY Oral; Duration: 90 Active Immunizations Vaccine Route Administration Date Status Comme nts Influenza Unknown 05/20/2020 Administered Influenza Unknown 10/09/2019 Refused Social History Tobacco Use: Social History Observation Description Date Details (start date - stop date) Current Smoker NA - NA Tobacco Use/Smoking Question Answer Notes Patient is a current smoker How many cigarettes a day do you smoke? 11- Section Notes: 2016--quit smoking ; no sig [...] Problem Status W/U Status Risk Notes Problem Screening for malignant neoplasm of colon (294408895) Encounter for screening for malignant neoplasm of colon (Z12.11) Active confirmed Problem Gastroesophageal reflux disease (094598512) Gastroesophageal reflux disease, esophagitis presence not specified (K21.9) Active confirmed Problem Oropharyngeal dysphagia (76668904) Oropharyngeal dysphagia (R13.12) Active confirmed Problem Long-term current use of antiplatelet drug (436962165122811) Long-term use of aspirin therapy (Z79.82) Active confirmed Problem Erosive esophagitis (28755986) Erosive esophagitis (K22.10) Active confirmed Problem Dysphagia (06651131) Pharyngoesophageal dysphagia (R13.14) Active confirmed Problem Dry mouth (63661289) Dry mouth (R68.2) Active confirmed Plan Of Treatment Future Test Test Name Order Date UPPER GI ENDOSCOPY 08/17/2016 COLONOSCOPY 10/09/2019 Insurance Providers Payer Name Payer Address Payer Phone Subscriber Number Group Number Insured Name Patient Relationship to Insured Coverage Start Date Coverage End Date MEDICARE OF [place] [address] [place] [id number] BASILIA HONG Self - patient is the insured MEDICAID OF [facility] [address] [place] [address] [id number] BASILIA HONG Self - patient is the insured Medical (General) History Medical History History ICD Code Screening Colonoscopy, 2008- - hyperplastic polyp, diverticulosis, internal hemorrhoids Depression Hypertension IDDM Hyperlipidemia BPH Denies NM,CVA,,renal disease PVD--bilateral LE stents in approx 2013 EGD in 09/2016--erosive esophagitis, smal l [...]
== END 2025-07-19 10:59 | disposition home or self-care (01) ==
LOC: HO.ENCR 10:27
PROVIDERS: PCP Internal Medicine; Visit Provider Physician Assistant
DX: E11.29 Type 2 diabetes mellitus with other diabetic kidney complication (principal); I10 Essential (primary) hypertension

== ENCOUNTER → 2025-07-19 10:26 | Outpatient (BNVA) | payer OTHER, SELFPAY | PROVIDERS: PCP Internal Medicine; Visit Provider Physician Assistant | DX: E11.29 Type 2 diabetes mellitus with other diabetic kidney complication (principal); I10 Essential (primary) hypertension; E78.5 Hyperlipidemia, unspecified | CPT/HCPCS: 82947; 99212 ==

== ENCOUNTER 2025-08-02 13:58 | Outpatient (AMB) | payer MEDICARE, MEDICAID, SELFPAY ==
--- NOTE | 2025-08-02 14:01 | A.OFFVIS_ITS ---
Intake Visit Reasons: Med Review Intake Note: Patient is present for Med Review Urology Med:Oxybutynin, Gemtesa Antibiotic Allergy: Varenicline Blood Thinner: Aspirin Allergies varenicline (From Chantix) Adverse Reaction (Unknown, Verified 07/19/25 10:38) nightmares ENVIRONMENTAL Allergy (Unknown, Uncoded 07/19/25 10:38) ? RXN- ALLERGY SHOTS FOR YRS TREES AND GRASS Allergy (Unknown, Uncoded 07/19/25 10:38) Unknown HPI Comments Details: Ra is a pleasant male. He is a patient of Dr. Sandra. He seems the following urologic conditions - bladder cancer - urgency frequency - lower urinary tract symptoms - prior TURP Did not notice much benefit from addition of Gemtesa to oxybutynin We will trial 8 mg Toviaz Repeat cystoscopy with consideration for Botox HbA1c 6.4 - on multiple medications for diabetes control Cystoscopy normal TURP defect Bladder instability Urinary urge and frequency in setting of diabetes Bladder cancer low-grade bladder cancer Prior diagnosis low-grade bladder cancer Cystoscopy planned every year Associated symptoms - urinary urgency in setting of diabetes. 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 COPD (chronic obstructive pulmonary disease) Nicotine dependence, cigarettes, uncomplicated Chronic sore throat Vitamin D deficiency Major depressive disorder, recurrent, unspecified Anxiety Obesity (BMI 30-39.9) Benign prostatic hyperplasia with lower urinary tract symptoms Primary 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, bilateral Holland's palsy Surgical History History of bladder surgery History of angioplasty History of colonoscopy History of esophagogastroduodenoscopy (EGD) History of nasal septoplasty History of tooth extraction Family History Father ETOH abuse Mother Obese Cancer Diabetes Brother Diabetes Other Mental health problem Substance abuse Social History Housing: Apartment Alcohol intake: current Alcohol intake frequency: holidays/special occasions only Patient Tobacco Use Status: Current everyday Tobacco user Tobacco use type: Cigarette Cigarette Packs Per Day: 1 Cigarettes Per Day: 20 e-Cigarette/Vaping Use: Never Used Second Hand Smoke Exposure: Yes service: No Current occupational status: disabled Cognitive needs: No Hearing needs: No Vision needs: Yes (Glasses) Review of Systems Const Denies chills and Denies fever(s) Card Reports no additional complaints and Denies syncope Resp Denies cough GI Denies abdominal pain and Denies heartburn Reports as per HPI and Denies change in libido Neuro Denies syncope Psych Denies change in libido Endo Denies change in libido Physical Exam Const General: cooperative, healthy appearing, comfortable and no acute distress Orientation/consciousness: patient oriented x3 HEENT Face and sinus: Yes normal facial exam Mouth: moist mucous membranes Neck Neck: Yes normal visual inspection, Yes full ROM and Yes trachea midline Chest Chest palpation & inspection: normal inspection of the chest Resp Effort & Inspection: normal respiratory effort, able to speak in complete sentences and no respiratory distress GI Inspection: Yes normal to inspection Back/Spine/Pelvis Cervical Spine: normal cervical lordosis Thoracic/Lumbar Spine: thoracic and lumbar spine normal to inspection Skin General skin exam: no rashes or lesions noted Neuro General: patient oriented x3, gait normal, tone normal and moves all extremities Extrem General: Yes normal to inspection and Yes capillary refill normal Assessment & Plan Assessment & Plan (1) Bladder cancer: Comment: Low-grade Code(s): C67.9 - Malignant neoplasm of bladder, unspecified Category: Medical (2) Overactive bladder: Code(s): N32.81 - Overactive bladder Category: Medical Plan Trial Toviaz 8 mg Three-month follow-up check cysto Medications: New fesoterodine ER 8 mg PO DAILY 30 tabs 2RF 30 days N32.81 - Overactive bladder Discontinued vibegron Discontinued Reason: Doctor's Order 75 mg PO DAILY 30 days 30 tabs 2RF N32.81 - Overactive bladder oxybutynin chloride ER Discontinued Reason: Doctor's Order 15 mg PO DAILY 90 days 90 tabs 3RF Patient Instructions: This note is constructed using voice recognition software. While every effort has been made to ensure accuracy plating and point assembly supervisor errors may have been included. Imaging studies, laboratory and physical exam results were discussed and reviewed in detail. No major barriers to patient understanding were identified. An opportunity to ask questions regarding the treatment plan was provided. All questions were answered. The patient expressed understanding and agreement with the above treatment plan. The patient is aware they should contact our office by phone for worsening of their current condition or the appearance of new urologic symptoms. Compliance is encouraged with any medications and followup testing that is ordered. It is a privilege to participate in the urologic care of your patient. If you have any questions or concerns regarding treatment for the above conditions, or other urologic issues, please do not hesitate to contact me. The office telepho ne contact is [phone]. Sincerely, Dr Nima Jerez MD, [facility] - Urology Compassionate Specialist Care for the Genitourinary System Coding Level of Care Code Est Pt Level 4 (35111) Diagnoses Bladder cancer C67.9 Overactive bladder N32.81
--- OUTSIDE RECORDS SUMMARY | 2025-08-02 20:43 | XMS_ITS | Encounter Summary ---
Author Organization [employer] Address [address] [facility] 7t [place] [address] Care Team Providers Care Grand Jury Deputy Sheriff Name Role Phone Unavailable Primary Care Provider Unavailabl e Reason for Visit * Reason Onset Date Comments case back from lab?? 05/12/2023 Encounter Details Date Type Department Care Team ([facility] st Contact Info) Description 05/12/2023 Telephone [facility] ADULT DENTAL [address] [place] [address] Russel Rmoero DDS [address] [place] [address] case back from lab?? Social History Tobacco [...]
--- OUTSIDE RECORDS SUMMARY | 2025-08-02 20:43 | XMS_ITS | Clinical Summary ---
Author Organization [facility] Address [address] [place] [address] Phone Care Team Providers Care Rose Grading Supervisor Name Role Phone Brayden Sandra MD Primary Care Provider Allergies No known active allergies Surgical History Surgery Date Site/Laterality Comments OTHER SURGICAL HISTORY PROCEDURE: ---- OTHER ----; COMMENT: lower extremity stents x 2 Medical History Medical History Date Comments Chronic obstructive pulmonar y disease ([facility] V24, [facility] V28) 05/30/2017 DX:Chronic obstructive pulm onary disease (HCC) Hyperlipidemia 01/17/2018 DX:Hyperlipidemi a Post-nasal drip 01/17/2018 DX:Post-nasal dr ip GERD (gastroesophageal reflux disease) 01/17/2018 DX:GERD (gastroesophageal reflux disease) Claudication in peripheral v ascular disease ([facility] V24) 01/17/2018 DX:Claudication in periphera l vascular disease ([facility]) Pulmonary nodules 01/17/2018 DX:Pulmonary n odules DM (diabetes mellitus), type 2 with peripheral vascular complications ([facility] V24, [facility] V28) 01/17/2018 DX:DM (diabetes mellitus), type 2 with peripheral vascular complications ([facility]) Social History Tobacco Use Types Packs/Day Years [...] Upcoming Encounters Date Type Department Care Team ([facility] st Contact Info) Description 09/05/2025 11:00 AM EST Office Visit Orthopedic Surgery - [place] [address] [facility] [address] [place] [phone] Tr Aldana, DALY [address] [facility] [address] [place] [address] Health Maintenance Due Date Last Done Comments [...] ID:[id number] Group ID:SCO Type:Not on file Address: [place] [address] [address] [address] Care Teams Rose Grading Supervisor Relationship Specialty Start Date End Date Brayden Sandra MD [address] [place] [address] PCP - General Internal Medicine 12/28/24
--- OUTSIDE RECORDS SUMMARY | 2025-08-02 20:43 | XMS_ITS | Clinical Summary ---
Author Organization [employer] Address [address] [facility] 7[address] [place] [address] Care Team Providers Care Sales Agent Food Vending Service Name Role Phone Unavailable Primary Care Provider [...] 05/05/2024 05/05/2023 COVID-19 Vaccine ( season) 2025 06/12/2025, 05/21/2024, 08/10/2023, Additional history exists DTaP/Tdap/Td Vaccines (2 - Td or Tdap) 07/03/2028 07/03/2018 RSV Patients and Patients Aged 60 years or older Completed 08/10/2023 Pneumococcal Vaccine: 50+ Years Completed 08/28/2024, 03/18/2016 Influenza Vaccine Completed 06/12/2025, , 05/21/2023, Additional [...] Relevant to Health Maintenance Insurance [facility] - [facility]
--- OUTSIDE RECORDS SUMMARY | 2025-08-02 20:44 | XMS_ITS | Clinical Summary ---
Author Organization [facility] Address [address] [place] [address] Phone Care Team Providers Care Occupational Health Rn Name Role Phone Brayden Sandra MD Primary Care Provider [phone] Allergies No known active allergies Medications aspirin [...] getting from reliable diabetes care. Ophtho - [facility]. Foot exam 02/2023 Assessment & Plan [...] his glucose levels. Up to date with [employer]. Labs were done with PCP, will request results termite control servicer current use of insulin FPC current use of oral hypoglycemic drug Long-term current use of inj ectable noninsulin antidiabetic medication Social History Tobacco Use Types Packs/Day Years Used Date Smoking Tobacco: Every Day Cigarettes 1 52.9 Started: 1972 Passive Smoke Exposure: Past Smokeless [...] patient's age to complete this topic IPV VACCINES Aged Out No longer eligi ble based on patient's age to complete this topic MENINGOCOCCAL VACCINES (ACWY) Aged Out No longer eligible based on patient's age to complete this topic MENINGOCOCCAL VACCINES (B) Aged Out N o longer eligible based on patient's age to complete this topic Medical Devices Not on file [facility] [place] [facility] RE[facility] MEDIC[facility] REPL[facility]IC[facility] REPLACEMENT Care Teams Occupational Health Rn Relationship Specialty Start Date End Date Brayden Sandra MD [address] [place] [address] [place] [address] PCP - General Internal Medicine 12/13/22 Additional Source Comments The information contained in this document represents components of the legal health record. It is not the complete legal health record.[facility]
== END 2025-08-02 14:19 | disposition home or self-care (01) ==
LOC: HO.HUSH 13:59
PROVIDERS: PCP Internal Medicine; Visit Provider Urology
DX: C67.9 Malignant neoplasm of bladder, unspecified (principal); N32.81 Overactive bladder
CPT/HCPCS: 99214

== ENCOUNTER → 2025-08-02 13:58 | Outpatient (BNVA) | payer MEDICARE, MEDICAID, SELFPAY | PROVIDERS: PCP Internal Medicine; Visit Provider Urology | DX: N32.81 Overactive bladder (principal); C67.9 Malignant neoplasm of bladder, unspecified; Z79.82 Long term (current) use of aspirin; Z72.0 Tobacco use | CPT/HCPCS: 99212 ==